=== PATIENT | female | born 1995 | race Caucasian/White ===

== ENCOUNTER 2016-09-18 18:04 | Emergency (ER) | payer OTHER ==
[~2016-09-18] VITALS: Ht 165.1 cm; Wt 71.5 kg
[~2016-09-18 18:04] MED LIST: ALBU1AER9 INH; CHOL1000 PO; EPP3/2 INJ; OXYC10SO PO; PRLNL PO; RANI150T3 PO; TRAM-10 PO; [UNRECOGNIZED DRUG - CODE] PO
[2016-09-18 18:07] VITALS: TEMP 37.2; Ht 165.1 cm; Wt 71.5 kg
[2016-09-18] MEDS ORDERED: ONDANSETRON INJ 2 MG/ML 2 ML VIAL IV STA (18:26)
[2016-09-18] MEDS ORDERED: KETOROLAC TROMETHAMINE 30 MG/ML VIAL IV STA (18:26)
[2016-09-18] MEDS ORDERED: MoRPHine SULFATE 4 MG/ML 1 ML CARP\\VIAL IV ONE (18:30)
[2016-09-18] MEDS ORDERED: SODIUM CHLORIDE 0.9% 1000ML 1,000 ML IV ONE (18:30)
[2016-09-18 18:46] LABS: BASO % 0.3 %; BASO ABS # 0.03 K/uL (0-0.2); COMPLETE YES; EOS % 1.3 %; HEMATOCRIT 37.7 % (37-47); IG% 0.1 %; LYMPH % 16.3 %; LYMPH ABS # 1.51 K/uL (1.2-3.4); MEAN CORPUSCULAR HEMOGLOBIN 27.8 pg (25-34); MEAN PLATELET VOLUME 9.9 fL (7.4-10.4); MONO % 9.1 %; NEUT % 72.9 %; PLATELET COUNT 265 K/uL (130-400); WHITE BLOOD COUNT 9.26 K/uL (4.8-10.8)
[2016-09-18 19:04] LABS: CALCIUM 8.9 mg/dl (8.5-10.1); CREATININE 0.66 mg/dl (0.60-1.20); POTASSIUM 3.5 mmol/L (3.5-5.1)
[2016-09-18 19:06] LABS: ALB/GLOB RATIO 1.2 (0.9-2)
[2016-09-18] MEDS ORDERED: ONDA4TAB46 PO (19:06)
[2016-09-18] MEDS ORDERED: IBUP-1459 PO (19:07)
[2016-09-18 19:52] LABS: URINE APPEARANCE CLOUDY (CLEAR); URINE BILIRUBIN NEG (NEG); URINE COLOR YELLOW; URINE EPITHELIAL CELL AUTO >30 /lpf (0-5); URINE NITRITE NEG (NEG); URINE SPECIFIC GRAVITY 1.004 (1.000-1.030); UROBILINOGEN NEG (NEG); ZZUR CULT IF INDIC CLEAN CATCH YES
[2016-09-18 19:54] LABS: MANUAL MICROSCOPIC REQUIRED? NO; REVIEW REQ? NO
[2016-09-18] MEDS ORDERED: HYDROmorphone INJ 0.5 MG/0.5 ML SYR IV STA (19:58)
[2016-09-18] MEDS ORDERED: HYDROmorphone INJ 1 MG/ML SYR IV STA (21:23)
[2016-09-18] MEDS ORDERED: PROM25TA9 PO (22:28)
[2016-09-18] MEDS ORDERED: OXYC1TAB3 PO (22:28)
[2016-09-18] MEDS ORDERED: OXYCODONE IR HOME PACK PO ONE (22:30)
[2016-09-18 23:01] VITALS: BP 135/78; PULSE 72; O2SAT 99
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
== END 2016-09-18 22:50 | disposition home or self-care (01) ==
LOC: C.EDB 18:04 → C.EDA 22:50
DX: S06.0X0A Concussion without loss of consciousness, initial encounter (principal); Y04.0XXA Assault by unarmed brawl or fight, initial encounter; J45.909 Unspecified asthma, uncomplicated; M41.9 Scoliosis, unspecified; Z91.030 Bee allergy status; Z88.0 Allergy status to penicillin; Z87.01 Personal history of pneumonia (recurrent); Z82.49 Family history of ischemic heart disease and other diseases of the circulatory system

== ENCOUNTER 2017-01-02 13:01 | Emergency (ER) | payer OTHER ==
[~2017-01-02] VITALS: Ht 165.1 cm; Wt 70.1 kg
[~2017-01-02 13:01] MED LIST changes: -ALBU1AER9 INH; +IBUP-1459 PO; +ONDA4TAB46 PO; -OXYC10SO PO; +OXYC1TAB3 PO; -PRLNL PO; -RANI150T3 PO; -TRAM-10 PO; -[UNRECOGNIZED DRUG - CODE] PO
[2017-01-02 13:06] VITALS: TEMP 36.7; Ht 165.1 cm; Wt 70.1 kg
[2017-01-02] MEDS ORDERED: DiphenhydrAMINE HCL 50 MG/ML VIAL IV STA (13:22)
[2017-01-02] MEDS ORDERED: PROCHLORPERAZINE 5 MG/ML 2 ML VIAL IV STA (13:22)
[2017-01-02] MEDS ORDERED: KETOROLAC TROMETHAMINE 30 MG/ML VIAL IV STA (13:22)
[2017-01-02] MEDS ORDERED: ACET325T96 PO (13:25)
--- NOTE | 2017-01-02 13:41 | EMERGENCY ROOM VISIT NOTE ---
History First contact with patient: 13:07 Chief Complaint: NAUSEA Stated Complaint: NAUSEA & VOMITING BLOOD, MIGRAINE Nursing Triage Summary: triage note: pt reports headache since this am. pt also reports nausea and vomitting. pt reports blood in emesis. History of Present Illness The patient is a 21 year old female who presents to the Emergency Room with complaints of a headache which began the swelling. The patient states that she woke up approximately 4 hours ago with a headache. Headache has gradually worsened throughout the day. She has associated photosensitivity. She has had 2 episodes of vomiting and states that with the second episode, there was a small amount of blood in her emesis. This occurred 15 minutes ago. The patient does report a history of migraines as a teenager, but states that she "grew out of them." She reports the pain was mild this morning but has gradually worsened and become severe during the day. She states that the headache radiates across the front of her head and is worse on the left side. She took 2 Tylenol without relief. She does report a history of several head injuries, but nothing recently. She denies any recent illnesses, fevers/chills , neck pain/stiffness, numbness, weakness or confusion. She denies any abdominal pain. Review of Systems A complete 10 point review of systems was reviewed with the patient with pertinent positives and negatives as per history of present illness. All else were negative. Past Medical/Surgical History Medical Problems: (1) Asthma (2) Pneumonia (3) Scoliosis (4) Streptococcal Pharyngitis Surgical Problems: (1) History of back surgery (2) History of sinus surgery Family History Heart disease Hypertension Social History Smoking Status: Never Smoker Alcohol Use: none Drug Use: none Marital Status: single Housing Status: lives with family, other Occupation Status: employed Current/Historical Medications Scheduled Epinephrine (Epipen 2-Ángel), 1 DOSE INJ UD Ondasetron Odt (Zofran Odt), 4 MG SL Q6H Scheduled PRN Acetaminophen Tab (Tylenol), 650 MG PO UD PRN for Pain Allergies Coded Allergies: Amoxicillin (Verified Allergy, Severe, THROAT TIGHTNESS/FELT FUNNY, ) Clavulanic Acid (Verified Allergy, Severe, THROAT TIGHTNESS/FELT FUNNY, ) Penicillins (Verified Allergy, Severe, ANAPHYLAXIS, 01/02/17) BEE STING (Verified Allergy, Unknown, ANAPHYLAXIS, 01/02/17) Physical Exam Vital Signs Date Time Temp Pulse Resp B/P (MAP) Pulse Ox O2 Delivery O2 Flow Rate FiO2 01/02/17 15:10 86 20 123/71 95 01/02/17 13:06 36.7 98 18 147/79 97 Room Air Physical Exam VITALS: Vitals are noted on the nurse's note and reviewed by myself. Vital signs stable. GENERAL: This is a 21-year-old female, resting quietly in a dark room, in no acute distress, well-developed well-nourished. HEAD: Normocephalic atraumatic. EARS: External auditory canals clear, tympanic membranes pearly garcia without erythema or effusion bilaterally. EYES: Pupils equal round and reactive to light and accommodation. Conjunctivae without injection, sclerae without icterus. Extraocular movements intact. NOSE: Patent, turbinates without inflammation or discharge. MOUTH: Mucous membranes moist. Tonsils are not enlarged. Pharynx without erythema or exudate. Tongue does not deviate. NECK: Supple without nuchal rigidity. No lymphadenopathy. HEART: Regular rate and rhythm without murmurs gallops or rubs. LUNGS: Clear to auscultation bilaterally without wheezes, rales or rhonchi. ABDOMEN: Soft, nontender to palpation. MUSCULOSKELETAL: Full range of motion throughout all extremities. Strength 5/5 throughout. NEURO: Patient was alert and oriented to person place and time. Normal sensation to light and sharp touch. Deep tendon reflexes 2+ throughout. No focal neurological deficits. Normal finger to nose testing. Medical Decision & Procedures ER Provider Diagnostic Interpretation: HEAD CT NONCONTRAST Findings: The paranasal sinuses and mastoid air cells are clear. The calvarium and skull base are intact. The ventricles and sulci are within normal limits. There is no mass, hematoma, midline shift, or acute infarct. Impression: No acute intracranial abnormality. Laboratory Results 01/02/17 13:35 Red Blood Count 4.91, Mean Corpuscular Volume 83.7, Mean Corpuscular Hemoglobin 28.5, Mean Corpuscular Hemoglobin Concent 34.1, Mean Platelet Volume 10.1, Neutrophils (%) (Auto) 75.0, Lymphocytes (%) (Auto) 17.1, Monocytes (%) (Auto) 5.5, Eosinophils (%) (Auto) 1.9, Basophils (%) (Auto) 0.4, Neutrophils # (Auto) 7.52, Lymphocytes # (Auto) 1.72, Monocytes # (Auto) 0.55, Eosinophils # (Auto) 0.19, Basophils # (Auto) 0.04 01/02/17 13:35 Test 01/02/17 13:29 01/02/17 13:35 Urine Test NEG (NEG) White Blood Count 10.03 K/uL (4.8-10.8) Red Blood Count 4.91 M/uL (4.2-5.4) Hemoglobin 14.0 g/dL (12.0-16.0) Hematocrit 41.1 % (37-47) Mean Corpuscular Volume 83.7 fL (80-100) Mean Corpuscular Hemoglobin 28.5 pg (25-34) Mean Corpuscular Hemoglobin Concent 34.1 g/dl (32-36) Platelet Count 277 K/uL (130-400) Mean Platelet Volume 10.1 fL (7.4-10.4) Neutrophils (%) (Auto) 75.0 % Lymphocytes (%) (Auto) 17.1 % Monocytes (%) (Auto) 5.5 % Eosinophils (%) (Auto) 1.9 % Basophils (%) (Auto) 0.4 % Neutrophils # (Auto) 7.52 K/uL (1.4-6.5) Lymphocytes # (Auto) 1.72 K/uL (1.2-3.4) Monocytes # (Auto) 0.55 K/uL (0.11-0.59) Eosinophils # (Auto) 0.19 K/uL (0-0.5) Basophils # (Auto) 0.04 K/uL (0-0.2) RDW Standard Deviation 38.7 fL (36.4-46.3) RDW Coefficient of Variation 12.9 % (11.5-14.5) Immature Granulocyte % (Auto) 0.1 % Immature Granulocyte # (Auto) 0.01 K/uL (0.00-0.02) Anion Gap 6.0 mmol/L (3-11) Est Creatinine Clear Calc Drug Dose 135.5 ml/min Estimated GFR () 146.8 Estimated GFR (Non- 126.7 BUN/Creatinine Ratio 20.1 (10-20) Calcium Level 9.1 mg/dl (8.5-10.1) Medications Administered Medications (Trade) Dose Ordered Sig/Qi Route Start Time Stop Time Status Last Admin Dose Admin Ketorolac Tromethamine (Toradol Inj) 30 mg NOW STAT IV 01/02/17 13:22 01/02/17 13:25 DC 01/02/17 13:49 30 MG Prochlorperazine Edisylate (Compazine Inj) 10 mg NOW STAT IV 01/02/17 13:22 01/02/17 13:25 DC 01/02/17 13:49 10 MG Diphenhydramine HCl (Benadryl Inj) 25 mg NOW STAT IV 01/02/17 13:22 01/02/17 13:25 DC 01/02/17 13:49 25 MG Hydromorphone HCl (Dilaudid Inj) 1 mg NOW STAT IV 01/02/17 14:18 01/02/17 14:19 DC 01/02/17 14:28 1 MG ED Course The patient was evaluated as above. Labs were drawn and IV access was obtained. Patient was medicated with 30 mg Toradol, 10 mg Compazine, and [address] of the head was performed and read by radiology as above. Patient was reevaluated and had relief of her nausea, but still had a headache. 1 mg Dilaudid was ordered. Patient was reevaluated and stated she felt much better. She felt ready for discharge. Discharge instructions were reviewed with the patient. The patient verbalized understanding of my assessment and treatment plan and was discharged home in good condition. Medical Decision The differential diagnosis includes acute intracranial bleed, meningitis, encephalitis, mass or mass effect, sinusitis, infection, tumor, headache, temporal arteritis and carbon monoxide exposure, and migraine. The patient is a 21-year-old female who presents today complaining of severe, gradually worsening headache. The patient does have a history of migraines but has not had one for several years. She states this headache is more severe in nature than headaches she has had a recently. Therefore, further workup was ordered. Labs were unremarkable. There was no leukocytosis. CT of the head showed no acute findings. I did have a discussion with the patient and explained to her that the only way to definitively rule out a subarachnoid hemorrhage is by lumbar puncture. The patient feels much better and prefers to be discharged home. I am not highly suspicious of a subarachnoid hemorrhage, as her headache was gradual in onset and there have been no neurological findings. This does sound consistent with a migraine and I recommended that the patient follow-up with her primary care provider and possibly neurology. She was given a prescription of Zofran and instructed to continue over-the- counter medications at home as needed. She will return here for worsening headache or any other new/concerning symptoms. Based on the patient's presentation and work up, I feel the patient is stable for outpatient treatment. The patient was educated to return to the emergency department for any worsening of their current condition or new/concerning symptoms. She will follow up with her primary care provider. Medication reconciliation: I attest that I have personally reviewed the patient 's current medication list. Blood pressure screening: Patient was found to have normal blood pressure on screening and does not require follow-up. Impression Primary Impression: Headache Departure Information Dispostion Home / Self-Care Condition GOOD Prescriptions Ondasetron Odt (ZOFRAN ODT) 4 Mg Tab 4 MG SL Q6H for Nausea, #10 TAB Prov: Minnie Singh .ETTA 01/02/17 Referrals RV. Sommer MD (PCP) Patient Instructions My [facility] Additional Instructions You have been treated in the Emergency Department for a Headache. You have received pain medicine in the emergency department which impairs your ability to operate a vehicle. It is illegal for you to drive after receiving these medicines. You have been prescribed Zofran to be used for any nausea or vomiting. Take as prescribed. For pain control, you can use the following [id number] medicines (if >12 yo): - Regular strength (325mg/tab) Tylenol (acetaminophen) 2 tabs every 4-6 hours as needed. Do not exceed 12 tablets in a 24 hour period. Avoid taking more than 4 grams (4000 mg) of Tylenol per day. This includes any other sources of acetaminophen you may take on a regular basis. - Regular strength (200 mg/tab) Advil (ibuprofen) 1-2 tabs every 4-6 hours as needed. Do not exceed a dose of 3200 mg per day. You should relax in a quiet, dark place for the rest of the day. Avoid any possible triggers including: cigarette smoke, caffeine, nicotine, chocolate, wine, beer, loud noises or music, or bright lights. Follow-up with your primary care provider within 48 hours. Return to the Emergency Department if your current symptoms worsen despite treatment course outlined above, or if you develop any of the following symptoms : intractable pain despite aforementioned treatment course, visual disturbances , loss of vision, unilateral weakness or facial drooping, slurring of speech, loss of coordination, or loss of consciousness. Problem Qualifiers Primary Impression: Headache Headache type: unspecified Headache chronicity pattern: acute headache Intractability: not intractable Qualified Codes: R51 - Headache
[2017-01-02 13:53] LABS: BASO % 0.4 %; BASO ABS # 0.04 K/uL (0-0.2); COMPLETE YES; EOS % 1.9 %; HEMATOCRIT 41.1 % (37-47); IG% 0.1 %; LYMPH % 17.1 %; LYMPH ABS # 1.72 K/uL (1.2-3.4); MEAN CELL VOLUME 83.7 fL (80-100); MEAN CORPUSCULAR HEMOGLOBIN 28.5 pg (25-34); MEAN CORPUSCULAR HGB CONC 34.1 g/dl (32-36); MEAN PLATELET VOLUME 10.1 fL (7.4-10.4); MONO % 5.5 %; PLATELET COUNT 277 K/uL (130-400); RED BLOOD COUNT 4.91 M/uL (4.2-5.4); WHITE BLOOD COUNT 10.03 K/uL (4.8-10.8)
--- NOTE | 2017-01-02 14:07 | DIAGNOSTIC IMAGING REPORT ---
HEAD CT NONCONTRAST CT DOSE: 638.56 mGycm HISTORY: headache, vomiting, photosensitivity TECHNIQUE: Multiaxial CT images of the head were performed without the use of intravenous contrast. Comparison: 12/14/2015 Findings: The paranasal sinuses and mastoid air cells are clear. The calvarium and skull base are intact. The ventricles and sulci are within normal limits. There is no mass, hematoma, midline shift, or acute infarct. Impression: No acute intracranial abnormality. Electronically signed by: Eyad Myrick M.D. 01/02/2017 2:05 PM Dictated Date/Time: 01/02/2017 2:04 PM
[2017-01-02 14:12] LABS: BUN/CREATININE RATIO 20.1 (10-20); CALCIUM 9.1 mg/dl (8.5-10.1); CREATININE 0.64 mg/dl (0.60-1.20); POTASSIUM 3.6 mmol/L (3.5-5.1)
[2017-01-02] MEDS ORDERED: HYDROmorphone INJ 1 MG/ML SYR IV STA (14:18)
[2017-01-02] MEDS ORDERED: ONDA4TAB10 SL (14:52)
[2017-01-02 15:10] VITALS: BP 123/71; PULSE 86; O2SAT 95
== END 2017-01-02 15:12 | disposition home or self-care (01) ==
LOC: C.EDB 13:03
DX: R51 Headache (principal); J45.909 Unspecified asthma, uncomplicated; Z86.19 Personal history of other infectious and parasitic diseases; Z98.890 Other specified postprocedural states; Z88.0 Allergy status to penicillin; Z88.1 Allergy status to other antibiotic agents; Z88.8 Allergy status to other drugs, medicaments and biological substances; Z91.030 Bee allergy status; Z82.49 Family history of ischemic heart disease and other diseases of the circulatory system

== ENCOUNTER 2017-10-15 10:36 | Emergency (ER) | payer OTHER ==
[~2017-10-15] VITALS: Ht 165.1 cm; Wt 69.9 kg
[~2017-10-15 10:36] MED LIST changes: +ACET-1693 PO; -CHOL1000 PO; -EPP3/2 INJ; -IBUP-1459 PO; -ONDA4TAB46 PO; -OXYC1TAB3 PO
[2017-10-15 10:43] VITALS: TEMP 36.9; Ht 165.1 cm; Wt 69.9 kg
[2017-10-15] MEDS ORDERED: METHYLPREDNISOLONE 125 MG VIAL IV STA (11:08)
[2017-10-15] MEDS ORDERED: DOXY100C76 PO (11:09)
[2017-10-15] MEDS ORDERED: PRED20TA PO (11:09)
[2017-10-15] MEDS ORDERED: AMT10 PO (11:09)
[2017-10-15 11:40] LABS: BASO % 0.8 %; BASO ABS # 0.05 K/uL (0-0.2); EOS % 2.6 %; EOS ABS # 0.17 K/uL (0-0.5); HEMATOCRIT 39.5 % (37-47); HEMOGLOBIN 13.7 g/dL (12.0-16.0); IG# 0.01 K/uL (0.00-0.02); LYMPH % 33.8 %; LYMPH ABS # 2.24 K/uL (1.2-3.4); MEAN CORPUSCULAR HEMOGLOBIN 28.4 pg (25-34); MEAN CORPUSCULAR HGB CONC 34.7 g/dl (32-36); MEAN PLATELET VOLUME 9.8 fL (7.4-10.4); MONO % 12.8 %; MONO ABS # 0.85 K/uL (0.11-0.59); NEUT % 49.8 %; PLATELET COUNT 247 K/uL (130-400); RED CELL DISTRIBUTION WIDTH SD 39.5 fL (36.4-46.3); WHITE BLOOD COUNT 6.62 K/uL (4.8-10.8)
[2017-10-15 11:58] LABS: CALCIUM 9.1 mg/dl (8.5-10.1); CREATININE 0.7 mg/dl (0.60-1.20); POTASSIUM 3.1 mmol/L (3.5-5.1)
[2017-10-15] MEDS ORDERED: ALBUT/IPRATROP 3MG/0.5MG NEB 3 ML VIAL INH SCH (12:00)
--- NOTE | 2017-10-15 12:05 | DIAGNOSTIC IMAGING REPORT ---
CHEST ONE VIEW PORTABLE CLINICAL HISTORY: SOB, wheeze COMPARISON STUDY: Chest radiograph June 11, 2015. FINDINGS: Thoracolumbar spine scoliosis hardware is noted. No pneumothorax or pleural effusion is present. There is no consolidation or evidence for pulmonary edema. Cardiomediastinal silhouette is unremarkable. IMPRESSION: No acute cardiopulmonary findings. Electronically signed by: Bishop Arreguin M.D. 10/15/2017 12:03 PM Dictated Date/Time: 10/15/2017 12:03 PM
[2017-10-15] MEDS ORDERED: METH4PAK PO (13:33)
[2017-10-15] MEDS ORDERED: VNTHFA/IN INH (13:33)
[2017-10-15 13:49] VITALS: BP 131/77; PULSE 80; O2SAT 98
--- NOTE | 2017-10-15 14:04 | EMERGENCY ROOM VISIT NOTE ---
History Report prepared by Cristhian: Edis Barreto Under the Supervision of: Dr. Angelo Mcdonald D.O. First contact with patient: 10:51 Chief Complaint: SHORTNESS OF BREATH Stated Complaint: SOB, FEVER, COUGH, CONGESTION, WHEEZING Nursing Triage Summary: Pt states, "For over a week I thought I had a sinus infection and ear infection. I went to urgent care on . She gave me an abx and prednisone. I feel worse. Now it's in my chest really bad. I have used my neb and nothing has been helping." History of Present Illness The patient is a 21 year old female who presents to the Emergency Room with complaints of worsening shortness of breath beginning a week ago. She was seen at an urgent care center for similar symptoms four days ago and was diagnosed with an ear infection and sinus infection. She was discharged on Doxycycline and Prednisone. The patient states that her breathing has worsened, and she has now developed chest tightness. She has been using a nebulizer every four hours, but nothing has improved her symptoms. She has a history of asthma. Source of History: patient Onset: a week ago Quality: other (shortness of breath) Timing: worsening Modifying Factors (Relieving): other (none) Associated Symptoms: + chest pain (tightness) Review of Systems See HPI for pertinent positives & negatives. A total of 10 systems reviewed and were otherwise negative. Past Medical & Surgical Medical Problems: (1) Asthma (2) Pneumonia (3) Scoliosis (4) Streptococcal Pharyngitis Surgical Problems: (1) History of back surgery (2) History of sinus surgery Family History Heart disease Hypertension Social History Smoking Status: Never Smoker Alcohol Use: none Drug Use: none Marital Status: single Housing Status: lives with family, other Occupation Status: employed Current/Historical Medications Scheduled Albuterol Hfa (Ventolin Hfa), 2-4 PUFFS INH Q6H Amitriptyline HCl (Amitriptyline HCl), 10 MG PO HS Doxycycline Monohydrate (Monodox), 100 MG PO BID Epinephrine (Epipen 2-Ángel), 1 DOSE INJ UD Methylprednisolone (Medrol Dosepak), 1 PKT PO UD Prednisone (Prednisone), 20 MG PO BID Allergies Coded Allergies: Amoxicillin (Verified Allergy, Severe, THROAT TIGHTNESS/FELT FUNNY, ) Clavulanic Acid (Verified Allergy, Severe, THROAT TIGHTNESS/FELT FUNNY, ) Penicillins (Verified Allergy, Severe, ANAPHYLAXIS, 10/15/17) BEE STING (Verified Allergy, Unknown, ANAPHYLAXIS, 10/15/17) Physical Exam Vital Signs Date Time Temp Pulse Resp B/P (MAP) Pulse Ox O2 Delivery O2 Flow Rate FiO2 10/15/17 13:49 80 18 131/77 98 10/15/17 13:02 93 18 132/85 98 Room Air 10/15/17 10:43 36.9 112 18 143/92 98 Room Air Physical Exam CONSTITUTIONAL/VITAL SIGNS: Reviewed / noted above. GENERAL: Non-toxic in appearance. INTEGUMENTARY: Warm, dry, and [place]. HEAD: Normocephalic. EYES: without scleral icterus or trauma. ENT/OROPHARYNX: clear and moist. LYMPHADENOPATHY/NECK: Is supple without lymphadenopathy or meningismus. RESPIRATORY: Minimal scattered end expiratory wheezing. CARDIOVASCULAR: Regular rate and rhythm. GI/ABDOMEN: Soft and nontender. No organomegaly or pulsatile mass. No rebound or guarding. Normal bowel sounds. EXTREMITIES: Warm and well perfused. BACK: No CVA tenderness. NEUROLOGICAL: Intact without focal deficits. PSYCHIATRIC: normal affect. MUSCULOSKELETAL: Normally developed with good muscle tone. Medical Decision & Procedures ER Provider Diagnostic Interpretation: Radiology results as stated below per my review and radiologist interpretation: CHEST ONE VIEW PORTABLE FINDINGS: Thoracolumbar spine scoliosis hardware is noted. No pneumothorax or pleural effusion is present. There is no consolidation or evidence for pulmonary edema. Cardiomediastinal silhouette is unremarkable. IMPRESSION: No acute cardiopulmonary findings. Electronically signed by: Bishop Arreguin M.D. 10/15/2017 12:03 PM Laboratory Results 10/15/17 11:30 Red Blood Count 4.82, Mean Corpuscular Volume 82.0, Mean Corpuscular Hemoglobin 28.4, Mean Corpuscular Hemoglobin Concent 34.7, Mean Platelet Volume 9.8, Neutrophils (%) (Auto) 49.8, Lymphocytes (%) (Auto) 33.8, Monocytes (%) (Auto) 12.8, Eosinophils (%) (Auto) 2.6, Basophils (%) (Auto) 0.8, Neutrophils # (Auto ) 3.30, Lymphocytes # (Auto) 2.24, Monocytes # (Auto) 0.85, Eosinophils # (Auto ) 0.17, Basophils # (Auto) 0.05 10/15/17 11:30 Test 10/15/17 11:30 White Blood Count 6.62 K/uL (4.8-10.8) Red Blood Count 4.82 M/uL (4.2-5.4) Hemoglobin 13.7 g/dL (12.0-16.0) Hematocrit 39.5 % (37-47) Mean Corpuscular Volume 82.0 fL (80-100) Mean Corpuscular Hemoglobin 28.4 pg (25-34) Mean Corpuscular Hemoglobin Concent 34.7 g/dl (32-36) Platelet Count 247 K/uL (130-400) Mean Platelet Volume 9.8 fL (7.4-10.4) Neutrophils (%) (Auto) 49.8 % Lymphocytes (%) (Auto) 33.8 % Monocytes (%) (Auto) 12.8 % Eosinophils (%) (Auto) 2.6 % Basophils (%) (Auto) 0.8 % Neutrophils # (Auto) 3.30 K/uL (1.4-6.5) Lymphocytes # (Auto) 2.24 K/uL (1.2-3.4) Monocytes # (Auto) 0.85 K/uL (0.11-0.59) Eosinophils # (Auto) 0.17 K/uL (0-0.5) Basophils # (Auto) 0.05 K/uL (0-0.2) RDW Standard Deviation 39.5 fL (36.4-46.3) RDW Coefficient of Variation 13.0 % (11.5-14.5) Immature Granulocyte % (Auto) 0.2 % Immature Granulocyte # (Auto) 0.01 K/uL (0.00-0.02) Anion Gap 8.0 mmol/L (3-11) Est Creatinine Clear Calc Drug Dose 123.7 ml/min Estimated GFR () 142.5 Estimated GFR (Non- 123.0 BUN/Creatinine Ratio 11.6 (10-20) Calcium Level 9.1 mg/dl (8.5-10.1) Laboratory results as stated above per my review. Medications Administered Medications (Trade) Dose Ordered Sig/Qi Route Start Time Stop Time Status Last Admin Dose Admin Albuterol/ Ipratropium (Duoneb) 3 ml QIDR INH 3/26/18 12:00 10/15/17 14:18 DC 10/15/17 11:28 3 ML Methylprednisolone Sodium Succinate (Solu-Medrol IV) 125 mg NOW STAT IV 10/15/17 11:08 10/15/17 11:18 DC 10/15/17 11:28 125 MG ED Course 1058: Previous medical records were reviewed. The patient was evaluated in room B5. A complete history and physical examination was performed. 1108: Ordered Solu-Medrol 125 mg IV. 1200: Ordered DuoNeb 3 mL INH. 1340: On reevaluation, the patient is resting comfortably. I discussed the results and findings with the patient. She verbalized agreement of the treatment plan. The patient was discharged home. Medical Decision the differential was considered includes acute myocardial infarction, acute coronary syndrome, myocarditis, pericarditis, pericardial effusions /tamponade, esophageal perforation, pulmonary embolism, pneumonia, pneumothorax, cardiomyopathy, congestive heart, anemia , COPD/asthma exacerbation. This is a 21-year-old female who presents to the ED with a chief complaint of shortness of breath. The patient states that her symptoms started a week ago. She was started on doxycycline a couple of days ago and a course of prednisone. The patient states that she seems to be getting worse. She was seen for evaluation by myself and the resident. Her exam revealed diffuse respiratory wheezing on initial exam. She was treated with a DuoNeb treatment and some IV Solu-Medrol. On reassessment, she has some scattered end expiratory wheezing but seems to be improved. Her CBC and complete chemistry panel was unremarkable. Chest x-ray did not show acute process. The patient was discharged with a prescription for albuterol inhaler as well as Medrol Dosepak. She was felt to be stable for discharge per Medication Reconcilliation Current Medication List: was personally reviewed by me Blood Pressure Screening Patient's blood pressure: Elevated blood pressure Blood pressure disposition: Elevated BP felt to be situational Impression Primary Impression: Acute bronchitis Additional Impression: Asthma with exacerbation Scribe Attestation The scribe's documentation has been prepared under my direction and personally reviewed by me in its entirety. I confirm that the note above accurately reflects all work, treatment, procedures, and medical decision making performed by me. Departure Information Dispostion Home / Self-Care Prescriptions Albuterol Hfa (VENTOLIN HFA) 200 Puffs/50570 Mcg Aers 2-4 PUFFS INH Q6H for Wheezing, #1 INHALER Prov: Jessica Méndez M.D. 10/15/17 Methylprednisolone (MEDROL DOSEPAK) 4 Mg Ángel 1 PKT PO UD for 6 Days, #1 PKT Prov: Jessica Méndez M.D. 10/15/17 Referrals No Doctor, Assigned (PCP) Forms HOME CARE DOCUMENTATION FORM, IMPORTANT VISIT INFORMATION Patient Instructions My [facility] Additional Instructions You were seen for difficulty breathing which was due to an asthma exacerbated by your recent sinusitus illness. We recommend you complete your course of antibiotics for the sinusitis. Continue to use your inhaler every 4-6 hours if you begin to feel difficulty breathing or wheezing or coughing. Please complete the steroid medrol dose pack as prescribed -- this has been sent to your pharmacy. We have also written for an inhaler as well. Please establish with a primary care physician as asthma is a lifelong condition that requires at least annual follow up. If you have difficulty breathing that is not helped by your inhaler, please come back to the ER. Use tylenol for fever or pain, take as prescribed. Stay well hydrated. Problem Qualifiers
[2017-10-15] MEDS ORDERED: EPP3/2 INJ (15:31)
== END 2017-10-15 13:51 | disposition home or self-care (01) ==
LOC: C.EDB 10:38
DX: J20.9 Acute bronchitis, unspecified (principal); J45.901 Unspecified asthma with (acute) exacerbation; M41.9 Scoliosis, unspecified; Z82.49 Family history of ischemic heart disease and other diseases of the circulatory system; Z88.0 Allergy status to penicillin; Z88.1 Allergy status to other antibiotic agents; Z91.030 Bee allergy status

== ENCOUNTER → 2018-02-21 | Outpatient (CLI) | payer OTHER ==
[~2018-02-21] MED LIST changes: -ACET-1693 PO; +AMT10 PO; +DOXY100C76 PO; +EPP3/2 INJ; +ONDA4TAB10 SL; +PRED20TA PO; +VNTHFA/IN INH
[2018-02-21 23:56] LABS: BASO % 0.4 %; BASO ABS # 0.04 K/uL (0-0.2); EOS % 2.6 %; EOS ABS # 0.24 K/uL (0-0.5); HEMATOCRIT 40.2 % (37-47); HEMOGLOBIN 13.6 g/dL (12.0-16.0); IG# 0.02 K/uL (0.00-0.02); LYMPH % 34.5 %; LYMPH ABS # 3.14 K/uL (1.2-3.4); MEAN CELL VOLUME 83.1 fL (80-100); MEAN CORPUSCULAR HEMOGLOBIN 28.1 pg (25-34); MEAN CORPUSCULAR HGB CONC 33.8 g/dl (32-36); MEAN PLATELET VOLUME 10.2 fL (7.4-10.4); MONO % 9.5 %; MONO ABS # 0.86 K/uL (0.11-0.59); NEUT % 52.8 %; NEUT ABS # 4.79 K/uL (1.4-6.5); PLATELET COUNT 303 K/uL (130-400); RED CELL DISTRIBUTION WIDTH CV 12.9 % (11.5-14.5); RED CELL DISTRIBUTION WIDTH SD 39.1 fL (36.4-46.3); WHITE BLOOD COUNT 9.09 K/uL (4.8-10.8)
[2018-02-22 00:30] LABS: ALBUMIN 4.2 gm/dl (3.4-5.0); ALKALINE PHOSPHATASE 74 U/L (45-117); ALT/SGPT 15 U/L (12-78); AST/SGOT 10 U/L (15-37); BLOOD UREA NITROGEN 13 mg/dl (7-18); CALCIUM 8.7 mg/dl (8.5-10.1); CARBON DIOXIDE 23 mmol/L (21-32); CHOLESTEROL 144 mg/dl (0-200); CREATININE 0.72 mg/dl (0.60-1.20); GLUCOSE 97 mg/dl (70-99); LDL CHOLESTEROL CALCULATED 76 mg/dl; POTASSIUM 3.8 mmol/L (3.5-5.1); SODIUM 138 mmol/L (136-145)
== END | disposition home or self-care (01) ==
LOC: C.LAB 21:58
PROVIDERS: ATTEND Family Medicine
DX: F41.1 Generalized anxiety disorder (principal); Z13.220 Encounter for screening for lipoid disorders; Z13.228 Encounter for screening for other metabolic disorders; N92.6 Irregular menstruation, unspecified

== ENCOUNTER 2020-05-05 10:39 | Observation (INO) ==
[2020-05-05] MEDS ORDERED: ACETAMINOPHEN 325 MG TAB PO PRN (12:10)
[2020-05-05] MEDS ORDERED: ONDANSETRON INJ 2 MG/ML 2 ML VIAL IV PRN (12:10)
--- NOTE | 2020-05-05 12:17 | History & Physical Report ---
Date of Service May 05, 2020 Assessment & Plan (1) Asthma exacerbation: failed Prednisone taper and Doxycycline and frequent nebulizer treatments at home will give Solu Medrol 40mg IV q8 Levaquin 750mg PO daily x 5 days for atypical coverage Duoneb q2 PRN and QID scheduled continue Montelukast and Fifi she follows with allergy for dupilumab injections every other week (2) Acute bronchitis: (3) Irritable bowel syndrome with diarrhea: continue Bentyl and Rifaximin (4) GERD (gastroesophageal reflux disease): PPI no symptoms currently Admission and Anticipated Discharge Date Admission Date: May 05, 2020 History of Present Illness Chief Complaint: My chest is so tight and I am coughing Primary Care Provider: Doug Winters PA-C 24 yo female with history of asthma, she has been managed with dupilumab for the past year with Allergy and she had been doing well, no flares at all. 10 days ago she started with a head cold. She had congestion, runny nose. She th en developed chest tightness and non-productive cough. She called [facility] C CASTILLO with pulmonology and he prescribed her a Prednisone taper starting at 60mg as well as a course of Doxycycline. She has nebulizers at home, using every 4 hours at home. She was using her Fifi and montelukast. No improvement in her symptoms. She was seen in the ED on 05/02 for evaluation. Flu swab and COVID testing was negative. She was sent back home since she was not hypoxic on room air. She returned to [facility] Winters today and she was having a lot of coughing, feeling short of breath. He called to request direct admission since she was not improving on steroids and antibiotics. Her recent health history also includes IBS managed by Dr Zaidi with [facility]. She is much improved with Bentyl and a 14 day course of Rifaximin TID. Allergies Allergy/AdvReac Type Severity Reaction Status Date / Time adhesive Allergy Severe skin Verified 05/02/20 13:15 irritation, hives, rash amoxicillin Allergy Severe THROAT Verified 05/02/20 13:15 TIGHTNESS/FELT FUNNY clavulanic acid Allergy Severe THROAT Verified 05/02/20 13:15 TIGHTNESS/FELT FUNNY Penicillins Allergy Severe ANAPHYLAXIS Verified 05/02/20 13:15 bee venom protein (honey bee) Allergy Unknown ANAPHYLAXIS Verified 05/02/20 13:15 Home Medications Home Medications Medication Instructions Recorded Confirmed Type montelukast [Singulair] 10 mg PO HS 06/30/18 05/05/20 History albuterol sulfate 3 ml INHALATION QID PRN 10/23/18 05/05/20 History epinephrine 0.3 mg/0.3 mL 0.3 mg IM UD PRN #1 ea 02/27/19 05/05/20 Rx injection, auto-injector fexofenadine [Fifi Allergy] 180 mg PO HS 03/29/19 05/05/20 History albuterol sulfate 90 mcg/actuation 2 puff INHALATION Q6H PRN #18 gm 06/26/19 05/05/20 Rx aerosol inhaler amitriptyline 10 mg tablet 30 mg PO HS tab 09/29/19 05/05/20 History diclofenac sodium 75 mg 75 mg PO BID PRN 09/29/19 05/05/20 History tablet,delayed release sumatriptan succinate 50 mg tablet 50 mg PO Q2H PRN 09/29/19 05/05/20 History ondansetron HCl [Zofran] 4 mg PO Q6H PRN #20 tab 03/08/20 05/05/20 Rx silver sulfadiazine 1 applic TOPICAL BID 03/08/20 05/05/20 History hydrocortisone 2.5 % topical cream 1 applic MA BID #30 g 03/25/20 05/05/20 Rx with perineal applicator dicyclomine 10 mg capsule 10 mg PO TID #90 cap 04/07/20 05/05/20 Rx dupilumab 300 mg/2 mL subcutaneous See Rx Instructions .ROUTE 04/20/20 05/05/20 Rx syringe .COMPLEX #4 unspecified Bifidobacterium infantis 4 mg 4 mg PO DAILY #30 cap 04/23/20 05/05/20 Rx capsule rifaximin 550 mg tablet 550 mg PO TID 14 Days #42 tab 04/23/20 05/05/20 Rx doxycycline hyclate 100 mg capsule 100 mg PO BID #20 cap 04/29/20 05/05/20 Rx fluconazole 100 mg tablet 100 mg PO DAILY #10 tab 04/29/20 05/05/20 Rx pantoprazole 40 mg tablet,delayed 40 mg PO BID #60 tab 04/29/20 05/05/20 Rx release prednisone 10 mg tablet See Rx Instructions PO DAILY #36 04/29/20 05/05/20 Rx tab benzonatate [Tessalon Perles] 100 mg PO TID PRN #20 cap 05/02/20 05/05/20 Rx Past Med/Surg History Medical History Anxiety Asthma Poorly controlled; frequently using PRN neb trtmt, PRN INH; follows w/ [facility] allergy/immunology and pulm. Chronic steroid use (hx of use, no longer on currently) Managed by pulm, for severe persistent asthma. Depression Endometriosis GERD (gastroesophageal reflux disease) History of concussion multiple (last one about ~2017) History of hypertension no medications currently (situational) History of ovarian cyst Scoliosis s/p spinal surgery -- major fusion of lumbar and thoracic spine (see CXR) Sleep apnea no device Ventral hernia Surgical History History of anesthesia reaction SEVERE asthma attacks/panic attacks coming out of anesthesia History of back surgery at age 15; hardware present History of bronchoscopy September 2018 History of sinus surgery For deviated septum and nasal cyst History of tonsillectomy and adenoidectomy Family History Other No family history of adverse response to anesthesia No pertinent family history Social History Smoking Status: Never smoker Second Hand Exposure: No; Do You Dip or Chew Tobacco: No; Hx Alcohol Use: No Hx Substance Use: No Preferred Language: Gabonese Communication Ability: Effective Multimedia Services Coordinator Required: No Beliefs That Will Affect Care: None Current Living Situation: Alone current occupational 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 Other Information That Helps Us Care for You: No Feels Safe at Home: Yes Assistive Devices: Contacts and Glasses Assistive Devices Comment: Contacts intact at this time Review of Systems Review of Systems: All systems reviewed & are unremarkable except as noted in Subjective Constitutional: no fever Respiratory: + cough, + chest congestion, + dyspnea, + dyspnea on exertion and + wheezing; no hemoptysis, no snoring and no sputum production Physical Exam Constitutional: WD/WN, vitals as above Eyes: PERRL, conjunctivae normal, anicteric sclerae ENMT: external ear and nose normal, oropharynx normal Neck: trachea midline, no thyromegaly Respiratory: normal respiratory effort and + cough; no respiratory distress Auscultation: + wheezes; no crackles, no rales and no rhonchi Cardiovascular: RRR, no murmur, no edema Gastrointestinal (Abdomen): normal bowel sounds, soft, nontender, no hepatosplenomegaly Musculoskeletal: no cyanosis or clubbing, extremities motor strength 5/5 Skin: no rashes, warm and dry Neurologic: patellar DTR's 2+ bilat, sensation intact and PERRL, EOMI, accommodation nl, no face palsy, no dysarthria Psychiatric: A+Ox3, euthymic affect Lymphatic: no cervical or axillary lymphadenopathy Results & Data Results & [facility] ([facility]) Vital Signs (Past 12 Hours) Laboratory Results - last 24 hr 05/05/20 14:04 Carbon Dioxide 14 L Anion Gap 18.0 H BUN 9 Creatinine 0.88 Est Cr Clr Drug Dosing 104.2 Est GFR ( Amer) 105.8 Est GFR (Non-Af Amer) 91.3 BUN/Creatinine Ratio 10.6 Glucose 80 Calcium 9.0 Code Status & VTE Plan VTE Prophylaxis Plan VTE Prophylaxis will be ordered: No PG Care Time/CCT Total # of Minutes Spent Total Time Spent with Patient: Total time spent is greater than 50% in coordination of care (as documented) at patient's floor/unit and/or counseling patient: Coding Level of Care Code 76627 Initial Inpt Care Lvl 2 Diagnoses Asthma exacerbation J45.901 Asthma persistence: unspecified Asthma severity: moderate Acute bronchitis J20.9 Bronchitis organism: unspecified organism Irritable bowel syndrome with diarrhea K58.0 GERD (gastroesophageal reflux disease) K21.9 (1) Asthma exacerbation Asthma persistence: unspecified Asthma severity: moderate Qualified Code(s): J45.901 - Unspecified asthma with (acute) exacerbation (2) Acute bronchitis Bronchitis organism: unspecified organism Qualified Code(s): J20.9 - Acute bronchitis, unspecified
[2020-05-05] MEDS ORDERED: levoFLOXacin 750 MG TAB PO ONE (12:30)
[2020-05-05] MEDS ORDERED: PATIENT'S HEIGHT AND/OR WEIGHT NEEDED ONE (12:30)
[2020-05-05] MEDS: methylPREDNISolone 40 MG in SYRINGE 0 ML IV SCH ×3 (13:51→22:03)
[2020-05-05] MEDS: DICYCLOMINE HCL 10 MG CAP PO SCH ×2 (13:52→18:20)
[2020-05-05 14:29] LABS: Hematocrit (blood only) 38.3 % (37-47); Hemoglobin 12.7 g/dL (12.0-16.0); Mean Corpuscular Hgb Conc 33.2 g/dL (32-36); Mean Corpuscular Volume 84.4 fL (80-100); Mean Platelet Volume 10.3 fL (7.4-10.4); Platelet Count 340 K/uL (130-400); RDW Coefficient of Variation 12.8 % (11.5-14.5); Red Blood Count 4.54 M/uL (4.2-5.4); White Blood Count 19.55 K/uL (4.8-10.8)
[2020-05-05 14:40] LABS: Potassium 3.4 mmol/L (3.5-5.1)
[2020-05-05 14:52] LABS: Basophils # (auto) 0.04 K/uL (0-0.2); Basophils % (auto) 0.2 %; Eosinophils # (auto) 0.49 K/uL (0-0.5); Eosinophils % (auto) 2.5 %; Immature Granulocytes # (auto) 0.15 K/uL (0.00-0.02); Immature Granulocytes % (auto) 0.8 %; Lymphocytes # (auto) 6.19 K/uL (1.2-3.4); Lymphocytes % (auto) 31.7 %; Monocytes # (auto) 1.53 K/uL (0.11-0.59); Monocytes % (auto) 7.8 %; Neutrophils # (auto) 11.15 K/uL (1.4-6.5); Toxic Granulation 1+
[2020-05-05] MEDS: ALBUT/IPRATROP 3MG/0.5MG NEB 3 ML VIAL NEB SCH ×2 (15:12→19:07)
[2020-05-05 15:32] LABS: BUN Creatinine Ratio 10.6 (10-20); Creatinine Clr Calc Pharmacy 104.2 ml/min; Est GFR (African American) 105.8; Est GFR (Non-African American) 91.3
[2020-05-05] MEDS ORDERED: Nursing to Pharmacy Communication SCH (18:45)
[2020-05-05] MEDS: rifAXIMin 550 MG TABLET PO SCH (19:29)
[2020-05-05] MEDS ORDERED: rifAXIMin 550 MG TABLET PO SCH (21:00)
[2020-05-05] MEDS: FEXOFENADINE HCL 180 MG TAB PO SCH (21:32)
[2020-05-05] MEDS: PANTOprazole 40 MG TAB PO SCH (21:32)
[2020-05-05] MEDS: AMITRIPTYLINE HCL 10 MG TAB PO SCH (21:32)
[2020-05-05] MEDS: MONTELUKAST SODIUM 10 MG TABLET PO SCH (21:33)
[2020-05-05] MEDS: ALBUT/IPRATROP 3MG/0.5MG NEB 3 ML VIAL NEB PRN (23:40)
[2020-05-06] MEDS: methylPREDNISolone 40 MG in SYRINGE 0 ML IV SCH ×3 (05:02→21:03)
[2020-05-06] MEDS: ALBUT/IPRATROP 3MG/0.5MG NEB 3 ML VIAL NEB SCH ×4 (07:25→19:25)
[2020-05-06] MEDS: rifAXIMin 550 MG TABLET PO SCH ×3 (08:05→18:16)
[2020-05-06] MEDS: DICYCLOMINE HCL 10 MG CAP PO SCH ×3 (08:05→18:16)
[2020-05-06] MEDS: PANTOprazole 40 MG TAB PO SCH ×2 (08:06→21:03)
[2020-05-06] MEDS ORDERED: LACTOBACILLUS ACIDOPHILUS (FLORANEX) TAB PO SCH (09:00)
[2020-05-06] MEDS: SODIUM BICARBONATE 650 MG TAB PO SCH ×2 (09:57→21:03)
[2020-05-06] MEDS: POTASSIUM CHLORIDE 20 MEQ TABCR PO SCH (09:57)
[2020-05-06] MEDS: levoFLOXacin 750 MG TAB PO SCH (10:00)
--- NOTE | 2020-05-06 15:05 | Hospitalist Progress Note ---
Date of Service May 06, 2020 Assessment & Plan (1) Asthma exacerbation: failed Prednisone taper and Doxycycline and frequent nebulizer treatments at home continue Solu Medrol 40mg IV q8 Levaquin 750mg PO daily x 5 days for atypical coverage, today is day 2 Duoneb q2 PRN and QID scheduled continue Montelukast and Fifi she follows with allergy for dupilumab injections every other week day to day decision on discharge will plan for prolonged Prednisone taper on discharge (2) Acute bronchitis: (3) Irritable bowel syndrome with diarrhea: continue Bentyl and Rifaximin no diarrhea currently (4) GERD (gastroesophageal reflux disease): PPI no symptoms currently Admission and Anticipated Discharge Date Admission Date: May 05, 2020 Subjective patient feels about the same, still with cough, not improving at all she says that it took a long time to get better the last time she was hospitalized about a year ago she is eating well, walking in the hallway Review of Systems Review of Systems: All systems reviewed & are unremarkable except as noted in Subjective Respiratory: + cough, + chest congestion and + dyspnea on exertion; no sputum production Physical Exam Constitutional: WD/WN, vitals as above Eyes: PERRL, conjunctivae normal, anicteric sclerae ENMT: external ear and nose normal, oropharynx normal Neck: trachea midline, no thyromegaly Respiratory: normal respiratory effort and + cough; no respiratory distress Auscultation: + wheezes; no crackles, no rales and no rhonchi Cardiovascular: RRR, no murmur, no edema Gastrointestinal (Abdomen): normal bowel sounds, soft, nontender, no hepatosplenomegaly Musculoskeletal: no cyanosis or clubbing, extremities motor strength 5/5 Skin: no rashes, warm and dry Neurologic: patellar DTR's 2+ bilat, sensation intact and PERRL, EOMI, accommodation nl, no face palsy, no dysarthria Psychiatric: A+Ox3, euthymic affect Lymphatic: no cervical or axillary lymphadenopathy Results & Data Results & Data ([facility]) Vital Signs (Past 12 Hours) Vital Signs Temp Pulse Resp BP Pulse Ox 05/06/20 11:10 77 20 98 05/06/20 07:49 36.8 C 82 18 128/87 95 05/06/20 07:25 94 H 16 99 Medications Administered Current Inpatient Medications Acetaminophen (Acetaminophen 325 Mg Tab) 650 mg PO Q4H PRN PRN Reason: pain/fever Stop: 06/04/20 12:09 Albuterol (Albut/Ipratrop 3mg/0.5mg Neb 3 Ml Vial) 3 ml NEB QIDR [facility] Stop: 06/04/20 14:59 Last Admin: 05/06/20 11:09 Dose: 3 ml Documented by: Albuterol (Albut/Ipratrop 3mg/0.5mg Neb 3 Ml Vial) 3 ml NEB Q2R PRN PRN Reason: Dyspnea Stop: 06/04/20 12:09 Last Admin: 05/05/20 23:40 Dose: 3 ml Documented by: Amitriptyline HCl (Amitriptyline Hcl 10 Mg Tab) 30 mg PO HS [facility] Stop: 06/04/20 20:59 Last Admin: 05/05/20 21:32 Dose: 30 mg Documented by: Dicyclomine HCl (Dicyclomine Hcl 10 Mg Cap) 10 mg PO TIDM [facility] Stop: 06/05/20 07:59 Last Admin: 05/06/20 14:02 Dose: 10 mg Documented by: Fexofenadine HCl (Fexofenadine Hcl 180 Mg Tab) 180 mg PO HS [facility] Stop: 06/04/20 20:59 Last Admin: 05/05/20 21:32 Dose: 180 mg Documented by: Guaifenesin/Codeine Phosphate (Guaifenesin/Codeine 200mg/20mg 10ml Udc) 10 ml PO Q6H PRN PRN Reason: Cough Stop: 06/04/20 14:03 Last Admin: 05/06/20 14:48 Dose: 10 ml Documented by: Methylprednisolone 40 mg/ (Syringe) 0.64 mls @ 1.5 mls/min IV Q8 [facility] Stop: 06/04/20 13:59 Last Admin: 05/06/20 14:02 Dose: 1.5 mls/min Documented by: Lactobacillus Acidoph/Casei/Rhamnos (Advanced Probiotic 1250 Mg Capsule) 2 cap PO DAILY [facility] Stop: 06/06/20 08:59 Levofloxacin (Levofloxacin 750 Mg Tab) 750 mg PO DAILY@1100 [facility] Stop: 05/12/20 10:59 Last Admin: 05/06/20 10:00 Dose: 750 mg Documented by: Montelukast Sodium (Montelukast Sodium 10 Mg Tablet) 10 mg PO HS [facility] Stop: 06/04/20 20:59 Last Admin: 05/05/20 21:33 Dose: 10 mg Documented by: Ondansetron HCl (Ondansetron Inj 2 Mg/Ml 2 Ml Vial) 4 mg IV Q6H PRN PRN Reason: Nausea Stop: 06/04/20 12:09 Pantoprazole Sodium (Pantoprazole 40 Mg Tab) 40 mg PO BID [facility] Stop: 06/04/20 20:59 Last Admin: 05/06/20 08:06 Dose: 40 mg Documented by: Potassium Chloride (Potassium Chloride 20 Meq Tabcr) 20 meq PO QAM [facility] Stop: 06/05/20 08:59 Last Admin: 05/06/20 09:57 Dose: 20 meq Documented by: Rifaximin (Rifaximin 550 Mg Tablet) 550 mg PO TIDM [facility] Stop: 06/04/20 19:59 Last Admin: 05/06/20 14:03 Dose: 550 mg Documented by: Sodium Bicarbonate (Sodium Bicarbonate 650 Mg Tab) 650 mg PO BID [facility] Stop: 06/05/20 08:59 Last Admin: 05/06/20 09:57 Dose: 650 mg Documented by: PG Care Time/CCT Total # of Minutes Spent Total Time Spent with Patient: Total time spent is greater than 50% in coordination of care (as documented) at patient's floor/unit and/or counseling patient: Coding Level of Care Code 53976 Subseq Hosp Care Lvl 2 Diagnoses Asthma exacerbation J45.901 Asthma persistence: unspecified Asthma severity: moderate Acute bronchitis J20.9 Bronchitis organism: unspecified organism Irritable bowel syndrome with diarrhea K58.0 GERD (gastroesophageal reflux disease) K21.9 (1) Asthma exacerbation Asthma persistence: unspecified Asthma severity: moderate Qualified Code(s): J45.901 - Unspecified asthma with (acute) exacerbation (2) Acute bronchitis Bronchitis organism: unspecified organism Qualified Code(s): J20.9 - Acute bronchitis, unspecified
[2020-05-06] MEDS: FEXOFENADINE HCL 180 MG TAB PO SCH (21:03)
[2020-05-06] MEDS: MONTELUKAST SODIUM 10 MG TABLET PO SCH (21:03)
[2020-05-06] MEDS: AMITRIPTYLINE HCL 10 MG TAB PO SCH (21:03)
[2020-05-06] MEDS: ALBUT/IPRATROP 3MG/0.5MG NEB 3 ML VIAL NEB PRN (23:21)
[2020-05-07] MEDS: methylPREDNISolone 40 MG in SYRINGE 0 ML IV SCH ×4 (05:59→23:55)
[2020-05-07] MEDS: ALBUT/IPRATROP 3MG/0.5MG NEB 3 ML VIAL NEB SCH ×4 (07:24→19:09)
[2020-05-07] MEDS: PANTOprazole 40 MG TAB PO SCH ×2 (09:24→21:32)
[2020-05-07] MEDS: SODIUM BICARBONATE 650 MG TAB PO SCH ×2 (09:25→21:32)
[2020-05-07] MEDS: POTASSIUM CHLORIDE 20 MEQ TABCR PO SCH (09:25)
[2020-05-07] MEDS: ADVANCED PROBIOTIC 1250 MG CAPSULE PO SCH (09:26)
[2020-05-07] MEDS: rifAXIMin 550 MG TABLET PO SCH ×3 (09:26→17:23)
[2020-05-07] MEDS: DICYCLOMINE HCL 10 MG CAP PO SCH ×3 (09:27→17:24)
[2020-05-07] MEDS: levoFLOXacin 750 MG TAB PO SCH (13:22)
[2020-05-07] MEDS: FEXOFENADINE HCL 180 MG TAB PO SCH (21:31)
[2020-05-07] MEDS: AMITRIPTYLINE HCL 10 MG TAB PO SCH (21:31)
[2020-05-07] MEDS: MONTELUKAST SODIUM 10 MG TABLET PO SCH (21:32)
--- NOTE | 2020-05-07 22:53 | Hospitalist Progress Note ---
Date of Service May 07, 2020 Assessment & Plan (1) Asthma exacerbation: failed Prednisone taper and Doxycycline and frequent nebulizer treatments at home increase Solu Medrol to 40mg IV q6 since she is not improving Levaquin 750mg PO daily x 5 days for atypical coverage, today is day 3 Duoneb q2 PRN and QID scheduled continue Montelukast and Fifi she follows with allergy for dupilumab injections every other week day to day decision on discharge will plan for prolonged Prednisone taper on discharge anticipate her being here through the weekend (2) Acute bronchitis: frequent cough no much sputum, suspect it was acute viral infection influenza and COVID negative (3) Irritable bowel syndrome with diarrhea: continue Bentyl and Rifaximin no diarrhea currently (4) GERD (gastroesophageal reflux disease): PPI no symptoms currently Admission and Anticipated Discharge Date Admission Date: May 05, 2020 Subjective patient still with dyspnea on exertion, she said she walked some laps in the hallway and she had to catch her breath for several minutes last night was the first time she slept in days, cough was suppressed with wheezing on exam she is eating well discussed increasing Solu Medrol to q6, she agreed with plan Review of Systems Review of Systems: All systems reviewed & are unremarkable except as noted in Subjective Respiratory: + cough, + chest congestion, + dyspnea, + dyspnea on exertion and + wheezing; no hemoptysis, no pain with cough and no sputum production Cardiovascular: no chest pain Gastrointestinal: no abdominal pain, no nausea, no vomiting, no constipation and no diarrhea/loose stools Physical Exam Constitutional: WD/WN, vitals as above Eyes: PERRL, conjunctivae normal, anicteric sclerae ENMT: external ear and nose normal, oropharynx normal Neck: trachea midline, no thyromegaly Respiratory: normal respiratory effort and + cough; no respiratory distress Auscultation: + wheezes; no crackles, no rales and no rhonchi Cardiovascular: RRR, no murmur, no edema Gastrointestinal (Abdomen): normal bowel sounds, soft, nontender, no hepatosplenomegaly Musculoskeletal: no cyanosis or clubbing, extremities motor strength 5/5 Skin: no rashes, warm and dry Neurologic: patellar DTR's 2+ bilat, sensation intact and PERRL, EOMI, accommodation nl, no face palsy, no dysarthria Psychiatric: A+Ox3, euthymic affect Lymphatic: no cervical or axillary lymphadenopathy Results & Data Results & Data ([facility]) Vital Signs (Past 12 Hours) Vital Signs Temp Pulse Resp BP Pulse Ox 05/07/20 19:09 108 H 16 98 05/07/20 15:31 82 16 96 05/07/20 15:30 36.8 C 93 H 22 128/68 96 05/07/20 11:15 95 H 20 97 Medications Administered Current Inpatient Medications Acetaminophen (Acetaminophen 325 Mg Tab) 650 mg PO Q4H PRN PRN Reason: pain/fever Stop: 06/04/20 12:09 Albuterol (Albut/Ipratrop 3mg/0.5mg Neb 3 Ml Vial) 3 ml NEB QIDR [facility] Stop: 06/04/20 14:59 Last Admin: 05/07/20 19:09 Dose: 3 ml Documented by: Albuterol (Albut/Ipratrop 3mg/0.5mg Neb 3 Ml Vial) 3 ml NEB Q2R PRN PRN Reason: Dyspnea Stop: 06/04/20 12:09 Last Admin: 05/06/20 23:21 Dose: 3 ml Documented by: Amitriptyline HCl (Amitriptyline Hcl 10 Mg Tab) 30 mg PO HS [facility]SMAN Stop: 06/04/20 20:59 Last Admin: 05/07/20 21:31 Dose: 30 mg Documented by: Dicyclomine HCl (Dicyclomine Hcl 10 Mg Cap) 10 mg PO TIDM [facility] Stop: 06/05/20 07:59 Last Admin: 05/07/20 17:24 Dose: 10 mg Documented by: Fexofenadine HCl (Fexofenadine Hcl 180 Mg Tab) 180 mg PO HS [facility] Stop: 06/04/20 20:59 Last Admin: 05/07/20 21:31 Dose: 180 mg Documented by: Guaifenesin/Codeine Phosphate (Guaifenesin/Codeine 200mg/20mg 10ml Udc) 10 ml PO Q6H PRN PRN Reason: Cough Stop: 06/04/20 14:03 Last Admin: 05/07/20 15:40 Dose: 10 ml Documented by: Methylprednisolone 40 mg/ (Syringe) 0.64 mls @ 1.5 mls/min IV Q6 [facility] Stop: 06/06/20 11:59 Last Admin: 05/07/20 17:24 Dose: 1.5 mls/min Documented by: Lactobacillus Acidoph/Casei/Rhamnos (Advanced Probiotic 1250 Mg Capsule) 2 cap PO DAILY [facility] Stop: 06/06/20 08:59 Last Admin: 05/07/20 09:26 Dose: 2 cap Documented by: Levofloxacin (Levofloxacin 750 Mg Tab) 750 mg PO DAILY@1100 [facility] Stop: 05/12/20 10:59 Last Admin: 05/07/20 13:22 Dose: 750 mg Documented by: Montelukast Sodium (Montelukast Sodium 10 Mg Tablet) 10 mg PO HS [facility]SMAN Stop: 06/04/20 20:59 Last Admin: 05/07/20 21:32 Dose: 10 mg Documented by: Ondansetron HCl (Ondansetron Inj 2 Mg/Ml 2 Ml Vial) 4 mg IV Q6H PRN PRN Reason: Nausea Stop: 06/04/20 12:09 Pantoprazole Sodium (Pantoprazole 40 Mg Tab) 40 mg PO BID [facility] Stop: 06/04/20 20:59 Last Admin: 05/07/20 21:32 Dose: 40 mg Documented by: Potassium Chloride (Potassium Chloride 20 Meq Tabcr) 20 meq PO QAM [facility] Stop: 06/05/20 08:59 Last Admin: 05/07/20 09:25 Dose: 20 meq Documented by: Rifaximin (Rifaximin 550 Mg Tablet) 550 mg PO TIDM [facility] Stop: 06/04/20 19:59 Last Admin: 05/07/20 17:23 Dose: 550 mg Documented by: Sodium Bicarbonate (Sodium Bicarbonate 650 Mg Tab) 650 mg PO BID [facility] Stop: 06/05/20 08:59 Last Admin: 05/07/20 21:32 Dose: 650 mg Documented by: PG Care Time/CCT Total # of Minutes Spent Total Time Spent with Patient: Total time spent is greater than 50% in coordination of care (as documented) at patient's floor/unit and/or counseling patient: Coding Level of Care Code 26909 Subseq Hosp Care Lvl 2 Diagnoses Asthma exacerbation J45.901 Asthma persistence: unspecified Asthma severity: moderate Acute bronchitis J20.9 Bronchitis organism: unspecified organism Irritable bowel syndrome with diarrhea K58.0 GERD (gastroesophageal reflux disease) K21.9 (1) Asthma exacerbation Asthma persistence: unspecified Asthma severity: moderate Qualified Code(s): J45.901 - Unspecified asthma with (acute) exacerbation (2) Acute bronchitis Bronchitis organism: unspecified organism Qualified Code(s): J20.9 - Acute bronchitis, unspecified
[2020-05-07] MEDS: ALBUT/IPRATROP 3MG/0.5MG NEB 3 ML VIAL NEB PRN (23:05)
[2020-05-08] MEDS: methylPREDNISolone 40 MG in SYRINGE 0 ML IV SCH ×4 (05:38→23:38)
[2020-05-08] MEDS: ALBUT/IPRATROP 3MG/0.5MG NEB 3 ML VIAL NEB SCH ×4 (07:23→19:22)
--- NOTE | 2020-05-08 09:06 | Hospitalist Progress Note ---
Date of Service May 08, 2020 Assessment & Plan (1) Asthma exacerbation: failed Prednisone taper and Doxycycline and frequent nebulizer treatments at home increased Solu Medrol to 40mg IV q6 on 05/07 since she was not improving feeling better today Levaquin 750mg PO daily x 5 days for atypical coverage, today is day 4 Duoneb q2 PRN and QID scheduled continue Montelukast and Fifi she follows with allergy for dupilumab injections every other week day to day decision on discharge will plan for prolonged Prednisone taper on discharge anticipate her possible discharge tomorrow (2) Acute bronchitis: frequent cough no much sputum, suspect it was acute viral infection influenza and COVID negative (3) Irritable bowel syndrome with diarrhea: continue Bentyl and Rifaximin no diarrhea during admission (4) GERD (gastroesophageal reflux disease): PPI no symptoms currently Admission and Anticipated Discharge Date Admission Date: May 05, 2020 Subjective patient breathing a little easier, could walk further last night did not sleep as well last night that she did the night prior coughing less, codeine really helps eating well tolerating the Solu Medrol 40 q6 might be ready to go home tomorrow Review of Systems Review of Systems: All systems reviewed & are unremarkable except as noted in Subjective Respiratory: + cough, + chest congestion and + dyspnea on exertion; no dyspnea, no pain with cough and no sputum production Physical Exam Constitutional: WD/WN, vitals as above Eyes: PERRL, conjunctivae normal, anicteric sclerae ENMT: external ear and nose normal, oropharynx normal Neck: trachea midline, no thyromegaly Respiratory: normal respiratory effort and + cough; no respiratory distress Auscultation: + wheezes; no crackles, no rales and no rhonchi Cardiovascular: RRR, no murmur, no edema Gastrointestinal (Abdomen): normal bowel sounds, soft, nontender, no hepatosplenomegaly Musculoskeletal: no cyanosis or clubbing, extremities motor strength 5/5 Skin: no rashes, warm and dry Neurologic: patellar DTR's 2+ bilat, sensation intact and PERRL, EOMI, accommodation nl, no face palsy, no dysarthria Psychiatric: A+Ox3, euthymic affect Lymphatic: no cervical or axillary lymphadenopathy Results & Data Results & Data ([facility]) Vital Signs (Past 12 Hours) Vital Signs Temp Pulse Resp BP Pulse Ox 05/08/20 07:25 94 H 16 98 05/08/20 06:25 36.7 C 92 H 20 125/76 96 05/08/20 00:11 36.9 C 100 H 14 132/88 94 05/07/20 23:05 103 H 16 97 Medications Administered Current Inpatient Medications Acetaminophen (Acetaminophen 325 Mg Tab) 650 mg PO Q4H PRN PRN Reason: pain/fever Stop: 06/04/20 12:09 Albuterol (Albut/Ipratrop 3mg/0.5mg Neb 3 Ml Vial) 3 ml NEB QIDR [facility] Stop: 06/04/20 14:59 Last Admin: 05/08/20 07:23 Dose: 3 ml Documented by: Albuterol (Albut/Ipratrop 3mg/0.5mg Neb 3 Ml Vial) 3 ml NEB Q2R PRN PRN Reason: Dyspnea Stop: 06/04/20 12:09 Last Admin: 05/07/20 23:05 Dose: 3 ml Documented by: Amitriptyline HCl (Amitriptyline Hcl 10 Mg Tab) 30 mg PO HS [facility] Stop: 06/04/20 20:59 Last Admin: 05/07/20 21:31 Dose: 30 mg Documented by: Dicyclomine HCl (Dicyclomine Hcl 10 Mg Cap) 10 mg PO TIDM [facility] Stop: 06/05/20 07:59 Last Admin: 05/07/20 17:24 Dose: 10 mg Documented by: Fexofenadine HCl (Fexofenadine Hcl 180 Mg Tab) 180 mg PO HS [facility] Stop: 06/04/20 20:59 Last Admin: 05/07/20 21:31 Dose: 180 mg Documented by: Guaifenesin/Codeine Phosphate (Guaifenesin/Codeine 200mg/20mg 10ml Udc) 10 ml PO Q6H PRN PRN Reason: Cough Stop: 06/04/20 14:03 Last Admin: 05/07/20 23:11 Dose: 10 ml Documented by: Methylprednisolone 40 mg/ (Syringe) 0.64 mls @ 1.5 mls/min IV Q6 [facility] Stop: 06/06/20 11:59 Last Admin: 05/08/20 05:38 Dose: 1.5 mls/min Documented by: Lactobacillus Acidoph/Casei/Rhamnos (Advanced Probiotic 1250 Mg Capsule) 2 cap PO DAILY [facility] Stop: 06/06/20 08:59 Last Admin: 05/07/20 09:26 Dose: 2 cap Documented by: Levofloxacin (Levofloxacin 750 Mg Tab) 750 mg PO DAILY@1100 [facility] Stop: 05/12/20 10:59 Last Admin: 05/07/20 13:22 Dose: 750 mg Documented by: Montelukast Sodium (Montelukast Sodium 10 Mg Tablet) 10 mg PO HS [facility] Stop: 06/04/20 20:59 Last Admin: 05/07/20 21:32 Dose: 10 mg Documented by: Ondansetron HCl (Ondansetron Inj 2 Mg/Ml 2 Ml Vial) 4 mg IV Q6H PRN PRN Reason: Nausea Stop: 06/04/20 12:09 Pantoprazole Sodium (Pantoprazole 40 Mg Tab) 40 mg PO BID [facility] Stop: 06/04/20 20:59 Last Admin: 05/07/20 21:32 Dose: 40 mg Documented by: Potassium Chloride (Potassium Chloride 20 Meq Tabcr) 20 meq PO QAM [facility] Stop: 06/05/20 08:59 Last Admin: 05/07/20 09:25 Dose: 20 meq Documented by: Rifaximin (Rifaximin 550 Mg Tablet) 550 mg PO TIDM [facility] Stop: 06/04/20 19:59 Last Admin: 05/07/20 17:23 Dose: 550 mg Documented by: Sodium Bicarbonate (Sodium Bicarbonate 650 Mg Tab) 650 mg PO BID [facility] Stop: 06/05/20 08:59 Last Admin: 05/07/20 21:32 Dose: 650 mg Documented by: PG Care Time/CCT Total # of Minutes Spent Total Time Spent with Patient: Total time spent is greater than 50% in coordination of care (as documented) at patient's floor/unit and/or counseling patient: Coding Level of Care Code 60305 Subseq Hosp Care Lvl 2 Diagnoses Asthma exacerbation J45.901 Asthma persistence: unspecified Asthma severity: moderate Acute bronchitis J20.9 Bronchitis organism: unspecified organism Irritable bowel syndrome with diarrhea K58.0 GERD (gastroesophageal reflux disease) K21.9 (1) Asthma exacerbation Asthma persistence: unspecified Asthma severity: moderate Qualified Code(s): J45.901 - Unspecified asthma with (acute) exacerbation (2) Acute bronchitis Bronchitis organism: unspecified organism Qualified Code(s): J20.9 - Acute bronchitis, unspecified
[2020-05-08] MEDS: SODIUM BICARBONATE 650 MG TAB PO SCH ×2 (09:12→20:44)
[2020-05-08] MEDS: PANTOprazole 40 MG TAB PO SCH ×2 (09:12→20:43)
[2020-05-08] MEDS: DICYCLOMINE HCL 10 MG CAP PO SCH ×3 (09:13→18:08)
[2020-05-08] MEDS: POTASSIUM CHLORIDE 20 MEQ TABCR PO SCH (09:13)
[2020-05-08] MEDS: rifAXIMin 550 MG TABLET PO SCH ×3 (09:13→18:09)
[2020-05-08] MEDS: ADVANCED PROBIOTIC 1250 MG CAPSULE PO SCH (09:14)
[2020-05-08] MEDS: levoFLOXacin 750 MG TAB PO SCH (12:18)
[2020-05-08] MEDS: MONTELUKAST SODIUM 10 MG TABLET PO SCH (20:44)
[2020-05-08] MEDS: FEXOFENADINE HCL 180 MG TAB PO SCH (20:44)
[2020-05-08] MEDS: AMITRIPTYLINE HCL 10 MG TAB PO SCH (20:44)
[2020-05-08] MEDS: ALBUT/IPRATROP 3MG/0.5MG NEB 3 ML VIAL NEB PRN (23:19)
[2020-05-09] MEDS: methylPREDNISolone 40 MG in SYRINGE 0 ML IV SCH ×2 (05:40→12:41)
[2020-05-09] MEDS: ALBUT/IPRATROP 3MG/0.5MG NEB 3 ML VIAL NEB SCH ×2 (07:22→11:16)
[2020-05-09] MEDS: POTASSIUM CHLORIDE 20 MEQ TABCR PO SCH (08:07)
[2020-05-09] MEDS: ADVANCED PROBIOTIC 1250 MG CAPSULE PO SCH (08:07)
[2020-05-09] MEDS: SODIUM BICARBONATE 650 MG TAB PO SCH (08:07)
[2020-05-09] MEDS: PANTOprazole 40 MG TAB PO SCH (08:08)
[2020-05-09] MEDS: DICYCLOMINE HCL 10 MG CAP PO SCH ×2 (08:08→12:41)
[2020-05-09] MEDS: rifAXIMin 550 MG TABLET PO SCH ×2 (08:09→12:41)
--- NOTE | 2020-05-09 11:58 | Discharge Summary ---
Date of Service May 09, 2020 Admission HPI Per Admitting Provider 24 yo female with history of asthma, she has been managed with dupilumab for the past year with Allergy and she had been doing well, no flares at all. 10 days ago she started with a head cold. She had congestion, runny nose. She then developed chest tightness and non-productive cough. She called Juan C CASTILLO with pulmonology and he prescribed her a Prednisone taper starting at 60mg as well as a course of Doxycycline. She has nebulizers at home, using every 4 hours at home. She was using her Fifi and montelukast. No improvement in her symptoms. She was seen in the ED on 05/02 for evaluation. Flu swab and COVID testing was negative. She was sent back home since she was not hypoxic on room air. She returned to Juan C Winters today and she was having a lot of coughing, feeling short of breath. He called to request direct admission since she was not improving on steroids and antibiotics. Her recent health history also includes IBS managed by Dr Zaidi with [facility]. She is much improved with Bentyl and a 14 day course of Rifaximin TID. Principal Diagnosis Asthma exacerbation Discharge Exam Constitutional WD/WN, vitals as above Eyes PERRL, conjunctivae normal, anicteric sclerae ENMT external ear and nose normal, oropharynx normal Neck trachea midline, no thyromegaly Respiratory normal respiratory effort and + cough; no respiratory distress Auscultation: + wheezes (faint, very end of exhalation, better); no crackles, no rales and no rhonchi Cardiovascular RRR, no murmur, no edema Gastrointestinal (Abdomen) normal bowel sounds, soft, nontender, no hepatosplenomegaly Musculoskeletal no cyanosis or clubbing, extremities motor strength 5/5 Skin no rashes, warm and dry Neurologic patellar DTR's 2+ bilat, sensation intact and PERRL, EOMI, accommodation nl, no face palsy, no dysarthria Psychiatric A+Ox3, euthymic affect Lymphatic no cervical or axillary lymphadenopathy Discharge Data Allergies Allergy/AdvReac Type Severity Reaction Status Date / Time adhesive Allergy Severe skin Verified 05/02/20 13:15 irritation, hives, rash amoxicillin Allergy Severe THROAT Verified 05/02/20 13:15 TIGHTNESS/FELT FUNNY clavulanic acid Allergy Severe THROAT Verified 05/02/20 13:15 TIGHTNESS/FELT FUNNY Penicillins Allergy Severe ANAPHYLAXIS Verified 05/02/20 13:15 bee venom protein (honey bee) Allergy Unknown ANAPHYLAXIS Verified 05/02/20 13:15 Hospital Course (1) Asthma exacerbation: failed Prednisone taper and Doxycycline and frequent nebulizer treatments at home treated with Solu Medrol 40mg IV q6 feeling better today, probably the best she has felt Levaquin 750mg PO daily x 5 days for atypical coverage, today is day 5, no further treatment Duoneb q2 PRN and QID scheduled continue Montelukast and Fifi she follows with allergy for dupilumab injections every other week discharge to home on Prednisone 60mg x 3 days then 50mg x 3 days then 40mg and let Juan C CASTILLO determine further taper continue albuterol nebulizer at home follow up with Juan C CASTILLO on 05/12 (2) Acute bronchitis: frequent cough, Codeine for the cough to help her rest not much sputum, suspect it was acute viral infection influenza and COVID negative (3) Irritable bowel syndrome with diarrhea: continue Bentyl and Rifaximin no diarrhea during admission (4) GERD (gastroesophageal reflux disease): PPI no symptoms currently Total Time Total Time Spent Total Time Spent (In Minutes): 31 Total Time Includes: Examination of the Patient, Discharge Planning and Medication Reconciliation Discharge Plan Discharge Items Patient Disposition: Home - Self-Care Reason For Visit: ASTHMA EXACERBATION Discharge Diagnosis: Asthma exacerbation Condition on Discharge: Good Activity: Resume your previous activity Non-emergency contact: Primary Care Provider and Bowstring Maker Call non-emergency contact if: you have any medication questions, your symptoms worsen and you have a fever Follow-up/Referrals: Doug Winters PA-C [Primary Care Provider] - Diet: Regular Addtl Attending Provider Instructions: Medications: - CODEINE: take 10mL as needed for cough suppression, try to limit for night time use but can use during the day if needed - PREDNISONE: start at 60mg (six tablets) then reduce to 50mg after three days and then to 40mg after three more days discuss with Juan C Winters about further tapering once you get to 40mg as you have required long tapers in the past Asthma exacerbation, bronchitis COVID 19 and influenza negative required high dose Solu Medrol while here, but likely that you will need a long Prednisone taper and this will take some time to resolve completed Levaquin 5 days while here, no further antibiotic coverage needed as atypical bacteria should have been treated adequately use Albuterol nebulizer 4 times a day, can use every 2 hours as needed if you are wheezing or more short of breath follow up with Juan C Winters on Sunday, figure out further Prednisone taper and possible follow up with allergy Pending Studies at Discharge: No Stand-Alone Forms: My [facility], Opioid Pain Management, Smoking Cessation Medications and DC Order Prescriptions: New codeine-guaifenesin 10-100 mg/5 mL Liquid 10 ml PO Q6H PRN (Reason: cough) Qty: 240 RF: 0 prednisone 10 mg tablet 10 mg PO UD 14 Days Qty: 60 RF: 0 Continued hydrocortisone [Anusol-HC] 2.5 % cream with perineal applicator 1 applic OR BID Qty: 30 RF: 1 dupilumab [Dupixent Syringe] 300 mg/2 mL syringe See Rx Instructions .ROUTE .COMPLEX Qty: 4 RF: 5 rifaximin 550 mg tablet 550 mg PO TID 14 Days Qty: 42 RF: 0 Align 4 mg capsule 4 mg PO DAILY Qty: 30 RF: 0 epinephrine 0.3 mg/0.3 mL auto-injector 0.3 mg IM UD PRN (Reason: Allergic Reaction) Qty: 1 RF: 3 dicyclomine 10 mg capsule 10 mg PO TID Qty: 90 RF: 2 amitriptyline 10 mg tablet 30 mg PO HS RF: 0 diclofenac sodium 75 mg tablet,delayed release (DR/EC) 75 mg PO BID PRN (Reason: Pain) RF: 0 sumatriptan succinate [Imitrex] 50 mg tablet 50 mg PO Q2H PRN (Reason: Migraine Headache) RF: 0 albuterol sulfate [Ventolin HFA] 90 mcg/actuation HFA aerosol inhaler 2 puff INHALATION Q6H PRN (Reason: Shortness Of Breath Or Wheezing) Qty: 18 RF: 3 fluconazole [Diflucan] 100 mg tablet 100 mg PO DAILY Qty: 10 RF: 0 pantoprazole 40 mg tablet,delayed release (DR/EC) 40 mg PO BID Qty: 60 RF: 5 montelukast [Singulair] 10 mg Tablet 10 mg PO HS RF: 0 silver sulfadiazine 1 % cream 1 applic TOPICAL BID RF: 0 ondansetron HCl [Zofran] 4 mg tablet 4 mg PO Q6H PRN (Reason: nausea and vomiting) Qty: 20 RF: 0 benzonatate [Tessalon Perles] 100 mg capsule 100 mg PO TID PRN (Reason: cough) Qty: 20 RF: 0 albuterol sulfate 1.25 mg/3 mL solution for nebulization 3 ml inhalation QID PRN (Reason: Shortness Of Breath Or Wheezing) RF: 0 fexofenadine [Fifi Allergy] 180 mg tablet 180 mg PO HS RF: 0 Discontinued doxycycline hyclate 100 mg capsule 100 mg PO BID Qty: 20 RF: 0 prednisone 10 mg tablet See Rx Instructions PO DAILY Qty: 36 RF: 0 Discharge Orders: Discharge Order (Routine); Ordered 05/09/20 Ordered By: Connor Abarca/Other Patient Handouts: Prednisone tablets Admission Data Admit Date/Time: 05/05/20 11:57 Attending Provider: Connor Lynn Admit Provider: Connor Lynn Primary Care Provider: Doug Winters Other Interventions: Discharge Summary Assessment (RN) Last Done: 05/09/20 12:52 Coding Level of Care Code D/C Day Management >30 mins Diagnoses Asthma exacerbation J45.901 Asthma persistence: unspecified Asthma severity: moderate Acute bronchitis J20.9 Bronchitis organism: unspecified organism Irritable bowel syndrome with diarrhea K58.0 GERD (gastroesophageal reflux disease) K21.9
[2020-05-09] MEDS: levoFLOXacin 750 MG TAB PO SCH (12:41)
== END 2020-05-09 14:14 | disposition home or self-care (01) ==
LOC: INTOOBSV 11:57 → 3N 11:57

== ENCOUNTER 2020-09-07 17:14 | Inpatient (IN) ==
[2020-09-07] MEDS ORDERED: methylPREDNISolone 125 MG/2 ML VIAL IV STA (17:41)
[2020-09-07] MEDS ORDERED: ALBUT/IPRATROP 3MG/0.5MG NEB 3 ML VIAL NEB STA ×2 (17:41→17:45)
[2020-09-07] MEDS ORDERED: SODIUM CHLORIDE 0.9% 1000ML 1,000 ML IV ONE (17:41)
--- NOTE | 2020-09-07 17:50 | Emergency Department Note ---
History of Present Illness General Chief Complaint: Respiratory Problems Stated Complaint: RESPIRATORY PROBLEMS Time Seen by Provider: 09/07/20 17:28 History of Present Illness Provider complaint: "asthma attack" and shortness of breath Onset (ago): day(s) (Got worse over the last 2 days but states that she has been on steroids and having difficulty breathing for the last 3 months) 2 Severity: moderate Context: recent URI Associated symptoms: dry cough Treatments Prior to Arrival: inhaled bronchodilator and inhaled steroid Patient states she has never been intubated or been in the ICU for her asthma.Does state that she sees pulmonology at [facility] and has an appointment with Juan C Winters tomorrow.Patient states anytime she gets a head cold like she did 2 days ago she needs to be admitted for [id number] duo nebs and IV Solu-Medrol. Related Data Current Asthma Therapy: inhaled bronchodilator, inhaled steroid and recent oral steroid (Patient on current prednisone taper) Home Medications Medication Instructions Recorded Confirmed Type epinephrine 0.3 mg/0.3 mL 0.3 mg IM UD PRN #1 ea 02/27/19 09/07/20 Rx injection, auto-injector fexofenadine [Fifi Allergy] 180 mg PO HS 03/29/19 09/07/20 History albuterol sulfate 90 mcg/actuation 2 puff INHALATION Q6H PRN #18 gm 06/26/19 09/07/20 Rx aerosol inhaler amitriptyline 10 mg tablet 30 mg PO HS tab 09/29/19 09/07/20 History diclofenac sodium 75 mg 75 mg PO BID PRN 09/29/19 09/07/20 History tablet,delayed release ondansetron HCl [Zofran] 4 mg PO Q6H PRN #20 tab 03/08/20 09/07/20 Rx Bifidobacterium infantis 4 mg 4 mg PO DAILY #30 cap 04/23/20 09/07/20 Rx capsule pantoprazole 40 mg tablet,delayed 40 mg PO BID #60 tab 04/29/20 09/07/20 Rx release benzonatate [Tessalon Perles] 100 mg PO TID PRN #20 cap 05/02/20 09/07/20 Rx montelukast 10 mg tablet 10 mg PO HS #30 tab 05/13/20 09/07/20 Rx albuterol sulfate 1.25 mg/3 mL 1.25 mg INHALATION QID PRN #90 ml 05/27/20 09/07/20 Rx solution for nebulization codeine 10 mg-guaifenesin 100 mg/5 10 ml PO Q6H PRN #240 ml 05/27/20 09/07/20 Rx mL oral liquid sumatriptan succinate 50 mg tablet 50 mg PO Q2H PRN #14 tab 08/04/20 09/07/20 Rx dicyclomine 10 mg capsule 10 mg PO TID #90 cap 09/01/20 09/07/20 Rx beclomethasone dipropionate [Qvar 1 inh INHALATION BID 09/07/20 09/07/20 History RediHaler] budesonide 1 mg INHALATION DIRECTED 09/07/20 09/07/20 History fluticasone propion-salmeterol 2 puff INHALATION BID 09/07/20 09/07/20 History [Advair HFA] melatonin 10 mg PO HS 09/07/20 09/07/20 History prednisone 25 mg PO DAILY 09/07/20 09/07/20 History Allergies Allergy/AdvReac Type Severity Reaction Status Date / Time adhesive Allergy Severe skin Verified 09/07/20 17:57 irritation, hives, rash amoxicillin Allergy Severe THROAT Verified 09/07/20 17:57 TIGHTNESS/FELT FUNNY bee venom protein (honey bee) Allergy Severe ANAPHYLAXIS Verified 09/07/20 17:57 clavulanic acid Allergy Severe THROAT Verified 09/07/20 17:57 TIGHTNESS/FELT FUNNY Penicillins Allergy Severe ANAPHYLAXIS Verified 09/07/20 17:57 Past Med/Surg History Medical History (Updated 09/07/20 @ 21:34 by Chance Sanchez) Anxiety Asthma Poorly controlled; frequently using PRN neb trtmt, PRN INH; follows w/ [facility] allergy/immunology and pulm. Chronic steroid use (hx of use, no longer on currently) Managed by pulm, for severe persistent asthma. Depression Endometriosis GERD (gastroesophageal reflux disease) History of concussion multiple (last one about ~2017) History of hypertension no medications currently (situational) History of ovarian cyst Scoliosis s/p spinal surgery -- major fusion of lumbar and thoracic spine (see CXR) Sleep apnea no device Ventral hernia Surgical History History of anesthesia reaction SEVERE asthma attacks/panic attacks coming out of anesthesia History of back surgery at age 15; hardware present History of bronchoscopy September 2018 History of sinus surgery For deviated septum and nasal cyst History of tonsillectomy and adenoidectomy Family History Other No family history of adverse response to anesthesia No pertinent family history Social History Smoking Status: Never smoker Second Hand Exposure: No; Hx Alcohol Use: No Hx Substance Use: No Preferred Language: [place] Communication Ability: Effective Lockstitcher Required: No Beliefs That Will Affect Care: None Current Living Situation: Alone current occupational 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 Safe at Home: Yes Assistive Devices: Glasses Review of Systems A total of 10 systems reviewed and were otherwise negative Physical Exam Vital Signs Vital Signs - 24 hr 09/07/20 17:23 09/07/20 17:41 09/07/20 18:05 Temperature 36.4 C L Temperature Source Temporal Artery Scan Pulse Rate 113 H 104 H Pulse Rate [Exercises] Pulse Rate [Left] Pulse Rate [Recovery] Pulse Rate [Resting] Pulse Rate from SpO2 Sensor Pulse Rhythm Regular Pulse Strength Normal Respiratory Rate 22 22 Respiratory Rate [Exercises] Respiratory Rate [Recovery] Respiratory Rate [Resting] Respiratory Effort / Characteristics Non-Labored Spontaneous Spontaneous Respiratory Depth Normal Respiratory Pattern Regular Blood Pressure 162/103 H Blood Pressure [Right Arm] Blood Pressure Mean 122 Blood Pressure Mean [Right Arm] Blood Pressure Position Sitting Blood Pressure Position [Right Arm] Pulse Oximetry 96 98 Pulse Oximetry [Exercises] Pulse Oximetry [Recovery] Pulse Oximetry [Resting] Oxygen Delivery Method Room Air Room Air Sepsis Recent Fever Within 48 Hours No Sepsis New/Unexplained Change in Mental Status No Sepsis Action Taken by Nursing No Action Required 09/07/20 18:12 09/07/20 18:15 09/07/20 18:23 Temperature Temperature Source Pulse Rate 98 H Pulse Rate [Exercises] Pulse Rate [Left] 105 H 105 H Pulse Rate [Recovery] Pulse Rate [Resting] Pulse Rate from SpO2 Sensor 104 H Pulse Rhythm Pulse Strength Respiratory Rate 24 20 18 Respiratory Rate [Exercises] Respiratory Rate [Recovery] Respiratory Rate [Resting] Respiratory Effort / Characteristics Spontaneous Non-Labored Spontaneous Respiratory Depth Respiratory Pattern Blood Pressure 159/94 H Blood Pressure [Right Arm] 159/94 H Blood Pressure Mean 115 Blood Pressure Mean [Right Arm] 115 Blood Pressure Position Blood Pressure Position [Right Arm] Lying Pulse Oximetry 97 95 98 Pulse Oximetry [Exercises] Pulse Oximetry [Recovery] Pulse Oximetry [Resting] Oxygen Delivery Method Room Air Room Air Sepsis Recent Fever Within 48 Hours Sepsis New/Unexplained Change in Mental Status Sepsis Action Taken by Nursing 09/07/20 18:33 09/07/20 19:40 09/07/20 20:00 Temperature Temperature Source Pulse Rate 102 H 101 H Pulse Rate [Exercises] Pulse Rate [Left] 104 H Pulse Rate [Recovery] Pulse Rate [Resting] Pulse Rate from SpO2 Sensor 100 H 103 H Pulse Rhythm Pulse Strength Respiratory Rate 20 24 28 H Respiratory Rate [Exercises] Respiratory Rate [Recovery] Respiratory Rate [Resting] Respiratory Effort / Characteristics Non-Labored Spontaneous Respiratory Depth Respiratory Pattern Blood Pressure 144/92 H 139/87 Blood Pressure [Right Arm] Blood Pressure Mean 109 104 Blood Pressure Mean [Right Arm] Blood Pressure Position Blood Pressure Position [Right Arm] Pulse Oximetry 100 97 97 Pulse Oximetry [Exercises] Pulse Oximetry [Recovery] Pulse Oximetry [Resting] Oxygen Delivery Method Room Air Room Air Room Air Sepsis Recent Fever Within 48 Hours Sepsis New/Unexplained Change in Mental Status Sepsis Action Taken by Nursing 09/07/20 20:30 09/07/20 21:01 09/07/20 21:14 Temperature Temperature Source Pulse Rate 114 H 108 H Pulse Rate [Exercises] 140 H Pulse Rate [Left] Pulse Rate [Recovery] 125 H Pulse Rate [Resting] 114 H Pulse Rate from SpO2 Sensor 111 H 109 H Pulse Rhythm Pulse Strength Respiratory Rate 15 21 Respiratory Rate [Exercises] 30 H Respiratory Rate [Recovery] 25 H Respiratory Rate [Resting] 24 Respiratory Effort / Characteristics Respiratory Depth Respiratory Pattern Blood Pressure 163/102 H 191/103 H Blood Pressure [Right Arm] Blood Pressure Mean 122 132 Blood Pressure Mean [Right Arm] Blood Pressure Position Blood Pressure Position [Right Arm] Pulse Oximetry 98 97 Pulse Oximetry [Exercises] 93 Pulse Oximetry [Recovery] 96 Pulse Oximetry [Resting] 98 Oxygen Delivery Method Room Air Room Air Sepsis Recent Fever Within 48 Hours Sepsis New/Unexplained Change in Mental Status Sepsis Action Taken by Nursing Physical Exam GENERAL: She is oriented to person, place, and time. She appears well-developed and well-nourished. She does not appear distressed. HENT: Exam performed. -Head: Normocephalic and atraumatic. -Right Ear: External ear normal. No mastoid tenderness. -Left Ear: External ear normal. No mastoid tenderness. -Mouth/Throat: The oropharynx is clear and moist. No trismus in the jaw. No dental abscesses or uvula swelling. No oropharyngeal exudate or tonsillar abscesses. EYES: Conjunctivae and EOM are normal. Pupils are equal, round, and reactive to light. Right eye exhibits no discharge. Left eye exhibits no discharge. No scleral icterus. NECK: Normal range of motion. Neck supple. No JVD present. No spinous process tenderness present. No carotid bruit present. No rigidity. No tracheal deviation and normal range of motion present. No Brudzinski's sign and no Kernig's sign noted. CV: Tachycardic rate, regular rhythm, normal heart sounds and intact distal pulses. There is no peripheral edema. Palpable radial pulses bue. PULM/CHEST: Expiratory wheezes bilaterally. -Chest Wall: She exhibits no tenderness. ABD: The abdomen is soft. Bowel sounds are normal. She has no distension. No mass is present. There is no tenderness. There is no rebound, no guarding, no Ogden's sign and no tenderness at McBurney's point. Rovsig negative MUSC/SKEL: Normal range of motion. There is no peripheral edema, tenderness or deformity. LYMPH: No cervical adenopathy. NEURO: She is alert and oriented to person, place, and time. She has normal strength. No cranial nerve deficit or sensory deficit. Coordination and gait normal. GCS eye subscore is 4. GCS verbal subscore is 5. GCS motor subscore is 6. Cerebellar tests wnl. SKIN: Skin is warm and dry. She is not diaphoretic. PSYCH: She has a normal mood and affect. Behavior is normal. Judgment and thought content normal. Course Course 1727: The patient was evaluated in room B7. A complete history and physical exam was performed. Cardiac monitoring: An order was placed for continuous cardiac monitoring. The monitor shows a rate of 90 with Sinus rhythm Patient was seen in full airborne precautions. Patient was seen in N95's, gloves, gowns, face shield by myself and staff. 2037: Vital signs stable. Patient not removed requiring any supplemental oxygen. Labs show leukocytosis of 12.56, thought to be mildly elevated due to the chronic prednisone usage. D-dimer negative. Patient tested positive for COVID-19. Upon learning that the patient tested positive for COVID-19, she became extremely anxious and tearful. Patient started crying in the room. I explained to the patient that her oxygen saturations are stable and her chest x- ray is not concerning there is no significant change. Patient is very apprehensive about going home and states she does not feel comfortable at this time, she again continues to be very tearful. I [facility] upon learning [facility] Dr[facility] Ru[facility] the patient states she prefers to be evaluated by him for possible admission/observation. 2133[facility] the patient from previous admissions and she is a bad asthmatic and prefers to keep her in the hospital overnight. Administered Medications Discontinued Medications Albuterol (Albut/Ipratrop 3mg/0.5mg Neb 3 Ml Vial) 3 ml NEB NOW STA Stop: 09/07/20 17:42 Last Admin: 09/07/20 18:23 Dose: 3 ml Documented by: [id number] Albuterol (Albut/Ipratrop 3mg/0.5mg Neb 3 Ml Vial) 3 ml NEB NOW STA Stop: 09/07/20 17:46 Last Admin: 09/07/20 18:33 Dose: 3 ml Documented by: [id number] Sodium Chloride (Nss 1000ml) 1,000 mls @ 999 mls/hr IV .Q1H1M ONE Stop: 09/07/20 18:41 Last Infusion: 09/07/20 19:43 Dose: 0 mls/hr Documented by: [id number] Admin: 09/07/20 18:09 Dose: 999 mls/hr Documented by: [id number] Methylprednisolone (Methylprednisolone 125 Mg/2 Ml Vial) 125 mg IV NOW STA Stop: 09/07/20 17:42 Last Admin: 09/07/20 18:09 Dose: 125 mg Documented by: [id number] Medical Decision Making Laboratory Data Result diagrams: 09/07/20 18:07 09/07/20 18:07 Lab Results 02/16/21 02/16/21 02/16/21 Range/Units 18:07 18:07 18:07 WBC 12.56 H (4.8-10.8) K/uL RBC 4.49 (4.2-5.4) M/uL Hgb 13.2 (12.0-16.0) g/dL Hct 39.0 (37-47) % MCV 86.9 (80-100) fL MCH 29.4 (25-34) pg MCHC 33.8 (32-36) g/dL RDW Std Deviation 42.3 (36.4-46.3) fL RDW Coeff of Teresa 13.1 (11.5-14.5) % Plt Count 327 (130-400) K/uL MPV 9.8 (7.4-10.4) fL Immature Gran % (Auto) 0.4 % Neut % (Auto) 86.3 % Lymph % (Auto) 10.9 % Bleckley % (Auto) 2.1 % Eos % (Auto) 0.1 % Baso % (Auto) 0.2 % Neut # (Auto) 10.85 H (1.4-6.5) K/uL Lymph # (Auto) 1.37 (1.2-3.4) K/uL Bleckley # (Auto) 0.26 (0.11-0.59) K/uL Eos # (Auto) 0.01 (0-0.5) K/uL Baso # (Auto) 0.02 (0-0.2) K/uL Immature Gran # (Auto) 0.05 H (0.00-0.02) K/uL PT 10.8 (9.0-12.0) Seconds INR 1.1 (0.9-1.1) APTT 26.5 (21.0-31.0) Seconds PTT Ratio 1.0 D-Dimer 200 (0-500) ug/L FEU VBG pH (7.36-7.41) VBG pCO2 (38-50) mmHg VBG pO2 mmHg VBG HCO3 mmol/L VBG O2 Saturation % VBG Base Excess mEq/L Barometric Pressure mm/Hg Sodium 141 (136-145) mmol/L Potassium 3.8 (3.5-5.1) mmol/L Chloride 109 H (98-107) mmol/L Carbon Dioxide 27 (21-32) mmol/L Anion Gap 5.0 (3-11) BUN 12 (7-18) mg/dl Creatinine 0.80 (0.6-1.2) mg/dl Est Cr Clr Drug Dosing 116.4 ml/min Est GFR ( Amer) 118.8 Est GFR (Non-Af Amer) 102.5 BUN/Creatinine Ratio 15.2 (10-20) Glucose 142 H (70-99) mg/dl Calcium 9.2 (8.5-10.1) mg/dl COVID-19 Eval Order SARS-CoV-2 (PCR) (Negative) Influenza Type A (PCR) (Neg) Influenza Type B (PCR) (Neg) RSV (RT-PCR) (Neg) 09/07/20 09/07/20 09/07/20 Range/Units 18:07 18:12 18:12 WBC (4.8-10.8) K/uL RBC (4.2-5.4) M/uL Hgb (12.0-16.0) g/dL Hct (37-47) % MCV (80-100) fL MCH (25-34) pg MCHC (32-36) g/dL RDW Std Deviation (36.4-46.3) fL RDW Coeff of Teresa (11.5-14.5) % Plt Count (130-400) K/uL MPV (7.4-10.4) fL Immature Gran % (Auto) % Neut % (Auto) % Lymph % (Auto) % Bleckley % (Auto) % Eos % (Auto) % Baso % (Auto) % Neut # (Auto) (1.4-6.5) K/uL Lymph # (Auto) (1.2-3.4) K/uL Bleckley # (Auto) (0.11-0.59) K/uL Eos # (Auto) (0-0.5) K/uL Baso # (Auto) (0-0.2) K/uL Immature Gran # (Auto) (0.00-0.02) K/uL PT (9.0-12.0) Seconds INR (0.9-1.1) APTT (21.0-31.0) Seconds PTT Ratio D-Dimer (0-500) ug/L FEU VBG pH 7.41 (7.36-7.41) VBG pCO2 42 (38-50) mmHg VBG pO2 49 mmHg VBG HCO3 26 mmol/L VBG O2 Saturation 84.8 % VBG Base Excess 0.8 mEq/L Barometric Pressure 730.3 mm/Hg Sodium (136-145) mmol/L Potassium (3.5-5.1) mmol/L Chloride (98-107) mmol/L Carbon Dioxide (21-32) mmol/L Anion Gap (3-11) BUN (7-18) mg/dl Creatinine (0.6-1.2) mg/dl Est Cr Clr Drug Dosing ml/min Est GFR ( Amer) Est GFR (Non-Af Amer) BUN/Creatinine Ratio (10-20) Glucose (70-99) mg/dl Calcium (8.5-10.1) mg/dl COVID-19 Eval Order CovFluRsv at [facility] SARS-CoV-2 (PCR) POSITIVE A* (Negative) Influenza Type A (PCR) Negative (Neg) Influenza Type B (PCR) Negative (Neg) RSV (RT-PCR) Negative (Neg) Imaging Data Radiologist's Impression: XR chest 1V portable HISTORY: Dyspnea. COMPARISON: Chest 05/02/2020. FINDINGS: No pneumothorax. No pleural effusions. The cardiac silhouette remains top normal in size. No new focal lung consolidations to suggest pneumonia. No evidence for pulmonary edema. Thoracolumbar spinal rods are again noted. The hardware appears intact. Stable subsegmental atelectasis at the left lung base. IMPRESSION: No significant change compared to the prior study. No acute process. ACT 112: Negative or not required by law. Electronically signed by: Ashu Shin M.D. 09/07/2020 6:17 PM Dictated: 09/07/201815Transcribed: 09/07/201815 ECG Data Indication: SOB/dyspnea Rate (beats per minute): 93 Rhythm: normal sinus Findings: no ST depression, no ST elevation and no prolonged QT MDM Narrative 1728: The patient was evaluated in room B7. A complete history and physical exam was performed. Cardiac monitoring: An order was placed for continuous cardiac monitoring. The monitor shows a rate of 90 with Sinus rhythm Patient was seen in full airborne precautions. Patient was seen in N95's, gl oves, gowns, face shield by myself and staff. 2037: Vital signs stable. Patient not removed requiring any supplemental oxygen. Labs show leukocytosis of 12.56, thought to be mildly elevated due to the chronic prednisone usage. D-dimer negative. Patient tested positive for COVID-19. Upon learning that the patient tested positive for COVID-19, she became extremely anxious and tearful. Patient started crying in the room. I explained to the patient that her oxygen saturations are stable and her chest x- ray is not concerning there is no significant change. Patient is very apprehensive about going home and states she does not feel comfortable at this time, she again continues to be very tearful. I did [facility] and upon learning that Dr[facility] Ru[facility] the patient states she prefers to be evaluated by him for possible admission/observation. 2132: [facility] the patient from previous admissions and she is a bad asthmatic and prefers to keep her in the hospital overnight. Impression & Plan Asthma with exacerbation, COVID-19 Discharge Plan Visit Data Chief Complaint: Respiratory Problems Stated Complaint: RESPIRATORY PROBLEMS ED Provider: Chance Sanchez Discharge Problem: Asthma with exacerbation, COVID-19 Patient Disposition: Admitted As Inpatient Forms Stand Alone Forms: Coronavirus, [facility] Prescriptions Prescriptions: No Action Align 4 mg capsule 4 mg PO DAILY Qty: 30 RF: 0 montelukast [Singulair] 10 mg tablet 10 mg PO HS Qty: 30 RF: 5 dicyclomine 10 mg capsule 10 mg PO TID Qty: 90 RF: 2 epinephrine 0.3 mg/0.3 mL auto-injector 0.3 mg IM UD PRN (Reason: Allergic Reaction) Qty: 1 RF: 3 sumatriptan succinate [Imitrex] 50 mg tablet 50 mg PO Q2H PRN (Reason: Migraine Headache) Qty: 14 RF: 1 amitriptyline 10 mg tablet 30 mg PO HS RF: 0 diclofenac sodium 75 mg tablet,delayed release (DR/EC) 75 mg PO BID PRN (Reason: Pain) RF: 0 albuterol sulfate [Ventolin HFA] 90 mcg/actuation HFA aerosol inhaler 2 puff INHALATION Q6H PRN (Reason: Shortness Of Breath Or Wheezing) Qty: 18 RF: 3 pantoprazole 40 mg tablet,delayed release (DR/EC) 40 mg PO BID Qty: 60 RF: 5 albuterol sulfate 1.25 mg/3 mL solution for nebulization 1.25 mg inhalation QID PRN (Reason: Shortness Of Breath Or Wheezing) Qty: 90 RF: 3 codeine-guaifenesin 10-100 mg/5 mL liquid 10 ml PO Q6H PRN (Reason: cough) Qty: 240 RF: 0 ondansetron HCl [Zofran] 4 mg tablet 4 mg PO Q6H PRN (Reason: nausea and vomiting) Qty: 20 RF: 0 benzonatate [Tessalon Perles] 100 mg capsule 100 mg PO TID PRN (Reason: cough) Qty: 20 RF: 0 fexofenadine [Fifi Allergy] 180 mg tablet 180 mg PO HS RF: 0 Advair HFA 230-21 mcg/actuation HFA aerosol inhaler 2 puff INHALATION BID RF: 0 budesonide 1 mg/2 mL suspension for nebulization 1 mg inhalation DIRECTED RF: 0 melatonin 10 mg Tablet 10 mg PO HS RF: 0 Qvar RediHaler 80 mcg/actuation Hfa Aerosol Breath Activated 1 inh INHALATION BID RF: 0 prednisone 10 mg tablet 25 mg PO DAILY RF: 0 Referrals Referrals: Doug Winters PA-C [Primary Care Provider] - Discharge Problem: Asthma with exacerbation Qualifiers: Asthma severity: unspecified severity Asthma persistence: persistent Qualified Code(s): J45.901 - Unspecified asthma with (acute) exacerbation
[2020-09-07 18:17] LABS: Basophils # (auto) 0.02 K/uL (0-0.2); Basophils % (auto) 0.2 %; Eosinophils # (auto) 0.01 K/uL (0-0.5); Eosinophils % (auto) 0.1 %; Hemoglobin 13.2 g/dL (12.0-16.0); Immature Granulocytes # (auto) 0.05 K/uL (0.00-0.02); Immature Granulocytes % (auto) 0.4 %; Lymphocytes # (auto) 1.37 K/uL (1.2-3.4); Lymphocytes % (auto) 10.9 %; Mean Corpuscular Hemoglobin 29.4 pg (25-34); Mean Corpuscular Hgb Conc 33.8 g/dL (32-36); Mean Corpuscular Volume 86.9 fL (80-100); Mean Platelet Volume 9.8 fL (7.4-10.4); Monocytes # (auto) 0.26 K/uL (0.11-0.59); Monocytes % (auto) 2.1 %; Neutrophils # (auto) 10.85 K/uL (1.4-6.5); Neutrophils % (auto) 86.3 %; Platelet Count 327 K/uL (130-400); RDW Coefficient of Variation 13.1 % (11.5-14.5); RDW Standard Deviation 42.3 fL (36.4-46.3); Red Blood Count 4.49 M/uL (4.2-5.4); White Blood Count 12.56 K/uL (4.8-10.8)
[2020-09-07 18:18] LABS: pH VBG 7.41 (7.36-7.41)
--- NOTE | 2020-09-07 18:18 | XRay Report ---
XR chest 1V portable HISTORY: Dyspnea. COMPARISON: Chest 05/02/2020. FINDINGS: No pneumothorax. No pleural effusions. The cardiac silhouette remains top normal in size. N o new focal lung consolidations to suggest pneumonia. No evidence for pulmonary edema. Thoracolumbar spinal rods are again noted. The hardware appears intact. Stable subsegmental atelectasis at the left lung base. IMPRESSION: No significant change compared to the prior study. No acute process. ACT 112: Negative or not required by law. Electronically signed by: Ashu Shin M.D. 09/07/2020 6:17 PM
[2020-09-07 18:19] LABS: Base Excess VBG 0.8 mEq/L; Oxygen Saturation VBG 84.8 %
[2020-09-07 18:29] LABS: D Dimer 200 ug/L FEU (0-500); INR 1.1 (0.9-1.1); Partial Thromboplastin Time 26.5 Seconds (21.0-31.0); Prothrombin Time 10.8 Seconds (9.0-12.0)
[2020-09-07 18:33] LABS: BUN Creatinine Ratio 15.2 (10-20); Calcium 9.2 mg/dl (8.5-10.1); Creatinine Clr Calc Pharmacy 116.4 ml/min; Est GFR (African American) 118.8; Est GFR (Non-African American) 102.5; Potassium 3.8 mmol/L (3.5-5.1)
[2020-09-07 19:45] LABS: Influenza A virus by PCR Negative (Neg); Influenza B virus by PCR Negative (Neg); RSV by PCR Negative (Neg)
[2020-09-07 20:17] LABS: SARS CoV2 RNA(COVID-19) InHosp POSITIVE (Negative)
--- NOTE | 2020-09-07 21:58 | History & Physical Report ---
Date of Service September 07, 2020 Assessment & Plan (1) COVID-19: COVID-19 respiratory infection/asthma exacerbation/with hypoxia/chronic prednisone use/severe allergies/history of status asthmaticus- Hold prednisone 25 mg p.o. daily. Dexamethasone 6 mg IV every morning, with first dose now Remdesivir IV per protocol Azithromycin 500 mg IV every 24 hours Continue outpatient regimen of inhaled fluticasone, Pulmicort Respules, Fifi, Brio Ellipta, Singulair. Continue albuterol HFA 2 puffs every 6 hours as needed Continue albuterol-nebulizers 4 times daily as needed Add Vistaril 10 mg p.o. 4 times daily Enoxaparin 40 mg SQ every 12 hours Present on Admission?: Yes (2) Asthma with exacerbation: See above Present on Admission?: Yes (3) Hypoxia: See above Present on Admission?: Yes (4) Asthma: See above Present on Admission?: Yes (5) Chronic steroid use: See above Present on Admission?: Yes (6) GERD (gastroesophageal reflux disease): Continue pantoprazole 40 mg p.o. twice daily Present on Admission?: Yes (7) Anxiety: Anxiety/depression/insomnia- Continue amitriptyline, dicyclomine, melatonin. Present on Admission?: Yes (8) Depression: See above Present on Admission?: Yes (9) Insomnia: See above Present on Admission?: Yes (10) Migraine: Continue sumatriptan as needed Present on Admission?: Yes History of Present Illness Chief Complaint: The patient presents to the emergency department with concerns regarding an acute asthma attack with significant shortness of breath, dyspnea on exertion and cough Primary Care Provider: Doug Winters PA-C The patient is a 24-year-old female with a past medical history including asthma, asthma exacerbations with status asthmaticus, sinusitis, irritable bowel syndrome diarrhea, hemorrhoids, acute strep pharyngitis, scoliosis, hypertension, allergic rhinitis, postconcussion headache, GERD, insomnia, scoliosis status post thoracolumbar bryan placement, and chronic prednisone use. Patient reports that she has been sick off and on over the past 3 months since her most recent hospitalization that lasted from 05/05-05/09/2020. She has been seen by pulmonology, and allergy on a regular basis since that time, and reports that she has never felt back to normal. Over the past 2 days she reports that she has been feeling much worse, with generalized fatigue, productive cough, and worsening shortness of breath and dyspnea on exertion, in spite of using her usual inhalers and nebulizers. Work-up in the emergency department included the following abnormal laboratories: WBC 12.56, glucose 142, COVID-19 positive. She was influenza type A and B negative, and RSV negative. Vital signs revealed oxygen desaturation to 93% on room air, and increased work of breathing with walking in the room. Her heart rate was also noted to increase from 110s to 140s while ambulating in the room. Chest x-ray showed no acute findings. Thoracolumbar rods appeared intact Allergies Allergy/AdvReac Type Severity Reaction Status Date / Time adhesive Allergy Severe skin Verified 09/07/20 17:57 irritation, hives, rash amoxicillin Allergy Severe THROAT Verified 09/07/20 17:57 TIGHTNESS/FELT FUNNY bee venom protein (honey bee) Allergy Severe ANAPHYLAXIS Verified 09/07/20 17:57 clavulanic acid Allergy Severe THROAT Verified 09/07/20 17:57 TIGHTNESS/FELT FUNNY Penicillins Allergy Severe ANAPHYLAXIS Verified 09/07/20 17:57 Home Medications Medication Instructions Recorded Confirmed Type epinephrine 0.3 mg/0.3 mL 0.3 mg IM UD PRN #1 ea 02/27/19 09/07/20 Rx injection, auto-injector fexofenadine [Fifi Allergy] 180 mg PO HS 03/29/19 09/07/20 History albuterol sulfate 90 mcg/actuation 2 puff INHALATION Q6H PRN #18 gm 06/26/19 09/07/20 Rx aerosol inhaler amitriptyline 10 mg tablet 30 mg PO HS tab 09/29/19 09/07/20 History diclofenac sodium 75 mg 75 mg PO BID PRN 09/29/19 09/07/20 History tablet,delayed release ondansetron HCl [Zofran] 4 mg PO Q6H PRN #20 tab 03/08/20 09/07/20 Rx Bifidobacterium infantis 4 mg 4 mg PO DAILY #30 cap 04/23/20 09/07/20 Rx capsule pantoprazole 40 mg tablet,delayed 40 mg PO BID #60 tab 04/29/20 09/07/20 Rx release benzonatate [Tessalon Perles] 100 mg PO TID PRN #20 cap 05/02/20 09/07/20 Rx montelukast 10 mg tablet 10 mg PO HS #30 tab 05/13/20 09/07/20 Rx albuterol sulfate 1.25 mg/3 mL 1.25 mg INHALATION QID PRN #90 ml 05/27/20 09/07/20 Rx solution for nebulization codeine 10 mg-guaifenesin 100 mg/5 10 ml PO Q6H PRN #240 ml 05/27/20 09/07/20 Rx mL oral liquid sumatriptan succinate 50 mg tablet 50 mg PO Q2H PRN #14 tab 08/04/20 09/07/20 Rx dicyclomine 10 mg capsule 10 mg PO TID #90 cap 09/01/20 09/07/20 Rx beclomethasone dipropionate [Qvar 1 inh INHALATION BID 09/07/20 09/07/20 History RediHaler] budesonide 1 mg INHALATION DIRECTED 09/07/20 09/07/20 History fluticasone propion-salmeterol 2 puff INHALATION BID 09/07/20 09/07/20 History [Advair HFA] melatonin 10 mg PO HS 09/07/20 09/07/20 History prednisone 25 mg PO DAILY 09/07/20 09/07/20 History Past Med/Surg History Medical History (Updated 09/08/20 @ 03:36 by Issa Herr MD) Anxiety Asthma Poorly controlled; frequently using PRN neb trtmt, PRN INH; follows w/ [facility] allergy/immunology and pulm. Chronic steroid use (hx of use, no longer on currently) Managed by pulm, for severe persistent asthma. Depression Endometriosis GERD (gastroesophageal reflux disease) History of concussion multiple (last one about ~2017) History of hypertension no medications currently (situational) History of ovarian cyst Insomnia Migraine Scoliosis s/p spinal surgery -- major fusion of lumbar and thoracic spine (see CXR) Sleep apnea no device Ventral hernia Surgical History History of anesthesia reaction SEVERE asthma attacks/panic attacks coming out of anesthesia History of back surgery at age 15; hardware present History of bronchoscopy September 2018 History of sinus surgery For deviated septum and nasal cyst History of tonsillectomy and adenoidectomy Family History Other No family history of adverse response to anesthesia No pertinent family history Social History Smoking Status: Never smoker Second Hand Exposure: No; Hx Alcohol Use: No Hx Substance Use: No Preferred Language: Faroese Communication Ability: Effective Button Sawyer Required: No Beliefs That Will Affect Care: None Current Living Situation: Alone current occupational 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 Other Information That Helps Us Care for You: No Feels Safe at Home: Yes Safety Concerns: Feels Safe At This Time Assistive Devices: None Review of Systems Review of Systems: The patient denies palpitations, lower extremity swelling, sore throat, fevers, chills, sweats, nausea, vomiting, diarrhea , constipation, abdominal pain, pelvic pain, blood in urine or stool, dysuria, urinary frequency or urgency, lightheadedness, dizziness, headache, memory loss, loss of consciousness, rash, abnormal bruising or bleeding, imbalance, focal or generalized weakness, numbness or tingling in arms or legs, generalized arthralgias or myalgias, back or neck pain, or night sweats. The review of systems is otherwise negative other than for that already noted above, and at least 10 systems have been reviewed. Physical Exam Physical Exam: The patient is awake, alert and oriented 3, well developed and well nourished, normocephalic and atraumatic, lying in bed and in mild to moderate respiratory distress. HEENT--PERRL, EOMI, mucous membranes and oropharynx normal Neck--supple. No JVD. No bruits. Thyroid normal, trachea midline, no adenopathy. Heart--normal S1 and S2. No murmurs, rubs or gallops. Lungs--lung sounds are very tight, with wheezing throughout. Mild to moderate respiratory distress, with accessory muscle use noted during ambulation Abdomen--normal bowel sounds and soft. Nontender. Nondistended, no hernias or masses, no organomegaly. Extremities--no cyanosis or clubbing. No edema. Dermatologic--normal skin turgor, normal color, no abnormal lymph nodes, no rash. Neurologic--cranial nerves II through XII grossly intact. Rheumatologic--normal range of motion. Psychiatric--normal affect. Results & Data Results & Data ([facility]) Vital Signs (Past 12 Hours) Vital Signs Temp Pulse Pulse Pulse Pulse Pulse Resp 09/07/20 21:14 140 H 125 H 114 H 09/07/20 21:01 108 H 21 09/07/20 20:30 114 H 15 09/07/20 20:00 101 H 28 H 09/07/20 19:40 102 H 24 09/07/20 18:33 104 H 20 09/07/20 18:23 105 H 18 09/07/20 18:15 105 H 20 09/07/20 18:12 98 H 24 09/07/20 18:05 104 H 22 09/07/20 17:23 97.5 F L 113 H 22 Resp Resp Resp BP BP Pulse Ox Pulse Ox 09/07/20 21:14 30 H 25 H 24 93 09/07/20 21:01 191/103 H 97 09/07/20 20:30 163/102 H 98 09/07/20 20:00 139/87 97 09/07/20 19:40 144/92 H 97 09/07/20 18:33 100 09/07/20 18:23 98 09/07/20 18:15 159/94 H 95 09/07/20 18:12 159/94 H 97 09/07/20 18:05 98 09/07/20 17:23 162/103 H 96 Pulse Ox Pulse Ox 09/07/20 21:14 96 98 09/07/20 21:01 09/07/20 20:30 09/07/20 20:00 09/07/20 19:40 09/07/20 18:33 09/07/20 18:23 09/07/20 18:15 09/07/20 18:12 09/07/20 18:05 09/07/20 17:23 Laboratory Results Laboratory Results WBC 12.56 K/uL (4.8-10.8) H 09/07/20 18:07 RBC 4.49 M/uL (4.2-5.4) 09/07/20 18:07 Hgb 13.2 g/dL (12.0-16.0) 09/07/20 18:07 Hct 39.0 % (37-47) 09/07/20 18:07 MCV 86.9 fL (80-100) 09/07/20 18:07 MCH 29.4 pg (25-34) 09/07/20 18:07 MCHC 33.8 g/dL (32-36) 09/07/20 18:07 RDW Std Deviation 42.3 fL (36.4-46.3) 09/07/20 18:07 RDW Coeff of Teresa 13.1 % (11.5-14.5) 09/07/20 18:07 Plt Count 327 K/uL (130-400) 09/07/20 18:07 MPV 9.8 fL (7.4-10.4) 09/07/20 18:07 Immature Gran % (Auto) 0.4 % 09/07/20 18:07 Neut % (Auto) 86.3 % 09/07/20 18:07 Lymph % (Auto) 10.9 % 09/07/20 18:07 Lyman % (Auto) 2.1 % 09/07/20 18:07 Eos % (Auto) 0.1 % 09/07/20 18:07 Baso % (Auto) 0.2 % 09/07/20 18:07 Neut # (Auto) 10.85 K/uL (1.4-6.5) H 09/07/20 18:07 Lymph # (Auto) 1.37 K/uL (1.2-3.4) 09/07/20 18:07 Lyman # (Auto) 0.26 K/uL (0.11-0.59) 09/07/20 18:07 Eos # (Auto) 0.01 K/uL (0-0.5) 09/07/20 18:07 Baso # (Auto) 0.02 K/uL (0-0.2) 09/07/20 18:07 Immature Gran # (Auto) 0.05 K/uL (0.00-0.02) H 09/07/20 18:07 PT 10.8 Seconds (9.0-12.0) 09/07/20 18:07 INR 1.1 (0.9-1.1) 09/07/20 18:07 APTT 26.5 Seconds (21.0-31.0) 09/07/20 18:07 PTT Ratio 1.0 09/07/20 18:07 D-Dimer 200 ug/L FEU (0-500) 09/07/20 18:07 VBG pH 7.41 (7.36-7.41) 09/07/20 18:07 VBG pCO2 42 mmHg (38-50) 09/07/20 18:07 VBG pO2 49 mmHg 09/07/20 18:07 VBG HCO3 26 mmol/L 09/07/20 18:07 VBG O2 Saturation 84.8 % 09/07/20 18:07 VBG Base Excess 0.8 mEq/L 09/07/20 18:07 Barometric Pressure 730.3 mm/Hg 09/07/20 18:07 Sodium 141 mmol/L (136-145) 09/07/20 18:07 Potassium 3.8 mmol/L (3.5-5.1) 09/07/20 18:07 Chloride 109 mmol/L (98-107) H 09/07/20 18:07 Carbon Dioxide 27 mmol/L (21-32) 09/07/20 18:07 Anion Gap 5.0 (3-11) 09/07/20 18:07 BUN 12 mg/dl (7-18) 09/07/20 18:07 Creatinine 0.80 mg/dl (0.6-1.2) 09/07/20 18:07 Est Cr Clr Drug Dosing 116.4 ml/min 09/07/20 18:07 Est GFR ( Amer) 118.8 09/07/20 18:07 Est GFR (Non-Af Amer) 102.5 09/07/20 18:07 BUN/Creatinine Ratio 15.2 (10-20) 09/07/20 18:07 Glucose 142 mg/dl (70-99) H 09/07/20 18:07 Calcium 9.2 mg/dl (8.5-10.1) 09/07/20 18:07 COVID-19 Eval Order CovFluRsv at [facility] 09/07/20 18:12 SARS-CoV-2 (PCR) POSITIVE (Negative) A* 09/07/20 18:12 Influenza Type A (PCR) Negative (Neg) 09/07/20 18:12 Influenza Type B (PCR) Negative (Neg) 09/07/20 18:12 RSV (RT-PCR) Negative (Neg) 09/07/20 18:[address] [facility], [id number] XRay Report Patient: VIOLA COOL Date: 09/07/20#: [id number]: [id number] RICK Estrada ID:[id number]: Date: 1995[facility] Zip: [place] [id number]: 25Location: EDSex: FRoom/Bed:Att Phy:Diagnosis: RESPIRATORY PROBLEMSPri Phy: Doug Winters PA-CService Date: 09/07/20Fa Phy:Interpreting Phy: Ashu Shin MDAdmit Phy: Ordering Phy: Chance Sanchez MD cc: ~ XR chest 1V portable HISTORY: Dyspnea. COMPARISON: Chest 05/02/2020. FINDINGS: No pneumothorax. No pleural effusions. The cardiac silhouette remains top normal in size. No new focal lung consolidations to suggest pneumonia. No evidence for pulmonary edema. Thoracolumbar spinal rods are again noted. The hardware appears intact. Stable subsegmental atelectasis at the left lung base. IMPRESSION: No significant change compared to the prior study. No acute process. ACT 112: Negative or not required by law. Electronically signed by: Ashu Shin M.D. 09/07/2020 6:17 PM Dictated: 09/07/20 181Transcribed: 09/07/20 181 Code Status & VTE Plan Code Status Full code VTE Prophylaxis Plan VTE Prophylaxis will be ordered: Yes PG Care Time/CCT Total # of Minutes Spent Total Time Spent with Patient: Total time spent is greater than 50% in coordination of care (as documented) at patient's floor/unit and/or counseling patient: Coding Level of Care Code 83788 Initial Inpt Care Lvl 3 Diagnoses COVID-19 U07.1 Asthma with exacerbation J45.901 Asthma persistence: persistent Asthma severity: unspecified severity Hypoxia R09.02 Asthma J45.909 Chronic steroid use GERD (gastroesophageal reflux disease) K21.9 Anxiety F41.9 Depression F32.9 Insomnia G47.00 Migraine G43.909 (1) Asthma with exacerbation Asthma persistence: persistent Asthma severity: unspecified severity Qualified Code(s): J45.901 - Unspecified asthma with (acute) exacerbation
[2020-09-07] MEDS ORDERED: ALBUTEROL HFA 8 GM INHALER INH PRN (22:54)
[2020-09-07] MEDS ORDERED: dexAMETHasone 6 MG in SYRINGE 0 ML IV STA (22:54)
[2020-09-07] MEDS ORDERED: SUMAtriptan succinate 50 MG TAB PO PRN (22:54)
[2020-09-07] MEDS ORDERED: BENZONATATE 100 MG CAPSULE PO PRN (22:54)
[2020-09-07] MEDS ORDERED: ACETAMINOPHEN 325 MG TAB PO PRN (22:54)
[2020-09-07] MEDS ORDERED: ONDANSETRON 4 MG OD TAB PO PRN (23:03)
[2020-09-07] MEDS ORDERED: ALBUTEROL 0.083% NEBU SOLN 3 ML VIAL INH PRN (23:09)
[2020-09-07] MEDS ORDERED: REMDESIVIR 200 MG in SODIUM CHLORIDE 0.9% 210 ML IV ONE (23:30)
[2020-09-07] MEDS ORDERED: SODIUM CHLORIDE 0.9% 10ML FLUSH IV SCH (23:30)
[2020-09-07] MEDS ORDERED: MELATONIN 3 MG TAB PO ONE (23:32)
[2020-09-08] MEDS: MELATONIN 3 MG TAB PO SCH ×2 (00:12→21:19)
[2020-09-08] MEDS: PANTOprazole 40 MG TAB PO SCH ×3 (00:12→21:14)
[2020-09-08] MEDS: ENOXAPARIN INJ 40 MG/0.4 ML SYR SQ SCH ×3 (00:14→21:20)
[2020-09-08] MEDS: AZITHROMYCIN 500 MG in DEXTROSE 5% 250 ML IV SCH (02:28)
[2020-09-08] MEDS: ONDANSETRON INJ 2 MG/ML 2 ML VIAL IV PRN ×2 (03:52→23:24)
[2020-09-08] MEDS: ADVANCED PROBIOTIC 1250 MG CAPSULE PO SCH (08:20)
[2020-09-08] MEDS: ZINC SULFATE 220 MG CAPSULE PO SCH (08:20)
[2020-09-08] MEDS: FLUTICASONE/VILANTEROL 100/25MCG 14 PUFFS/INHALER INH SCH (08:20)
[2020-09-08] MEDS: FLUTICASONE FUROATE 100MCG 14 PUFFS/INHALER INH SCH (08:20)
[2020-09-08] MEDS: hydrOXYzine HCl 10 MG TAB PO SCH ×4 (08:20→21:13)
[2020-09-08] MEDS: DICYCLOMINE HCL 10 MG CAP PO SCH ×3 (08:21→16:52)
[2020-09-08] MEDS ORDERED: dexAMETHasone 6 MG in SYRINGE 0 ML IV SCH (09:00)
[2020-09-08] MEDS: BUDESONIDE 0.5 MG/2 ML VIAL (PULMICORT) INH SCH ×2 (10:04→19:17)
--- NOTE | 2020-09-08 13:56 | Hospitalist Progress Note ---
Date of Service September 08, 2020 Assessment & Plan (1) COVID-19: COVID-19 respiratory infection/asthma exacerbation/with hypoxia/chronic prednisone use/severe allergies/history of status asthmaticus- no evidence of COVID pneumonia on CXR, she is saturating 99% on room air, no distress change dexamethasone to Solu Medrol 40mg q8 to target asthma exacerbation stop Remdesivir continue Zithromax Continue outpatient regimen of inhaled fluticasone, Pulmicort Respules, Fifi, Brio Ellipta, Singulair. Continue albuterol HFA 2 puffs every 6 hours as needed Continue albuterol-nebulizers 4 times daily as needed Add Vistaril 10 mg p.o. 4 times daily Enoxaparin 40 mg SQ every 12 hours (2) Asthma with exacerbation: treat with Solu Medrol 40mg q8 duonebs (3) Hypoxia: 99% on room air, hypoxemia resolved (4) Asthma: See above (5) Chronic steroid use: See above (6) GERD (gastroesophageal reflux disease): Continue pantoprazole 40 mg p.o. twice daily (7) Anxiety: Anxiety/depression/insomnia- Continue amitriptyline, dicyclomine, melatonin. (8) Depression: See above (9) Insomnia: See above (10) Migraine: Continue sumatriptan as needed Admission and Anticipated Discharge Date Admission Date: September 07, 2020 Subjective patient is feeling a little better since admission, she says her asthma symptoms hit her quickly over the past weekend started with chest heaviness, burning, coughing spells and some dyspnea discussed that her chest is clear on CXR, lungs are clear, no hypoxia the COVID is just causing asthma exacerbation as opposed to pneumonia she is eating well chart reviewed, labs reviewed (all stable) will likely require a few days of inpatient treatment as this is what she typically requires, just admitted in May for exacerbation Review of Systems Review of Systems: All systems reviewed & are unremarkable except as noted in Subjective Respiratory: + cough and + wheezing; no dyspnea and no dyspnea on exertion Physical Exam Constitutional: WD/WN, vitals as above no acute distress Neck: trachea midline, no thyromegaly Respiratory: normal respiratory effort and + cough; no respiratory distress and no labored breathing Auscultation: + wheezes (expiratory); no crackles, no rales and no rhonchi Cardiovascular: RRR, no murmur, no edema Gastrointestinal (Abdomen): normal bowel sounds, soft, nontender, no hepatosplenomegaly Musculoskeletal: no cyanosis or clubbing, extremities motor strength 5/5 Skin: no rashes, warm and dry Neurologic: patellar DTR's 2+ bilat, sensation intact and PERRL, EOMI, accommodation nl, no face palsy, no dysarthria Psychiatric: A+Ox3, euthymic affect Lymphatic: no cervical or axillary lymphadenopathy Results & Data Results & Data ([facility]) Vital Signs (Past 12 Hours) Vital Signs Temp Pulse Pulse Pulse Resp BP Pulse Ox 09/08/20 11:29 37.0 C 98 H 20 143/79 H 99 09/08/20 10:07 99 H 18 99 09/08/20 08:00 92 H 09/08/20 07:06 36.5 C 92 H 18 126/67 97 09/08/20 04:00 37 C 84 18 130/70 100 Pulse Ox 09/08/20 11:29 09/08/20 10:07 09/08/20 08:00 98 09/08/20 07:06 09/08/20 04:00 Laboratory Results Laboratory Results - last 24 hr 09/07/20 09/07/20 09/07/20 18:07 18:07 18:07 WBC 12.56 H RBC 4.49 Hgb 13.2 Hct 39.0 MCV 86.9 MCH 29.4 MCHC 33.8 RDW Std Deviation 42.3 RDW Coeff of Teresa 13.1 Plt Count 327 MPV 9.8 Immature Gran % (Auto) 0.4 Neut % (Auto) 86.3 Lymph % (Auto) 10.9 Gates % (Auto) 2.1 Eos % (Auto) 0.1 Baso % (Auto) 0.2 Neut # (Auto) 10.85 H Lymph # (Auto) 1.37 Gates # (Auto) 0.26 Eos # (Auto) 0.01 Baso # (Auto) 0.02 Immature Gran # (Auto) 0.05 H PT 10.8 INR 1.1 APTT 26.5 PTT Ratio 1.0 D-Dimer 200 VBG pH VBG pCO2 VBG pO2 VBG HCO3 VBG O2 Saturation VBG Base Excess Barometric Pressure Sodium 141 Potassium 3.8 Chloride 109 H Carbon Dioxide 27 Anion Gap 5.0 BUN 12 Creatinine 0.80 Est Cr Clr Drug Dosing 116.4 Est GFR ( Amer) 118.8 Est GFR (Non-Af Amer) 102.5 BUN/Creatinine Ratio 15.2 Glucose 142 H Calcium 9.2 COVID-19 Eval Order SARS-CoV-2 (PCR) Influenza Type A (PCR) Influenza Type B (PCR) RSV (RT-PCR) 09/07/20 09/07/20 09/07/20 18:07 18:12 18:12 WBC RBC Hgb Hct MCV MCH MCHC RDW Std Deviation RDW Coeff of Teresa Plt Count MPV Immature Gran % (Auto) Neut % (Auto) Lymph % (Auto) Gates % (Auto) Eos % (Auto) Baso % (Auto) Neut # (Auto) Lymph # (Auto) Gates # (Auto) Eos # (Auto) Baso # (Auto) Immature Gran # (Auto) PT INR APTT PTT Ratio D-Dimer VBG pH 7.41 VBG pCO2 42 VBG pO2 49 VBG HCO3 26 VBG O2 Saturation 84.8 VBG Base Excess 0.8 Barometric Pressure 730.3 Sodium Potassium Chloride Carbon Dioxide Anion Gap BUN Creatinine Est Cr Clr Drug Dosing Est GFR ( Amer) Est GFR (Non-Af Amer) BUN/Creatinine Ratio Glucose Calcium COVID-19 Eval Order [facility]FluRsv at [facility] SARS-CoV-2 (PCR) POSITIVE A* Influenza Type A (PCR) Negative Influenza Type B (PCR) Negative RSV (RT-PCR) Negative Medications Administered Current Inpatient Medications Acetaminophen (Acetaminophen 325 Mg Tab) 650 mg PO Q4H PRN PRN Reason: Pain or Fever Stop: 10/07/20 22:53 Albuterol (Albut/Ipratrop 3mg/0.5mg Neb 3 Ml Vial) 3 ml NEB Q2H PRN PRN Reason: dyspnea Stop: 10/07/20 22:53 Albuterol (Albuterol Hfa 8 Gm Inhaler) 2 puffs INH Q6H PRN PRN Reason: Shortness Of Breath Or Wheezing Stop: 10/07/20 22:53 Albuterol (Albuterol 0.083% Nebu Soln 3 Ml Vial) 1.25 mg INH QID PRN PRN Reason: Shortness Of Breath Or Wheezing Stop: 10/07/20 23:08 Amitriptyline HCl (Amitriptyline Hcl 10 Mg Tab) 30 mg PO HS [facility] Stop: 10/08/20 20:59 Benzonatate (Benzonatate 100 Mg Capsule) 100 mg PO TID PRN PRN Reason: cough Stop: 10/07/20 22:53 Budesonide (Budesonide 0.5 Mg/2 Ml Vial (Pulmicort)) 1 mg INH BIDR [facility] Stop: 10/08/20 06:59 Last Admin: 09/08/20 10:04 Dose: 1 mg Documented by: Dicyclomine HCl (Dicyclomine Hcl 10 Mg Cap) 10 mg PO TID [facility] Stop: 10/08/20 08:59 Last Admin: 09/08/20 12:31 Dose: 10 mg Documented by: Enoxaparin Sodium (Enoxaparin Inj 40 Mg/0.4 Ml Syr) 40 mg SQ Q12 [facility] Stop: 10/07/20 22:53 Last Admin: 09/08/20 08:21 Dose: 40 mg Documented by: Fexofenadine HCl (Fexofenadine Hcl 180 Mg Tab) 180 mg PO HS [facility] Stop: 10/08/20 20:59 Fluticasone Furoate (Fluticasone Furoate 100mcg 14 Puffs/Inhaler) 1 puffs INH DAILY [facility] Stop: 10/08/20 08:59 Last Admin: 09/08/20 08:20 Dose: 1 puffs Documented by: Fluticasone/Vilanterol (Fluticasone/Vilanterol 100/25mcg 14 Puffs/Inhaler) 1 puffs INH DAILY [facility] Stop: 10/08/20 08:59 Last Admin: 09/08/20 08:20 Dose: 1 puffs Documented by: Guaifenesin/Codeine Phosphate (Guaifenesin/Codeine 200mg/20mg 10ml Udc) 10 ml PO Q6H PRN PRN Reason: cough Stop: 10/07/20 22:53 Last Admin: 09/08/20 00:12 Dose: 10 ml Documented by: Hydroxyzine HCl (Hydroxyzine Hcl 10 Mg Tab) 10 mg PO QID [facility] Stop: 10/08/20 08:59 Last Admin: 09/08/20 12:31 Dose: 10 mg Documented by: Dexamethasone 6 mg/ Syringe 1.5 mls @ 1 mls/min IV QAM [facility] Stop: 09/17/20 09:02 Last Admin: 09/08/20 08:20 Dose: 1 mls/min Documented by: Azithromycin 500 mg/ Dextrose 255 mls @ 125 mls/hr IV Q24H [facility] Stop: 09/15/20 00:00 Last Infusion: 09/08/20 04:34 Dose: Infused Documented by: Remdesivir 100 mg/ Sodium (Chloride) 250 mls @ 250 mls/hr IV Q24H [facility]; Protocol Stop: 09/11/20 20:59 Lactobacillus Acidoph/Casei/Rhamnos (Advanced Probiotic 1250 Mg Capsule) 2 cap PO DAILY [facility] Stop: 10/08/20 08:59 Last Admin: 09/08/20 08:20 Dose: 2 cap Documented by: Melatonin (Melatonin 3 Mg Tab) 9 mg PO [facility] Stop: 10/08/20 20:59 Last Admin: 09/08/20 00:12 Dose: 9 mg Documented by: Montelukast Sodium (Montelukast Sodium 10 Mg Tablet) 10 mg PO [facility] Stop: 10/08/20 20:59 Ondansetron HCl (Ondansetron 4 Mg Od Tab) 4 mg PO Q6H PRN PRN Reason: nausea and vomiting Stop: 10/07/20 23:02 Ondansetron HCl (Ondansetron Inj 2 Mg/Ml 2 Ml Vial) 4 mg IV Q6H PRN PRN Reason: Nausea Stop: 10/07/20 22:53 Last Admin: 09/08/20 03:52 Dose: 4 mg Documented by: Pantoprazole Sodium (Pantoprazole 40 Mg Tab) 40 mg PO BID [facility] Stop: 10/07/20 22:53 Last Admin: 09/08/20 08:20 Dose: 40 mg Documented by: Sodium Chloride (Sodium Chloride 0.9% 10ml Flush) 30 ml IV Q24H [facility] Stop: 09/11/20 23:31 Last Admin: 09/08/20 02:28 Dose: 30 ml Documented by: Sumatriptan Succinate (Sumatriptan Succinate 50 Mg Tab) 50 mg PO Q2H PRN PRN Reason: Migraine Headache Stop: 10/07/20 22:53 Zinc Sulfate (Zinc Sulfate 220 Mg Capsule) [facility]: 10/08/20 08:59 Last Admin: 09/08/20 08:20 Dose: 220 mg Documented by: PG Care Time/CCT Total # of Minutes Spent Total Time Spent with Patient: Total time spent is greater than 50% in coordination of care (as documented) at patient's floor/unit and/or counseling patient: Coding Level of Care Code 57946 Subseq Hosp Care Lvl 2 Diagnoses COVID-19 U07.1 Asthma with exacerbation J45.901 Asthma persistence: persistent Asthma severity: unspecified severity Hypoxia R09.02 Asthma J45.909 Chronic steroid use GERD (gastroesophageal reflux disease) K21.9 Anxiety F41.9 Depression F32.9 Insomnia G47.00 Migraine G43.909 (1) Asthma with exacerbation Asthma persistence: persistent Asthma severity: unspecified severity Qualified Code(s): J45.901 - Unspecified asthma with (acute) exacerbation
[2020-09-08] MEDS ORDERED: REMDESIVIR 100 MG in SODIUM CHLORIDE 0.9% 230 ML IV SCH (20:00)
[2020-09-08] MEDS: AMITRIPTYLINE HCL 10 MG TAB PO SCH (21:12)
[2020-09-08] MEDS: FEXOFENADINE HCL 180 MG TAB PO SCH (21:12)
[2020-09-08] MEDS: MONTELUKAST SODIUM 10 MG TABLET PO SCH (21:13)
[2020-09-08] MEDS: methylPREDNISolone 40 MG in SYRINGE 0 ML IV SCH (21:21)
--- NOTE | 2020-09-09 05:46 | Electrocardiogram Report ---
Test Reason : Blood Pressure : / mmHG Vent. Rate : 093 BPM Atrial Rate : 093 BPM P-R Int : 138 ms QRS Dur : 080 ms QT Int : 348 ms P-R-T Axes : 017 051 022 degrees QTc Int : 432 ms Normal sinus rhythm Possible Left atrial enlargement Borderline ECG When compared with ECG of 02-MAY-2020 12:30, Non-specific change in ST segment in Anterior leads Nonspecific T wave abnormality no longer evident in Anterior leads Confirmed by Rodríguez Caraballo ([id number]) on 09/09/2020 5:46:15 AM Referred By: REFERRED SELF Confirmed By:Rodríguez Caraballo
[2020-09-09] MEDS: methylPREDNISolone 40 MG in SYRINGE 0 ML IV SCH ×3 (06:02→21:40)
[2020-09-09] MEDS: BUDESONIDE 0.5 MG/2 ML VIAL (PULMICORT) INH SCH ×2 (07:03→19:54)
[2020-09-09] MEDS: DICYCLOMINE HCL 10 MG CAP PO SCH ×3 (08:25→17:11)
[2020-09-09] MEDS: FLUTICASONE FUROATE 100MCG 14 PUFFS/INHALER INH SCH (08:25)
[2020-09-09] MEDS: FLUTICASONE/VILANTEROL 100/25MCG 14 PUFFS/INHALER INH SCH (08:25)
[2020-09-09] MEDS: ENOXAPARIN INJ 40 MG/0.4 ML SYR SQ SCH ×2 (08:26→21:40)
[2020-09-09] MEDS: PANTOprazole 40 MG TAB PO SCH ×2 (08:27→21:34)
[2020-09-09] MEDS: ADVANCED PROBIOTIC 1250 MG CAPSULE PO SCH (08:27)
[2020-09-09] MEDS: ZINC SULFATE 220 MG CAPSULE PO SCH (08:28)
[2020-09-09] MEDS: hydrOXYzine HCl 10 MG TAB PO SCH ×4 (08:28→21:33)
--- NOTE | 2020-09-09 10:46 | Hospitalist Progress Note ---
Date of Service September 09, 2020 Assessment & Plan (1) COVID-19: COVID-19 respiratory infection/asthma exacerbation/with hypoxia/chronic prednisone use/severe allergies/history of status asthmaticus- no evidence of COVID pneumonia on CXR, she is saturating 98% on room air, no distress change dexamethasone to Solu Medrol 40mg q8 to target asthma exacerbation stop Remdesivir continue Zithromax for atypical coverage Continue outpatient regimen of inhaled fluticasone, Pulmicort Respules, Fifi, Brio Ellipta, Singulair. Continue albuterol HFA 2 puffs every 6 hours as needed Continue albuterol-nebulizers 4 times daily as needed Add Vistaril 10 mg p.o. 4 times daily Enoxaparin 40 mg SQ every 12 hours (2) Asthma with exacerbation: treat with Solu Medrol 40mg q8 duonebs some end expiratory wheezing bilaterally cough is loosening up (3) Hypoxia: 98% on room air, hypoxemia resolved (4) Asthma: See above (5) Chronic steroid use: See above (6) GERD (gastroesophageal reflux disease): Continue pantoprazole 40 mg p.o. twice daily (7) Anxiety: Anxiety/depression/insomnia- Continue amitriptyline, dicyclomine, melatonin. (8) Depression: See above (9) Insomnia: See above (10) Migraine: Continue sumatriptan as needed Admission and Anticipated Discharge Date Admission Date: September 07, 2020 Subjective patient feels about the same as yesterday, says her cough is persistent, might be loosening up still with some wheezing says she got herself worked up by looking at her oxygen saturations when she was sleeping she is 98% on room air at this time, told her we will worry about that eating well, no fever/chills, no GI symptoms Review of Systems Review of Systems: All systems reviewed & are unremarkable except as noted in Subjective Constitutional: no fever Respiratory: + cough, + dyspnea and + wheezing Cardiovascular: no chest pain Gastrointestinal: no abdominal pain, no nausea, no vomiting, no constipation and no diarrhea/loose stools Physical Exam Constitutional: WD/WN, vitals as above no acute distress Neck: trachea midline, no thyromegaly Respiratory: normal respiratory effort and + cough; no respiratory distress and no labored breathing Auscultation: + wheezes (expiratory); no crackles, no rales and no rhonchi Cardiovascular: RRR, no murmur, no edema Gastrointestinal (Abdomen): normal bowel sounds, soft, nontender, no hepatosplenomegaly Musculoskeletal: no cyanosis or clubbing, extremities motor strength 5/5 Skin: no rashes, warm and dry Neurologic: patellar DTR's 2+ bilat, sensation intact and PERRL, EOMI, accommodation nl, no face palsy, no dysarthria Psychiatric: A+Ox3, euthymic affect Lymphatic: no cervical or axillary lymphadenopathy Results & Data Results & Data ([facility]) Vital Signs (Past 12 Hours) Vital Signs Temp Pulse Pulse Resp BP Pulse Ox 09/09/20 08:10 36.6 C 103 H 16 131/87 98 09/09/20 08:00 71 09/09/20 07:04 64 20 91 09/09/20 04:26 36.7 C 73 121/69 95 09/08/20 23:27 36.4 C L 78 20 124/78 96 09/08/20 23:00 75 Medications Administered Current Inpatient Medications Acetaminophen (Acetaminophen 325 Mg Tab) 650 mg PO Q4H PRN PRN Reason: Pain or Fever Stop: 10/07/20 22:53 Albuterol (Albut/Ipratrop 3mg/0.5mg Neb 3 Ml Vial) 3 ml NEB Q2H PRN PRN Reason: dyspnea Stop: 10/07/20 22:53 Albuterol (Albuterol Hfa 8 Gm Inhaler) 2 puffs INH Q6H PRN PRN Reason: Shortness Of Breath Or Wheezing Stop: 10/07/20 22:53 Albuterol (Albuterol 0.083% Nebu Soln 3 Ml Vial) 1.25 mg INH QID PRN PRN Reason: Shortness Of Breath Or Wheezing Stop: 10/07/20 23:08 Amitriptyline HCl (Amitriptyline Hcl 10 Mg Tab) 30 mg PO HS [facility] Stop: 10/08/20 20:59 Last Admin: 09/08/20 21:12 Dose: 30 mg Documented by: Benzonatate (Benzonatate 100 Mg Capsule) 100 mg PO TID PRN PRN Reason: cough Stop: 10/07/20 22:53 Budesonide (Budesonide 0.5 Mg/2 Ml Vial (Pulmicort)) 1 mg INH BIDR [facility] Stop: 10/08/20 06:59 Last Admin: 09/09/20 07:03 Dose: 1 mg Documented by: Dicyclomine HCl (Dicyclomine Hcl 10 Mg Cap) 10 mg PO AC [facility] Stop: 10/08/20 16:29 Last Admin: 09/09/20 08:25 Dose: 10 mg Documented by: Enoxaparin Sodium (Enoxaparin Inj 40 Mg/0.4 Ml Syr) 40 mg SQ Q12 [facility] Stop: 10/07/20 22:53 Last Admin: 09/09/20 08:26 Dose: 40 mg Documented by: Fexofenadine HCl (Fexofenadine Hcl 180 Mg Tab) 180 mg PO HS [facility] Stop: 10/08/20 20:59 Last Admin: 09/08/20 21:12 Dose: 180 mg Documented by: Fluticasone Furoate (Fluticasone Furoate 100mcg 14 Puffs/Inhaler) 1 puffs INH DAILY [facility] Stop: 10/08/20 08:59 Last Admin: 09/09/20 08:25 Dose: 1 puffs Documented by: Fluticasone/Vilanterol (Fluticasone/Vilanterol 100/25mcg 14 Puffs/Inhaler) 1 puffs INH DAILY [facility] Stop: 10/08/20 08:59 Last Admin: 09/09/20 08:25 Dose: 1 puffs Documented by: Guaifenesin/Codeine Phosphate (Guaifenesin/Codeine 200mg/20mg 10ml Udc) 10 ml PO Q6H PRN PRN Reason: cough Stop: 10/07/20 22:53 Last Admin: 09/09/20 08:57 Dose: 10 ml Documented by: Hydroxyzine HCl (Hydroxyzine Hcl 10 Mg Tab) 10 mg PO QID [facility] Stop: 10/08/20 08:59 Last Admin: 09/09/20 08:28 Dose: 10 mg Documented by: Azithromycin 500 mg/ Dextrose 255 mls @ 125 mls/hr IV Q24H [facility] Stop: 09/15/20 00:00 Last Infusion: 09/09/20 03:22 Dose: Infused Documented by: Methylprednisolone 40 mg/ (Syringe) 0.64 mls @ 1.5 mls/min IV Q8 [facility] Stop: 10/08/20 21:59 Last Admin: 09/09/20 06:02 Dose: 1.5 mls/min Documented by: Lactobacillus Acidoph/Casei/Rhamnos (Advanced Probiotic 1250 Mg Capsule) 2 cap PO DAILY [facility] Stop: 10/08/20 08:59 Last Admin: 09/09/20 08:27 Dose: 2 cap Documented by: Melatonin (Melatonin 3 Mg Tab) 9 mg PO HS [facility] Stop: 10/08/20 20:59 Last Admin: 09/08/20 21:19 Dose: 9 mg Documented by: Montelukast Sodium (Montelukast Sodium 10 Mg Tablet) 10 mg PO HS [facility] Stop: 10/08/20 20:59 Last Admin: 09/08/20 21:13 Dose: 10 mg Documented by: Ondansetron HCl (Ondansetron 4 Mg Od Tab) 4 mg PO Q6H PRN PRN Reason: nausea and vomiting Stop: 10/07/20 23:02 Ondansetron HCl (Ondansetron Inj 2 Mg/Ml 2 Ml Vial) 4 mg IV Q6H PRN PRN Reason: Nausea Stop: 10/07/20 22:53 Last Admin: 09/08/20 23:24 Dose: 4 mg Documented by: Pantoprazole Sodium (Pantoprazole 40 Mg Tab) 40 mg PO BID [facility] Stop: 10/07/20 22:53 Last Admin: 09/09/20 08:27 Dose: 40 mg Documented by: Sumatriptan Succinate (Sumatriptan Succinate 50 Mg Tab) 50 mg PO Q2H PRN PRN Reason: Migraine Headache Stop: 10/07/20 22:53 Zinc Sulfate (Zinc Sulfate 220 Mg Capsule) 220 mg PO QAM [facility] Stop: 10/08/20 08:59 Last Admin: 09/09/20 08:28 Dose: 220 mg Documented by: PG Care Time/CCT Total # of Minutes Spent Total Time Spent with Patient: Total time spent is greater than 50% in coordination of care (as documented) at patient's floor/unit and/or counseling patient: Coding Level of Care Code 44661 Subseq Hosp Care Lvl 2 Diagnoses COVID-19 U07.1 Asthma with exacerbation J45.901 Asthma persistence: persistent Asthma severity: unspecified severity Hypoxia R09.02 Asthma J45.909 Chronic steroid use GERD (gastroesophageal reflux disease) K21.9 Anxiety F41.9 Depression F32.9 Insomnia G47.00 Migraine G43.909 (1) Asthma with exacerbation Asthma persistence: persistent Asthma severity: unspecified severity Qualified Code(s): J45.901 - Unspecified asthma with (acute) exacerbation
[2020-09-09] MEDS: AMITRIPTYLINE HCL 10 MG TAB PO SCH (21:33)
[2020-09-09] MEDS: MONTELUKAST SODIUM 10 MG TABLET PO SCH (21:33)
[2020-09-09] MEDS: MELATONIN 3 MG TAB PO SCH (21:33)
[2020-09-09] MEDS: FEXOFENADINE HCL 180 MG TAB PO SCH (21:33)
[2020-09-09] MEDS: ONDANSETRON INJ 2 MG/ML 2 ML VIAL IV PRN (23:22)
[2020-09-09] MEDS: AZITHROMYCIN 500 MG in DEXTROSE 5% 250 ML IV SCH ×2 (23:25)
[2020-09-10] MEDS: methylPREDNISolone 40 MG in SYRINGE 0 ML IV SCH ×3 (06:08→21:21)
[2020-09-10] MEDS: BUDESONIDE 0.5 MG/2 ML VIAL (PULMICORT) INH SCH ×2 (07:09→19:51)
[2020-09-10] MEDS: ALBUT/IPRATROP 3MG/0.5MG NEB 3 ML VIAL NEB PRN ×3 (07:09→19:51)
[2020-09-10] MEDS: PANTOprazole 40 MG TAB PO SCH ×2 (08:29→21:20)
[2020-09-10] MEDS: DICYCLOMINE HCL 10 MG CAP PO SCH ×3 (08:29→16:35)
[2020-09-10] MEDS: ZINC SULFATE 220 MG CAPSULE PO SCH (08:29)
[2020-09-10] MEDS: ENOXAPARIN INJ 40 MG/0.4 ML SYR SQ SCH ×2 (08:29→21:21)
[2020-09-10] MEDS: ADVANCED PROBIOTIC 1250 MG CAPSULE PO SCH (08:29)
[2020-09-10] MEDS: hydrOXYzine HCl 10 MG TAB PO SCH ×4 (08:29→21:21)
[2020-09-10] MEDS: FLUTICASONE/VILANTEROL 100/25MCG 14 PUFFS/INHALER INH SCH (08:30)
[2020-09-10] MEDS: FLUTICASONE FUROATE 100MCG 14 PUFFS/INHALER INH SCH (08:30)
--- NOTE | 2020-09-10 14:59 | Hospitalist Progress Note ---
Date of Service September 10, 2020 Assessment & Plan (1) COVID-19: COVID-19 respiratory infection/asthma exacerbation/with hypoxia/chronic prednisone use/severe allergies/history of status asthmaticus- no evidence of COVID pneumonia on CXR, she is saturating 95% on room air, no distress changed dexamethasone to Solu Medrol 40mg q8 to target asthma exacerbation stopped Remdesivir since she is not hypoxemic continue Zithromax for atypical coverage Continue outpatient regimen of inhaled fluticasone, Pulmicort Respules, Fifi, Brio Ellipta, Singulair. Continue albuterol HFA 2 puffs every 6 hours as needed Continue albuterol-nebulizers 4 times daily as needed Add Vistaril 10 mg p.o. 4 times daily Enoxaparin 40 mg SQ every 12 hours (2) Asthma with exacerbation: treat with Solu Medrol 40mg q8 duonebs some end expiratory wheezing bilaterally, about the same as yesterday cough is loosening up have respiratory give her a peak flow meter to see how well she is exhaling (3) Hypoxia: 95% on room air, hypoxemia resolved (4) Asthma: See above (5) Chronic steroid use: See above was on Prednisone 25mg daily prior to this admission, had been on Prednisone gradual taper since May 2020 follows with Juan C CASTILLO (6) GERD (gastroesophageal reflux disease): Continue pantoprazole 40 mg p.o. twice daily (7) Anxiety: Anxiety/depression/insomnia- Continue amitriptyline, dicyclomine, melatonin. (8) Depression: See above (9) Insomnia: See above (10) Migraine: Continue sumatriptan as needed Admission and Anticipated Discharge Date Admission Date: September 07, 2020 Subjective patient feels about the same as yesterday, dry cough, some burning in chest no oxygen requirements will get her a peak flow to see how well she is forcefully exhaling she says she has been frustrated with her recent outpatient management she has been on Prednisone since May, down to 25mg prior to this admission she saw a specialist at [facility] who did little to help her, she had CXR, echo, CT chest, PFT she has followed with Juan C CASTILLO with pulm and with allergy medicine, no 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 to her 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, 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, said she is having headaches she is eating fine, no fever/chills, moving her bowels Review of Systems Review of Systems: All systems reviewed & are unremarkable except as noted in Subjective Respiratory: + cough, + dyspnea and + wheezing; no sputum production Physical Exam Constitutional: WD/WN, vitals as above no acute distress Neck: trachea midline, no thyromegaly Respiratory: normal respiratory effort and + cough; no respiratory distress and no labored breathing Auscultation: + wheezes (expiratory); no crackles, no rales and no rhonchi Cardiovascular: RRR, no murmur, no edema Gastrointestinal (Abdomen): normal bowel sounds, soft, nontender, no hepatosplenomegaly Musculoskeletal: no cyanosis or clubbing, extremities motor strength 5/5 Skin: no rashes, warm and dry Neurologic: patellar DTR's 2+ bilat, sensation intact and PERRL, EOMI, accommodation nl, no face palsy, no dysarthria Psychiatric: A+Ox3, euthymic affect Lymphatic: no cervical or axillary lymphadenopathy Results & Data Results & Data ([facility]) Vital Signs (Past 12 Hours) Vital Signs Temp Pulse Pulse Pulse Resp BP Pulse Ox 09/10/20 13:26 94 H 18 95 09/10/20 12:12 36.9 C 87 18 149/88 H 95 09/10/20 08:00 36.6 C 64 84 20 148/81 H 97 09/10/20 07:10 78 16 95 09/10/20 03:58 36.6 C 98 H 18 141/88 H 97 Medications Administered Current Inpatient Medications Acetaminophen (Acetaminophen 325 Mg Tab) 650 mg PO Q4H PRN PRN Reason: Pain or Fever Stop: 10/07/20 22:53 Albuterol (Albut/Ipratrop 3mg/0.5mg Neb 3 Ml Vial) 3 ml NEB Q2H PRN PRN Reason: dyspnea Stop: 10/07/20 22:53 Last Admin: 09/10/20 13:25 Dose: 3 ml Documented by: Albuterol (Albuterol Hfa 8 Gm Inhaler) 2 puffs INH Q6H PRN PRN Reason: Shortness Of Breath Or Wheezing Stop: 10/07/20 22:53 Albuterol (Albuterol 0.083% Nebu Soln 3 Ml Vial) 1.25 mg INH QID PRN PRN Reason: Shortness Of Breath Or Wheezing Stop: 10/07/20 23:08 Amitriptyline HCl (Amitriptyline Hcl 10 Mg Tab) 30 mg PO HS [facility] Stop: 10/08/20 20:59 Last Admin: 09/09/20 21:33 Dose: 30 mg Documented by: Benzonatate (Benzonatate 100 Mg Capsule) 100 mg PO TID PRN PRN Reason: cough Stop: 10/07/20 22:53 Budesonide (Budesonide 0.5 Mg/2 Ml Vial (Pulmicort)) 1 mg INH BIDR [facility] Stop: 10/08/20 06:59 Last Admin: 09/10/20 07:09 Dose: 1 mg Documented by: Dicyclomine HCl (Dicyclomine Hcl 10 Mg Cap) 10 mg PO AC [facility] Stop: 10/08/20 16:29 Last Admin: 09/10/20 11:48 Dose: 10 mg Documented by: Enoxaparin Sodium (Enoxaparin Inj 40 Mg/0.4 Ml Syr) 40 mg SQ Q12 [facility] Stop: 10/07/20 22:53 Last Admin: 09/10/20 08:29 Dose: 40 mg Documented by: Fexofenadine HCl (Fexofenadine Hcl 180 Mg Tab) 180 mg PO HS [facility] Stop: 10/08/20 20:59 Last Admin: 09/09/20 21:33 Dose: 180 mg Documented by: Fluticasone Furoate (Fluticasone Furoate 100mcg 14 Puffs/Inhaler) 1 puffs INH DAILY [facility] Stop: 10/08/20 08:59 Last Admin: 09/10/20 08:30 Dose: 1 puffs Documented by: Fluticasone/Vilanterol (Fluticasone/Vilanterol 100/25mcg 14 Puffs/Inhaler) 1 puffs INH DAILY [facility] Stop: 10/08/20 08:59 Last Admin: 09/10/20 08:30 Dose: 1 puffs Documented by: Guaifenesin/Codeine Phosphate (Guaifenesin/Codeine 200mg/20mg 10ml Udc) 10 ml PO Q6H PRN PRN Reason: cough Stop: 10/07/20 22:53 Last Admin: 09/10/20 09:55 Dose: 10 ml Documented by: Hydroxyzine HCl (Hydroxyzine Hcl 10 Mg Tab) 10 mg PO QID [facility] Stop: 10/08/20 08:59 Last Admin: 09/10/20 13:49 Dose: 10 mg Documented by: Azithromycin 500 mg/ Dextrose 255 mls @ 125 mls/hr IV Q24H [facility] Stop: 09/15/20 00:00 Last Infusion: 09/10/20 03:55 Dose: Infused Documented by: Methylprednisolone 40 mg/ (Syringe) 0.64 mls @ 1.5 mls/min IV Q8 [facility] Stop: 10/08/20 21:59 Last Admin: 09/10/20 13:50 Dose: 1.5 mls/min Documented by: Lactobacillus Acidoph/Casei/Rhamnos (Advanced Probiotic 1250 Mg Capsule) 2 cap PO DAILY [facility] Stop: 10/08/20 08:59 Last Admin: 09/10/20 08:29 Dose: 2 cap Documented by: Melatonin (Melatonin 3 Mg Tab) 9 mg PO HS [facility] Stop: 10/08/20 20:59 Last Admin: 09/09/20 21:33 Dose: 9 mg Documented by: Montelukast Sodium (Montelukast Sodium 10 Mg Tablet) 10 mg PO HS [facility] Stop: 10/08/20 20:59 Last Admin: 09/09/20 21:33 Dose: 10 mg Documented by: Ondansetron HCl (Ondansetron 4 Mg Od Tab) 4 mg PO Q6H PRN PRN Reason: nausea and vomiting Stop: 10/07/20 23:02 Ondansetron HCl (Ondansetron Inj 2 Mg/Ml 2 Ml Vial) 4 mg IV Q6H PRN PRN Reason: Nausea Stop: 10/07/20 22:53 Last Admin: 09/09/20 23:22 Dose: 4 mg Documented by: Pantoprazole Sodium (Pantoprazole 40 Mg Tab) 40 mg PO BID [facility] Stop: 10/07/20 22:53 Last Admin: 09/10/20 08:29 Dose: 40 mg Documented by: Sumatriptan Succinate (Sumatriptan Succinate 50 Mg Tab) 50 mg PO Q2H PRN PRN Reason: Migraine Headache Stop: 10/07/20 22:53 Zinc Sulfate (Zinc Sulfate 220 Mg Capsule) 220 mg PO QAM [facility] Stop: 10/08/20 08:59 Last Admin: 09/10/20 08:29 Dose: 220 mg Documented by: PG Care Time/CCT Total # of Minutes Spent Total Time Spent with Patient: Total time spent is greater than 50% in coordination of care (as documented) at patient's floor/unit and/or counseling patient: Coding Level of Care Code 16720 Subseq Hosp Care Lvl 2 Diagnoses COVID-19 U07.1 Asthma with exacerbation J45.901 Asthma persistence: persistent Asthma severity: unspecified severity Hypoxia R09.02 Asthma J45.909 Chronic steroid use GERD (gastroesophageal reflux disease) K21.9 Anxiety F41.9 Depression F32.9 Insomnia G47.00 Migraine G43.909 (1) Asthma with exacerbation Asthma persistence: persistent Asthma severity: unspecified severity Qualified Code(s): J45.901 - Unspecified asthma with (acute) exacerbation
[2020-09-10] MEDS: MONTELUKAST SODIUM 10 MG TABLET PO SCH (21:20)
[2020-09-10] MEDS: MELATONIN 3 MG TAB PO SCH (21:20)
[2020-09-10] MEDS: FEXOFENADINE HCL 180 MG TAB PO SCH (21:20)
[2020-09-10] MEDS: AMITRIPTYLINE HCL 10 MG TAB PO SCH (21:20)
[2020-09-10] MEDS: ONDANSETRON INJ 2 MG/ML 2 ML VIAL IV PRN (23:26)
[2020-09-11] MEDS: AZITHROMYCIN 500 MG in DEXTROSE 5% 250 ML IV SCH ×2 (00:09→23:25)
[2020-09-11] MEDS: methylPREDNISolone 40 MG in SYRINGE 0 ML IV SCH ×3 (06:09→23:25)
[2020-09-11] MEDS: BUDESONIDE 0.5 MG/2 ML VIAL (PULMICORT) INH SCH ×2 (07:37→19:43)
[2020-09-11 07:38] LABS: Creatinine Clr Calc Pharmacy 134.5 ml/min; Est GFR (African American) 140.2
[2020-09-11] MEDS: ZINC SULFATE 220 MG CAPSULE PO SCH (08:03)
[2020-09-11] MEDS: ADVANCED PROBIOTIC 1250 MG CAPSULE PO SCH (08:03)
[2020-09-11] MEDS: ENOXAPARIN INJ 40 MG/0.4 ML SYR SQ SCH ×2 (08:03→20:57)
[2020-09-11] MEDS: PANTOprazole 40 MG TAB PO SCH ×2 (08:03→20:58)
[2020-09-11] MEDS: FLUTICASONE FUROATE 100MCG 14 PUFFS/INHALER INH SCH (08:03)
[2020-09-11] MEDS: hydrOXYzine HCl 10 MG TAB PO SCH ×4 (08:03→20:57)
[2020-09-11] MEDS: DICYCLOMINE HCL 10 MG CAP PO SCH ×3 (08:03→16:43)
[2020-09-11] MEDS: FLUTICASONE/VILANTEROL 100/25MCG 14 PUFFS/INHALER INH SCH (08:04)
--- NOTE | 2020-09-11 13:34 | Hospitalist Progress Note ---
Date of Service September 11, 2020 Assessment & Plan (1) COVID-19: COVID-19 respiratory infection/asthma exacerbation/with hypoxia/chronic prednisone use/severe allergies/history of status asthmaticus- no evidence of COVID pneumonia on CXR, she is saturating 95% on room air, no distress changed dexamethasone to Solu Medrol 40mg q8 to target asthma exacerbation stopped Remdesivir since she is not hypoxemic continue Zithromax for atypical coverage Continue outpatient regimen of inhaled fluticasone, Pulmicort Respules, Fifi, Brio Ellipta, Singulair. Continue albuterol HFA 2 puffs every 6 hours as needed Continue albuterol-nebulizers 4 times daily as needed Add Vistaril 10 mg p.o. 4 times daily Enoxaparin 40 mg SQ every 12 hours (2) Asthma with exacerbation: treat with Solu Medrol 40mg q8 change to Prednisone 50mg qAM starting tomorrow (she was on 25mg daily prior to admission) duonebs some end expiratory wheezing bilaterally, about the same as yesterday cough is loosening up have respiratory give her a peak flow meter to see how well she is exhaling, not doing well reviewed outpatient records, follows with allergy and Juan C Winters testing has not revealed much, PFT were not that bad in terms of obstructive flow, CT chest normal, echo with very small ASD she went to see pulmonology at [place], nothing else offered she had a bronchoscopy in the past with Dr. Henry, no biopsies taken at that time will ask Dr. Hicks to see her tomorrow, offer any other thoughts she will need pulmonology follow up after she is discharged (3) Hypoxia: 95% on room air (4) Asthma: See above (5) Chronic steroid use: See above was on Prednisone 25mg daily prior to this admission, had been on Prednisone gra dual taper since May 2020 follows with Juan C CASTILLO (6) GERD (gastroesophageal reflux disease): Continue pantoprazole 40 mg p.o. twice daily (7) Anxiety: Anxiety/depression/insomnia- Continue amitriptyline, dicyclomine, melatonin. (8) Depression: See above (9) Insomnia: See above (10) Migraine: Continue sumatriptan as needed Admission and Anticipated Discharge Date Admission Date: September 07, 2020 Subjective patient feels the same, chest is still tight, coughing a lot (dry cough) did not do well with peak flow, even after extended nebulizer treatment discussed having pulmonology see her, she agrees with plan will continue solu medrol today and change to Prednisone 50mg daily tomorrow, she agrees eating well, sleeping well, ambulating in the room her HR jumped to 160, sinus tach, earlier when she walked, came down to 100 immediately after she sat down, no symptoms Review of Systems Review of Systems: All systems reviewed & are unremarkable except as noted in Subjective Respiratory: + cough and + dyspnea Physical Exam Constitutional: WD/WN, vitals as above no acute distress Neck: trachea midline, no thyromegaly Respiratory: normal respiratory effort and + cough; no respiratory distress and no labored breathing Auscultation: + wheezes (expiratory); no crackles, no rales and no rhonchi Cardiovascular: RRR, no murmur, no edema Gastrointestinal (Abdomen): normal bowel sounds, soft, nontender, no hepatosplenomegaly Musculoskeletal: no cyanosis or clubbing, extremities motor strength 5/5 Skin: no rashes, warm and dry Neurologic: patellar DTR's 2+ bilat, sensation intact and PERRL, EOMI, accommodation nl, no face palsy, no dysarthria Psychiatric: A+Ox3, euthymic affect Lymphatic: no cervical or axillary lymphadenopathy Results & Data Results & Data ([facility]) Vital Signs (Past 12 Hours) Vital Signs Temp Pulse Pulse Resp BP Pulse Ox 09/11/20 11:17 36.4 C 82 18 132/87 94 09/11/20 08:00 67 09/11/20 07:59 36.8 C 113 H 20 143/99 H 99 09/11/20 07:37 87 16 95 09/11/20 03:45 36.8 C 79 22 131/85 93 Medications Administered Laboratory Results - last 24 hr 09/11/20 06:40 Creatinine 0.69 Est Cr Clr Drug Dosing 134.5 Est GFR ( Amer) 140.2 Est GFR (Non-Af Amer) 121.0 PG Care Time/CCT Total # of Minutes Spent Total Time Spent with Patient: Total time spent is greater than 50% in coordination of care (as documented) at patient's floor/unit and/or counseling patient: Coding Level of Care Code 58765 Subseq Hosp Care Lvl 2 Diagnoses COVID-19 U07.1 Asthma with exacerbation J45.901 Asthma persistence: persistent Asthma severity: unspecified severity Hypoxia R09.02 Asthma J45.909 Chronic steroid use GERD (gastroesophageal reflux disease) K21.9 Anxiety F41.9 Depression F32.9 Insomnia G47.00 Migraine G43.909 (1) Asthma with exacerbation Asthma persistence: persistent Asthma severity: unspecified severity Qualified Code(s): J45.901 - Unspecified asthma with (acute) exacerbation
[2020-09-11] MEDS: ALBUT/IPRATROP 3MG/0.5MG NEB 3 ML VIAL NEB PRN (19:43)
[2020-09-11] MEDS: AMITRIPTYLINE HCL 10 MG TAB PO SCH (20:57)
[2020-09-11] MEDS: FEXOFENADINE HCL 180 MG TAB PO SCH (20:58)
[2020-09-11] MEDS: MONTELUKAST SODIUM 10 MG TABLET PO SCH (20:58)
[2020-09-11] MEDS: MELATONIN 3 MG TAB PO SCH (20:58)
[2020-09-11] MEDS: ONDANSETRON INJ 2 MG/ML 2 ML VIAL IV PRN (23:22)
[2020-09-12] MEDS: BUDESONIDE 0.5 MG/2 ML VIAL (PULMICORT) INH SCH ×2 (07:06→19:45)
[2020-09-12] MEDS: DICYCLOMINE HCL 10 MG CAP PO SCH ×3 (07:41→15:59)
[2020-09-12] MEDS: ZINC SULFATE 220 MG CAPSULE PO SCH (08:34)
[2020-09-12] MEDS: hydrOXYzine HCl 10 MG TAB PO SCH ×4 (08:34→20:43)
[2020-09-12] MEDS: predniSONE 50 MG TAB PO SCH (08:34)
[2020-09-12] MEDS: PANTOprazole 40 MG TAB PO SCH ×2 (08:35→20:43)
[2020-09-12] MEDS: ADVANCED PROBIOTIC 1250 MG CAPSULE PO SCH (08:35)
[2020-09-12] MEDS: ENOXAPARIN INJ 40 MG/0.4 ML SYR SQ SCH ×2 (08:35→20:41)
[2020-09-12] MEDS: FLUTICASONE FUROATE 100MCG 14 PUFFS/INHALER INH SCH (08:35)
[2020-09-12] MEDS: FLUTICASONE/VILANTEROL 100/25MCG 14 PUFFS/INHALER INH SCH (08:35)
--- NOTE | 2020-09-12 10:22 | Pulmonary Consultation ---
Date of Consultation September 12, 2020 Assessment & Plan (1) Asthma exacerbation: The patient's case is quite complex and she has seen by numerous providers in the past and underwent numerous tests for asthma. 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 I agree with transitioning her to oral prednisone. She is starting to notice side effects from long-term prednisone use and I would recommend transitioning her to methotrexate or another steroid sparing agent as an outpatient. I would recommend an ENT evaluation to determine whether vocal cord dysfunction is playing a role in her symptoms. I did discuss with her regarding a second opinion from a tertiary care center that specializes in asthma to review her case. I would recommend streamlining her inhaler regimen and changing her Advair to 500 mcg twice daily. I would recommend discontinuing Qvar. I would recommend weaning her prednisone very slowly and finding the low est effective dose. Continue Fifi and montelukast for allergic rhinitis symptoms. Her treatment is going to require a multimodal approach with several specialists in an outpatient setting. I did indicate to her that she will likely not see complete resolution of her asthma exacerbation while an inpatient, but at this point her symptoms appear reasonable and I think that she will be ready for discharge tomorrow. She does have COVID-19, but she has no supplemental oxygen requirements at this time. We will try to set her up for an outpatient visit late next week. (2) Non-productive cough: (3) COVID-19: (4) Chronic steroid use: (5) Anxiety: History of Present Illness Reason for Consultation: Acute asthma exacerbation Attending Physician: Connor Lynn DO History of Present Illness 24-year-old female with a past medical history of anxiety, asthma, chronic sinusitis, irritable bowel syndrome, allergic rhinitis, GERD and a history of extensive back surgery who presented to the hospital on 09/07/2020 for shortness of breath and was discovered to have COVID-19. She is followed closely by [facility] physician pulmonary group, asthma/allergy and gastroenterology. She has had numerous exacerbations of her asthma in the past 12 months and had several ER visits and hospital admissions. She has been on a prednisone taper since May 2020. She is chronically on montelukast, Advair, Qvar, budesonide nebulizations, albuterol nebulizations and albuterol inhalers. She is also on dupixent injections. Her last spirometry was in 06/07/2020 which demonstrated FEV1 of 79% predicted. Echo completed on 07/14/2020 demonstrated normal ejection fraction with no significant abnormalities seen. Right ventricle was normal. During this hospitalization, her Decadron has been changed to Solu-Medrol 40 mg every 8 hours. She was briefly on remdesivir, but this has been stopped due to lack of hypoxia. She is currently on azithromycin. I reviewed the chest CT from 07/13/2020 and the chest x-ray from 09/07/2020. No significant parenchymal findings or mediastinal adenopathy seen. The patient describes that she was previously on Nucala injections, Dupixent injections, underwent sinus surgeries and tonsillectomy. She is very frustrated with the management of her asthma and her persistent symptoms. She is having significant adverse reactions related to chronic prednisone use including weight gain, insomnia and "kidney pain". She notes that she has a cough that is persistent and dry. She was previously using saline irrigation and Flonase on a very regular basis, but stopped using this over the past year due to epistaxis. She notes that she is short of breath with activity in the home such as going from room to room. She currently lives with her family in an apartment at [place]. She denies any pet exposures. She is a non-smoker. She denies vaping or e-cigarettes. Allergies Allergy/AdvReac Type Severity Reaction Status Date / Time adhesive Allergy Severe skin Verified 09/07/20 17:57 irritation, hives, rash amoxicillin Allergy Severe THROAT Verified 09/07/20 17:57 TIGHTNESS/FELT FUNNY bee venom protein (honey bee) Allergy Severe ANAPHYLAXIS Verified 09/07/20 17:57 clavulanic acid Allergy Severe THROAT Verified 09/07/20 17:57 TIGHTNESS/FELT FUNNY Penicillins Allergy Severe ANAPHYLAXIS Verified 09/07/20 17:57 Egg Derived Allergy Mild Abdominal Verified 09/08/20 07:14 Pain Home Medications Medication Instructions Recorded Confirmed Type epinephrine 0.3 mg/0.3 mL 0.3 mg IM UD PRN #1 ea 02/27/19 09/07/20 Rx injection, auto-injector fexofenadine [Fifi Allergy] 180 mg PO HS 03/29/19 09/07/20 History albuterol sulfate 90 mcg/actuation 2 puff INHALATION Q6H PRN #18 gm 06/26/19 09/07/20 Rx aerosol inhaler amitriptyline 10 mg tablet 30 mg PO HS tab 09/29/19 09/07/20 History diclofenac sodium 75 mg 75 mg PO BID PRN 09/29/19 09/07/20 History tablet,delayed release ondansetron HCl [Zofran] 4 mg PO Q6H PRN #20 tab 03/08/20 09/07/20 Rx Bifidobacterium infantis 4 mg 4 mg PO DAILY #30 cap 04/23/20 09/07/20 Rx capsule pantoprazole 40 mg tablet,delayed 40 mg PO BID #60 tab 04/29/20 09/07/20 Rx release benzonatate [Tessalon Perles] 100 mg PO TID PRN #20 cap 05/02/20 09/07/20 Rx montelukast 10 mg tablet 10 mg PO HS #30 tab 05/13/20 09/07/20 Rx albuterol sulfate 1.25 mg/3 mL 1.25 mg INHALATION QID PRN #90 ml 05/27/20 09/07/20 Rx solution for nebulization codeine 10 mg-guaifenesin 100 mg/5 10 ml PO Q6H PRN #240 ml 05/27/20 09/07/20 Rx mL oral liquid sumatriptan succinate 50 mg tablet 50 mg PO Q2H PRN #14 tab 08/04/20 09/07/20 Rx dicyclomine 10 mg capsule 10 mg PO TID #90 cap 09/01/20 09/07/20 Rx beclomethasone dipropionate [Qvar 1 inh INHALATION BID 09/07/20 09/07/20 History RediHaler] budesonide 1 mg INHALATION DIRECTED 09/07/20 09/07/20 History fluticasone propion-salmeterol 2 puff INHALATION BID 09/07/20 09/07/20 History [Advair HFA] melatonin 10 mg PO HS 09/07/20 09/07/20 History prednisone 25 mg PO DAILY 09/07/20 09/07/20 History Patient History Medical History (Updated 09/12/20 @ 11:04 by Roland Hicks MD) Anxiety Asthma Poorly controlled; frequently using PRN neb trtmt, PRN INH; follows w/ [facility] allergy/immunology and pulm. Chronic steroid use (hx of use, no longer on currently) Managed by pulm, for severe persistent asthma. Cough Depression Endometriosis GERD (gastroesophageal reflux disease) History of concussion multiple (last one about ~2017) History of hypertension no medications currently (situational) History of ovarian cyst Insomnia Migraine Non-productive cough Scoliosis s/p spinal surgery -- major fusion of lumbar and thoracic spine (see CXR) Sleep apnea no device Ventral hernia Surgical History History of anesthesia reaction SEVERE asthma attacks/panic attacks coming out of anesthesia History of back surgery at age 15; hardware present History of bronchoscopy September 2018 History of sinus surgery For deviated septum and nasal cyst History of tonsillectomy and adenoidectomy Family History Other No family history of adverse response to anesthesia No pertinent family history Social History Smoking Status: Never smoker Second Hand Exposure: No; Hx Alcohol Use: No Hx Substance Use: No Preferred Language: Sri Lankan Communication Ability: Effective 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 Beliefs That Will Affect Care: None Current Living Situation: Alone current occupational 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 Other Information That Helps Us Care for You: No Feels Safe at Home: Yes Safety Concerns: Feels Safe At This Time Assistive Devices: None Review of Systems Review of Systems: All systems reviewed & are unremarkable except as noted in HPI & below Physical Exam Constitutional: WD/WN, vitals as above Eyes: PERRL, conjunctivae normal, anicteric sclerae ENMT: external ear and nose normal, oropharynx normal Neck: normal visual inspection Respiratory: normal respiratory effort, lungs clear to auscultation + cough Cardiovascular: Rate/Rhythm: + tachycardic Gastrointestinal (Abdomen): normal bowel sounds, soft, nontender, no hepatosplenomegaly Musculoskeletal: no cyanosis or clubbing, extremities motor strength 5/5 Skin: no rashes, warm and dry Neurologic: PERRL, EOMI, accommodation nl, no face palsy, no dysarthria Psychiatric: Orientation: alert and oriented x 3 Speech: + pressured speech Results & Data Results & [facility] ([facility]) Vital Signs (Past 12 Hours) Vital Signs Temp Pulse Pulse Resp BP Pulse Ox 09/12/20 08:00 76 09/12/20 07:40 97.7 F 86 18 129/80 100 09/12/20 07:06 107 H 16 93 09/12/20 04:00 98.2 F 72 18 132/83 95 09/11/20 22:55 97.9 F 101 H 18 129/81 94 I reviewed her vital signs, labs and imaging. I reviewed her previous pulmonary notes and discussed the case with the patient's hospitalist. PG Care Time/CCT Total # of Minutes Spent Total Time Spent with Patient: Total time spent is greater than 50% in coordination of care (as documented) at patient's floor/unit and/or counseling patient: Coding Level of Care Code 42607 Inpt Consult Level 5 Diagnoses Asthma exacerbation J45.901 Non-productive cough R05 COVID-19 U07.1 Chronic steroid use Anxiety F41.9
--- NOTE | 2020-09-12 15:04 | Hospitalist Progress Note ---
Date of Service September 12, 2020 Assessment & Plan (1) COVID-19: COVID-19 respiratory infection/asthma exacerbation/with hypoxia/chronic prednisone use/severe allergies/history of status asthmaticus- no evidence of COVID pneumonia on CXR, she is saturating 95% on room air, no distress changed dexamethasone to Solu Medrol 40mg q8 to target asthma exacerbation stopped Remdesivir since she is not hypoxemic stop Zithromax Fifi, Singulair. Continue albuterol HFA 2 puffs every 6 hours as needed Continue albuterol-nebulizers 4 times daily as needed Add Vistaril 10 mg p.o. 4 times daily Enoxaparin 40 mg SQ every 12 hours (2) Asthma with exacerbation: treated with Solu Medrol 40mg q8 change to Prednisone 50mg qAM duonebs some end expiratory wheezing bilaterally, about the same as yesterday cough is loosening up have respiratory give her a peak flow meter to see how well she is exhaling, not doing well reviewed outpatient records, follows with allergy and [facility] testing has not revealed much, PFT were not that bad in terms of obstructive flow, CT chest normal, echo with very small ASD she went to see pulmonology at [place], nothing else offered she had a bronchoscopy in the past with Dr. Henry, no biopsies taken at that time appreciate consult from Dr. Hicks, he will get her follow up next week in pulmonary clinic - she needs PFT challenge test, but this will probably take some time to arrange as they are back logged with PFT - she needs referral to ENT, she is requesting Dr[facility] Agust[facility] - can streamline her inhaler to Advair 500/50 BID, can stop the Qvar - continue treatment for allergic rhinitis lastly, she can be referred to [facility] for second opinion, she is willing to do this, things have been delayed with COVID discharge tomorrow on Prednisone 50mg with slow taper, 10mg every week could consider Methotrexate as outpatient to spare her from more Prednisone, already has adverse effects (3) Hypoxia: 95% on room air (4) Asthma: See above (5) Chronic steroid use: See above was on Prednisone 25mg daily prior to this admission, had been on Prednisone gradual taper since May 2020 follows with [facility] (6) GERD (gastroesophageal reflux disease): Continue pantoprazole 40 mg p.o. twice daily (7) Anxiety: Anxiety/depression/insomnia- Continue amitriptyline, dicyclomine, melatonin. (8) Depression: See above (9) Insomnia: See above (10) Migraine: Continue sumatriptan as needed Admission and Anticipated Discharge Date Admission Date: September 07, 2020 Subjective patient feeling a little better, still with coughing spells appreciate consult from Dr. Hicks, feels she has multiple issues that need to be worked up first of all she needs methacholamine challenge test, this will likely take some time to scheduled as they are backed up with PFT she needs to see ENT about vocal cord pathology he will streamline her inhalers, place on Advair 500mg BID he would recommend going to tertiary care such as [facility] for another opinion on what is wrong he feels she can go home tomorrow, she agrees she is eating well, sleeping okay, no other issues Review of Systems Review of Systems: All systems reviewed & are unremarkable except as noted in Subjective Respiratory: + cough; no dyspnea Physical Exam Constitutional: WD/WN, vitals as above no acute distress Neck: trachea midline, no thyromegaly Respiratory: normal respiratory effort and + cough; no respiratory distress a nd no labored breathing Auscultation: + wheezes (expiratory); no crackles, no rales and no rhonchi Cardiovascular: RRR, no murmur, no edema Gastrointestinal (Abdomen): normal bowel sounds, soft, nontender, no hepatosplenomegaly Musculoskeletal: no cyanosis or clubbing, extremities motor strength 5/5 Skin: no rashes, warm and dry Neurologic: patellar DTR's 2+ bilat, sensation intact and PERRL, EOMI, accommodation nl, no face palsy, no dysarthria Psychiatric: A+Ox3, euthymic affect Lymphatic: no cervical or axillary lymphadenopathy Results & Data Results & Data ([facility]) Vital Signs (Past 12 Hours) Vital Signs Temp Pulse Pulse Resp BP Pulse Ox 09/12/20 14:55 83 09/12/20 11:31 36.4 C 105 H 18 141/89 H 99 09/12/20 08:00 76 09/12/20 07:40 36.5 C 86 18 129/80 100 09/12/20 07:06 107 H 16 93 09/12/20 04:00 36.8 C 72 18 132/83 95 Medications Administered Current Inpatient Medications Acetaminophen (Acetaminophen 325 Mg Tab) 650 mg PO Q4H PRN PRN Reason: Pain or Fever Stop: 10/07/20 22:53 Albuterol (Albut/Ipratrop 3mg/0.5mg Neb 3 Ml Vial) 3 ml NEB Q2H PRN PRN Reason: dyspnea Stop: 10/07/20 22:53 Last Admin: 09/11/20 19:43 Dose: 3 ml Documented by: Albuterol (Albuterol Hfa 8 Gm Inhaler) 2 puffs INH Q6H PRN PRN Reason: Shortness Of Breath Or Wheezing Stop: 10/07/20 22:53 Albuterol (Albuterol 0.083% Nebu Soln 3 Ml Vial) 1.25 mg INH QID PRN PRN Reason: Shortness Of Breath Or Wheezing Stop: 10/07/20 23:08 Amitriptyline HCl (Amitriptyline Hcl 10 Mg Tab) 30 mg PO HS BOSSMAN Stop: 10/08/20 20:59 Last Admin: 09/11/20 20:57 Dose: 30 mg Documented by: Benzonatate (Benzonatate 100 Mg Capsule) 100 mg PO TID PRN PRN Reason: cough Stop: 10/07/20 22:53 Last Admin: 09/11/20 11:38 Dose: 100 mg Documented by: Budesonide (Budesonide 0.5 Mg/2 Ml Vial (Pulmicort)) 1 mg INH BIDR [facility]OSSMAN Stop: 10/08/20 06:59 Last Admin: 09/12/20 07:06 Dose: 1 mg Documented by: Dicyclomine HCl (Dicyclomine Hcl 10 Mg Cap) 10 mg PO AC [facility]SMAN Stop: 10/08/20 16:29 Last Admin: 09/12/20 11:30 Dose: 10 mg Documented by: Enoxaparin Sodium (Enoxaparin Inj 40 Mg/0.4 Ml Syr) 40 mg SQ Q12 [facility]AN Stop: 10/07/20 22:53 Last Admin: 09/12/20 08:35 Dose: 40 mg Documented by: Fexofenadine HCl (Fexofenadine Hcl 180 Mg Tab) 180 mg PO HS B[facility]SMAN Stop: 10/08/20 20:59 Last Admin: 09/11/20 20:58 Dose: 180 mg Documented by: Fluticasone Furoate (Fluticasone Furoate 100mcg 14 Puffs/Inhaler) 1 puffs INH DAILY [facility] Stop: 10/08/20 08:59 Last Admin: 09/12/20 08:35 Dose: 1 puffs Documented by: Fluticasone/Vilanterol (Fluticasone/Vilanterol 100/25mcg 14 Puffs/Inhaler) 1 puffs INH DAILY [facility] Stop: 10/08/20 08:59 Last Admin: 09/12/20 08:35 Dose: 1 puffs Documented by: Guaifenesin/Codeine Phosphate (Guaifenesin/Codeine 200mg/20mg 10ml Udc) 10 ml PO Q6H PRN PRN Reason: cough Stop: 10/07/20 22:53 Last Admin: 09/12/20 08:35 Dose: 10 ml Documented by: Hydroxyzine HCl (Hydroxyzine Hcl 10 Mg Tab) 10 mg PO QID [facility] Stop: 10/08/20 08:59 Last Admin: 09/12/20 12:46 Dose: 10 mg Documented by: Azithromycin 500 mg/ Dextrose 255 mls @ 125 mls/hr IV Q24H [facility] Stop: 09/15/20 00:00 Last Infusion: 09/12/20 02:13 Dose: Infused Documented by: Lactobacillus Acidoph/Casei/Rhamnos (Advanced Probiotic 1250 Mg Capsule) 2 cap PO DAILY [facility] Stop: 10/08/20 08:59 Last Admin: 09/12/20 08:35 Dose: 2 cap Documented by: Melatonin (Melatonin 3 Mg Tab) 9 mg PO [facility] Stop: 10/08/20 20:59 Last Admin: 09/11/20 20:58 Dose: 9 mg Documented by: Montelukast Sodium (Montelukast Sodium 10 Mg Tablet) 10 mg PO [facility] Stop: 10/08/20 20:59 Last Admin: 09/11/20 20:58 Dose: 10 mg Documented by: Ondansetron HCl (Ondansetron 4 Mg Od Tab) 4 mg PO Q6H PRN PRN Reason: nausea and vomiting Stop: 10/07/20 23:02 Ondansetron HCl (Ondansetron Inj 2 Mg/Ml 2 Ml Vial) 4 mg IV Q6H PRN PRN Reason: Nausea Stop: 10/07/20 22:53 Last Admin: 09/11/20 23:22 Dose: 4 mg Documented by: Pantoprazole Sodium (Pantoprazole 40 Mg Tab) 40 mg PO BID [facility] Stop: 10/07/20 22:53 Last Admin: 09/12/20 08:35 Dose: 40 mg Documented by: Prednisone (Prednisone 50 Mg Tab) 50 mg PO QAM [facility] Stop: 10/12/20 08:59 Last Admin: 09/12/20 08:34 Dose: 50 mg Documented by: Sumatriptan Succinate (Sumatriptan Succinate 50 Mg Tab) 50 mg PO Q2H PRN PRN Reason: Migraine Headache Stop: 10/07/20 22:53 Zinc Sulfate (Zinc Sulfate 220 Mg Capsule) [facility] Stop: 10/08/20 08:59 Last Admin: 09/12/20 08:34 Dose: 220 mg Documented by: PG Care Time/CCT Total # of Minutes Spent Total Time Spent: 33 Total Time Spent with Patient: Total time spent is greater than 50% in coordination of care (as documented) at patient's floor/unit and/or counseling patient: Coding Level of Care Code 74490 Subseq Hosp Care Lvl 3 Diagnoses COVID-19 U07.1 Asthma with exacerbation J45.901 Asthma persistence: persistent Asthma severity: unspecified severity Hypoxia R09.02 Asthma J45.909 Chronic steroid use GERD (gastroesophageal reflux disease) K21.9 Anxiety F41.9 Depression F32.9 Insomnia G47.00 Migraine G43.909 (1) Asthma with exacerbation Asthma persistence: persistent Asthma severity: unspecified severity Qualified Code(s): J45.901 - Unspecified asthma with (acute) exacerbation
[2020-09-12] MEDS: ALBUT/IPRATROP 3MG/0.5MG NEB 3 ML VIAL NEB PRN (19:45)
[2020-09-12] MEDS: AMITRIPTYLINE HCL 10 MG TAB PO SCH (20:42)
[2020-09-12] MEDS: FEXOFENADINE HCL 180 MG TAB PO SCH (20:42)
[2020-09-12] MEDS: MELATONIN 3 MG TAB PO SCH (20:43)
[2020-09-12] MEDS: MONTELUKAST SODIUM 10 MG TABLET PO SCH (20:43)
[2020-09-12] MEDS: ONDANSETRON INJ 2 MG/ML 2 ML VIAL IV PRN (22:57)
[2020-09-13] MEDS: DICYCLOMINE HCL 10 MG CAP PO SCH ×2 (08:02→11:37)
[2020-09-13] MEDS: hydrOXYzine HCl 10 MG TAB PO SCH ×2 (08:30→12:55)
[2020-09-13] MEDS: PANTOprazole 40 MG TAB PO SCH (08:30)
[2020-09-13] MEDS: ADVANCED PROBIOTIC 1250 MG CAPSULE PO SCH (08:30)
[2020-09-13] MEDS: predniSONE 50 MG TAB PO SCH (08:30)
[2020-09-13] MEDS: ZINC SULFATE 220 MG CAPSULE PO SCH (08:30)
[2020-09-13] MEDS: ENOXAPARIN INJ 40 MG/0.4 ML SYR SQ SCH (08:30)
[2020-09-13] MEDS ORDERED: FLUTICASONE FUROATE 200MCG 14 PUFFS/INHALER INH SCH (09:00)
[2020-09-13] MEDS ORDERED: FLUTICASONE/VILANTEROL 200/25MCG 14 PUFFS/INHALER INH SCH (09:00)
--- NOTE | 2020-09-13 15:05 | Discharge Summary ---
Date of Service September 13, 2020 Admission HPI Per Admitting Provider The patient is a 24-year-old female with a past medical history including asthma, asthma exacerbations with status asthmaticus, sinusitis, irritable bowel syndrome diarrhea, hemorrhoids, acute strep pharyngitis, scoliosis, hypertension, allergic rhinitis, postconcussion headache, GERD, insomnia, scoliosis status post thoracolumbar bryan placement, and chronic prednisone use. Patient reports that she has been sick off and on over the past 3 months since her most recent hospitalization that lasted from 05/05-05/09/2020. She has been seen by pulmonology, and allergy on a regular basis since that time, and reports that she has never felt back to normal. Over the past 2 days she reports that she has been feeling much worse, with generalized fatigue, productive cough, and worsening shortness of breath and dyspnea on exertion, in spite of using her usual inhalers and nebulizers. Work-up in the emergency department included the following abnormal laboratories: WBC 12.56, glucose 142, COVID-19 positive. She was influenza type A and B negative, and RSV negative. Vital signs revealed oxygen desaturation to 93% on room air, and increased work of breathing with walking in the room. Her heart rate was also noted to increase from 110s to 140s while ambulating in the room. Chest x-ray showed no acute findings. Thoracolumbar rods appeared intact Principal Diagnosis Acute asthma exacerbation, COVID-19 Discharge Exam Constitutional WD/WN, vitals as above Eyes + anicteric sclerae ENMT external ear and nose normal, oropharynx normal Neck trachea midline, no thyromegaly Respiratory normal respiratory effort Auscultation: + wheezes (left upper lung field on exp); no crackles and no rhonchi Cardiovascular RRR, no murmur, no edema Chest (Breasts) Chest: normal inspection of chest Gastrointestinal (Abdomen) normal bowel sounds, soft, nontender, no hepatosplenomegaly Musculoskeletal Extremities: extremities normal to inspection; no cyanosis and no clubbing Skin no rashes, warm and dry Neurologic moves all extremities and awake; no focal motor deficits Psychiatric A+Ox3, euthymic affect Lymphatic no lymphedema Discharge Data Allergies Allergy/AdvReac Type Severity Reaction Status Date / Time adhesive Allergy Severe skin Verified 09/07/20 17:57 irritation, hives, rash amoxicillin Allergy Severe THROAT Verified 09/07/20 17:57 TIGHTNESS/FELT FUNNY bee venom protein (honey bee) Allergy Severe ANAPHYLAXIS Verified 09/07/20 17:57 clavulanic acid Allergy Severe THROAT Verified 09/07/20 17:57 TIGHTNESS/FELT FUNNY Penicillins Allergy Severe ANAPHYLAXIS Verified 09/07/20 17:57 Egg Derived Allergy Mild Abdominal Verified 09/08/20 07:14 Pain Consultations 09/07/20 21:29 ED Decision to Admit Stat 09/12/20 07:02 Consult Pulmonology Routine Procedures Performed CXR Hospital Course (1) COVID-19: COVID-19 respiratory infection/asthma exacerbation/with hypoxia/chronic prednisone use/severe allergies/history of status asthmaticus- no evidence of COVID pneumonia on CXR, she is saturating 91-5% on room air, no distress. Has longstanding CISNEROS and cough, not much off her baseline at this point Initially on dexamethasone and then changed to Solu Medrol 40mg q8 to target asthma exacerbation stopped Remdesivir since she is not hypoxemic stopped Zithromax FInsih out tapering prednisone of 50mg qday x 3 days then decrease by 5mg q3 days until back to baseline 25mg daily--> goal is to get off steroids completely over the next couple of months--> needs to work closely with PULM and/or [facility]IA[facility] -continue Singulair. Continue albuterol HFA 2 puffs every 6 hours as needed Continue albuterol-nebulizers 4 times daily as needed Added Vistaril 10 mg p.o. 4 times daily prn anxiety which is helping -dc Fifi and trial of Zyrtec Enoxaparin 40 mg SQ every 12 hours for DVT proph Advised f/u with PULM at tertiary care facility in [place] for third opinion on her chronic dyspnea. PULM here suggested ENT but she reports she has already been seen by ENT on numerous occasions and had sinus surgeries, tonsillectomy (2) Asthma with exacerbation: Wheezing seems improved, still with cough, no hypoxia have respiratory give her a peak flow meter to see how well she is exhaling, an dif she is not doing well reviewed outpatient records, follows with allergy and Juan C Winters testing has not revealed much, PFT were not that bad in terms of obstructive flow, CT chest normal, echo with very small ASD she went to see pulmonology at [place], nothing else offered she had a bronchoscopy in the past with Dr. Henry, no biopsies taken at that time appreciate consult from Dr. iHcks, he will get her follow up next week in pulmonary clinic - she needs PFT and methacholine challenge test, but this will probably take some time to arrange as they are back logged with PFT - she needs referral to ENT, she is requesting Dr. Agustin with [facility] - can streamline her inhaler to Advair 500/50 BID, can stop the Qvar - continue treatment for allergic rhinitis but hcnage to [facility] as above could consider Methotrexate as outpatient to spare her from more Prednisone, already has adverse effects taper on prednisone as above (3) Hypoxia: 95% on room air (4) Asthma: See above (5) Chronic steroid use: See above was on Prednisone 25mg daily prior to this admission, had been on Prednisone gradual taper since May 2020 follows with Juan C CASTILLO (6) GERD (gastroesophageal reflux disease): Continue pantoprazole 40 mg p.o. twice daily (7) Anxiety: Anxiety/depression/insomnia- Continue amitriptyline, dicyclomine, melatonin. added hydroxyzine (8) Depression: See above (9) Insomnia: continue melatonin, Elavil (10) Migraine: Continue sumatriptan as needed and qhs Elavil (11) DVT prophylaxis: Lovenox Dispo-stable for dc to home Total Time Total Time Spent Total Time Spent (In Minutes): 35 min Total Time Includes: Examination of the Patient, Discharge Planning and Medication Reconciliation Discharge Plan Discharge Items Patient Disposition: Home - Self-Care Reason For Visit: COVID-19 PNEUMONIA WITH HYPOXIA, Discharge Diagnosis: Asthma exacerbation COVID 19 positive Condition on Discharge: Fair Activity: As commented below Lifting: Gradually increase as tolerated Bathing: No limitations Exercise/Sports: Gradually increase as tolerated Non-emergency contact: Primary Care Provider and Garbage Truck Dispatcher Call non-emergency contact if: you have any medication questions and your symptoms worsen Follow-up/Referrals: Doug Winters PA-C [Primary Care Provider] - Roland Hicks MD [Physician] - (one week) Jessika Agustin MD [Surgeon] - (first available appointment) Diet: Regular Addtl Attending Provider Instructions: Please taper down on your prednisone by 5mg every 5 days until back to 25mg daily. Please look into making a consultation with a Garbage Truck Dispatcher at either [facility] or [facility] as we discussed. Dr. Hicks here suggested discontinuing your Qvar and changing to Advair 500 twice a day and did request ou follow up with him in about one week. You can take the guaifenesin with codeine as needed for cough. You can take the Vistaril as needed for anxiety as well. Follow up with your Primary Care Physician within 1-2 weeks. Pending Studies at Discharge: No Stand-Alone Forms: My [facility] [employer], Work/School Release (Inpt) Medications and DC Order Prescriptions: New hydroxyzine HCl 10 mg Tablet 10 mg PO QID PRN (Reason: anxiety) Qty: 30 RF: 0 prednisone 10 mg tablet 50 mg PO DAILY Qty: 60 RF: 0 cetirizine [Zyrtec] 10 mg tablet 10 mg PO HS Qty: 30 RF: 0 Continued Align 4 mg capsule 4 mg PO DAILY Qty: 30 RF: 0 montelukast [Singulair] 10 mg tablet 10 mg PO HS Qty: 30 RF: 5 dicyclomine 10 mg capsule 10 mg PO TID Qty: 90 RF: 2 epinephrine 0.3 mg/0.3 mL auto-injector 0.3 mg IM UD PRN (Reason: Allergic Reaction) Qty: 1 RF: 3 sumatriptan succinate [Imitrex] 50 mg tablet 50 mg PO Q2H PRN (Reason: Migraine Headache) Qty: 14 RF: 1 amitriptyline 10 mg tablet 30 mg PO HS RF: 0 diclofenac sodium 75 mg tablet,delayed release (DR/EC) 75 mg PO BID PRN (Reason: Pain) RF: 0 pantoprazole 40 mg tablet,delayed release (DR/EC) 40 mg PO BID Qty: 60 RF: 5 albuterol sulfate 1.25 mg/3 mL solution for nebulization 1.25 mg inhalation QID PRN (Reason: Shortness Of Breath Or Wheezing) Qty: 90 RF: 3 ondansetron HCl [Zofran] 4 mg tablet 4 mg PO Q6H PRN (Reason: nausea and vomiting) Qty: 20 RF: 0 benzonatate [Tessalon Perles] 100 mg capsule 100 mg PO TID PRN (Reason: cough) Qty: 20 RF: 0 Advair HFA 230-21 mcg/actuation HFA aerosol inhaler 2 puff INHALATION BID RF: 0 budesonide 1 mg/2 mL suspension for nebulization 1 mg inhalation DIRECTED RF: 0 melatonin 10 mg Tablet 10 mg PO HS RF: 0 prednisone 10 mg tablet 25 mg PO DAILY RF: 0 codeine-guaifenesin 10-100 mg/5 mL liquid 10 ml PO Q6H PRN (Reason: cough) Qty: 240 RF: 0 albuterol sulfate [Ventolin HFA] 90 mcg/actuation HFA aerosol inhaler 2 puff INHALATION Q6H PRN (Reason: Shortness Of Breath Or Wheezing) Qty: 18 RF: 3 Discontinued fexofenadine [Fifi Allergy] 180 mg tablet 180 mg PO HS RF: 0 Qvar RediHaler 80 mcg/actuation Hfa Aerosol Breath Activated 1 inh INHALATION BID RF: 0 Discharge Orders: Discharge Order (Routine); Ordered 09/13/20 Ordered By: Arleth Abbasi Admission Data Admit Date/Time: 09/07/20 21:57 Attending Provider: Arleth Abbasi Admit Provider: Issa Herr Primary Care Provider: Doug Winters Other Providers: Issa Herr ; Roland Hicks Coding Level of Care Code D/C Day Management >30 mins Diagnoses COVID-19 U07.1 Asthma with exacerbation J45.901 Asthma persistence: persistent Asthma severity: unspecified severity Hypoxia R09.02 Asthma J45.909 Chronic steroid use GERD (gastroesophageal reflux disease) K21.9 Anxiety F41.9 Depression F32.9 Insomnia G47.00 Migraine G43.909 DVT prophylaxis Z29.9
== END 2020-09-13 16:22 | disposition home or self-care (01) | DRG 178 ==
LOC: ED 17:14 → 2S 21:57 → SUATTDRO 21:57 → 2S 22:46

== ENCOUNTER 2020-09-17 13:51 | Inpatient (IN) ==
[2020-09-17] MEDS ORDERED: LORazepam 0.5 MG/1 ML VIAL IV STA (15:55)
[2020-09-17] MEDS ORDERED: methylPREDNISolone 125 MG/2 ML VIAL IV STA (15:55)
[2020-09-17] MEDS ORDERED: ALBUT/IPRATROP 3MG/0.5MG NEB 3 ML VIAL NEB STA ×2 (15:55→15:56)
[2020-09-17] MEDS ORDERED: SODIUM CHLORIDE 0.9% 1000ML 1,000 ML IV ONE (15:55)
[2020-09-17 16:20] LABS: Basophils # (auto) 0.01 K/uL (0-0.2); Eosinophils # (auto) 0.01 K/uL (0-0.5); Hematocrit (blood only) 40.7 % (37-47); Hemoglobin 14.2 g/dL (12.0-16.0); Immature Granulocytes # (auto) 0.09 K/uL (0.00-0.02); Immature Granulocytes % (auto) 0.4 %; Lymphocytes # (auto) 1.21 K/uL (1.2-3.4); Lymphocytes % (auto) 5.5 %; Mean Corpuscular Hgb Conc 34.9 g/dL (32-36); Mean Corpuscular Volume 83.2 fL (80-100); Monocytes # (auto) 0.73 K/uL (0.11-0.59); Monocytes % (auto) 3.3 %; Neutrophils # (auto) 19.82 K/uL (1.4-6.5); Neutrophils % (auto) 90.8 %; Platelet Count 291 K/uL (130-400); RDW Coefficient of Variation 13.2 % (11.5-14.5); RDW Standard Deviation 39.8 fL (36.4-46.3); Red Blood Count 4.89 M/uL (4.2-5.4); White Blood Count 21.87 K/uL (4.8-10.8)
[2020-09-17 16:25] LABS: Appearance Urine Clear (Clear); Bacteria Urine Automated Negative (Negative); Bilirubin Urine Negative (Negative); Blood Urine 2+ (Negative); Color Urine Yellow; Epithelial Cell Urine Auto >30 /lpf (0-5); Glucose Urine UA Negative (Negative); Ketones Urine Negative (Negative); Leukocyte Esterase Urine Negative (Negative); Nitrite Urine Negative (Negative); Protein Urine 1+ (Negative); RBC Urine Automated 0-4 /hpf (0-4); Specific Gravity Urine 1.021 (1.000-1.030); Urobilinogen Urine Negative (Negative)
[2020-09-17 16:37] LABS: Alanine Aminotransferase 35 U/L (12-78); Albumin Level 3.3 gm/dl (3.4-5.0); Aspartate Aminotransferase 12 U/L (15-37); BUN Creatinine Ratio 12.5 (10-20); Blood Urea Nitrogen 11 mg/dl (7-18); Calcium 9.7 mg/dl (8.5-10.1); Carbon Dioxide 25 mmol/L (21-32); Chloride 99 mmol/L (98-107); Creatinine Clr Calc Pharmacy 100.9 ml/min; Est GFR (Non-African American) 88.9; Glucose 115 mg/dl (70-99); Magnesium 2.4 mg/dl (1.8-2.4); Potassium 3.8 mmol/L (3.5-5.1); Sodium 133 mmol/L (136-145)
--- NOTE | 2020-09-17 16:39 | XRay Report ---
SINGLE VIEW CHEST CLINICAL HISTORY: Sepsis. FINDINGS: An AP, portable, upright chest radiograph is compared to study dated 09/07/2020. The cardiom ediastinal silhouette is unremarkable. Atelectasis is again seen at the left lung base. Multifocal ai rspace consolidation is seen throughout both lungs. A small left pleural effusion is suggested. No pn eumothorax is seen. The bony thorax is grossly intact. Thoracic spinal rods are in place. Bilateral n ipple piercings are noted. IMPRESSION: 1. Multifocal airspace consolidation is consistent with multifocal pneumonia. Clinical correlation wi ll be required and radiographic follow-up to resolution is recommended. 2. Suspect a small left pleural effusion. ACT 112: Negative or not required by law. Electronically signed by: Martin Lyons M.D. 09/17/2020 4:38 PM
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
[2020-09-17 16:41] LABS: Albumin Globulin Ratio 0.7 (0.9-2); Alkaline Phosphatase 58 U/L (45-117); Bilirubin,Total 0.7 mg/dl (0.2-1); Globulin 4.7 gm/dl (2.5-4.0); Troponin I < 0.015 ng/ml (0-0.045)
[2020-09-17 16:52] LABS: INR 1.1 (0.9-1.1); Partial Thromboplastin Time 26.7 Seconds (21.0-31.0); Prothrombin Time 11.1 Seconds (9.0-12.0)
[2020-09-17 16:59] LABS: Base Excess VBG 1.4 mEq/L; HCO3 VBG 27 mmol/L; PCO2 VBG 46 mmHg (38-50); PO2 VBG 26 mmHg; pH VBG 7.39 (7.36-7.41)
[2020-09-17 17:00] LABS: Oxygen Saturation VBG < 60.0 %
[2020-09-17] MEDS ORDERED: OPTIRAY 320 125ml IV ONE (17:51)
--- NOTE | 2020-09-17 18:30 | CT Scan Report ---
CHEST CTA for PULMONARY ARTERIES CT DOSE: 411.32 mGycm HISTORY: Sepsis. TECHNIQUE: Multiaxial CT images of the chest were performed following the intravenous administration of contrast to evaluate the pulmonary arteries. Maximal intensity projection images were also obtaine d. A dose lowering technique was utilized adhering to the principles of ALARA. COMPARISON STUDY: Chest CT 07/13/2020. FINDINGS: Normal caliber thoracic aorta with no evidence for dissection. Minimal pericardial fluid, u nchanged. Trace right pleural effusion. Suboptimal evaluation of the majority of the segmental and [place] bsegmental pulmonary arteries due to the artifact from the metallic spinal fusion hardware. However, no definite filling defects within the pulmonary arteries to suggest a pulmonary embolus. No fracture s within the visualized osseous structures. Limited views of the upper abdomen demonstrate normal vincent er and spleen. Normal esophagus. Mild bilateral hilar lymphadenopathy which is likely reactive. No me diastinal lymphadenopathy. No pneumothorax. The central airways are patent. Moderate multifocal groun dglass airspace opacities most pronounced within the lower lobes. This likely represents a multifocal pneumonia. IMPRESSION: 1. No evidence for pulmonary embolus. 2. Moderate multifocal pneumonia. This favors a viral process. 3. Trace right pleural effusion. 4. Minimal pericardial fluid, unchanged. ACT 112: Negative or not required by law. Electronically signed by: Ashu Shin M.D. 09/17/2020 6:29 PM
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
[2020-09-17] MEDS: ALBUMIN 25% 12.5 GM/50 ML VIAL IV SCH ×3 (21:03→23:30)
[2020-09-17] MEDS ORDERED: ACETAMINOPHEN 325 MG TAB PO PRN (21:39)
[2020-09-17] MEDS ORDERED: ONDANSETRON INJ 2 MG/ML 2 ML VIAL IV PRN (21:39)
[2020-09-17] MEDS ORDERED: SUMAtriptan succinate 50 MG TAB PO PRN (21:39)
[2020-09-17] MEDS ORDERED: ONDANSETRON 4 MG OD TAB PO PRN (21:45)
[2020-09-17 22:15] LABS: Phosphorus 2.8 mg/dl (2.5-4.9)
[2020-09-17] MEDS: ALBUT/IPRATROP 3MG/0.5MG NEB 3 ML VIAL NEB PRN (22:20)
[2020-09-17] MEDS: BUDESONIDE 0.5 MG/2 ML VIAL (PULMICORT) INH SCH (22:20)
[2020-09-17] MEDS: dexAMETHasone 6 MG in SYRINGE 0 ML IV SCH (23:31)
[2020-09-17] MEDS: MONTELUKAST SODIUM 10 MG TABLET PO SCH (23:32)
[2020-09-17] MEDS: AMITRIPTYLINE HCL 10 MG TAB PO SCH (23:32)
[2020-09-17] MEDS: hydrOXYzine HCl 10 MG TAB PO SCH (23:32)
[2020-09-17] MEDS: PANTOprazole 40 MG TAB PO SCH (23:32)
[2020-09-17] MEDS: ENOXAPARIN INJ 40 MG/0.4 ML SYR SQ SCH (23:33)
[2020-09-17] MEDS: CETIRIZINE HCL 10 MG TABLET PO SCH (23:33)
[2020-09-17] MEDS: DICYCLOMINE HCL 10 MG CAP PO SCH (23:33)
[2020-09-18] MEDS ORDERED: FUROSEMIDE 40 MG/4 ML VIAL IV SCH
[2020-09-18] MEDS: ALBUMIN 25% 12.5 GM/50 ML VIAL IV SCH (00:42)
[2020-09-18] MEDS: dexAMETHasone 6 MG in SYRINGE 0 ML IV SCH ×3 (06:12→22:07)
[2020-09-18] MEDS: ALBUT/IPRATROP 3MG/0.5MG NEB 3 ML VIAL NEB PRN ×3 (07:39→22:55)
[2020-09-18] MEDS: BUDESONIDE 0.5 MG/2 ML VIAL (PULMICORT) INH SCH ×2 (07:39→19:18)
[2020-09-18 07:53] LABS: Albumin Level 3.9 gm/dl (3.4-5.0); BUN Creatinine Ratio 17.8 (10-20); Calcium 9.4 mg/dl (8.5-10.1); Est GFR (African American) 137.2; Est GFR (Non-African American) 118.4; Magnesium 2.5 mg/dl (1.8-2.4); Potassium 3.6 mmol/L (3.5-5.1)
[2020-09-18] MEDS: PANTOprazole 40 MG TAB PO SCH ×2 (08:00→20:20)
[2020-09-18] MEDS: DICYCLOMINE HCL 10 MG CAP PO SCH ×3 (08:00→20:25)
[2020-09-18] MEDS: hydrOXYzine HCl 10 MG TAB PO SCH ×4 (08:00→20:19)
[2020-09-18] MEDS: CHOLECALCIFEROL 1,000 UNITS 25 MCG TAB PO SCH (08:01)
[2020-09-18] MEDS: ADVANCED PROBIOTIC 1250 MG CAPSULE PO SCH (08:01)
[2020-09-18] MEDS: ZINC SULFATE 220 MG CAPSULE PO SCH (08:02)
[2020-09-18 08:09] LABS: Bilirubin,Total 0.7 mg/dl (0.2-1); Globulin 3.9 gm/dl (2.5-4.0); Phosphorus 4.7 mg/dl (2.5-4.9); Total Protein 7.8 gm/dl (6.4-8.2)
[2020-09-18 08:39] LABS: Basophils # (auto) 0.01 K/uL (0-0.2); Basophils % (auto) 0.1 %; Hemoglobin 11.8 g/dL (12.0-16.0); Immature Granulocytes # (auto) 0.05 K/uL (0.00-0.02); Immature Granulocytes % (auto) 0.5 %; Lymphocytes # (auto) 0.93 K/uL (1.2-3.4); Lymphocytes % (auto) 10.1 %; Mean Corpuscular Hemoglobin 28.2 pg (25-34); Mean Corpuscular Hgb Conc 33.7 g/dL (32-36); Mean Corpuscular Volume 83.5 fL (80-100); Mean Platelet Volume 9.8 fL (7.4-10.4); Monocytes # (auto) 0.72 K/uL (0.11-0.59); Monocytes % (auto) 7.8 %; Neutrophils # (auto) 7.53 K/uL (1.4-6.5); Neutrophils % (auto) 81.5 %; Platelet Count 239 K/uL (130-400); RDW Coefficient of Variation 13.2 % (11.5-14.5); RDW Standard Deviation 39.8 fL (36.4-46.3); Red Blood Count 4.19 M/uL (4.2-5.4); White Blood Count 9.24 K/uL (4.8-10.8)
--- NOTE | 2020-09-18 09:27 | Electrocardiogram Report ---
Test Reason : Blood Pressure : / mmHG Vent. Rate : 111 BPM Atrial Rate : 111 BPM P-R Int : 140 ms QRS Dur : 082 ms QT Int : 324 ms P-R-T Axes : 023 079 016 degrees QTc Int : 440 ms Sinus tachycardia Left atrial enlargement Borderline ECG When compared with ECG of 07-SEP-2020 17:56, HR has increased 18 bpm Otherwise no significant change Confirmed by Edwar Clay ([id number]) on 09/18/2020 9:27:27 AM Referred By: REFERRED SELF Confirmed By:Edwar Clay
--- NOTE | 2020-09-18 09:32 | Electrocardiogram Report ---
Test Reason : Blood Pressure : / mmHG Vent. Rate : 085 BPM Atrial Rate : 085 BPM P-R Int : 156 ms QRS Dur : 086 ms QT Int : 366 ms P-R-T Axes : 022 076 031 degrees QTc Int : 435 ms Normal sinus rhythm Left atrial enlargement Diffuse minor ST elevation, consider pericardits (clinical correlation necessary) Borderline ECG When compared with ECG of 17-SEP-2020 16:15, HR has decreased by [address] elevation slightly more apparent Confirmed by Edwar Clay ([id number]) on 09/18/2020 9:31:38 AM Referred By: REFERRED SELF Confirmed By:Edwar Clay
[2020-09-18 09:39] LABS: Pregnancy Test, Serum Negative (Negative)
[2020-09-18] MEDS: ENOXAPARIN INJ 40 MG/0.4 ML SYR SQ SCH ×2 (11:00→22:06)
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
--- NOTE | 2020-09-18 13:49 | XCELERA ---
[id number] \\[id number]
--- NOTE | 2020-09-18 16:20 | Hospitalist Progress Note ---
Date of Service September 18, 2020 Assessment & Plan (1) Pneumonia due to 2019 novel coronavirus: With worsening infiltrates on chest imaging here from last week. PCT neg, BNP neg With underlying asthma that is persistent, severe, and on chronic high dose steroids -continue dexamethasone 6 mg IV every 8 hours and decrease to bid for tomorrow -consult to PULM appreciated -supplemental O2 prn to keep pulse ox 94-95% Zinc sulfate 220 mg p.o. every morning Vitamin D3 2000 international units p.o. daily continue DuoNebs every 2 hours as needed-signed Rx for Art Director to get new neb machine at home Continue cetirizine 10 mg p.o. daily Hydroxyzine 10 mg p.o. 4 times daily scheduled Montelukast 10 mg p.o. at bedtime Hold outpatient prednisone and eventually taper dexamethasone back to home dose of prednisone Cough syrup 10 mg p.o. every 4 hours as needed cough -check Mycoplasma, LDH, CRP, BNP -start doxycycline 100mg po bid -start Bactrim DS MWF for PCP prophylaxis (2) Asthma with exacerbation: See above (3) Pericarditis: Presented with COVID-19, fevers, chest pains and pressure, and ongoing asthma exacerbation as above. CRP elevated, troponin neg x [address] minor elevations today worse than on admission ECHO with pericardial trace effusion -start colchcine 0.6mg po bid -continue high dose steroids consult Cardiology -continue tele (4) Pulmonary edema: Chest x-ray suggestive of diffuse pulmonary edema, more concentrated in lower lobes- Gave albumin 50 g IV x1, and furosemide 40 mg IV x1 upon admission. ECHO with preserved EF but with trace pericardial effusion (5) Anxiety: worsening by health problems, ongoing for years -agreeable to start Zoloft 25mg po qday x 1 week and then increase to 50mg daily continue Vistaril qid f/u with PCP (6) Migraine: Continue sumatriptan succinate as needed (7) GERD (gastroesophageal reflux disease): Continue pantoprazole 40 mg p.o. twice daily (8) Insomnia: Continue melatonin 10 mg at bedtime and amitriptyline 30 mg at bedtime (9) Allergic rhinitis: continue home Zyrtec (10) DVT prophylaxis: Lovenox Dispo-continued stay on PCU Admission and Anticipated Discharge Date Admission Date: September 17, 2020 Subjective Pt continues to ahve chest pressure and severe cough with any deep breath. Can't pull more than 200mL on her IS. Has been having fevers and chest pain at home x 4 days since discharge earlier this week. [place] so SOB almost collapsed just walking to the bathroom at home. Does not feel much better today than yesterday after receiveing high dose IV steroids and does not think nebs help her at all. Feels very SOB. Denies N/V/D. Has had low appetite. Tele with [id number], rates 70-110s I discussed the case with PULM and Cardiology Review of Systems Review of Systems: All systems reviewed & are unremarkable except as noted in HPI & below +anxiety, frustration with health problems No h/o brad Physical Exam Constitutional: WD/WN, vitals as above Eyes: + anicteric sclerae; no conjunctival abnormality ENMT: external ear and nose normal, oropharynx normal arreola facies Neck: trachea midline, no thyromegaly Respiratory: + cough and + tachypneic Auscultation: + crackles (bibasilar ); no rhonchi Cardiovascular: Rate/Rhythm: regular rhythm and + tachycardic Heart Sounds: no murmur Gastrointestinal (Abdomen): normal bowel sounds, soft, nontender, no hepatosplenomegaly Musculoskeletal: Extremities: extremities normal to inspection; no cyanosis and no clubbing Skin: no rashes, warm and dry Neurologic: moves all extremities and awake; no focal motor deficits Psychiatric: Orientation: alert, oriented x 3 and cooperative Eye Contact: good eye contact Speech: normal rate/rhythm/volume of speech Affect: + anxious affect Mood: + anxious mood Thought Process: goal directed thought process Lymphatic: no lymphedema Results & Data Results & [facility] ([facility]) Vital Signs (Past 12 Hours) Vital Signs Temp Pulse Pulse Resp BP BP Pulse Ox 09/18/20 11:21 104 H 18 96 09/18/20 11:17 36.9 C 96 H 19 114/74 96 09/18/20 10:34 84 09/18/20 08:12 36.6 C 90 19 119/79 90 09/18/20 08:00 84 09/18/20 07:41 81 16 95 09/18/20 04:33 36.6 C 71 18 96/57 L 94 Pulse Ox 09/18/20 11:21 09/18/20 11:17 09/18/20 10:34 94 09/18/20 08:12 09/18/20 08:00 09/18/20 07:41 09/18/20 04:33 Laboratory Results 09/18/20 09/18/20 09/18/20 Range/Units 16:24 16:21 16:21 WBC (4.8-10.8) K/uL RBC (4.2-5.4) M/uL Hgb (12.0-16.0) g/dL Hct (37-47) % MCV (80-100) fL MCH (25-34) pg MCHC (32-36) g/dL RDW Std Deviation (36.4-46.3) fL RDW Coeff of Teresa (11.5-14.5) % Plt Count (130-400) K/uL MPV (7.4-10.4) fL Immature Gran % (Auto) % Neut % (Auto) % Lymph % (Auto) % Martin % (Auto) % Eos % (Auto) % Baso % (Auto) % Neut # (Auto) (1.4-6.5) K/uL Lymph # (Auto) (1.2-3.4) K/uL Martin # (Auto) (0.11-0.59) K/uL Eos # (Auto) (0-0.5) K/uL Baso # (Auto) (0-0.2) K/uL Immature Gran # (Auto) (0.00-0.02) K/uL ESR (0-21) mm/hr Sodium (136-145) mmol/L Potassium (3.5-5.1) mmol/L Chloride (98-107) mmol/L Carbon Dioxide (21-32) mmol/L Anion Gap (3-11) BUN (7-18) mg/dl Creatinine (0.6-1.2) mg/dl Est Cr Clr Drug Dosing ml/min Est GFR ( Amer) Est GFR (Non-Af Amer) BUN/Creatinine Ratio (10-20) Glucose (70-99) mg/dl Calcium (8.5-10.1) mg/dl Phosphorus (2.5-4.9) mg/dl Magnesium (1.8-2.4) mg/dl Total Bilirubin (0.2-1) mg/dl AST (15-37) U/L ALT (12-78) U/L Alkaline Phosphatase (45-117) U/L Lactate Dehydrogenase 220 (84-246) U/L Troponin I < 0.015 (0-0.045) ng/ml C-Reactive Protein 8.54 H (0-0.29) mg/dl NT-Pro-B Natriuret Pep 52 (0-450) pg/ml Total Protein (6.4-8.2) gm/dl Albumin (3.4-5.0) gm/dl Globulin (2.5-4.0) gm/dl Albumin/Globulin Ratio (0.9-2) HCG, Qual (Negative) Mycoplasma pneumon IgM Pending 09/18/20 09/18/20 09/18/20 Range/Units 06:48 06:38 06:38 WBC (4.8-10.8) K/uL RBC (4.2-5.4) M/uL Hgb (12.0-16.0) g/dL Hct (37-47) % MCV (80-100) fL MCH (25-34) pg MCHC (32-36) g/dL RDW Std Deviation (36.4-46.3) fL RDW Coeff of Teresa (11.5-14.5) % Plt Count (130-400) K/uL MPV (7.4-10.4) fL Immature Gran % (Auto) % Neut % (Auto) % Lymph % (Auto) % Martin % (Auto) % Eos % (Auto) % Baso % (Auto) % Neut # (Auto) (1.4-6.5) K/uL Lymph # (Auto) (1.2-3.4) K/uL Martin # (Auto) (0.11-0.59) K/uL Eos # (Auto) (0-0.5) K/uL Baso # (Auto) (0-0.2) K/uL Immature Gran # (Auto) (0.00-0.02) K/uL ESR 44 H (0-21) mm/hr Sodium 138 (136-145) mmol/L Potassium 3.6 (3.5-5.1) mmol/L Chloride 103 (98-107) mmol/L Carbon Dioxide 26 (21-32) mmol/L Anion Gap 9.0 (3-11) BUN 13 (7-18) mg/dl Creatinine 0.71 (0.6-1.2) mg/dl Est Cr Clr Drug Dosing 128.0 ml/min Est GFR ( Amer) 137.2 Est GFR (Non-Af Amer) 118.4 BUN/Creatinine Ratio 17.8 (10-20) Glucose 107 H (70-99) mg/dl Calcium 9.4 (8.5-10.1) mg/dl Phosphorus 4.7 D (2.5-4.9) mg/dl Magnesium 2.5 H (1.8-2.4) mg/dl Total Bilirubin 0.7 (0.2-1) mg/dl AST 8 L (15-37) U/L ALT 29 (12-78) U/L Alkaline Phosphatase 45 (45-117) U/L Lactate Dehydrogenase (84-246) U/L Troponin I (0-0.045) ng/ml C-Reactive Protein (0-0.29) mg/dl NT-Pro-B Natriuret Pep (0-450) pg/ml Total Protein 7.8 (6.4-8.2) gm/dl Albumin 3.9 (3.4-5.0) gm/dl Globulin 3.9 (2.5-4.0) gm/dl Albumin/Globulin Ratio 1.0 (0.9-2) HCG, Qual Negative (Negative) Mycoplasma pneumon IgM 09/18/20 Range/Units 06:38 WBC 9.24 D (4.8-10.8) K/uL RBC 4.19 L (4.2-5.4) M/uL Hgb 11.8 L (12.0-16.0) g/dL Hct 35.0 L (37-47) % MCV 83.5 (80-100) fL MCH 28.2 (25-34) pg MCHC 33.7 (32-36) g/dL RDW Std Deviation 39.8 (36.4-46.3) fL RDW Coeff of Teresa 13.2 (11.5-14.5) % Plt Count 239 (130-400) K/uL MPV 9.8 (7.4-10.4) fL Immature Gran % (Auto) 0.5 % Neut % (Auto) 81.5 % Lymph % (Auto) 10.1 % Martin % (Auto) 7.8 % Eos % (Auto) 0.0 % Baso % (Auto) 0.1 % Neut # (Auto) 7.53 H (1.4-6.5) K/uL Lymph # (Auto) 0.93 L (1.2-3.4) K/uL Martin # (Auto) 0.72 H (0.11-0.59) K/uL Eos # (Auto) 0.00 (0-0.5) K/uL Baso # (Auto) 0.01 (0-0.2) K/uL Immature Gran # (Auto) 0.05 H (0.00-0.02) K/uL ESR (0-21) mm/hr Sodium (136-145) mmol/L Potassium (3.5-5.1) mmol/L Chloride (98-107) mmol/L Carbon Dioxide (21-32) mmol/L Anion Gap (3-11) BUN (7-18) mg/dl Creatinine (0.6-1.2) mg/dl Est Cr Clr Drug Dosing ml/min Est GFR ( Amer) Est GFR (Non-Af Amer) BUN/Creatinine Ratio (10-20) Glucose (70-99) mg/dl Calcium (8.5-10.1) mg/dl Phosphorus (2.5-4.9) mg/dl Magnesium (1.8-2.4) mg/dl Total Bilirubin (0.2-1) mg/dl AST (15-37) U/L ALT (12-78) U/L Alkaline Phosphatase (45-117) U/L Lactate Dehydrogenase (84-246) U/L Troponin I (0-0.045) ng/ml C-Reactive Protein (0-0.29) mg/dl NT-Pro-B Natriuret Pep (0-450) pg/ml Total Protein (6.4-8.2) gm/dl Albumin (3.4-5.0) gm/dl Globulin (2.5-4.0) gm/dl Albumin/Globulin Ratio (0.9-2) HCG, Qual (Negative) Mycoplasma pneumon IgM Diagnostic Findings ECHO-preserved EF, trace pericardial effusion ECG Additional Comments: Vent. Rate : 085 BPM Atrial Rate : 085 BPM P-R Int : 156 ms QRS Dur : 086 ms QT Int : 366 ms P-R-T Axes : 022 076 031 degrees QTc Int : 435 ms Normal sinus rhythm Left atrial enlargement Diffuse minor ST elevation, consider pericardits (clinical correlation necessary) Borderline ECG When compared with ECG of 17-SEP-2020 16:15, HR has decreased by [address] elevation slightly more apparent PG Care Time/CCT Total # of Minutes Spent Total Time Spent with Patient: Total time spent is greater than 50% in coordination of care (as documented) at patient's floor/unit and/or counseling patient: Coding Level of Care Code 57351 Subseq Hosp Care Lvl 3 Diagnoses Pneumonia due to 2019 novel coronavirus U07.1; J12.82 Asthma with exacerbation J45.901 Asthma persistence: persistent Asthma severity: unspecified severity Pericarditis I31.9 Pulmonary edema J81.1 Anxiety F41.9 Migraine G43.909 GERD (gastroesophageal reflux disease) K21.9 Insomnia G47.00 Allergic rhinitis J30.9 DVT prophylaxis Z29.9 (1) Asthma with exacerbation Asthma persistence: persistent Asthma severity: unspecified severity Qualified Code(s): J45.901 - Unspecified asthma with (acute) exacerbation
[2020-09-18 17:26] LABS: C Reactive Protein 8.54 mg/dl (0-0.29); NT Pro B Type Natriuretic Pept 52 pg/ml (0-450); Troponin I < 0.015 ng/ml (0-0.045)
[2020-09-18] MEDS: COLCHICINE 0.6 MG TAB PO SCH (17:48)
[2020-09-18] MEDS: SERTRALINE HCL 50 MG TABLET PO SCH (17:49)
[2020-09-18] MEDS: SULFAMETHOXAZOLE/TRIMETHOPRIM DS 800/160MG TAB PO SCH (17:49)
[2020-09-18] MEDS: DOXYCYCLINE HYCLATE 100 MG CAP PO SCH (20:18)
[2020-09-18] MEDS: MONTELUKAST SODIUM 10 MG TABLET PO SCH (20:19)
[2020-09-18] MEDS: CETIRIZINE HCL 10 MG TABLET PO SCH (20:19)
[2020-09-18] MEDS: guaiFENesin 600 MG TABCR PO SCH (20:20)
[2020-09-18] MEDS: AMITRIPTYLINE HCL 10 MG TAB PO SCH (20:21)
[2020-09-18] MEDS: MELATONIN 3 MG TAB PO SCH (20:21)
[2020-09-18] MEDS ORDERED: guaiFENesin 600 MG TABCR PO SCH (21:00)
[2020-09-19 05:56] LABS: Basophils # (auto) 0.02 K/uL (0-0.2); Basophils % (auto) 0.1 %; Hematocrit (blood only) 34.3 % (37-47); Hemoglobin 11.7 g/dL (12.0-16.0); Immature Granulocytes # (auto) 0.07 K/uL (0.00-0.02); Immature Granulocytes % (auto) 0.4 %; Lymphocytes # (auto) 1.11 K/uL (1.2-3.4); Mean Corpuscular Hemoglobin 28.9 pg (25-34); Mean Corpuscular Hgb Conc 34.1 g/dL (32-36); Mean Corpuscular Volume 84.7 fL (80-100); Mean Platelet Volume 9.9 fL (7.4-10.4); Monocytes # (auto) 1.12 K/uL (0.11-0.59); Neutrophils % (auto) 85.5 %; Platelet Count 275 K/uL (130-400); Red Blood Count 4.05 M/uL (4.2-5.4); White Blood Count 15.92 K/uL (4.8-10.8)
[2020-09-19] MEDS: dexAMETHasone 6 MG in SYRINGE 0 ML IV SCH ×3 (06:08→21:37)
[2020-09-19] MEDS: DOXYCYCLINE HYCLATE 100 MG CAP PO SCH ×2 (06:08→21:26)
[2020-09-19 06:25] LABS: Albumin Level 3.4 gm/dl (3.4-5.0); BUN Creatinine Ratio 18.1 (10-20); Creatinine Clr Calc Pharmacy 126.2 ml/min; Est GFR (African American) 134.9; Est GFR (Non-African American) 116.4; Magnesium 2.5 mg/dl (1.8-2.4); Potassium 3.8 mmol/L (3.5-5.1)
[2020-09-19 06:37] LABS: Albumin Globulin Ratio 0.9 (0.9-2); Bilirubin,Total 0.7 mg/dl (0.2-1); Globulin 3.6 gm/dl (2.5-4.0); Phosphorus 3.6 mg/dl (2.5-4.9)
[2020-09-19] MEDS: BUDESONIDE 0.5 MG/2 ML VIAL (PULMICORT) INH SCH ×2 (07:24→19:50)
[2020-09-19] MEDS: ALBUT/IPRATROP 3MG/0.5MG NEB 3 ML VIAL NEB PRN (07:24)
[2020-09-19] MEDS: ZINC SULFATE 220 MG CAPSULE PO SCH (09:13)
[2020-09-19] MEDS: guaiFENesin 600 MG TABCR PO SCH ×2 (09:13→21:38)
[2020-09-19] MEDS: SERTRALINE HCL 50 MG TABLET PO SCH (09:13)
[2020-09-19] MEDS: ADVANCED PROBIOTIC 1250 MG CAPSULE PO SCH (09:13)
[2020-09-19] MEDS: COLCHICINE 0.6 MG TAB PO SCH ×2 (09:14→21:39)
[2020-09-19] MEDS: PANTOprazole 40 MG TAB PO SCH ×2 (09:14→21:36)
[2020-09-19] MEDS: ENOXAPARIN INJ 40 MG/0.4 ML SYR SQ SCH ×2 (09:14→21:39)
[2020-09-19] MEDS: CHOLECALCIFEROL 1,000 UNITS 25 MCG TAB PO SCH (09:14)
[2020-09-19] MEDS: DICYCLOMINE HCL 10 MG CAP PO SCH ×3 (09:14→17:53)
[2020-09-19] MEDS: hydrOXYzine HCl 10 MG TAB PO SCH ×4 (09:14→21:27)
--- NOTE | 2020-09-19 13:36 | Electrocardiogram Report ---
Test Reason : Blood Pressure : / mmHG Vent. Rate : 082 BPM Atrial Rate : 082 BPM P-R Int : 144 ms QRS Dur : 088 ms QT Int : 348 ms P-R-T Axes : 028 072 039 degrees QTc Int : 406 ms Normal sinus rhythm Normal ECG When compared with ECG of 18-SEP-2020 08:09, No significant change was found Confirmed by Edwar Clay ([id number] on 09/19/2020 1:36:31 PM Referred By: REFERRED SELF Confirmed By:Edwar Clay
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
--- NOTE | 2020-09-19 17:18 | Hospitalist Progress Note ---
Date of Service September 19, 2020 Assessment & Plan (1) Pneumonia due to 2019 novel coronavirus: With worsening infiltrates on chest imaging compared to previous PCT neg, BNP neg, CRP is elevated at 8.5 With underlying asthma that is persistent, severe, and on chronic high dose steroids Is on chronic steroids and at risk for PCP, but LDH is negative and not hypoxic Appreciate pulmonology consultation Cough is improved today, patient still reports ongoing chest pain and shortness of breath-she does not feel she is improved, but she looks better -Continue-continue dexamethasone 6 mg IV every 8 hours and decrease to bid today -consult to PULM appreciated -supplemental O2 prn to keep pulse ox greater than 92%-she is not requiring oxygen at rest, but will need a two-step prior to discharge -Continue zinc sulfate 220 mg p.o. every morning -Continue-Vitamin D3 2000 international units p.o. daily -Continue DuoNebs every 2 hours as needed-signed Rx for [employer]ing [employer] to get new neb machine at home -Hold outpatient prednisone and eventually taper dexamethasone back to home dose of prednisone -continue Guaifenesin with codeine 10 ml for p.o. every 4 hours as needed cough -check Mycoplasma-Pending -Continue on doxycycline 100mg po bid x 7 day course -started Bactrim DS MWF for PCP prophylaxis while on high-dose steroids -Continued stay (2) Asthma with exacerbation: See above (3) Pericarditis: Presented with COVID-19, fevers, chest pains and pressure, and ongoing asthma exacerbation as above. CRP elevated, troponin neg x 2 so no evidence of myocarditis ECG with diffuse ST minor elevations on hospital day #2 worse than on admission Repeat ECG today is improved ECHO with pericardial trace effusion -started and should continue x3 months colchicine 0.6mg po bid -continue high dose steroids although cardiology reports there is increased risk of recurrence of effusion/pericarditis with steroids as opposed to NSAIDs. She would be at high risk for GI bleeding if on high-dose steroids and high-dose NSAIDs -Plan to repeat limited echocardiogram to look at pericardial effusion on Sunday if still here, otherwise as an outpatient -consult Cardiology appreciated -continue tele (4) Anxiety: worsening by health problems, ongoing for years -agreeable to start Zoloft 25mg po qday x 1 week and then increase to 50mg daily continue Vistaril qid f/u with PCP (5) Migraine: Continue sumatriptan succinate as needed Continue amitriptyline for prophylaxis (6) GERD (gastroesophageal reflux disease): Continue pantoprazole 40 mg p.o. twice daily (7) Insomnia: Continue melatonin 10 mg at bedtime and amitriptyline 30 mg at bedtime (8) Allergic rhinitis: continue home Zyrtec Hydroxyzine 10 mg p.o. 4 times daily scheduled Montelukast 10 mg p.o. at bedtime (9) Dyspnea: As above, secondary to asthma and Covid-19 pneumonia We will need to check a two-step oxygen test prior to discharge (10) Chronic steroid use: She has been on high-dose steroids since April 2020 for severe persistent asthma Started Bactrim DS 1 tab Sunday for PCP prophylaxis Follow-up with pulmonology as an outpatient (11) DVT prophylaxis: Lovenox Dispo-continued stay on PCU Admission and Anticipated Discharge Date Admission Date: September 17, 2020 Subjective Patient reports still coughing but slightly improved. Still with chest pain substernal area that is constant not changing with positions. She denies any diarrhea or nausea. Her appetite is still low but eating some today. No further fevers here. Telemetry with normal sinus rhythm with rates in the 50s overnight to 130s at times during the days. I discussed her care with cardiology and pulmonology. The patient requested a pulmonology did not return to see her today. Review of Systems Review of Systems: All systems reviewed & are unremarkable except as noted in HPI & below Physical Exam Constitutional: WD/WN, vitals as above Eyes: + anicteric sclerae; no conjunctival abnormality Neck: trachea midline, no thyromegaly Respiratory: + cough Auscultation: + crackles (bibasilar ); no rhonchi Cardiovascular: Rate/Rhythm: regular rate and regular rhythm Heart Sounds: no murmur Gastrointestinal (Abdomen): normal bowel sounds, soft, nontender, no hepatosplenomegaly Musculoskeletal: Extremities: extremities normal to inspection; no cyanosis and no clubbing Skin: no rashes, warm and dry Neurologic: moves all extremities and awake; no focal motor deficits Psychiatric: Orientation: alert, oriented x 3 and cooperative Eye Contact: good eye contact Speech: normal rate/rhythm/volume of speech Thought Process: goal directed thought process Lymphatic: no lymphedema Results & Data Results & Data ([facility]) Vital Signs (Past 12 Hours) Vital Signs Temp Pulse Pulse Resp BP Pulse Ox Pulse Ox 09/19/20 15:45 36.7 C 81 18 114/84 96 09/19/20 11:52 36.7 C 91 H 19 122/77 95 09/19/20 10:00 95 09/19/20 08:07 36.7 C 96 H 18 127/79 91 09/19/20 08:00 106 H 09/19/20 07:27 69 16 95 Laboratory Results 09/19/20 09/19/20 09/18/20 Range/Units 05:35 05:35 16:21 WBC 15.92 H (4.8-10.8) K/uL RBC 4.05 L (4.2-5.4) M/uL Hgb 11.7 L (12.0-16.0) g/dL Hct 34.3 L (37-47) % MCV 84.7 (80-100) fL MCH 28.9 (25-34) pg MCHC 34.1 (32-36) g/dL RDW Std Deviation 40.0 (36.4-46.3) fL RDW Coeff of Teresa 13.0 (11.5-14.5) % Plt Count 275 (130-400) K/uL MPV 9.9 (7.4-10.4) fL Immature Gran % (Auto) 0.4 % Neut % (Auto) 85.5 % Lymph % (Auto) 7.0 % Ector % (Auto) 7.0 % Eos % (Auto) 0.0 % Baso % (Auto) 0.1 % Neut # (Auto) 13.60 H (1.4-6.5) K/uL Lymph # (Auto) 1.11 L (1.2-3.4) K/uL Ector # (Auto) 1.12 H (0.11-0.59) K/uL Eos # (Auto) 0.00 (0-0.5) K/uL Baso # (Auto) 0.02 (0-0.2) K/uL Immature Gran # (Auto) 0.07 H (0.00-0.02) K/uL Sodium 138 (136-145) mmol/L Potassium 3.8 (3.5-5.1) mmol/L Chloride 107 (98-107) mmol/L Carbon Dioxide 24 (21-32) mmol/L Anion Gap 7.0 (3-11) BUN 13 (7-18) mg/dl Creatinine 0.72 (0.6-1.2) mg/dl Est Cr Clr Drug Dosing 126.2 ml/min Est GFR ( Amer) 134.9 Est GFR (Non-Af Amer) 116.4 BUN/Creatinine Ratio 18.1 (10-20) Glucose 124 H (70-99) mg/dl Calcium 9.0 (8.5-10.1) mg/dl Phosphorus 3.6 D (2.5-4.9) mg/dl Magnesium 2.5 H (1.8-2.4) mg/dl Total Bilirubin 0.7 (0.2-1) mg/dl AST 9 L (15-37) U/L ALT 26 (12-78) U/L Alkaline Phosphatase 44 L (45-117) U/L Lactate Dehydrogenase 220 (84-246) U/L Total Protein 7.0 (6.4-8.2) gm/dl Albumin 3.4 (3.4-5.0) gm/dl Globulin 3.6 (2.5-4.0) gm/dl Albumin/Globulin Ratio 0.9 (0.9-2) PG Care Time/CCT Total # of Minutes Spent Total Time Spent with Patient: Total time spent is greater than 50% in coordination of care (as documented) at patient's floor/unit and/or counseling patient: Coding Level of Care Code 84106 Subseq Hosp Care Lvl 3 Diagnoses Pneumonia due to 2019 novel coronavirus U07.1; J12.82 Asthma with exacerbation J45.901 Asthma persistence: persistent Asthma severity: unspecified severity Pericarditis I31.9 Anxiety F41.9 Migraine G43.909 GERD (gastroesophageal reflux disease) K21.9 Insomnia G47.00 Allergic rhinitis J30.9 Dyspnea R06.00 Chronic steroid use DVT prophylaxis Z29.9 (1) Asthma with exacerbation Asthma persistence: persistent Asthma severity: unspecified severity Qualified Code(s): J45.901 - Unspecified asthma with (acute) exacerbation
[2020-09-19] MEDS: MONTELUKAST SODIUM 10 MG TABLET PO SCH (21:32)
[2020-09-19] MEDS: AMITRIPTYLINE HCL 10 MG TAB PO SCH (21:33)
[2020-09-19] MEDS: MELATONIN 3 MG TAB PO SCH (21:33)
[2020-09-19] MEDS: CETIRIZINE HCL 10 MG TABLET PO SCH (21:35)
[2020-09-20] MEDS: BUDESONIDE 0.5 MG/2 ML VIAL (PULMICORT) INH SCH ×2 (07:08→19:54)
[2020-09-20] MEDS: ALBUT/IPRATROP 3MG/0.5MG NEB 3 ML VIAL NEB PRN (07:08)
[2020-09-20] MEDS: dexAMETHasone 6 MG in SYRINGE 0 ML IV SCH ×2 (07:39→21:37)
[2020-09-20] MEDS: BENZONATATE 100 MG CAPSULE PO SCH ×3 (07:39→21:44)
[2020-09-20] MEDS: PANTOprazole 40 MG TAB PO SCH ×2 (07:40→21:44)
[2020-09-20] MEDS: hydrOXYzine HCl 10 MG TAB PO SCH ×4 (07:40→21:40)
[2020-09-20] MEDS: CHOLECALCIFEROL 1,000 UNITS 25 MCG TAB PO SCH (07:40)
[2020-09-20] MEDS: guaiFENesin 600 MG TABCR PO SCH ×2 (07:40→21:50)
[2020-09-20] MEDS: COLCHICINE 0.6 MG TAB PO SCH ×2 (07:41→21:53)
[2020-09-20] MEDS: SERTRALINE HCL 50 MG TABLET PO SCH (07:41)
[2020-09-20] MEDS: ADVANCED PROBIOTIC 1250 MG CAPSULE PO SCH (07:42)
[2020-09-20] MEDS: SULFAMETHOXAZOLE/TRIMETHOPRIM DS 800/160MG TAB PO SCH (07:42)
[2020-09-20] MEDS: ZINC SULFATE 220 MG CAPSULE PO SCH (07:42)
[2020-09-20] MEDS: DOXYCYCLINE HYCLATE 100 MG CAP PO SCH ×2 (07:42→21:53)
[2020-09-20] MEDS: DICYCLOMINE HCL 10 MG CAP PO SCH ×3 (07:43→16:05)
[2020-09-20 07:58] LABS: Basophils # (auto) 0.02 K/uL (0-0.2); Basophils % (auto) 0.1 %; Hematocrit (blood only) 40.3 % (37-47); Hemoglobin 13.7 g/dL (12.0-16.0); Immature Granulocytes # (auto) 0.17 K/uL (0.00-0.02); Lymphocytes # (auto) 1.32 K/uL (1.2-3.4); Lymphocytes % (auto) 7.8 %; Mean Corpuscular Hemoglobin 28.7 pg (25-34); Mean Corpuscular Volume 84.5 fL (80-100); Mean Platelet Volume 9.8 fL (7.4-10.4); Monocytes # (auto) 1.11 K/uL (0.11-0.59); Monocytes % (auto) 6.5 %; Neutrophils # (auto) 14.34 K/uL (1.4-6.5); Neutrophils % (auto) 84.6 %; Platelet Count 276 K/uL (130-400); RDW Coefficient of Variation 12.8 % (11.5-14.5); RDW Standard Deviation 39.5 fL (36.4-46.3); Red Blood Count 4.77 M/uL (4.2-5.4); White Blood Count 16.96 K/uL (4.8-10.8)
[2020-09-20 08:29] LABS: Albumin Level 3.5 gm/dl (3.4-5.0); BUN Creatinine Ratio 24.9 (10-20); Calcium 9.4 mg/dl (8.5-10.1); Creatinine Clr Calc Pharmacy 126.7 ml/min; Est GFR (African American) 134.9; Est GFR (Non-African American) 116.4; Magnesium 2.4 mg/dl (1.8-2.4); Potassium 3.9 mmol/L (3.5-5.1)
[2020-09-20 08:31] LABS: Albumin Globulin Ratio 0.9 (0.9-2); Bilirubin,Total 0.5 mg/dl (0.2-1); Globulin 3.9 gm/dl (2.5-4.0); Phosphorus 3.4 mg/dl (2.5-4.9); Total Protein 7.4 gm/dl (6.4-8.2)
[2020-09-20] MEDS: ENOXAPARIN INJ 40 MG/0.4 ML SYR SQ SCH ×2 (10:04→21:50)
--- NOTE | 2020-09-20 11:15 | Hospitalist Progress Note ---
Date of Service September 20, 2020 Assessment & Plan (1) Pneumonia due to 2019 novel coronavirus: With worsening infiltrates on chest imaging compared to previous PCT neg, BNP neg, CRP was elevated at 8.5 With underlying asthma that is persistent, severe, and on chronic high dose steroids Is on chronic steroids and at risk for PCP, but LDH is negative and not hypoxic Appreciate pulmonology consultation Cough is still bad today, patient still reports ongoing chest pain and shortness of breath on exertion that is quite troublesome -dexamethasone 6 mg IV every 8 hours and decreased to bid on 09/19 -supplemental O2 prn to keep pulse ox greater than 92%-she is not requiring oxygen at rest plan for two step tomorrow morning -Continue zinc sulfate 220 mg p.o. every morning -Continue-Vitamin D3 2000 international units p.o. daily -Continue DuoNebs every 2 hours as needed-signed Rx for [employer] to get new neb machine at home, arrange for tomorrow -Hold outpatient prednisone and eventually taper dexamethasone back to home dose of prednisone -continue Guaifenesin with codeine 10 ml for p.o. every 4 hours as needed cough -Continue on doxycycline 100mg po bid x 7 day course -started Bactrim DS MWF for PCP prophylaxis while on high-dose steroids plan for discharge to home tomorrow, follow up pulmonology on (2) Asthma with exacerbation: See above (3) Pericarditis: Presented with COVID-19, fevers, chest pains and pressure, and ongoing asthma exacerbation as above. CRP elevated, troponin neg x 2 so no evidence of myocarditis ECG with diffuse ST minor elevations on hospital day #2 worse than on admission Repeat ECG today is improved ECHO with pericardial trace effusion -started and should continue x3 months colchicine 0.6mg po bid -continue high dose steroids although cardiology reports there is increased risk of recurrence of effusion/pericarditis with steroids as opposed to NSAIDs. She would be at high risk for GI bleeding if on high-dose steroids and high-dose NSAIDs -Plan to repeat limited echocardiogram tomorrow to look at pericardial effusion -consult Cardiology appreciated -continue tele (4) Anxiety: worsening by health problems, ongoing for years -agreeable to start Zoloft 25mg po qday x 1 week and then increase to 50mg daily continue Vistaril qid f/u with PCP (5) Migraine: Continue sumatriptan succinate as needed Continue amitriptyline for prophylaxis (6) GERD (gastroesophageal reflux disease): Continue pantoprazole 40 mg p.o. twice daily (7) Insomnia: Continue melatonin 10 mg at bedtime and amitriptyline 30 mg at bedtime (8) Allergic rhinitis: continue home Zyrtec Hydroxyzine 10 mg p.o. 4 times daily scheduled Montelukast 10 mg p.o. at bedtime (9) Dyspnea: As above, secondary to asthma and Covid-19 pneumonia We will need to check a two-step oxygen test prior to discharge (10) Chronic steroid use: She has been on high-dose steroids since April 2020 for severe persistent asthma Started Bactrim DS 1 tab Sunday for PCP prophylaxis Follow-up with pulmonology as an outpatient (11) DVT prophylaxis: Lovenox Dispo-continued stay on PCU Admission and Anticipated Discharge Date Admission Date: September 17, 2020 Subjective patient says she cannot take a deep breath without a coughing spell and her breathing is a whole lot worse with any exertion, feels so winded walking in the room, didn't get washed up due to shortness of breath no fever/chills while here, appetite is not great but she is eating, no issues moving her bowels reviewed chart, reviewed labs appreciate consultation from cardiology and pulmonology hope for discharge tomorrow CM is setting up home nebulizer that needs replaced, check two step tomorrow to see if she needs oxygen Review of Systems Review of Systems: All systems reviewed & are unremarkable except as noted in Subjective Constitutional: + fatigue and + weakness; no fever Respiratory: + cough, + dyspnea on exertion and + wheezing; no dyspnea and no sputum production Cardiovascular: + chest pain; no palpitations, no syncope and no edema Gastrointestinal: no abdominal pain, no nausea, no vomiting, no constipation and no diarrhea/loose stools Physical Exam Constitutional: WD/WN, vitals as above Neck: trachea midline, no thyromegaly Respiratory: normal respiratory effort and + cough; no respiratory distress and no labored breathing Auscultation: no crackles, no rales, no rhonchi and no wheezes Cardiovascular: RRR, no murmur, no edema Gastrointestinal (Abdomen): normal bowel sounds, soft, nontender, no hepatosplenomegaly Musculoskeletal: no cyanosis or clubbing, extremities motor strength 5/5 Skin: no rashes, warm and dry (arreola face) Neurologic: patellar DTR's 2+ bilat, sensation intact and PERRL, EOMI, accommodation nl, no face palsy, no dysarthria Psychiatric: A+Ox3, euthymic affect Lymphatic: no cervical or axillary lymphadenopathy Results & Data Results & Data ([facility]) Vital Signs (Past 12 Hours) Vital Signs Temp Pulse Pulse Resp BP BP Pulse Ox 09/20/20 10:57 36.8 C 74 16 117/76 96 09/20/20 10:00 09/20/20 07:13 79 22 97 09/20/20 07:12 36.6 C 89 16 116/71 99 09/20/20 05:46 67 09/20/20 04:28 36.7 C 65 18 116/74 97 09/19/20 23:59 87 09/19/20 23:56 36.8 C 71 26 H 133/80 97 Pulse Ox 09/20/20 10:57 09/20/20 10:00 92 09/20/20 07:13 09/20/20 07:12 09/20/20 05:46 09/20/20 04:28 09/19/20 23:59 09/19/20 23:56 Laboratory Results Laboratory Results - last 24 hr 09/20/20 09/20/20 07:37 07:37 WBC 16.96 H RBC 4.77 Hgb 13.7 Hct 40.3 MCV 84.5 MCH 28.7 MCHC 34.0 RDW Std Deviation 39.5 RDW Coeff of Teresa 12.8 Plt Count 276 MPV 9.8 Immature Gran % (Auto) 1.0 Neut % (Auto) 84.6 Lymph % (Auto) 7.8 [place] % (Auto) 6.5 Eos % (Auto) 0.0 Baso % (Auto) 0.1 Neut # (Auto) 14.34 H Lymph # (Auto) 1.32 [place] # (Auto) 1.11 H Eos # (Auto) 0.00 Baso # (Auto) 0.02 Immature Gran # (Auto) 0.17 H Sodium 139 Potassium 3.9 Chloride 106 Carbon Dioxide 24 Anion Gap 9.0 BUN 18 Creatinine 0.72 Est Cr Clr Drug Dosing 126.7 Est GFR ( Amer) 134.9 Est GFR (Non-Af Amer) 116.4 BUN/Creatinine Ratio 24.9 H Glucose 93 Calcium 9.4 Phosphorus 3.4 Magnesium 2.4 Total Bilirubin 0.5 AST 9 L ALT 26 Alkaline Phosphatase 48 Total Protein 7.4 Albumin 3.5 Globulin 3.9 Albumin/Globulin Ratio 0.9 Medications Administered Current Inpatient Medications Acetaminophen (Acetaminophen 325 Mg Tab) 650 mg PO Q4H PRN PRN Reason: Pain or Fever Stop: 10/17/20 21:38 Last Admin: 09/18/20 08:05 Dose: 650 mg Documented by: Albuterol (Albut/Ipratrop 3mg/0.5mg Neb 3 Ml Vial) 3 ml NEB Q2H PRN PRN Reason: dyspnea Stop: 10/17/20 21:38 Last Admin: 09/20/20 07:08 Dose: 3 ml Documented by: Amitriptyline HCl (Amitriptyline Hcl 10 Mg Tab) 30 mg PO [facility] Stop: 10/17/20 21:38 Last Admin: 09/19/20 21:33 Dose: 30 mg Documented by: Benzonatate (Benzonatate 100 Mg Capsule) 100 mg PO TID [facility] Stop: 10/20/20 08:59 Last Admin: 09/20/20 07:39 Dose: 100 mg Documented by: Budesonide (Budesonide 0.5 Mg/2 Ml Vial (Pulmicort)) 0.5 mg INH BIDR [facility] Stop: 10/17/20 21:59 Last Admin: 09/20/20 07:08 Dose: 0.5 mg Documented by: Cetirizine HCl (Cetirizine Hcl 10 Mg Tablet) 10 mg PO [facility] Stop: 10/17/20 21:38 Last Admin: 09/19/20 21:35 Dose: 10 mg Documented by: Colchicine (Colchicine 0.6 Mg Tab) 0.6 mg PO BID [facility] Stop: 10/18/20 16:29 Last Admin: 09/20/20 07:41 Dose: 0.6 mg Documented by: Dicyclomine HCl (Dicyclomine Hcl 10 Mg Cap) 10 mg PO TID [facility] Stop: 10/17/20 21:38 Last Admin: 09/20/20 07:43 Dose: 10 mg Documented by: Doxycycline Hyclate (Doxycycline Hyclate 100 Mg Cap) 100 mg PO BID@0700,1900 [facility] Stop: 09/25/20 18:59 Last Admin: 09/20/20 07:42 Dose: 100 mg Documented by: Enoxaparin Sodium (Enoxaparin Inj 40 Mg/0.4 Ml Syr) 40 mg SQ Q12H [facility] Stop: 10/17/20 21:59 Last Admin: 09/20/20 10:04 Dose: 40 mg Documented by: Guaifenesin (Guaifenesin 600 Mg Tabcr) 600 mg PO Q12 [facility] Stop: 10/18/20 20:59 Last Admin: 09/20/20 07:40 Dose: 600 mg Documented by: Guaifenesin/Codeine Phosphate (Guaifenesin/Codeine 200mg/20mg 10ml Udc) 10 ml PO Q4H PRN PRN Reason: cough Stop: 10/17/20 21:38 Last Admin: 09/20/20 10:04 Dose: 10 ml Documented by: Hydroxyzine HCl (Hydroxyzine Hcl 10 Mg Tab) 10 mg PO QID [facility] Stop: 10/17/20 21:38 Last Admin: 09/20/20 07:40 Dose: 10 mg Documented by: Dexamethasone 6 mg/ Syringe 1.5 mls @ 1 mls/min IV BID [facility] Stop: 10/19/20 20:59 Last Admin: 09/20/20 07:39 Dose: 1 mls/min Documented by: Lactobacillus Acidoph/Casei/Rhamnos (Advanced Probiotic 1250 Mg Capsule) 2 cap PO DAILY [facility] Stop: 10/18/20 08:59 Last Admin: 09/20/20 07:42 Dose: 2 cap Documented by: Melatonin (Melatonin 3 Mg Tab) 9 mg PO HS [facility] Stop: 10/18/20 20:59 Last Admin: 09/19/20 21:33 Dose: 9 mg Documented by: Montelukast Sodium (Montelukast Sodium 10 Mg Tablet) 10 mg PO [facility] Stop: 10/17/20 21:38 Last Admin: 09/19/20 21:32 Dose: 10 mg Documented by: Ondansetron HCl (Ondansetron 4 Mg Od Tab) 4 mg PO Q6H PRN PRN Reason: nausea and vomiting Stop: 10/17/20 21:44 Ondansetron HCl (Ondansetron Inj 2 Mg/Ml 2 Ml Vial) 4 mg IV Q6H PRN PRN Reason: Nausea Stop: 10/17/20 21:38 Pantoprazole Sodium (Pantoprazole 40 Mg Tab) 40 mg PO BID [facility] Stop: 10/17/20 21:38 Last Admin: 09/20/20 07:40 Dose: 40 mg Documented by: Sertraline HCl (Sertraline Hcl 50 Mg Tablet) 25 mg PO QAM [facility] Stop: 10/18/20 16:29 Last Admin: 09/20/20 07:41 Dose: 25 mg Documented by: Sumatriptan Succinate (Sumatriptan Succinate 50 Mg Tab) 50 mg PO Q2H PRN PRN Reason: Migraine Headache Stop: 10/17/20 21:38 Trimethoprim/Sulfamethoxazole (Sulfamethoxazole/Trimethoprim Ds 800/160mg Tab) 1 tab PO MoWeFr@0900 [facility] Stop: 09/25/20 16:29 Last Admin: 09/20/20 07:42 Dose: 1 tab Documented by: Vitamin D (Cholecalciferol 1,000 Units 25 Mcg Tab) 2,[address] [facility] Stop: 10/18/20 08:59 Last Admin: 09/20/20 07:40 Dose: 2,000 units Documented by: Zinc Sulfate (Zinc Sulfate 220 Mg Capsule) [address] [facility] Stop: 10/18/20 08:59 Last Admin: 09/20/20 07:42 Dose: 220 mg Documented by: PG Care Time/CCT Total # of Minutes Spent Total Time Spent with Patient: Total time spent is greater than 50% in coordination of care (as documented) at patient's floor/unit and/or counseling patient: Coding Level of Care Code 06514 Subseq Hosp Care Lvl 2 Diagnoses Pneumonia due to 2019 novel coronavirus U07.1; J12.82 Asthma with exacerbation J45.901 Asthma persistence: persistent Asthma severity: unspecified severity Pericarditis I31.9 Anxiety F41.9 Migraine G43.909 GERD (gastroesophageal reflux disease) K21.9 Insomnia G47.00 Allergic rhinitis J30.9 Dyspnea R06.00 Chronic steroid use DVT prophylaxis Z29.9 (1) Asthma with exacerbation Asthma persistence: persistent Asthma severity: unspecified severity Qualified Code(s): J45.901 - Unspecified asthma with (acute) exacerbation
--- NOTE | 2020-09-20 17:02 | Pulmonology Progress Note ---
Date of Service September 20, 2020 Assessment & Plan (1) Pneumonia due to 2019 novel coronavirus: 24-year-old female with a past medical history of obesity, anxiety, asthma, insomnia and migraines presenting to the hospital with shortness of breath and chest pain. She was found to have pericarditis and this is being treated by cardiology and the hospitalist team. She does have underlying asthma and was also found to have Covid pneumonitis. I suspect that she likely has upper airway cough syndrome contributing to her symptoms as well. She does have chronic sinusitis. I would recommend the addition of saline rinses to her regimen, including while she is in the hospital. She has an appointment scheduled to follow-up with JONATHAN Winters from pulmonary on . She should keep this visit. I strongly encouraged that she follow-up with a tertiary [facility] with expertise in asthma for outpatient follow-up. I also strongly believe that she would benefit from a steroid sparing agent such as methotrexate as an outpatient if she cannot be weaned off prednisone successfully in the next 2 weeks. ENT evaluation for vocal cord dysfunction should be considered in an outpatient setting. This was all discussed in the presence of the nurse during the visit in her ro om. At this time, there is no significant changes from pulmonary perspective and pulmonary will sign off. Please call again with questions. Thank you for the consult Please note the above document was generated using voice recognition software. It may contain grammatical, syntax or spelling errors.Any formal questions or concerns about the content, text or information contained within the body of this dictation should be directly addressed to the provider for clarification. (2) Asthma: (3) Chronic steroid use: (4) Sinusitis: Admission and Anticipated Discharge Date Admission Date: September 17, 2020 Subjective WithPatient seen and examined today. She is short of breath and complaining of cough minimal exertion. She is saturating 93 to 94% on room air. She has some mild chest pain. She is frustrated that she does not seem to be improving. Review of Systems Review of Systems: All systems reviewed & are unremarkable except as noted in HPI & below Physical Exam Constitutional: WD/WN, vitals as above Eyes: PERRL, conjunctivae normal, anicteric sclerae ENMT: external ear and nose normal, oropharynx normal Respiratory: Mild expiratory wheezes noted bilaterally in the upper lung jon. Cardiovascular: RRR, no murmur, no edema Gastrointestinal (Abdomen): normal bowel sounds, soft, nontender, no hepatosplenomegaly Musculoskeletal: no cyanosis or clubbing, extremities motor strength 5/5 Skin: no rashes, warm and dry Neurologic: PERRL, EOMI, accommodation nl, no face palsy, no dysarthria Results & Data Results & Data ([facility]) Vital Signs (Past 12 Hours) Vital Signs Temp Pulse Pulse Resp BP Pulse Ox Pulse Ox 09/20/20 14:49 98.8 F 74 16 117/76 96 09/20/20 10:57 98.2 F 74 16 117/76 96 09/20/20 10:00 92 09/20/20 07:13 79 22 97 09/20/20 07:12 97.9 F 89 16 116/71 99 09/20/20 05:46 67 I reviewed her vital signs, labs and imaging PG Care Time/CCT Total # of Minutes Spent Total Time Spent with Patient: Total time spent is greater than 50% in coordination of care (as documented) at patient's floor/unit and/or counseling patient: Coding Level of Care Code 87814 Subseq Hosp Care Lvl 3 Diagnoses Pneumonia due to 2019 novel coronavirus U07.1; J12.82 Asthma J45.909 Chronic steroid use Sinusitis J32.9
[2020-09-20] MEDS: CETIRIZINE HCL 10 MG TABLET PO SCH (21:51)
[2020-09-20] MEDS: AMITRIPTYLINE HCL 10 MG TAB PO SCH (21:52)
[2020-09-20] MEDS: MELATONIN 3 MG TAB PO SCH (21:53)
[2020-09-20] MEDS: MONTELUKAST SODIUM 10 MG TABLET PO SCH (21:54)
[2020-09-21] MEDS: BUDESONIDE 0.5 MG/2 ML VIAL (PULMICORT) INH SCH (07:16)
[2020-09-21] MEDS: ZINC SULFATE 220 MG CAPSULE PO SCH (08:03)
[2020-09-21] MEDS: COLCHICINE 0.6 MG TAB PO SCH (08:03)
[2020-09-21] MEDS: BENZONATATE 100 MG CAPSULE PO SCH ×2 (08:03→11:54)
[2020-09-21] MEDS: DICYCLOMINE HCL 10 MG CAP PO SCH ×2 (08:03→11:54)
[2020-09-21] MEDS: DOXYCYCLINE HYCLATE 100 MG CAP PO SCH (08:03)
[2020-09-21] MEDS: SERTRALINE HCL 50 MG TABLET PO SCH (08:04)
[2020-09-21] MEDS: guaiFENesin 600 MG TABCR PO SCH (08:04)
[2020-09-21] MEDS: PANTOprazole 40 MG TAB PO SCH (08:04)
[2020-09-21] MEDS: ADVANCED PROBIOTIC 1250 MG CAPSULE PO SCH (08:04)
[2020-09-21] MEDS: CHOLECALCIFEROL 1,000 UNITS 25 MCG TAB PO SCH (08:04)
[2020-09-21] MEDS: dexAMETHasone 6 MG in SYRINGE 0 ML IV SCH (08:05)
[2020-09-21] MEDS: hydrOXYzine HCl 10 MG TAB PO SCH ×2 (08:05→11:53)
[2020-09-21] MEDS: ENOXAPARIN INJ 40 MG/0.4 ML SYR SQ SCH (08:06)
--- NOTE | 2020-09-21 12:38 | XCELERA ---
[id number]
--- NOTE | 2020-09-21 14:45 | Discharge Summary ---
Date of Service September 21, 2020 Admission HPI Per Admitting Provider The patient is a 24-year-old female with a past medical history including pneumonia due to COVID-19 virus, insomnia, migraine, anxiety, chronic prednisone use, asthma, asthma exacerbation, irritable bowel syndrome with diarrhea, hemorrhoids, hypertension, postconcussion headache, nasal septal deviation, nasal turbinate hypertrophy, nasal septal perforation and GERD. She is most recently mid to [facility] from 09/07-09/13/2020 for COVID-19 pneumonia with hypoxia. She had felt briefly better after discharge, but never returned to baseline, and has been gotten worse now than when she was previously admitted. Principal Diagnosis COVID 19 with asthma exacerbation, pericarditis Discharge Exam Constitutional WD/WN, vitals as above Neck trachea midline, no thyromegaly Respiratory normal respiratory effort and + cough; no respiratory distress and no labored breathing Auscultation: no crackles, no rales, no rhonchi and no wheezes Cardiovascular RRR, no murmur, no edema Gastrointestinal (Abdomen) normal bowel sounds, soft, nontender, no hepatosplenomegaly Musculoskeletal no cyanosis or clubbing, extremities motor strength 5/5 Skin no rashes, warm and dry (arreola face) Neurologic patellar DTR's 2+ bilat, sensation intact and PERRL, EOMI, accommodation nl, no face palsy, no dysarthria Psychiatric A+Ox3, euthymic affect Lymphatic no cervical or axillary lymphadenopathy Discharge Data Allergies Allergy/AdvReac Type Severity Reaction Status Date / Time adhesive Allergy Severe skin Verified 09/17/20 18:33 irritation, hives, rash amoxicillin Allergy Severe THROAT Verified 09/17/20 18:33 TIGHTNESS/FELT FUNNY bee venom protein (honey bee) Allergy Severe ANAPHYLAXIS Verified 09/17/20 18:33 clavulanic acid Allergy Severe THROAT Verified 09/17/20 18:33 TIGHTNESS/FELT FUNNY Penicillins Allergy Severe ANAPHYLAXIS Verified 09/17/20 18:33 Egg Derived Allergy Mild Abdominal Verified 09/17/20 18:33 Pain Consultations 09/17/20 19:12 ED Decision to Admit Stat 09/17/20 21:39 Consult Case Management - Discharge Planning Routine 09/18/20 09:06 Consult Pulmonology Routine 09/18/20 16:18 Consult Cardiology Routine 09/21/20 11:17 Consult Pulmonary Rehabilitation Routine Ordered Studies 09/17/20 15:42 CT angio chest PE protocol Stat Hospital Course (1) Pneumonia due to 2019 novel coronavirus: With worsening infiltrates on chest imaging compared to previous PCT neg, BNP neg, CRP was elevated at 8.5 With underlying asthma that is persistent, severe, and on chronic high dose steroids Is on chronic steroids and at risk for PCP, but LDH is negative and not hypoxic Appreciate pulmonology consultation Cough is still bad today, patient still reports ongoing chest pain and shortness of breath on exertion that is quite troublesome -dexamethasone 6 mg IV every 8 hours and decreased to bid on 09/19 -supplemental O2 prn to keep pulse ox greater than 92%-she is not requiring oxygen at rest two step done the day of discharge, no oxygen needed -Continue zinc sulfate 220 mg p.o. every morning -Continue-Vitamin D3 2000 international units p.o. daily -Continue DuoNebs every 2 hours as needed-signed Rx for [employer] to get new neb machine at home, arrange for tomorrow -continue Guaifenesin with codeine 10 ml for p.o. every 4 hours as needed cough -Continue on doxycycline 100mg po bid x 7 day course -started Bactrim DS MWF for PCP prophylaxis while on high-dose steroids - Dexamethasone 6mg BID for 2 more days then back to Prednisone 50mg daily follow up pulmonology on (2) Asthma with exacerbation: See above (3) Pericarditis: Presented with COVID-19, fevers, chest pains and pressure, and ongoing asthma exacerbation as above. CRP elevated, troponin neg x 2 so no evidence of myocarditis ECG with diffuse ST minor elevations on hospital day #2 worse than on admission Repeat ECG today is improved ECHO with pericardial trace effusion -started and should continue x3 months colchicine 0.6mg po bid -repeat limited echocardiogram on day of discharge: trace pericardial effusion, less than the first echo -consult Cardiology appreciated (4) Anxiety: worsening by health problems, ongoing for years -agreeable to start Zoloft 25mg po qday x 1 week and then increase to 50mg daily continue Vistaril qid f/u with PCP (5) Migraine: Continue sumatriptan succinate as needed Continue amitriptyline for prophylaxis (6) GERD (gastroesophageal reflux disease): Continue pantoprazole 40 mg p.o. twice daily (7) Insomnia: Continue melatonin 10 mg at bedtime and amitriptyline 30 mg at bedtime (8) Allergic rhinitis: continue home Zyrtec Hydroxyzine 10 mg p.o. 4 times daily scheduled Montelukast 10 mg p.o. at bedtime (9) Dyspnea: As above, secondary to asthma and Covid-19 pneumonia two step showed no need for home oxygen (10) Chronic steroid use: She has been on high-dose steroids since April 2020 for severe persistent asthma Started Bactrim DS 1 tab Sunday for PCP prophylaxis Follow-up with pulmonology as an outpatient Dr. Hicks has suggested changing to methotrexate to spare her further steroids already having side effects from chronic steroid use Total Time Total Time Spent Total Time Spent (In Minutes): 40 Total Time Includes: Examination of the Patient, Discharge Planning, Medication Reconciliation and Communication With Other Providers Discharge Plan Discharge Items Patient Disposition: Home - Self-Care Reason For Visit: COVID 19 PNEUMONIA WITH HYPOXIA, PULMONARY EDEMA Discharge Diagnosis: COVID 19 pneumonia Asthma exacerbation Pericarditis Condition on Discharge: Good Goals: complete course of dexamethasone and doxycycline follow up with pulmonology, allergy, ENT ultimately get referral to tertiary pulmonology Activity: Resume your previous activity Driving/Machine Use: No limitations Weightbearing: Full weightbearing Non-emergency contact: Primary Care Provider Call non-emergency contact if: you have any medication questions and your symptoms worsen Follow-up/Referrals: Doug Winters [facility] [Primary Care Provider] - (phone call visit on 09/24) Edwar Clay MD [Physician] - 11/23/20 9:00 am (2-3 months, follow up pericarditis) Alaina Gonzalez MD [Physician] - 09/23/20 11:15 am (appointment by phone) Jessika Agustin MD [Surgeon] - 10/13/20 2:00 pm (earliest available, evaluate vocal cord dysfunction) Diet: Regular Addtl Attending Provider Instructions: Medications: - DEXAMETHASONE: 6mg twice a day, next dose is due tonight, continue to take until , Sunday morning can start on Prednisone 50mg and slowly taper, discuss with Juan C Winters about specifics of taper - DOXYCYCLINE: 100mg twice a day to cover bacterial infection, next dose due this evening, take for four more days - BACTRIM: take on Sunday, Sunday, Sunday for PCP prophylaxis since you are on chronic steroids - ZOLOFT: take 25mg daily (1/2 tablet) through Sunday morning, then increase to 50mg daily on Sunday morning, treatment for anxiety - COLCHICINE: 0.6mg twice a day for pericarditis, you will take this twice a day for three months - VITAMIN D and MUCINEX: can be obtained over the counter, take the Mucinex 600mg twice a day for 10 days then stop Asthma exacerbation, COVID 19 pneumonia, pericarditis continue treatment with steroids, antibiotics, colchicine close follow up with pulmonology, allergy, ENT use home nebulizer as prescribed get rest, stay well hydrated, well nourished, off work until next Sunday Pending Studies at Discharge: No Stand-Alone Forms: My [facility] [employer], Work/School Release (Inpt), Smoking Cessation Medications and DC Order Prescriptions: New sulfamethoxazole-trimethoprim 800-160 mg Tablet 1 tab PO MoWeFr@0900 30 Days Qty: 13 RF: 3 sertraline 50 mg Tablet 50 mg PO QAM 30 Days Qty: 30 RF: 3 colchicine [Colcrys] 0.6 mg Tablet 0.6 mg PO BID 30 Days Qty: 60 RF: 3 guaifenesin [Mucinex] 600 mg Tablet Extended Release 12hr 600 mg PO Q12 10 Days Qty: 20 RF: 0 cholecalciferol (vitamin D3) 25 mcg (1,000 unit) Capsule 2,000 unit PO QAM 30 Days Qty: 60 RF: 3 Continued Align 4 mg capsule 4 mg PO DAILY Qty: 30 RF: 0 montelukast [Singulair] 10 mg tablet 10 mg PO HS Qty: 30 RF: 5 dicyclomine 10 mg capsule 10 mg PO TID Qty: 90 RF: 2 epinephrine 0.3 mg/0.3 mL auto-injector 0.3 mg IM UD PRN (Reason: Allergic Reaction) Qty: 1 RF: 3 sumatriptan succinate [Imitrex] 50 mg tablet 50 mg PO Q2H PRN (Reason: Migraine Headache) Qty: 14 RF: 1 amitriptyline 10 mg tablet 30 mg PO HS RF: 0 diclofenac sodium 75 mg tablet,delayed release (DR/EC) 75 mg PO BID PRN (Reason: Pain) RF: 0 pantoprazole 40 mg tablet,delayed release (DR/EC) 40 mg PO BID Qty: 60 RF: 5 albuterol sulfate 1.25 mg/3 mL solution for nebulization 1.25 mg inhalation QID PRN (Reason: Shortness Of Breath Or Wheezing) Qty: 90 RF: 3 ondansetron HCl [Zofran] 4 mg tablet 4 mg PO Q6H PRN (Reason: nausea and vomiting) Qty: 20 RF: 0 benzonatate [Tessalon Perles] 100 mg capsule 100 mg PO TID PRN (Reason: cough) Qty: 20 RF: 0 codeine-guaifenesin 10-100 mg/5 mL liquid 10 ml PO Q6H PRN (Reason: cough) Qty: 240 RF: 0 Advair HFA 230-21 mcg/actuation HFA aerosol inhaler 2 puff INHALATION BID RF: 0 budesonide 1 mg/2 mL suspension for nebulization 1 mg inhalation DIRECTED RF: 0 melatonin 10 mg Tablet 10 mg PO HS RF: 0 prednisone 10 mg tablet 25 mg PO DAILY RF: 0 hydroxyzine HCl 10 mg Tablet 10 mg PO QID PRN (Reason: anxiety) Qty: 30 RF: 0 prednisone 10 mg tablet 50 mg PO DAILY Qty: 60 RF: 0 cetirizine [Zyrtec] 10 mg tablet 10 mg PO HS Qty: 30 RF: 0 albuterol sulfate [Ventolin HFA] 90 mcg/actuation HFA aerosol inhaler 2 puff INHALATION Q6H PRN (Reason: Shortness Of Breath Or Wheezing) Qty: 18 RF: 3 Discharge Orders: Discharge Order (Routine); Ordered 09/21/20 Ordered By: Connor Lynn Admission Data Admit Date/Time: 09/17/20 20:17 Attending Provider: Connor Lynn Admit Provider: Issa Herr Primary Care Provider: Doug Winters Other Providers: Vee Cruz ; Edwar Clay Other Interventions: Discharge Summary Assessment (RN) Last Done: 09/21/20 15:04 Coding Level of Care Code D/C Day Management >30 mins Diagnoses Pneumonia due to 2019 novel coronavirus U07.1; J12.82 Asthma with exacerbation J45.901 Asthma persistence: persistent Asthma severity: unspecified severity Pericarditis I31.9 Anxiety F41.9 Migraine G43.909 GERD (gastroesophageal reflux disease) K21.9 Insomnia G47.00 Allergic rhinitis J30.9 Dyspnea R06.00 Chronic steroid use
--- NOTE | 2020-09-21 15:56 | Cardiology Progress Note ---
Date of Service September 21, 2020 Assessment & Plan (1) Chest pain: (2) Acute pericarditis: (3) Severe persistent asthma, poorly-controlled: Patient with persistent chest discomfort but no evidence of progressive pericardial effusion (which was trivial). She should remain on colchicine for 3 months. If her chest pain continues despite steroid use, may need to consider addition of nonsteroidals at some point. I will call her in a few days as an outpatient to check and, based on symptoms, consider nonsteroidal anti-inflammatory use (ibuprofen 600 mg 3 times daily). Admission and Anticipated Discharge Date Admission Date: September 17, 2020 Subjective Patient still reported chest pain worse on inspiration, she appears fairly comfortable on her phone. Telemetry monitoring showed only sinus rhythm without ectopy or significant tachycardia. Physical Exam Physical Exam: Not examined (active Covid patient). As noted, she did not appear uncomfortable. Results & Data ([facility]) Diagnostic Findings Echocardiogram today showed normal LV size and systolic function with trivial pericardial effusion which appears decreased from 09/18/2020. PG Care Time/CCT Total # of Minutes Spent Total Time Spent with Patient: Total time spent is greater than 50% in coordination of care (as documented) at patient's floor/unit and/or counseling patient: Coding Level of Care Code 77550 Subseq Hosp Care Lvl 2 Diagnoses Chest pain R07.9 Acute pericarditis I30.9 Severe persistent asthma, poorly-controlled J45.50
== END 2020-09-21 16:23 | disposition home or self-care (01) ==
LOC: ED 13:51 → 2S 20:17 → SUATTDRO 20:17 → 2S 20:59

== ENCOUNTER 2021-01-14 00:16 | Observation (INO) ==
[2021-01-14] MEDS ORDERED: MAGNESIUM SULFATE / D5W 1 GM/100 ML BAG IV STA (00:26)
[2021-01-14] MEDS ORDERED: ALBUT/IPRATROP 3MG/0.5MG NEB 3 ML VIAL NEB ONE (00:26)
[2021-01-14] MEDS ORDERED: diphenhydrAMINE 50 MG/ML VIAL IV STA (00:26)
[2021-01-14] MEDS ORDERED: SODIUM CHLORIDE 0.9% 500 ML IV ONE (00:26)
[2021-01-14] MEDS ORDERED: FAMOTIDINE 20MG/5ML IV PUSH IV STA (00:40)
--- NOTE | 2021-01-14 00:42 | Emergency Department Note ---
History of Present Illness General Chief complaint: Respiratory Problems Stated complaint: ASTHMA ATTACK Time Seen by Provider: 01/14/21 00:25 Source: patient Mode of arrival: ambulatory Limitations: clinical acuity History of Present Illness Provider complaint: Shortness of breath, asthma attack Onset (ago): hour(s) This is a 25-year-old female who presents to the emergency department due to concern for acute onset shortness of breath and recurrent asthma attack. 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 Patient had been taken off longstanding oral steroids approximately 2 weeks ago. Patient did already have coronavirus back in October with a subsequent pericardial effusion. Patient was admitted and treated at this time. Patient has previous been admitted for significant asthma exacerbation. Patient has never been intubated. Patient states they have had a difficult time trying to figure out what the triggers for her asthma are. There is some question as to whether or not her GERD could be a contributing factor and she has been referred to GI. Patient does take a stomach medication daily. Patient does use Advair as a controller medication in addition to her albuterol rescue inhaler. She states she was at her significant other's place tonight when her symptoms began and began having shortness of breath, and upon initiation of symptoms she used her albuterol rescue inhaler a total of 8 times prior to arrival. Pt seen during a time of high acuity and national emergency pandemic while wearing PPE. Home Medications Medication Instructions Recorded Confirmed Type epinephrine 0.3 mg/0.3 mL 0.3 mg IM UD PRN #1 ea 02/27/19 01/14/21 Rx injection, auto-injector diclofenac sodium 75 mg 75 mg PO BID PRN 09/29/19 01/14/21 History tablet,delayed release ondansetron HCl [Zofran] 4 mg PO Q6H PRN #20 tab 03/08/20 01/14/21 Rx benzonatate [Tessalon Perles] 100 mg PO TID PRN #20 cap 05/02/20 01/14/21 Rx montelukast 10 mg tablet 10 mg PO HS #30 tab 05/13/20 01/14/21 Rx albuterol sulfate 1.25 mg/3 mL 1.25 mg INHALATION QID PRN #90 ml 05/27/20 01/14/21 Rx solution for nebulization sumatriptan succinate 50 mg tablet 50 mg PO Q2H PRN #14 tab 08/04/20 01/14/21 Rx budesonide 1 mg INHALATION DIRECTED 09/07/20 01/14/21 History albuterol sulfate [Ventolin HFA] 2 puff INHALATION Q6H PRN #18 gm 09/13/20 01/14/21 Rx hydroxyzine HCl 10 mg PO QID PRN #30 tab 09/13/20 01/14/21 Rx cholecalciferol (vitamin D3) 2,000 unit PO QAM 30 Days #60 cap 09/21/20 01/14/21 Rx codeine-guaifenesin 10 ml PO Q6H PRN #240 ml 09/21/20 01/14/21 Rx cetirizine 10 mg tablet 10 mg PO HS #30 tab 10/25/20 01/14/21 Rx Align 4 mg PO QAM 11/26/20 01/14/21 History fiber 1 tab PO QAM 11/26/20 01/14/21 History loperamide 2 mg PO Q6H PRN 11/26/20 01/14/21 History famotidine 40 mg tablet 40 mg PO BID #60 tab 12/29/20 01/14/21 Rx amitriptyline 10 mg tablet 30 mg PO HS #30 tab 01/11/21 01/14/21 Rx Allergies Allergy/AdvReac Type Severity Reaction Status Date / Time amoxicillin Allergy Severe THROAT Verified 01/14/21 01:04 TIGHTNESS/FELT FUNNY bee venom protein (honey bee) Allergy Severe ANAPHYLAXIS Verified 01/14/21 01:04 clavulanic acid Allergy Severe THROAT Verified 01/14/21 01:04 TIGHTNESS/FELT FUNNY Penicillins Allergy Severe ANAPHYLAXIS Verified 01/14/21 01:04 adhesive Allergy Intermediate skin Verified 01/14/21 01:04 irritation, hives, rash Egg Derived Allergy Mild Abdominal Verified 01/14/21 01:04 Pain lactose Allergy Mild Gastrointestinal Verified 01/14/21 01:04 Upset bacitracin Allergy Unknown POSITIVE Verified 01/14/21 01:04 ALLERGY TEST neomycin Allergy Unknown POSITIVE Verified 01/14/21 01:04 ALLERGY TEST nickel Allergy Unknown POSITIVE Verified 01/14/21 01:04 ALLERGY TEST paraben Allergy Unknown POSITIVE Verified 01/14/21 01:04 ALLERGY TEST Past Med/Surg History Medical History Allergic rhinitis Anxiety Asthma Poorly controlled; frequently using PRN neb trtmt, PRN INH; follows w/ [facility] allergy/immunology and pulm. Chronic bronchitis Chronic sinusitis Chronic steroid use Managed by pulm, for severe persistent asthma. currently doctoring with [facility] and recently took herself off beginning of December 2020. Chronic tonsillitis Closed head injury (~2016) hx Cough Depression Endometriosis GERD (gastroesophageal reflux disease) History of concussion multiple (last one about ~2016) History of COVID-19 08/2020 - treated at [facility] -- tested positive with her typical pulmonary symptoms she will get when ill/chest cold. admitted about 1 week after initial symptoms started dx with pneumonia + pericarditis with an effusion + fluid around the heart and in the lungs. History of hypertension no medications currently (situational) History of ovarian cyst History of pericarditis (~08/2020) History of pneumonia (~08/2020) severe pneumonia, treated at [facility] Insomnia Kyphoscoliosis Lactose intolerance Migraine Nausea and vomiting after administration of anesthetic agent Non-productive cough Recurrent sinusitis Scoliosis s/p spinal surgery -- major fusion of lumbar and thoracic spine (see CXR) Secondary post tonsillectomy hemorrhage Sleep apnea no device Ventral hernia Vitamin D deficiency Surgical History History of anesthesia reaction SEVERE asthma attacks/panic attacks coming out of anesthesia--per pt typically needs breathing treatment prior to receiving any anesthesia History of bronchoscopy September 2018 History of colonoscopy History of sinus surgery total of 2 sinus sx--For deviated septum and nasal cyst History of spinal fusion for scoliosis at age 15--hardware in place History of tonsillectomy and adenoidectomy Family History Other No family history of adverse response to anesthesia No pertinent family history Social History Smoking Status: Never smoker Second Hand Exposure: No; Hx Alcohol Use: Yes Alcohol type: beer Hx Substance Use: No Preferred Language: Libyan Communication Ability: Effective Doctor'S Assistant Required: No Beliefs That Will Affect Care: None marital status: Current Living Situation: Significant Other current occupational 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 and A total of 10 systems reviewed and were otherwise negative Physical Exam Vital Signs Vital Signs - 24 hr 01/14/21 00:20 01/14/21 00:34 01/14/21 00:39 Temperature 36.9 C Temperature Source Oral Pulse Rate 108 H Pulse Rate [Finger] 105 H Respiratory Rate 30 H 32 H Respiratory Effort / Characteristics Short of Breath Respiratory Depth Normal Blood Pressure 168/102 H Blood Pressure [Right Arm] Blood Pressure Mean 124 Blood Pressure Mean [Right Arm] Pulse Oximetry 98 99 97 Oxygen Delivery Method Room Air Room Air Room Air Sepsis Recent Fever Within 48 Hours No Sepsis New/Unexplained Change in Mental Status N/A Sepsis Action Taken by Nursing No Action Required 01/14/21 00:56 01/14/21 03:00 01/14/21 05:22 Temperature Temperature Source Pulse Rate Pulse Rate [Finger] 102 H 107 H 104 H Respiratory Rate 18 18 18 Respiratory Effort / Characteristics Respiratory Depth Blood Pressure Blood Pressure [Right Arm] 130/66 139/72 139/80 Blood Pressure Mean Blood Pressure Mean [Right Arm] 87 94 99 Pulse Oximetry 100 99 100 Oxygen Delivery Method Nebulizer Room Air Room Air Sepsis Recent Fever Within 48 Hours Sepsis New/Unexplained Change in Mental Status Sepsis Action Taken by Nursing GENERAL: alert, uncomfortable appearing, well nourished, moderate distress, non- toxic, can speak in short phrases EYE EXAM: normal conjunctiva, PERRL and EOM's grossly intact OROPHARYNX: no exudate, no erythema, lips, buccal mucosa, and tongue normal and mucous membranes are moist NECK: supple, no nuchal rigidity, no adenopathy, non-tender, faint stridor LUNGS: Clear to auscultation. Normal chest wall mechanics, no w/r/r in lower lobes, mild wheeze upper lobes HEART: no murmurs, S1 normal and S2 normal, sinus tachy on tele ABDOMEN: abdomen soft, non-tender, normo-active bowel sounds, no masses, no rebound or guarding. BACK: Back is symmetrical on inspection and there is no deformity, no midline tenderness, no CVA tenderness. SKIN: no rashes and no bruising, mild erythema noted no neck/chest/UE UPPER EXTREMITIES: upper extremities are grossly normal. FROM, nml pulses b/l. LOWER EXTREMITIES: No pitting edema. FROM, nml pulses b/l. NEURO EXAM: Normal sensorium, cranial nerves II-XII grossly intact, normal speech, no gross weakness of arms, no gross weakness of legs. Gross sensation intact. Course Course 0042: Breathing slightly improved with neb in place. 0102: Pt WOB is decreased. She reports feeling improved. 0226: Pt sleeping, oxygen normal, still tachycardic. 0333: Pt sleeping, oxygen normal, still tachycardic. 0545: Discussed with hospitalist this patient states she does not feel back to normal still has chest tightness, and is still tachycardic. Administered Medications Acetaminophen (Acetaminophen 325 Mg Tab) 650 mg PO Q4H PRN PRN Reason: Pain or Fever Stop: 02/13/21 07:47 Last Admin: 01/14/21 21:15 Dose: 650 mg Documented by: [id number] Albuterol (Albuterol 0.083% Nebu Soln 3 Ml Vial) 1.25 mg INH QIDR [facility] Stop: 02/13/21 10:59 Last Admin: 01/14/21 19:18 Dose: 1.25 mg Documented by: [id number] Admin: 01/14/21 15:08 Dose: 1.25 mg Documented by: [id number] Admin: 01/14/21 11:16 Dose: 1.25 mg Documented by: [id number] Amitriptyline HCl (Amitriptyline Hcl 10 Mg Tab) 30 mg PO [facility] Stop: 02/13/21 20:59 Last Admin: 01/14/21 21:03 Dose: 30 mg Documented by: [id number] Budesonide (Budesonide 0.5 Mg/2 Ml Vial (Pulmicort)) 0.5 mg NEB BIDR [facility] Stop: 02/13/21 07:47 Last Admin: 01/14/21 19:18 Dose: 0.5 mg Documented by: [id number] Admin: 01/14/21 11:16 Dose: 0.5 mg Documented by: [id number] Calcium Polycarbophil (Calcium Polycarbophil 625mg Tab) 625 mg PO [facility]; Protocol Stop: 02/13/21 08:59 Last Admin: 01/14/21 09:29 Dose: 625 mg Documented by: [id number] Cetirizine HCl (Cetirizine Hcl 10 Mg Tablet) 10 mg PO HS [facility] Stop: 02/13/21 20:59 Last Admin: 01/14/21 21:04 Dose: 10 mg Documented by: [id number] Famotidine (Famotidine 40 Mg Tablet) 40 mg PO BID [facility] Stop: 02/13/21 08:59 Last Admin: 01/14/21 21:04 Dose: 40 mg Documented by: [id number] Admin: 01/14/21 09:29 Dose: 40 mg Documented by: [id number] Guaifenesin/Codeine Phosphate (Guaifenesin/Codeine 200mg/20mg 10ml Udc) 10 ml PO Q6H PRN PRN Reason: cough Stop: 02/13/21 07:47 Last Admin: 01/14/21 21:03 Dose: 10 ml Documented by: [id number] Hydroxyzine HCl (Hydroxyzine Hcl 10 Mg Tab) 10 mg PO QID PRN PRN Reason: anxiety Stop: 02/13/21 07:47 Last Admin: 01/14/21 21:25 Dose: 10 mg Documented by: [id number] Methylprednisolone 40 mg/ (Syringe) 0.64 mls @ 1.5 mls/min IV Q8H [facility] Stop: 02/13/21 13:59 Last Admin: 01/14/21 21:04 Dose: 1.5 mls/min Documented by: [id number] Admin: 01/14/21 13:57 Dose: 1.5 mls/min Documented by: [id number] Lactobacillus Acidoph/Casei/Rhamnos (Advanced Probiotic 1250 Mg Capsule) 2 cap PO QAM [facility]; Protocol Stop: 02/13/21 08:59 Last Admin: 01/14/21 09:29 Dose: 2 cap Documented by: [id number] Montelukast Sodium (Montelukast Sodium 10 Mg Tablet) 10 mg PO HS [facility] Stop: 02/13/21 20:59 Last Admin: 01/14/21 21:04 Dose: 10 mg Documented by: [id number] Sumatriptan Succinate (Sumatriptan Succinate 50 Mg Tab) 50 mg PO Q2H PRN PRN Reason: Migraine Headache Stop: 02/13/21 07:47 Last Admin: 01/14/21 21:26 Dose: 50 mg Documented by: [id number] Vitamin D (Cholecalciferol 1,000 Units 25 Mcg Tab) 2,000 units PO QAM [facility] Stop: 02/13/21 08:59 Last Admin: 01/14/21 09:29 Dose: 2,000 units Documented by: [id number] Discontinued Medications Albuterol (Albut/Ipratrop 3mg/0.5mg Neb 3 Ml Vial) 12 ml NEB ONE ONE Stop: 01/14/21 00:27 Last Admin: 01/14/21 00:32 Dose: 12 ml Documented by: [id number] Diphenhydramine HCl (Diphenhydramine 50 Mg/Ml Vial) 25 mg IV NOW STA Stop: 01/14/21 00:27 Last Admin: 01/14/21 00:34 Dose: 25 mg Documented by: [id number] Famotidine (Famotidine 20mg/5ml Iv Push) 20 mg IV ONE STA Stop: 01/14/21 00:41 Last Admin: 01/14/21 00:45 Dose: 20 mg Documented by: [id number] Magnesium Sulfate/Dextrose (Magnesium Sulfate / D5w) 1 gm in 100 mls @ 100 mls/hr IV NOW STA Stop: 01/14/21 01:25 Last Infusion: 01/14/21 01:34 Dose: 0 mls/hr Documented by: [id number] Admin: 01/14/21 00:34 Dose: 100 mls/hr Documented by: [id number] Sodium Chloride (Nss) 500 mls @ 999 mls/hr IV .Q31M ONE Stop: 01/14/21 00:56 Last Infusion: 01/14/21 01:11 Dose: 0 mls/hr Documented by: [id number] Admin: 01/14/21 00:34 Dose: 999 mls/hr Documented by: [id number] Sodium Chloride (Nss 1000ml) 1,000 mls @ 999 mls/hr IV .Q1H1M ONE Stop: 01/14/21 05:54 Last Infusion: 01/14/21 06:10 Dose: 0 mls/hr Documented by: [id number] Admin: 01/14/21 05:09 Dose: 999 mls/hr Documented by: [id number] Sodium Chloride (Nss 1000ml) 1,000 mls @ 999 mls/hr IV .Q1H1M ONE Stop: 01/14/21 06:44 Last Infusion: 01/14/21 06:59 Dose: 0 mls/hr Documented by: [id number] Admin: 01/14/21 05:55 Dose: 999 mls/hr Documented by: [id number] Ketorolac Tromethamine (Ketorolac Tromethamine 15 Mg/Ml Vial) 10 mg IV NOW ONE Stop: 01/14/21 05:45 Last Admin: 01/14/21 05:54 Dose: 10 mg Documented by: [id number] Methylprednisolone (Methylprednisolone 125 Mg/2 Ml Vial) 60 mg IV NOW STA Stop: 01/14/21 05:48 Last Admin: 01/14/21 05:54 Dose: 60 mg Documented by: [id number] Medical Decision Making Differential Diagnosis Differential diagnoses includes but is not limited to pneumonia, bronchitis, COPD/Asthma exacerbation, pneumothorax, pulmonary embolism, congestive heart failure, acute coronary syndrome Medical Records Attestation: I reviewed the patient's medical records. Home Medications Current Medication List: was personally reviewed by me Laboratory Data Attestation: I reviewed the patient's lab results. Result diagrams: 01/14/21 00:24 01/14/21 00:24 Lab Results 01/14/21 01/14/21 01/14/21 Range/Units 00:24 00:24 00:24 WBC 9.75 (4.8-10.8) K/uL RBC 5.02 (4.2-5.4) M/uL Hgb 14.8 (12.0-16.0) g/dL Hct 43.2 (37-47) % MCV 86.1 (80-100) fL MCH 29.5 (25-34) pg MCHC 34.3 (32-36) g/dL RDW Std Deviation 41.3 (36.4-46.3) fL RDW Coeff of Teresa 13.1 (11.5-14.5) % Plt Count 429 H (130-400) K/uL MPV 10.3 (7.4-10.4) fL Immature Gran % (Auto) 0.1 % Neut % (Auto) 67.0 % Lymph % (Auto) 22.9 % [place] % (Auto) 8.2 % Eos % (Auto) 1.4 % Baso % (Auto) 0.4 % Neut # (Auto) 6.53 H (1.4-6.5) K/uL Lymph # (Auto) 2.23 (1.2-3.4) K/uL [place] # (Auto) 0.80 H (0.11-0.59) K/uL Eos # (Auto) 0.14 (0-0.5) K/uL Baso # (Auto) 0.04 (0-0.2) K/uL Immature Gran # (Auto) 0.01 (0.00-0.02) K/uL Sodium 141 (136-145) mmol/L Potassium 3.7 (3.5-5.1) mmol/L Chloride 110 H (98-107) mmol/L Carbon Dioxide 25 (21-32) mmol/L Anion Gap 6.0 (3-11) BUN 12 (7-18) mg/dl Creatinine 0.79 (0.6-1.2) mg/dl Est Cr Clr Drug Dosing 115.4 ml/min Est GFR ( Amer) 119.7 ml/min Est GFR (Non-Af Amer) 103.3 ml/min BUN/Creatinine Ratio 15.6 (10-20) Glucose 87 (70-99) mg/dl Calcium 9.6 (8.5-10.1) mg/dl Magnesium 2.3 (1.8-2.4) mg/dl Total Bilirubin 0.5 (0.2-1) mg/dl AST 24 (15-37) U/L ALT 35 (12-78) U/L Alkaline Phosphatase 77 (45-117) U/L Troponin I < 0.015 (0-0.045) ng/ml Total Protein 8.8 H (6.4-8.2) gm/dl Albumin 4.7 (3.4-5.0) gm/dl Globulin 4.1 H (2.5-4.0) gm/dl Albumin/Globulin Ratio 1.1 (0.9-2) HCG, Qual Negative (Negative) COVID-19 Eval Order SARS-CoV-2 (PCR) (Negative) 01/14/21 01/14/21 Range/Units 05:58 05:58 WBC (4.8-10.8) K/uL RBC (4.2-5.4) M/uL Hgb (12.0-16.0) g/dL Hct (37-47) % MCV (80-100) fL MCH (25-34) pg MCHC (32-36) g/dL RDW Std Deviation (36.4-46.3) fL RDW Coeff of Teresa (11.5-14.5) % Plt Count (130-400) K/uL MPV (7.4-10.4) fL Immature Gran % (Auto) % Neut % (Auto) % Lymph % (Auto) % [place] % (Auto) % Eos % (Auto) % Baso % (Auto) % Neut # (Auto) (1.4-6.5) K/uL Lymph # (Auto) (1.2-3.4) K/uL [place] # (Auto) (0.11-0.59) K/uL Eos # (Auto) (0-0.5) K/uL Baso # (Auto) (0-0.2) K/uL Immature Gran # (Auto) (0.00-0.02) K/uL Sodium (136-145) mmol/L Potassium (3.5-5.1) mmol/L Chloride (98-107) mmol/L Carbon Dioxide (21-32) mmol/L Anion Gap (3-11) BUN (7-18) mg/dl Creatinine (0.6-1.2) mg/dl Est Cr Clr Drug Dosing ml/min Est GFR ( Amer) ml/min Est GFR (Non-Af Amer) ml/min BUN/Creatinine Ratio (10-20) Glucose (70-99) mg/dl Calcium (8.5-10.1) mg/dl Magnesium (1.8-2.4) mg/dl Total Bilirubin (0.2-1) mg/dl AST (15-37) U/L ALT (12-78) U/L Alkaline Phosphatase (45-117) U/L Troponin I (0-0.045) ng/ml Total Protein (6.4-8.2) gm/dl Albumin (3.4-5.0) gm/dl Globulin (2.5-4.0) gm/dl Albumin/Globulin Ratio (0.9-2) HCG, Qual (Negative) COVID-19 Eval Order Covid19 at [facility] SARS-CoV-2 (PCR) NEGATIVE (Negative) Imaging Data Radiologist's Impression: Chest X-Ray 01/14/21 00:26 XR chest 1V portable CLINICAL HISTORY: Shortness of breath COMPARISON STUDY: September 17, 2020 FINDINGS: The heart is at the upper limits of normal in size. There is been interval resolution of the previously identified bilateral pulmonary airspace opacities. There is no failure. There is no lobar consolidation. There are no pleural effusions. Spinal rods are again evident.[ IMPRESSION: No active disease in the chest. ACT 112: Negative or not required by law. Electronically signed by: Lion Moreno M.D. 01/14/2021 8:07 AM ECG Data Attestation: I personally reviewed and interpreted this ECG as follows: Indication: + SOB/dyspnea Rate (beats per minute): 104 Rhythm: + sinus tachycardia ECG Intervals/blocks: + Normal QRS and + Normal QT ECG [place]: + Normal ECG ST segments: + T-wave inversions (III) MDM Narrative This is a 25-year-old female with significant history of asthma who presents due to acute onset of shortness of breath. Patient did not have lower wheezing on exam however had inspiratory and expiratory adventitious sounds with breathing. She was able to speak in short phrases, was tachypneic, tachycardic, but not hypoxic. Patient has had extensive work-up and did have complications related to recent Covid infection including pericarditis and pericardial effusion. Patient started on continuous nebulizer treatment as she stated this was similar to prior episodes of her asthma and has helped previously. Patient also given IV magnesium and IV Solu-Medrol. Chest x-ray and labs are reassuring. I do not suspect ACS, increased pericardial effusion, myocarditis, PE, or other occult infectious etiology. Patient was able to rest here and breathing improved however patient remained persistently tachycardic despite IV fluids and medications. Given patient stated she still did not feel like she had returned to normal, had persistent sense of chest tightness and was still tachycardic, case discussed with hospitalist for additional evaluation and management. An order was placed for continuous cardiac monitoring. The monitor shows a rate of _107_ with _sinus tachycardia_ rhythm. Patient has no family history of asthma. Patient was first seen and observation began at 0025) and was necessary in order to treat her dyspnea with multiple medications and evaluate for appropriate disposition. Upon re-evaluation, 5 hours of observation revealed that the patient should be admitted. Discharge time at 0545. Impression & Plan Acute dyspnea, Asthma with exacerbation, Chest pain Discharge Plan Visit Data Chief Complaint: Respiratory Problems Stated Complaint: ASTHMA ATTACK ED Provider: Shanae Herrera Discharge Problem: Acute dyspnea, Asthma with exacerbation, Chest pain Patient Disposition: Admitted As Inpatient Discharge Instructions Interventions: ED Discharge Assessment Last Done: 01/14/21 08:00 Discharge Problem: Asthma with exacerbation Qualifiers: Asthma severity: moderate Asthma persistence: persistent Qualified Code(s): J45.41 - Moderate persistent asthma with (acute) exacerbation Chest pain Qualifiers: Chest pain type: unspecified Qualified Code(s): R07.9 - Chest pain, unspecified
[2021-01-14 02:03] LABS: Basophils # (auto) 0.04 K/uL (0-0.2); Basophils % (auto) 0.4 %; Eosinophils # (auto) 0.14 K/uL (0-0.5); Eosinophils % (auto) 1.4 %; Hematocrit (blood only) 43.2 % (37-47); Hemoglobin 14.8 g/dL (12.0-16.0); Immature Granulocytes # (auto) 0.01 K/uL (0.00-0.02); Immature Granulocytes % (auto) 0.1 %; Lymphocytes # (auto) 2.23 K/uL (1.2-3.4); Lymphocytes % (auto) 22.9 %; Mean Corpuscular Hemoglobin 29.5 pg (25-34); Mean Corpuscular Hgb Conc 34.3 g/dL (32-36); Mean Corpuscular Volume 86.1 fL (80-100); Mean Platelet Volume 10.3 fL (7.4-10.4); Monocytes % (auto) 8.2 %; Neutrophils # (auto) 6.53 K/uL (1.4-6.5); Platelet Count 429 K/uL (130-400); RDW Coefficient of Variation 13.1 % (11.5-14.5); RDW Standard Deviation 41.3 fL (36.4-46.3); Red Blood Count 5.02 M/uL (4.2-5.4); White Blood Count 9.75 K/uL (4.8-10.8)
[2021-01-14 02:12] LABS: Alanine Aminotransferase 35 U/L (12-78); Albumin Level 4.7 gm/dl (3.4-5.0); Aspartate Aminotransferase 24 U/L (15-37); BUN Creatinine Ratio 15.6 (10-20); Blood Urea Nitrogen 12 mg/dl (7-18); Calcium 9.6 mg/dl (8.5-10.1); Carbon Dioxide 25 mmol/L (21-32); Chloride 110 mmol/L (98-107); Creatinine Clr Calc Pharmacy 115.4 ml/min; Est GFR (African American) 119.7 ml/min; Est GFR (Non-African American) 103.3 ml/min; Glucose 87 mg/dl (70-99); Magnesium 2.3 mg/dl (1.8-2.4); Potassium 3.7 mmol/L (3.5-5.1); Sodium 141 mmol/L (136-145)
[2021-01-14 02:14] LABS: Pregnancy Test, Serum Negative (Negative)
[2021-01-14 02:17] LABS: Albumin Globulin Ratio 1.1 (0.9-2); Alkaline Phosphatase 77 U/L (45-117); Bilirubin,Total 0.5 mg/dl (0.2-1); Globulin 4.1 gm/dl (2.5-4.0); Total Protein 8.8 gm/dl (6.4-8.2); Troponin I < 0.015 ng/ml (0-0.045)
[2021-01-14] MEDS ORDERED: SODIUM CHLORIDE 0.9% 1000ML 1,000 ML IV ONE ×2 (04:54→05:44)
[2021-01-14] MEDS ORDERED: KETOROLAC TROMETHAMINE 15 MG/ML VIAL IV ONE (05:44)
[2021-01-14] MEDS ORDERED: methylPREDNISolone 125 MG/2 ML VIAL IV STA (05:47)
--- NOTE | 2021-01-14 06:41 | History & Physical Report ---
Date of Service January 14, 2021 Assessment & Plan (1) Asthma exacerbation: Has had significant work-up including following with allergy Dr. Gonzalez In the ED received famotidine IV, Benadryl IV, Toradol IV and then Solu-Medrol 60 mg IV. Solu-Medrol 40 mg IV every 8 hours Pulmicort Respules 0.5 mg inhaled twice daily Albuterol nebulizer 4 times daily scheduled, and every 2 hours as needed Continue montelukast, hydroxyzine, famotidine, codeine-guaifenesin, cetirizine, Tessalon Perles. Would ask Dr. Gonzalez in the morning, if the patient has been worked up for discordant vocal cord syndrome Present on Admission?: Yes (2) GERD (gastroesophageal reflux disease): Continue famotidine 40 mg p.o. twice daily Present on Admission?: Yes (3) Hypertension: On no specific treatment at this time Present on Admission?: Yes (4) Irritable bowel syndrome with diarrhea: Continue align, fiber, loperamide, Zofran Present on Admission?: Yes (5) COVID-19: Patient was admitted in 09/12. Patient remains positive in ED this morning. No specific treatment at this time Present on Admission?: Yes (6) Severe persistent asthma, poorly-controlled: See above Present on Admission?: Yes (7) Migraine: Continue sumatriptan as needed Present on Admission?: Yes (8) Anxiety: Depression with anxiety- Continue amitriptyline, Present on Admission?: Yes (9) Depression: See above Present on Admission?: Yes History of Present Illness Chief Complaint: The patient presents to the emergency department with worsening sore throat and shortness of breath since her prednisone was stopped about 2 weeks ago Primary Care Provider: Alaina Gonzalez MD The patient is a 25-year-old female with a past medical history including GERD, hypertension, postconcussion headache, nasal septal deviation, bile hemorrhoids, irritable bowel syndrome with diarrhea, asthma exacerbation, sinusitis, pneumonia due to COVID-19 infection 08/2020, pericarditis, severe persistent asthma poorly controlled, allergic rhinitis, insomnia, anxiety, migraine, chronic steroid use, and depression. She has had significant work-ups locally and was recently at [facility], where they recommended getting her pH tested, which is coming up soon locally. He was admitted from 2/16-09/13/2020, and 09/17-09/20/2020 for COVID-19 pneumonia. She denies any productive cough. Her symptoms began this evening when she was over at her significant other's place. Allergies Allergy/AdvReac Type Severity Reaction Status Date / Time amoxicillin Allergy Severe THROAT Verified 01/14/21 01:04 TIGHTNESS/FELT FUNNY bee venom protein (honey bee) Allergy Severe ANAPHYLAXIS Verified 01/14/21 01:04 clavulanic acid Allergy Severe THROAT Verified 01/14/21 01:04 TIGHTNESS/FELT FUNNY Penicillins Allergy Severe ANAPHYLAXIS Verified 01/14/21 01:04 adhesive Allergy Intermediate skin Verified 01/14/21 01:04 irritation, hives, rash Egg Derived Allergy Mild Abdominal Verified 01/14/21 01:04 Pain lactose Allergy Mild Gastrointestinal Verified 01/14/21 01:04 Upset bacitracin Allergy Unknown POSITIVE Verified 01/14/21 01:04 ALLERGY TEST neomycin Allergy Unknown POSITIVE Verified 01/14/21 01:04 ALLERGY TEST nickel Allergy Unknown POSITIVE Verified 01/14/21 01:04 ALLERGY TEST paraben Allergy Unknown POSITIVE Verified 01/14/21 01:04 ALLERGY TEST Home Medications Medication Instructions Recorded Confirmed Type epinephrine 0.3 mg/0.3 mL 0.3 mg IM UD PRN #1 ea 02/27/19 01/14/21 Rx injection, auto-injector diclofenac sodium 75 mg 75 mg PO BID PRN 09/29/19 01/14/21 History tablet,delayed release ondansetron HCl [Zofran] 4 mg PO Q6H PRN #20 tab 03/08/20 01/14/21 Rx benzonatate [Tessalon Perles] 100 mg PO TID PRN #20 cap 05/02/20 01/14/21 Rx montelukast 10 mg tablet 10 mg PO HS #30 tab 05/13/20 01/14/21 Rx albuterol sulfate 1.25 mg/3 mL 1.25 mg INHALATION QID PRN #90 ml 05/27/20 01/14/21 Rx solution for nebulization sumatriptan succinate 50 mg tablet 50 mg PO Q2H PRN #14 tab 08/04/20 01/14/21 Rx budesonide 1 mg INHALATION DIRECTED 09/07/20 01/14/21 History albuterol sulfate [Ventolin HFA] 2 puff INHALATION Q6H PRN #18 gm 09/13/20 01/14/21 Rx hydroxyzine HCl 10 mg PO QID PRN #30 tab 09/13/20 01/14/21 Rx cholecalciferol (vitamin D3) 2,000 unit PO QAM 30 Days #60 cap 09/21/20 01/14/21 Rx codeine-guaifenesin 10 ml PO Q6H PRN #240 ml 09/21/20 01/14/21 Rx cetirizine 10 mg tablet 10 mg PO HS #30 tab 10/25/20 01/14/21 Rx Align 4 mg PO QAM 11/26/20 01/14/21 History fiber 1 tab PO QAM 11/26/20 01/14/21 History loperamide 2 mg PO Q6H PRN 11/26/20 01/14/21 History famotidine 40 mg tablet 40 mg PO BID #60 tab 12/29/20 01/14/21 Rx amitriptyline 10 mg tablet 30 mg PO HS #30 tab 01/11/21 01/14/21 Rx Past Med/Surg History Medical History Allergic rhinitis Anxiety Asthma Poorly controlled; frequently using PRN neb trtmt, PRN INH; follows w/ [facility] allergy/immunology and pulm. Chronic bronchitis Chronic sinusitis Chronic steroid use Managed by pulm, for severe persistent asthma. currently doctoring with [facility] and recently took herself off beginning of December 2020. Chronic tonsillitis Closed head injury (~2016) hx Cough Depression Endometriosis GERD (gastroesophageal reflux disease) History of concussion multiple (last one about ~2016) History of COVID-19 08/2020 - treated at [facility] -- tested positive with her typical pulmonary symptoms she will get when ill/chest cold. admitted about 1 week after initial symptoms started dx with pneumonia + pericarditis with an effusion + fluid around the heart and in the lungs. History of hypertension no medications currently (situational) History of ovarian cyst History of pericarditis (~08/2020) History of pneumonia (~08/2020) severe pneumonia, treated at [facility] Insomnia Kyphoscoliosis Lactose intolerance Migraine Nausea and vomiting after administration of anesthetic agent Non-productive cough Recurrent sinusitis Scoliosis s/p spinal surgery -- major fusion of lumbar and thoracic spine (see CXR) Secondary post tonsillectomy hemorrhage Sleep apnea no device Ventral hernia Vitamin D deficiency Surgical History History of anesthesia reaction SEVERE asthma attacks/panic attacks coming out of anesthesia--per pt typically needs breathing treatment prior to receiving any anesthesia History of bronchoscopy September 2018 History of colonoscopy History of sinus surgery total of 2 sinus sx--For deviated septum and nasal cyst History of spinal fusion for scoliosis at age 15--hardware in place History of tonsillectomy and adenoidectomy Family History Other No family history of adverse response to anesthesia No pertinent family history Social History Smoking Status: Never smoker Second Hand Exposure: No; Hx Alcohol Use: No Hx Substance Use: No Preferred Language: Barbadian Communication Ability: Effective Director Statistical Programming Required: No Beliefs That Will Affect Care: None marital status: Current Living Situation: Alone current occupational 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 The review of systems is otherwise negative other than for that already noted above, and at least 10 systems have been reviewed. Physical Exam Physical Exam: The patient is awake, alert and oriented 3, well developed and well nourished, normocephalic and atraumatic, lying in bed and in no acute distress. HEENT--PERRL, EOMI, mucous membranes and oropharynx normal. Neck--supple. No JVD. No bruits. Thyroid normal, trachea midline, no adenopathy. Heart--normal S1 and S2. No murmurs, rubs or gallops. Lungs--clear bilaterally, no respiratory distress, no accessory muscle use. Abdomen--normal bowel sounds and soft. Nontender. Nondistended, no hernias or masses, no organomegaly. Extremities--no cyanosis or clubbing. No edema. Dermatologic--normal skin turgor, normal color, no abnormal lymph nodes, no rash. Neurologic--cranial nerves II through XII grossly intact. Rheumatologic--normal range of motion. Psychiatric--normal affect. Results & Data Results & Data ([facility]) Vital Signs (Past 12 Hours) Vital Signs Temp Pulse Pulse Resp BP BP Pulse Ox 01/14/21 05:22 104 H 18 139/80 100 01/14/21 03:00 107 H 18 139/72 99 01/14/21 00:56 102 H 18 130/66 100 01/14/21 00:39 97 01/14/21 00:34 105 H 32 H 99 01/14/21 00:20 98.4 F 108 H 30 H 168/102 H 98 Laboratory Results Laboratory Results WBC 9.75 K/uL (4.8-10.8) 01/14/21 00:24 RBC 5.02 M/uL (4.2-5.4) 01/14/21 00:24 Hgb 14.8 g/dL (12.0-16.0) 01/14/21 00:24 Hct 43.2 % (37-47) 01/14/21 00:24 MCV 86.1 fL (80-100) 01/14/21 00:24 MCH 29.5 pg (25-34) 01/14/21 00:24 MCHC 34.3 g/dL (32-36) 01/14/21 00:24 RDW Std Deviation 41.3 fL (36.4-46.3) 01/14/21 00:24 RDW Coeff of Teresa 13.1 % (11.5-14.5) 01/14/21 00:24 Plt Count 429 K/uL (130-400) H 01/14/21 00:24 MPV 10.3 fL (7.4-10.4) 01/14/21 00:24 Immature Gran % (Auto) 0.1 % 01/14/21 00:24 Neut % (Auto) 67.0 % 01/14/21 00:24 Lymph % (Auto) 22.9 % 01/14/21 00:24 Chester % (Auto) 8.2 % 01/14/21 00:24 Eos % (Auto) 1.4 % 01/14/21 00:24 Baso % (Auto) 0.4 % 01/14/21 00:24 Neut # (Auto) 6.53 K/uL (1.4-6.5) H 01/14/21 00:24 Lymph # (Auto) 2.23 K/uL (1.2-3.4) 01/14/21 00:24 Chester # (Auto) 0.80 K/uL (0.11-0.59) H 01/14/21 00:24 Eos # (Auto) 0.14 K/uL (0-0.5) 01/14/21 00:24 Baso # (Auto) 0.04 K/uL (0-0.2) 01/14/21 00:24 Immature Gran # (Auto) 0.01 K/uL (0.00-0.02) 01/14/21 00:24 Sodium 141 mmol/L (136-145) 01/14/21 00:24 Potassium 3.7 mmol/L (3.5-5.1) 01/14/21 00:24 Chloride 110 mmol/L (98-107) H 01/14/21 00:24 Carbon Dioxide 25 mmol/L (21-32) 01/14/21 00:24 Anion Gap 6.0 (3-11) 01/14/21 00:24 BUN 12 mg/dl (7-18) 01/14/21 00:24 Creatinine 0.79 mg/dl (0.6-1.2) 01/14/21 00:24 Est Cr Clr Drug Dosing 115.4 ml/min 01/14/21 00:24 Est GFR ( Amer) 119.7 ml/min 01/14/21 00:24 Est GFR (Non-Af Amer) 103.3 ml/min 01/14/21 00:24 BUN/Creatinine Ratio 15.6 (10-20) 01/14/21 00:24 Glucose 87 mg/dl (70-99) 01/14/21 00:24 Calcium 9.6 mg/dl (8.5-10.1) 01/14/21 00:24 Magnesium 2.3 mg/dl (1.8-2.4) 01/14/21 00:24 Total Bilirubin 0.5 mg/dl (0.2-1) 01/14/21 00:24 AST 24 U/L (15-37) 01/14/21 00:24 ALT 35 U/L (12-78) 01/14/21 00:24 Alkaline Phosphatase 77 U/L (45-117) 01/14/21 00:24 Troponin I < 0.015 ng/ml (0-0.045) 01/14/21 00:24 Total Protein 8.8 gm/dl (6.4-8.2) H 01/14/21 00:24 Albumin 4.7 gm/dl (3.4-5.0) 01/14/21 00:24 Globulin 4.1 gm/dl (2.5-4.0) H 01/14/21 00:24 Albumin/Globulin Ratio 1.1 (0.9-2) 01/14/21 00:24 HCG, Qual Negative (Negative) 01/14/21 00:24 COVID-19 Eval Order Covid19 at [facility] 01/14/21 05:58 Code Status & VTE Plan Code Status Full code VTE Prophylaxis Plan VTE Prophylaxis will be ordered: Yes PG Care Time/CCT Total # of Minutes Spent Total Time Spent with Patient: Total time spent is greater than 50% in coordination of care (as documented) at patient's floor/unit and/or counseling patient: Coding Level of Care Code 86569 OBS Care - Level 3 Diagnoses Asthma exacerbation J45.901 GERD (gastroesophageal reflux disease) K21.9 Hypertension I10 Irritable bowel syndrome with diarrhea K58.0 COVID-19 U07.1 Severe persistent asthma, poorly-controlled J45.50 Migraine G43.909 Anxiety F41.9 Depression F32.9
[2021-01-14] MEDS ORDERED: DICLOFENAC SODIUM 75 MG TABCR PO PRN (07:48)
[2021-01-14] MEDS ORDERED: ACETAMINOPHEN 325 MG TAB PO PRN (07:48)
[2021-01-14] MEDS ORDERED: hydrOXYzine HCl 10 MG TAB PO PRN (07:48)
[2021-01-14] MEDS ORDERED: diphenhydrAMINE 50 MG/ML VIAL IV PRN (07:48)
[2021-01-14] MEDS ORDERED: LOPERAMIDE HCL 2 MG CAP PO PRN (07:48)
[2021-01-14] MEDS ORDERED: SUMAtriptan succinate 50 MG TAB PO PRN (07:48)
[2021-01-14] MEDS ORDERED: ONDANSETRON INJ 2 MG/ML 2 ML VIAL IV PRN (07:48)
[2021-01-14] MEDS ORDERED: BENZONATATE 100 MG CAPSULE PO PRN (07:48)
--- NOTE | 2021-01-14 08:08 | XRay Report ---
XR chest 1V portable CLINICAL HISTORY: Shortness of breath COMPARISON STUDY: September 17, 2020 FINDINGS: The heart is at the upper limits of normal in size. There is been interval resolution of th e previously identified bilateral pulmonary airspace opacities. There is no failure. There is no loba r consolidation. There are no pleural effusions. Spinal rods are again evident.[ IMPRESSION: No active disease in the chest. ACT 112: Negative or not required by law. Electronically signed by: Lion Moreno M.D. 01/14/2021 8:07 AM
[2021-01-14] MEDS: FAMOTIDINE 40 MG TABLET PO SCH ×2 (09:29→21:04)
[2021-01-14] MEDS: ADVANCED PROBIOTIC 1250 MG CAPSULE PO SCH (09:29)
[2021-01-14] MEDS: CALCIUM POLYCARBOPHIL 625MG TAB PO SCH (09:29)
[2021-01-14] MEDS: CHOLECALCIFEROL 1,000 UNITS 25 MCG TAB PO SCH (09:29)
[2021-01-14] MEDS ORDERED: ALBUTEROL 0.5% NEB SOLN 2.5 MG/0.5 ML VIAL INH SCH (11:00)
[2021-01-14] MEDS: ALBUTEROL 0.083% NEBU SOLN 3 ML VIAL INH SCH ×3 (11:16→19:18)
[2021-01-14] MEDS: BUDESONIDE 0.5 MG/2 ML VIAL (PULMICORT) NEB SCH ×2 (11:16→19:18)
--- NOTE | 2021-01-14 13:20 | Electrocardiogram Report ---
Test Reason : Blood Pressure : / mmHG Vent. Rate : 104 BPM Atrial Rate : 104 BPM P-R Int : 160 ms QRS Dur : 084 ms QT Int : 358 ms P-R-T Axes : 010 035 011 degrees QTc Int : 470 ms Sinus tachycardia Possible Left atrial enlargement RSR' or QR pattern in V1 suggests right ventricular conduction delay Borderline ECG When compared with ECG of 19-SEP-2020 09:39, QT has lengthened Confirmed by Jackson Bermudez ([id number]) on 01/14/2021 1:20:16 PM Referred By: REFERRED SELF Confirmed By:Jackson Bermudez
[2021-01-14] MEDS: methylPREDNISolone 40 MG in SYRINGE 0 ML IV SCH ×2 (13:57→21:04)
[2021-01-14] MEDS ORDERED: AMITRIPTYLINE HCL 10 MG TAB PO SCH (21:00)
[2021-01-14] MEDS ORDERED: MONTELUKAST SODIUM 10 MG TABLET PO SCH (21:00)
[2021-01-14] MEDS ORDERED: CETIRIZINE HCL 10 MG TABLET PO SCH (21:00)
[2021-01-15] MEDS: methylPREDNISolone 40 MG in SYRINGE 0 ML IV SCH (06:32)
[2021-01-15] MEDS: ALBUTEROL 0.083% NEBU SOLN 3 ML VIAL INH SCH ×2 (07:13→11:17)
[2021-01-15] MEDS: BUDESONIDE 0.5 MG/2 ML VIAL (PULMICORT) NEB SCH (07:13)
[2021-01-15] MEDS: ADVANCED PROBIOTIC 1250 MG CAPSULE PO SCH (07:57)
[2021-01-15] MEDS: CALCIUM POLYCARBOPHIL 625MG TAB PO SCH (07:58)
[2021-01-15] MEDS: CHOLECALCIFEROL 1,000 UNITS 25 MCG TAB PO SCH (07:58)
[2021-01-15] MEDS: FAMOTIDINE 40 MG TABLET PO SCH (07:58)
[2021-01-15] MEDS ORDERED: predniSONE 20 MG TAB PO ONE (13:45)
--- NOTE | 2021-01-15 16:10 | Discharge Summary ---
Date of Service January 15, 2021 Admission HPI Per Admitting Provider The patient is a 25-year-old female with a past medical history including GERD, hypertension, postconcussion headache, nasal septal deviation, bile hemorrhoids, irritable bowel syndrome with diarrhea, asthma exacerbation, sinusitis, pneumonia due to COVID-19 infection 08/2020, pericarditis, severe persistent asthma poorly controlled, allergic rhinitis, insomnia, anxiety, migraine, chronic steroid use, and depression. She has had significant work-ups locally and was recently at [facility], where they recommended getting her pH tested, which is coming up soon locally. He was admitted from 09/07-09/13/2020, and 09/17-09/20/2020 for COVID-19 pneumonia. She denies any productive cough. Her symptoms began this evening when she was over at her significant other's place. Principal Diagnosis Asthma exacerbation Discharge Exam Constitutional WD/WN, vitals as above Neck trachea midline, no thyromegaly Respiratory normal respiratory effort, lungs clear to auscultation Cardiovascular Rate/Rhythm: regular rhythm and + tachycardic Heart Sounds: normal S1 and normal S2; no murmur Vessels: no JVD Extremities: normal capillary refill; no edema Gastrointestinal (Abdomen) normal bowel sounds, soft, nontender, no hepatosplenomegaly Musculoskeletal no cyanosis or clubbing, extremities motor strength 5/5 Skin no rashes, warm and dry Neurologic patellar DTR's 2+ bilat, sensation intact and PERRL, EOMI, accommodation nl, no face palsy, no dysarthria Psychiatric A+Ox3, euthymic affect Lymphatic no cervical or axillary lymphadenopathy Discharge Data Allergies Allergy/AdvReac Type Severity Reaction Status Date / Time amoxicillin Allergy Severe THROAT Verified 01/14/21 01:04 TIGHTNESS/FELT FUNNY bee venom protein (honey bee) Allergy Severe ANAPHYLAXIS Verified 01/14/21 01:04 clavulanic acid Allergy Severe THROAT Verified 01/14/21 01:04 TIGHTNESS/FELT FUNNY Penicillins Allergy Severe ANAPHYLAXIS Verified 01/14/21 01:04 adhesive Allergy Intermediate skin Verified 01/14/21 01:04 irritation, hives, rash Egg Derived Allergy Mild Abdominal Verified 01/14/21 01:04 Pain lactose Allergy Mild Gastrointestinal Verified 01/14/21 01:04 Upset bacitracin Allergy Unknown POSITIVE Verified 01/14/21 01:04 ALLERGY TEST neomycin Allergy Unknown POSITIVE Verified 01/14/21 01:04 ALLERGY TEST nickel Allergy Unknown POSITIVE Verified 01/14/21 01:04 ALLERGY TEST paraben Allergy Unknown POSITIVE Verified 01/14/21 01:04 ALLERGY TEST Consultations 01/14/21 06:12 ED Decision to Admit Stat Hospital Course (1) Asthma exacerbation: Has had significant work-up including following with allergy Dr. Gonzalez planning on pH testing with GI for silent reflux triggering issues she had been doing well until recently responded well to Solu Medrol, give Prednisone 40mg PO with taper continue inhaled therapies follow up with GI for pH testing follow up with allergy or pulmonology as needed (2) GERD (gastroesophageal reflux disease): Continue famotidine 40 mg p.o. twice daily (3) Hypertension: On no specific treatment at this time (4) Irritable bowel syndrome with diarrhea: Continue align, fiber, loperamide, Zofran (5) Severe persistent asthma, poorly-controlled: See above (6) Migraine: Continue sumatriptan as needed (7) Anxiety: Depression with anxiety- Continue amitriptyline, (8) Depression: See above Total Time Total Time Spent Total Time Spent (In Minutes): 31 Total Time Includes: Examination of the Patient, Discharge Planning and Medication Reconciliation Discharge Plan Discharge Items Patient Disposition: Home - Self-Care Reason For Visit: ASTHMA EXACERBATION Discharge Diagnosis: Asthma exacerbation Condition on Discharge: Good Goals: follow up with GI about pH testing complete brief Prednisone taper Activity: Resume your previous activity Driving/Machine Use: No limitations Weightbearing: Full weightbearing Non-emergency contact: Primary Care Provider and Sanipractic Physician Call non-emergency contact if: you have any medication questions and your symptoms worsen Follow-up/Referrals: Alaina Gonzalez MD [Primary Care Provider] - (one week) Diet: Regular Addtl Attending Provider Instructions: Asthma exacerbation: responded well to Solumedrol, change to Prednisone, complete brief taper follow up closely with GI for pH testing follow up in 1-2 weeks with allergy or pulmonology if you are still having issues Pending Studies at Discharge: No Stand-Alone Forms: [facility], Work/School Release, Smoking Cessation Medications and DC Order Prescriptions: New prednisone 10 mg tablet 40 mg PO UD 8 Days Qty: 20 RF: 0 Continued montelukast [Singulair] 10 mg tablet 10 mg PO HS Qty: 30 RF: 5 cetirizine [Zyrtec] 10 mg tablet 10 mg PO HS Qty: 30 RF: 11 epinephrine 0.3 mg/0.3 mL auto-injector 0.3 mg IM UD PRN (Reason: Allergic Reaction) Qty: 1 RF: 3 sumatriptan succinate [Imitrex] 50 mg tablet 50 mg PO Q2H PRN (Reason: Migraine Headache) Qty: 14 RF: 1 amitriptyline 10 mg tablet 30 mg PO HS Qty: 30 RF: 6 diclofenac sodium 75 mg tablet,delayed release (DR/EC) 75 mg PO BID PRN (Reason: Pain) RF: 0 albuterol sulfate 1.25 mg/3 mL solution for nebulization 1.25 mg inhalation QID PRN (Reason: Shortness Of Breath Or Wheezing) Qty: 90 RF: 3 famotidine 40 mg tablet 40 mg PO BID Qty: 60 RF: 2 ondansetron HCl [Zofran] 4 mg tablet 4 mg PO Q6H PRN (Reason: nausea and vomiting) Qty: 20 RF: 0 benzonatate [Tessalon Perles] 100 mg capsule 100 mg PO TID PRN (Reason: cough) Qty: 20 RF: 0 cholecalciferol (vitamin D3) 25 mcg (1,000 unit) Capsule 2,000 unit PO QAM 30 Days Qty: 60 RF: 3 codeine-guaifenesin 10-100 mg/5 mL liquid 10 ml PO Q6H PRN (Reason: cough) Qty: 240 RF: 0 budesonide 1 mg/2 mL suspension for nebulization 1 mg inhalation DIRECTED RF: 0 hydroxyzine HCl 10 mg Tablet 10 mg PO QID PRN (Reason: anxiety) Qty: 30 RF: 0 albuterol sulfate [Ventolin HFA] 90 mcg/actuation HFA aerosol inhaler 2 puff INHALATION Q6H PRN (Reason: Shortness Of Breath Or Wheezing) Qty: 18 RF: 3 fiber Tablet,Chewable 1 tab PO QAM RF: 0 Align 4 mg capsule 4 mg PO QAM RF: 0 loperamide 2 mg Capsule 2 mg PO Q6H PRN (Reason: Diarrhea) RF: 0 Discharge Orders: Discharge Order (Routine); Ordered 01/15/21 Ordered By: Connor Lynn Admission Data Admit Date/Time: 01/14/21 06:27 Attending Provider: Connor Lynn Admit Provider: Issa Herr Primary Care Provider: Alaina Gonzalez Other Providers: Issa Herr Other Interventions: Discharge Summary Assessment (RN) Last Done: 01/15/21 13:39 Coding Level of Care Code D/C Day Management >30 mins Diagnoses Asthma exacerbation J45.901 GERD (gastroesophageal reflux disease) K21.9 Hypertension I10 Irritable bowel syndrome with diarrhea K58.0 Severe persistent asthma, poorly-controlled J45.50 Migraine G43.909 Anxiety F41.9 Depression F32.9
== END 2021-01-15 14:03 | disposition home or self-care (01) ==
LOC: 2E 00:16 → ED 00:16 → SUATTDRO 06:27 → 2E 08:00

== ENCOUNTER 2021-02-16 23:21 | Inpatient (IN) ==
[2021-02-16] MEDS ORDERED: LORazepam 2 MG/4 ML VIAL ONE ×2 (23:31→23:39)
[2021-02-16] MEDS ORDERED: ALBUT/IPRATROP 3MG/0.5MG NEB 3 ML VIAL NEB ONE (23:35)
[2021-02-16] MEDS ORDERED: ALBUT/IPRATROP 3MG/0.5MG NEB 3 ML VIAL ONE (23:37)
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
[2021-02-16 23:43] LABS: Basophils # (auto) 0.04 K/uL (0-0.2); Basophils % (auto) 0.4 %; Eosinophils # (auto) 0.17 K/uL (0-0.5); Eosinophils % (auto) 1.7 %; Hematocrit (blood only) 42.7 % (37-47); Hemoglobin 14.7 g/dL (12.0-16.0); Immature Granulocytes # (auto) 0.03 K/uL (0.00-0.02); Immature Granulocytes % (auto) 0.3 %; Lymphocytes # (auto) 2.53 K/uL (1.2-3.4); Lymphocytes % (auto) 24.8 %; Mean Corpuscular Hemoglobin 28.8 pg (25-34); Mean Corpuscular Hgb Conc 34.4 g/dL (32-36); Mean Corpuscular Volume 83.7 fL (80-100); Mean Platelet Volume 9.5 fL (7.4-10.4); Monocytes # (auto) 1.02 K/uL (0.11-0.59); Neutrophils # (auto) 6.43 K/uL (1.4-6.5); Neutrophils % (auto) 62.8 %; Platelet Count 385 K/uL (130-400); RDW Coefficient of Variation 12.5 % (11.5-14.5); White Blood Count 10.22 K/uL (4.8-10.8)
[2021-02-17] MEDS ORDERED: fentaNYL citrate 100 MCG/2 ML VIAL IV STA (00:02)
[2021-02-17 00:05] LABS: Alanine Aminotransferase 17 U/L (12-78); Albumin Level 4.6 gm/dl (3.4-5.0); Aspartate Aminotransferase 10 U/L (15-37); BUN Creatinine Ratio 7.5 (10-20); Bilirubin Direct 0.3 mg/dl (0-0.2); Blood Urea Nitrogen 5 mg/dl (7-18); Calcium 9.4 mg/dl (8.5-10.1); Carbon Dioxide 17 mmol/L (21-32); Chloride 114 mmol/L (98-107); Est GFR (African American) 138.6 ml/min; Est GFR (Non-African American) 119.6 ml/min; Glucose 105 mg/dl (70-99); Lipase 148 U/L (73-393); Magnesium 2.2 mg/dl (1.8-2.4); Potassium 3.6 mmol/L (3.5-5.1); Sodium 143 mmol/L (136-145)
[2021-02-17 00:11] LABS: Alkaline Phosphatase 72 U/L (45-117); Bilirubin,Total 0.5 mg/dl (0.2-1); Total Protein 8.7 gm/dl (6.4-8.2); Troponin I < 0.015 ng/ml (0-0.045)
[2021-02-17 00:15] LABS: Base Excess VBG -3.6 mEq/L; Oxygen Saturation VBG 83.7 %; pH VBG 7.41 (7.36-7.41)
--- NOTE | 2021-02-17 03:09 | History & Physical Report ---
Date of Service February 17, 2021 Assessment & Plan (1) Severe persistent asthma, poorly-controlled: Plan: Eloise Traylor is a 25y/o female with past medical history significant for GERD, hypertension, irritable bowel syndrome, severe persistent asthma, previous COVID-19 infection, and history of pericarditis; who presents for concern of shortness of breath, with associated wheezing and chest pain earlier this evening. Severe persistent asthma poorly controlled: -Concern for exacerbation; uncertain etiology of exacerbation given multifactorial contributions to shortness of breath noted in ED -While in ED was successfully able to be weaned to room air from BiPAP -Patient has been following with allergy and immunology locally as well as being seen in [facility] in the past -Previously was scheduled to have a pH test, as well as evaluation for discordant vocal cords; however these had to be canceled for unknown reasons -Has extensive history of steroid use for her severe asthma with frequent exacerbations; in this setting, will hold off on additional prednisone -Has been receiving prednisone doses for approximately last 3 to 4 years more persistently/continuously since April 2020 -Given tachycardia in ED will transition duo nebs to Xopenex to limit contributions of this to her tachycardia -Consider additional conversations with pulmonology regarding potential visualization of vocal cords for discordant vocal cord syndrome evaluation History of pericarditis: -Patient with intermittent chest pains that she attributes to her history of pericarditis -Had pericarditis following COVID-19 infection in August -At that time echo demonstrated trace pericardial effusion, as well as was seen by cardiology at that time confirming concerns for acute pericarditis in the setting of COVID-19 infection -Repeat echo for evaluation of pericardial fluid given these intermittent episodes Tachycardia: -In the ED had tachycardia up to 150 bpm - Anxiety: -Potential contributions of patient's underlying anxiety to asthma exacerbations -Continue home regimen of amitriptyline, hydroxyzine Migraines: -Continue sumatriptan as needed Diet: Regular diet DVT prophylaxis: We'll defer at this point time, encourage ambulation (2) Asthma exacerbation: (3) Chronic steroid use: (4) GERD (gastroesophageal reflux disease): (5) Hypertension: (6) Anxiety: (7) History of pericarditis: History of Present Illness Chief Complaint: asthma exacerbation Primary Care Provider: Alaina Gonzalez MD Eloise Traylor is a 25y/o female with past medical history significant for GERD, hypertension, irritable bowel syndrome, severe persistent asthma, previous COVID-19 infection, and history of pericarditis; who presents for concern of shortness of breath, with associated wheezing and chest pain earlier this evening. Of note, patient earlier this evening had been in an argument with her significant other ultimately resulting in a break-up or near break-up. Following these conversations she noticed that she was having intense shortness of breath, as well as this intermittent chest pain. Since her COVID-19 diagnosis she notes that she has been having these exacerbations much more frequently than she previously was over the last 3 to 4 years. She has been struggling with asthma exacerbations for the last 3 to 4 years since she returned to the area after time away. 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 With concerns that none of the results of changing medications or regimens have generated any form of improvement in her frequencies of these exacerbations over this time. Is highly frustrated with this process, and concerned at the inability for all the testing that she has been told that she needs to have done can be done. Was recently seen in the [facility], after feeling it was necessary to expand the number of providers that are giving input as the chronicity of this has persisted. Following that time she was supposed to have a pH test as well as a focal cord analysis; unfortunately neither of these were able to be done over the last several weeks/months. She does note that she was skipped previously scheduled to have this pH test done yesterday however it had to be canceled for an unknown reason. Her friend, with her in the ED, confirms that these episodes happen seemingly randomly and sporadically with no specific triggers or aggravating or alleviating factors. He does note that today's episode was accompanied with some consternation/fighting and there are potential contributions of this exacerbation with a conflict that she was having with her partner. Patient also believes this could be true and a cause of the exacerbation; however, remains concerned that the underlying process that would be mitigating these frequent exacerbations that seems to be unaddressed at this point time. Additionally notes that she has intermittent chest pains fairly persistently since her COVID-19 diagnosis, and the pericarditis concern that was demonstrated on echo she has continued to have these intermittent chest pains. Did not seem to be aggravated or alleviated with exertion, no improvement with leaning forward or positional changes. No improvement with inhalers or noticing that they come as a result of frequent coughing or illnesses. Sometimes will get them in association with anxiety, other times she will get them while stress-free. Allergies Allergy/AdvReac Type Severity Reaction Status Date / Time amoxicillin Allergy Severe THROAT Verified 02/17/21 00:09 TIGHTNESS/FELT FUNNY bee venom protein (honey bee) Allergy Severe ANAPHYLAXIS Verified 02/17/21 00:09 clavulanic acid Allergy Severe THROAT Verified 02/17/21 00:09 TIGHTNESS/FELT FUNNY Penicillins Allergy Severe ANAPHYLAXIS Verified 02/17/21 00:09 adhesive Allergy Intermediate skin Verified 02/17/21 00:09 irritation, hives, rash Egg Derived Allergy Mild Abdominal Verified 02/17/21 00:09 Pain lactose Allergy Mild Gastrointestinal Verified 02/17/21 00:09 Upset bacitracin Allergy Unknown POSITIVE Verified 02/17/21 00:09 ALLERGY TEST neomycin Allergy Unknown POSITIVE Verified 02/17/21 00:09 ALLERGY TEST nickel Allergy Unknown POSITIVE Verified 02/17/21 00:09 ALLERGY TEST paraben Allergy Unknown POSITIVE Verified 02/17/21 00:09 ALLERGY TEST Home Medications Medication Instructions Recorded Confirmed Type epinephrine 0.3 mg/0.3 mL 0.3 mg IM UD PRN #1 ea 02/27/19 02/17/21 Rx injection, auto-injector diclofenac sodium 75 mg 75 mg PO BID PRN 09/29/19 02/17/21 History tablet,delayed release ondansetron HCl 4 mg tablet 4 mg PO Q6H PRN #20 tab 03/08/20 02/17/21 Rx (Zofran) benzonatate 100 mg capsule 100 mg PO TID PRN #20 cap 05/02/20 02/17/21 Rx (Tessalon Perles) montelukast 10 mg tablet 10 mg PO HS #30 tab 05/13/20 02/17/21 Rx (Singulair) albuterol sulfate 1.25 mg/3 mL 1.25 mg INHALATION QID PRN #90 ml 05/27/20 02/17/21 Rx solution for nebulization sumatriptan succinate 50 mg tablet 50 mg PO Q2H PRN #14 tab 08/04/20 02/17/21 Rx (Imitrex) budesonide 1 mg/2 mL suspension 1 mg INHALATION DIRECTED 09/07/20 02/17/21 History for nebulization albuterol sulfate 90 mcg/actuation 2 puff INHALATION Q6H PRN #18 gm 09/13/20 02/17/21 Rx aerosol inhaler (Ventolin HFA) hydroxyzine HCl 10 mg tablet 10 mg PO QID PRN #30 tab 09/13/20 02/17/21 Rx cholecalciferol (vitamin D3) 25 2,000 unit PO QAM 30 Days #60 cap 09/21/20 02/17/21 Rx mcg (1,000 unit) capsule codeine 10 mg-guaifenesin 100 mg/5 10 ml PO Q6H PRN #240 ml 09/21/20 02/17/21 Rx mL oral liquid cetirizine 10 mg tablet (Zyrtec) 10 mg PO HS #30 tab 10/25/20 02/17/21 Rx Bifidobacterium infantis 4 mg 4 mg PO QAM 11/26/20 02/17/21 History capsule (Align) fiber 1 tab PO QAM 11/26/20 02/17/21 History loperamide 2 mg capsule 2 mg PO Q6H PRN 11/26/20 02/17/21 History famotidine 40 mg tablet 40 mg PO BID #60 tab 12/29/20 02/17/21 Rx amitriptyline 10 mg tablet 30 mg PO HS #30 tab 01/11/21 02/17/21 Rx hydroxyzine HCl 10 mg tablet 10 mg PO QID PRN #30 tab 02/17/21 Rx Past Med/Surg History Medical History (Updated 02/17/21 @ 06:57 by Jet Villalba MD) Acute dyspnea Allergic rhinitis Anxiety Asthma Poorly controlled; frequently using PRN neb trtmt, PRN INH; follows w/ [facility] allergy/immunology and pulm. Chest pain Chronic bronchitis Chronic sinusitis Chronic steroid use Managed by pulm, for severe persistent asthma. currently doctoring with [facility] and recently took herself off beginning of December 2020. Chronic tonsillitis Closed head injury (~2016) hx Cough COVID-19 Depression Endometriosis GERD (gastroesophageal reflux disease) History of concussion multiple (last one about ~2016) History of COVID-19 08/2020 - treated at [facility] -- tested positive with her typical pulmonary symptoms she will get when ill/chest cold. admitted about 1 week after initial symptoms started dx with pneumonia + pericarditis with an effusion + fluid around the heart and in the lungs. History of hypertension no medications currently (situational) History of ovarian cyst History of pericarditis (~08/2020) History of pneumonia (~08/2020) severe pneumonia, treated at [facility] Insomnia Kyphoscoliosis Lactose intolerance Migraine Nausea and vomiting after administration of anesthetic agent Non-productive cough Recurrent sinusitis Scoliosis s/p spinal surgery -- major fusion of lumbar and thoracic spine (see CXR) Secondary post tonsillectomy hemorrhage Sleep apnea no device Ventral hernia Vitamin D deficiency Surgical History History of anesthesia reaction SEVERE asthma attacks/panic attacks coming out of anesthesia--per pt typically needs breathing treatment prior to receiving any anesthesia History of bronchoscopy September 2018 History of colonoscopy History of sinus surgery total of 2 sinus sx--For deviated septum and nasal cyst History of spinal fusion for scoliosis at age 15--hardware in place History of tonsillectomy and adenoidectomy Family History Other No family history of adverse response to anesthesia No pertinent family history Social History Smoking Status: Never smoker Second Hand Exposure: No; Hx Alcohol Use: Yes Alcohol type: beer Hx Substance Use: No Preferred Language: Pashto Communication Ability: Effective Saloonkeeper Required: No Beliefs That Will Affect Care: None marital status: Current Living Situation: Spouse current occupational 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 Safe at Home: Yes Assistive Devices: Contacts Review of Systems Review of Systems: All systems reviewed & are unremarkable except as noted in HPI & below Physical Exam Constitutional: WD/WN, vitals as above Eyes: PERRL, conjunctivae normal, anicteric sclerae Respiratory: normal respiratory effort and symmetric chest movement; no respiratory distress, no labored breathing, does not use accessory muscles, no cough, expiratory phase not prolonged, no audible wheezes, no grunting, no nasal flaring and no tripod positioning Auscultation: no wheezes Cardiovascular: Rate/Rhythm: regular rate and regular rhythm Heart Sounds: no gallop, no murmur and no cardiac rub Vessels: normal peripheral pulses; no JVD Extremities: no edema Musculoskeletal: no cyanosis or clubbing, extremities motor strength 5/5 Skin: no rashes, warm and dry Neurologic: PERRL, EOMI, accommodation nl, no face palsy, no dysarthria CN's II-XI intact bilaterally and moves all extremities Psychiatric: Orientation: alert and oriented x 3 Results & Data Results & Data ([facility]) Vital Signs (Past 12 Hours) Vital Signs Pulse Pulse Resp BP BP Pulse Ox 02/17/21 01:30 124 H 18 122/77 98 02/17/21 01:00 118 H 20 100 02/17/21 00:58 107 H 22 134/89 100 02/17/21 00:30 115 H 20 140/87 100 02/17/21 00:11 124 H 32 H 136/87 100 02/17/21 00:03 115 H 24 160/123 H 100 02/16/21 23:36 99 02/16/21 23:33 150 H 52 H 138/109 H 99 02/16/21 23:31 130 H 38 H 100 02/16/21 23:30 130 H 37 H 100 Laboratory Results 02/17/21 02/17/21 02/16/21 Range/Units 00:01 00:01 23:45 WBC (4.8-10.8) K/uL RBC (4.2-5.4) M/uL Hgb (12.0-16.0) g/dL Hct (37-47) % MCV (80-100) fL MCH (25-34) pg MCHC (32-36) g/dL RDW Std Deviation (36.4-46.3) fL RDW Coeff of Teresa (11.5-14.5) % Plt Count (130-400) K/uL MPV (7.4-10.4) fL Immature Gran % (Auto) % Neut % (Auto) % Lymph % (Auto) % Lake % (Auto) % Eos % (Auto) % Baso % (Auto) % Neut # (Auto) (1.4-6.5) K/uL Lymph # (Auto) (1.2-3.4) K/uL Lake # (Auto) (0.11-0.59) K/uL Eos # (Auto) (0-0.5) K/uL Baso # (Auto) (0-0.2) K/uL Immature Gran # (Auto) (0.00-0.02) K/uL VBG pH 7.41 (7.36-7.41) VBG pCO2 32 L (38-50) mmHg VBG pO2 49 mmHg VBG HCO3 20 mmol/L VBG O2 Saturation 83.7 % VBG Base Excess -3.6 mEq/L Barometric Pressure 732.7 mm/Hg Sodium (136-145) mmol/L Potassium (3.5-5.1) mmol/L Chloride (98-107) mmol/L Carbon Dioxide (21-32) mmol/L Anion Gap (3-11) BUN (7-18) mg/dl Creatinine (0.6-1.2) mg/dl Est Cr Clr Drug Dosing Est GFR ( Amer) ml/min Est GFR (Non-Af Amer) ml/min BUN/Creatinine Ratio (10-20) Glucose (70-99) mg/dl Calcium (8.5-10.1) mg/dl Magnesium (1.8-2.4) mg/dl Total Bilirubin (0.2-1) mg/dl Direct Bilirubin (0-0.2) mg/dl AST (15-37) U/L ALT (12-78) U/L Alkaline Phosphatase (45-117) U/L Troponin I (0-0.045) ng/ml Total Protein (6.4-8.2) gm/dl Albumin (3.4-5.0) gm/dl Lipase (73-393) U/L Ethyl Alcohol mg/dL 173.6 H (0-3) mg/dl COVID-19 Eval Order SARS-CoV-2 (PCR) NEGATIVE (Negative) 02/16/21 02/16/21 02/16/21 Range/Units 23:45 23:35 23:35 WBC 10.22 (4.8-10.8) K/uL RBC 5.10 (4.2-5.4) M/uL Hgb 14.7 (12.0-16.0) g/dL Hct 42.7 (37-47) % MCV 83.7 (80-100) fL MCH 28.8 (25-34) pg MCHC 34.4 (32-36) g/dL RDW Std Deviation 38.0 (36.4-46.3) fL RDW Coeff of Teresa 12.5 (11.5-14.5) % Plt Count 385 (130-400) K/uL MPV 9.5 (7.4-10.4) fL Immature Gran % (Auto) 0.3 % Neut % (Auto) 62.8 % Lymph % (Auto) 24.8 % Lake % (Auto) 10.0 % Eos % (Auto) 1.7 % Baso % (Auto) 0.4 % Neut # (Auto) 6.43 (1.4-6.5) K/uL Lymph # (Auto) 2.53 (1.2-3.4) K/uL Lake # (Auto) 1.02 H (0.11-0.59) K/uL Eos # (Auto) 0.17 (0-0.5) K/uL Baso # (Auto) 0.04 (0-0.2) K/uL Immature Gran # (Auto) 0.03 H (0.00-0.02) K/uL VBG pH (7.36-7.41) VBG pCO2 (38-50) mmHg VBG pO2 mmHg VBG HCO3 mmol/L VBG O2 Saturation % VBG Base Excess mEq/L Barometric Pressure mm/Hg Sodium 143 (136-145) mmol/L Potassium 3.6 (3.5-5.1) mmol/L Chloride 114 H (98-107) mmol/L Carbon Dioxide 17 L (21-32) mmol/L Anion Gap 12.0 H (3-11) BUN 5 L (7-18) mg/dl Creatinine 0.70 (0.6-1.2) mg/dl Est Cr Clr Drug Dosing Not Reportable Est GFR ( Amer) 138.6 ml/min Est GFR (Non-Af Amer) 119.6 ml/min BUN/Creatinine Ratio 7.5 L (10-20) Glucose 105 H (70-99) mg/dl Calcium 9.4 (8.5-10.1) mg/dl Magnesium 2.2 (1.8-2.4) mg/dl Total Bilirubin 0.5 (0.2-1) mg/dl Direct Bilirubin 0.3 H (0-0.2) mg/dl AST 10 L (15-37) U/L ALT 17 (12-78) U/L Alkaline Phosphatase 72 (45-117) U/L Troponin I < 0.015 (0-0.045) ng/ml Total Protein 8.7 H (6.4-8.2) gm/dl Albumin 4.6 (3.4-5.0) gm/dl Lipase 148 (73-393) U/L Ethyl Alcohol mg/dL (0-3) mg/dl COVID-19 Eval Order Covid19 at [facility] SARS-CoV-2 (PCR) (Negative) Medications Administered Home Medication List Medication Instructions Recorded epinephrine 0.3 mg/0.3 mL 0.3 mg IM UD PRN #1 ea 02/27/19 injection, auto-injector diclofenac sodium 75 mg 75 mg PO BID PRN 09/29/19 tablet,delayed release ondansetron HCl 4 mg tablet 4 mg PO Q6H PRN #20 tab 03/08/20 (Zofran) benzonatate 100 mg capsule 100 mg PO TID PRN #20 cap 05/02/20 (Tessalon Perles) montelukast 10 mg tablet 10 mg PO HS #30 tab 05/13/20 (Singulair) albuterol sulfate 1.25 mg/3 mL 1.25 mg INHALATION QID PRN #90 ml 05/27/20 solution for nebulization sumatriptan succinate 50 mg tablet 50 mg PO Q2H PRN #14 tab 08/04/20 (Imitrex) budesonide 1 mg/2 mL suspension 1 mg INHALATION DIRECTED 09/07/20 for nebulization albuterol sulfate 90 mcg/actuation 2 puff INHALATION Q6H PRN #18 gm 09/13/20 aerosol inhaler (Ventolin HFA) hydroxyzine HCl 10 mg tablet 10 mg PO QID PRN #30 tab 09/13/20 cholecalciferol (vitamin D3) 25 2,000 unit PO QAM 30 Days #60 cap 09/21/20 mcg (1,000 unit) capsule codeine 10 mg-guaifenesin 100 mg/5 10 ml PO Q6H PRN #240 ml 09/21/20 mL oral liquid cetirizine 10 mg tablet (Zyrtec) 10 mg PO HS #30 tab 10/25/20 Bifidobacterium infantis 4 mg 4 mg PO QAM 11/26/20 capsule (Align) fiber 1 tab PO QAM 11/26/20 loperamide 2 mg capsule 2 mg PO Q6H PRN 11/26/20 famotidine 40 mg tablet 40 mg PO BID #60 tab 12/29/20 amitriptyline 10 mg tablet 30 mg PO HS #30 tab 01/11/21 Supervising Physician Co-Signing Physician Notes Attending addendum: I have supervised the medical residents activities, and agree with the H&P unless as otherwise noted. Assessment and Plan: Breathing difficulties/asthma/question of discordant vocal cord syndrome- Patient was to get the study for discordant vocal cords today, however, she became short of breath and presented to the ED for assessment Continue her usual regimen Addition of Xopenex nebulizers Avoid steroids Pericarditis history/during COVID-19 infection in August- Repeat echocardiogram today Anxiety- Significant contribution to difficulty breathing Continue amitriptyline and hydroxyzine Remaining orders and notations as noted Resident Activity Tracking Resident Involvement: Resident Care Provided Care Provided: Adult Hospital Medicine
[2021-02-17] MEDS ORDERED: ALUMINUM/MAGNESIUM SUSP 30 ML UDC PO PRN (05:38)
[2021-02-17] MEDS ORDERED: SUMAtriptan succinate 50 MG TAB PO PRN (05:38)
[2021-02-17] MEDS ORDERED: BENZONATATE 100 MG CAPSULE PO PRN (05:38)
[2021-02-17] MEDS ORDERED: hydrOXYzine HCl 10 MG TAB PO PRN (05:38)
[2021-02-17] MEDS ORDERED: LOPERAMIDE HCL 2 MG CAP PO PRN (05:38)
[2021-02-17] MEDS ORDERED: ACETAMINOPHEN 325 MG TAB PO PRN (05:38)
[2021-02-17] MEDS ORDERED: POLYETHYLENE (MIRALAX) 17 GM PACK PO PRN (05:38)
[2021-02-17] MEDS ORDERED: MAGNESIUM HYDROXIDE SUSP 30 ML UDC PO PRN (05:38)
[2021-02-17] MEDS ORDERED: ONDANSETRON INJ 2 MG/ML 2 ML VIAL IV PRN (05:38)
[2021-02-17] MEDS ORDERED: EPINEPHrine INJ 1 MG/ML AMP IM PRN (06:32)
[2021-02-17] MEDS ORDERED: BUDESONIDE 0.5 MG/2 ML VIAL (PULMICORT) NEB SCH (07:00)
[2021-02-17] MEDS: LEVALBUTEROL HCL 0.63 MG/3 ML NEB NEB SCH ×2 (07:32→13:58)
--- NOTE | 2021-02-17 08:17 | XRay Report ---
XR chest 1V portable HISTORY: shortness of breath COMPARISON: Chest 01/14/2021. FINDINGS: Hazy appearance of the left lung base. The right lung is clear. The heart is top normal in size. Thoracolumbar spinal rods are again noted. No pleural fusions. No pneumothorax. IMPRESSION: Hazy appearance to the left lung base. This may represent a pneumonia and could be secondary to aspir ation. ACT 112: Negative or not required by law. Electronically signed by: Ashu Shin M.D. 02/17/2021 8:16 AM
--- NOTE | 2021-02-17 08:19 | XRay Report ---
XR chest 1V portable HISTORY: asthma exacerbation COMPARISON: Chest 02/08/2021. FINDINGS: Hazy appearance to the left lung base is again noted. No pneumothorax. No pleural effusions . The heart remains borderline enlarged. Thoracolumbar spinal rods are again noted. IMPRESSION: No change in the hazy appearance to the left lung base. This may represent a pneumonia. ACT 112: Negative or not required by law. Electronically signed by: Ashu Shin M.D. 02/17/2021 8:17 AM
--- NOTE | 2021-02-17 08:30 | Electrocardiogram Report ---
Test Reason : Blood Pressure : / mmHG Vent. Rate : 140 BPM Atrial Rate : 140 BPM P-R Int : 116 ms QRS Dur : 074 ms QT Int : 358 ms P-R-T Axes : 045 081 025 degrees QTc Int : 546 ms Poor data quality, interpretation may be adversely affected Sinus tachycardia Incomplete right bundle branch block Abnormal ECG When compared with ECG of 14-JAN-2021 00:34, HR has increased BY 36 BPM Confirmed by Edwar Clay ([id number]) on 02/17/2021 8:30:05 AM Referred By: REFERRED SELF Confirmed By:Edwar Clay
[2021-02-17] MEDS ORDERED: CHOLECALCIFEROL 1,000 UNITS 25 MCG TAB PO SCH (09:00)
[2021-02-17] MEDS ORDERED: FAMOTIDINE 40 MG TABLET PO SCH (09:00)
--- NOTE | 2021-02-17 09:42 | XCELERA ---
[id number]
--- NOTE | 2021-02-17 10:24 | Discharge Summary ---
Date of Service February 17, 2021 Admission HPI Per Admitting Provider Eloise Traylor is a 25y/o female with past medical history significant for GERD, hypertension, irritable bowel syndrome, severe persistent asthma, previous COVID-19 infection, and history of pericarditis; who presents for concern of shortness of breath, with associated wheezing and chest pain earlier this evening. Of note, patient earlier this evening had been in an argument with her significant other ultimately resulting in a break-up or near break-up. Following these conversations she noticed that she was having intense shortness of breath, as well as this intermittent chest pain. Since her COVID-19 diagnosis she notes that she has been having these exacerbations much more frequently than she previously was over the last 3 to 4 years. She has been struggling with asthma exacerbations for the last 3 to 4 years since she returned to the area after time away. Has been following with allergy and immunology as well as multiple gastroenterologists and garment parts cutter hand over this time. With concerns that none of the results of changing medications or regimens have generated any form of improvement in her frequencies of these exacerbations over this time. Is highly frustrated with this process, and concerned at the inability for all the testing that she has been told that she needs to have done can be done. Was recently seen in the [facility], after feeling it was necessary to expand the number of providers that are giving input as the chronicity of this has persisted. Following that time she was supposed to have a pH test as well as a focal cord analysis; unfortunately neither of these were able to be done over the last several weeks/months. She does note that she was skipped previously scheduled to have this pH test done yesterday however it had to be canceled for an unknown reason. Her friend, with her in the ED, confirms that these episodes happen seemingly randomly and sporadically with no specific triggers or aggravating or alleviating factors. He does note that today's episode was ac companied with some consternation/fighting and there are potential contributions of this exacerbation with a conflict that she was having with her partner. Patient also believes this could be true and a cause of the exacerbation; however, remains concerned that the underlying process that would be mitigating these frequent exacerbations that seems to be unaddressed at this point time. Additionally notes that she has intermittent chest pains fairly persistently since her COVID-19 diagnosis, and the pericarditis concern that was demonstrated on echo she has continued to have these intermittent chest pains. Did not seem to be aggravated or alleviated with exertion, no improvement with leaning forward or positional changes. No improvement with inhalers or noticing that they come as a result of frequent coughing or illnesses. Sometimes will get them in association with anxiety, other times she will get them while stress-free. Principal Diagnosis None Discharge Exam Constitutional WD/WN, vitals as above Eyes PERRL, conjunctivae normal, anicteric sclerae Respiratory normal respiratory effort and symmetric chest movement; no respiratory distress, no labored breathing, does not use accessory muscles, no cough, expiratory phase not prolonged, no audible wheezes, no grunting, no nasal flaring and no tripod positioning Auscultation: no wheezes Cardiovascular Rate/Rhythm: regular rhythm and + tachycardic Heart Sounds: no gallop, no murmur and no cardiac rub Vessels: normal peripheral pulses; no JVD Extremities: no edema Musculoskeletal no cyanosis or clubbing, extremities motor strength 5/5 Skin no rashes, warm and dry Neurologic patellar DTR's 2+ bilat, sensation intact CN's II-XI intact bilaterally Cranial Nerves: EOM intact bilaterally Psychiatric Orientation: alert and oriented x 3 Discharge Data Allergies Allergy/AdvReac Type Severity Reaction Status Date / Time amoxicillin Allergy Severe THROAT Verified 02/17/21 00:09 TIGHTNESS/FELT FUNNY bee venom protein (honey bee) Allergy Severe ANAPHYLAXIS Verified 02/17/21 00:09 clavulanic acid Allergy Severe THROAT Verified 02/17/21 00:09 TIGHTNESS/FELT FUNNY Penicillins Allergy Severe ANAPHYLAXIS Verified 02/17/21 00:09 adhesive Allergy Intermediate skin Verified 02/17/21 00:09 irritation, hives, rash Egg Derived Allergy Mild Abdominal Verified 02/17/21 00:09 Pain lactose Allergy Mild Gastrointestinal Verified 02/17/21 00:09 Upset bacitracin Allergy Unknown POSITIVE Verified 02/17/21 00:09 ALLERGY TEST neomycin Allergy Unknown POSITIVE Verified 02/17/21 00:09 ALLERGY TEST nickel Allergy Unknown POSITIVE Verified 02/17/21 00:09 ALLERGY TEST paraben Allergy Unknown POSITIVE Verified 02/17/21 00:09 ALLERGY TEST Consultations 02/17/21 01:05 ED Decision to Admit Stat Hospital Course (1) Severe persistent asthma, poorly-controlled: Eloise Traylor is a 25y/o female with past medical history significant for GERD, hypertension, irritable bowel syndrome, severe persistent asthma, previous COVID-19 infection, and history of pericarditis; who presents for concern of shortness of breath, with associated wheezing and chest pain earlier this evening. Dyspnea -Patient was admitted for acute dyspnea and chest pain from 02/16 to 02/17. Interventions included BIPAP and duonebs with successful weaning to room air and no further respiratory distress with adequate oxygen saturation. Pt had elevated blood alcohol level of 173 on admission and was noted to have left lung base opacity on CXR which was suspected to be aspiration, though she remained afebrile and stable. By time of discharge, pt did not have any acute complaints, though endorsed her chronic shortness of breath. Pt was advised to continue following up with her GI for outpatient esophageal manometry and pH monitoring tests next week. She was also counseled about seeing pulmonology/otolaryngology for further studies, including evaluation for vocal cord dysfunction. She did not have any acute dyspnea by time of discharge. Chest pain -Pt's chest pain was treated with PRN Fentanyl in the ED. Patient continued to have chest pain during hospital stay, but stated it was similar to the intermittent chest pains she had been experiencing from pericarditis following her COVID-19 infection in August 2020. Echocardiogram from hospital admission in September 2020 demonstrated trace pericardial effusion. Repeat echocardiogram done during this admission showed resolution of pericardial effusion and reassuring systolic function with no structural abnormalities. Despite persistent tachycardia, patient did not experience any cardiorespiratory distress following initial stabilization and remained stable. She did not have any acute chest pain by time of discharge. (2) Asthma exacerbation: (3) Chronic steroid use: (4) GERD (gastroesophageal reflux disease): (5) Hypertension: (6) Anxiety: (7) History of pericarditis: Total Time Total Time Spent Total Time Spent (In Minutes): 30 Discharge Plan Discharge Items Patient Disposition: Home - Self-Care Reason For Visit: ASTHMA ATTACK Discharge Diagnosis: Asthma exacerbation Activity: Per Instructions section Non-emergency contact: Primary Care Provider Call non-emergency contact if: you have any medication questions, your symptoms worsen, your pain is not controlled and your pain is worsening Follow-up/Referrals: Alaina Gonzalez MD [Primary Care Provider] - Diet: Regular Addtl Attending Provider Instructions: You were admitted to the hospital for asthma exacerbation. Asthma exacerbation -You were admitted to the hospital for asthma exacerbation and chest pain. You were treated with oxygen, pain medication and albuterol to improve your difficulty breathing and offer some relief for your chest pain. You also received imaging studies including a chest X ray, EKG and echocardiogram to evaluate your lungs and heart, all of which were reassuring. Your physical examination findings were similarly reassuring. A discharge summary will be sent to your primary care physician to ensure continuity of care. Please bring this discharge summary with you to your next office appointment so that your provider can review it at that time. Follow-up appointments: Make a follow-up appointment with your PCP within the next week. It is very important that you follow up with them shortly after discharge from the hospital.] Continue following up with your frame repairer for your esophageal manometry and pH monitoring tests. Consider following up with a garment parts cutter hand or contact acid plant operator helper for further evaluation of your persistent shortness of breath and chest pain. Keep all your follow-up appointments as already scheduled. If you cannot make an appointment, notify your provider. Medications: Your medication list has been reviewed and reconciled upon discharge to ensure accuracy and continuity of care. An updated list of all your medications is included with your hospital discharge paperwork. Please review this list closely, and make note of any changes. Take your medications as instructed; do not skip a dose of your medicines. Make sure all of your doctors know every medicine you are taking (including [id number] medicines, vitamins, and supplements). Call your primary care provider before taking any new medicines (including olux-nce-lnydzok medicines, vitamins, and supplements), because some of these may interact with your current medications, or may make your symptoms worse. Tell your primary care provider if you cannot afford your medications. CONTACT YOUR PRIMARY CARE PROVIDER if you experience any of the following: Persistent chest pain Persistent shortness of breath Difficulty following your treatment plan, or difficulty taking medications CALL 911 OR GO TO THE EMERGENCY DEPARTMENT if you experience any of the following: Sudden, severe abdominal pain or nausea/vomiting Severe chest pain, or chest pain that radiates (moves) to your jaw or arm Sudden, severe shortness of breath or difficulty breathing Thank you for allowing us to participate in your care. Pending Studies at Discharge: No Stand-Alone Forms: My [facility], Smoking Cessation Medications and DC Order Prescriptions: New hydroxyzine HCl 10 mg tablet 10 mg PO QID PRN (Reason: anxiety) Qty: 30 RF: 0 Continued montelukast [Singulair] 10 mg tablet 10 mg PO HS Qty: 30 RF: 5 cetirizine [Zyrtec] 10 mg tablet 10 mg PO HS Qty: 30 RF: 11 epinephrine 0.3 mg/0.3 mL auto-injector 0.3 mg IM UD PRN (Reason: Allergic Reaction) Qty: 1 RF: 3 sumatriptan succinate [Imitrex] 50 mg tablet 50 mg PO Q2H PRN (Reason: Migraine Headache) Qty: 14 RF: 1 amitriptyline 10 mg tablet 30 mg PO HS Qty: 30 RF: 6 diclofenac sodium 75 mg tablet,delayed release (DR/EC) 75 mg PO BID PRN (Reason: Pain) RF: 0 albuterol sulfate 1.25 mg/3 mL solution for nebulization 1.25 mg inhalation QID PRN (Reason: Shortness Of Breath Or Wheezing) Qty: 90 RF: 3 famotidine 40 mg tablet 40 mg PO BID Qty: 60 RF: 2 ondansetron HCl [Zofran] 4 mg tablet 4 mg PO Q6H PRN (Reason: nausea and vomiting) Qty: 20 RF: 0 benzonatate [Tessalon Perles] 100 mg capsule 100 mg PO TID PRN (Reason: cough) Qty: 20 RF: 0 cholecalciferol (vitamin D3) 25 mcg (1,000 unit) Capsule 2,000 unit PO QAM 30 Days Qty: 60 RF: 3 codeine-guaifenesin 10-100 mg/5 mL liquid 10 ml PO Q6H PRN (Reason: cough) Qty: 240 RF: 0 budesonide 1 mg/2 mL suspension for nebulization 1 mg inhalation DIRECTED RF: 0 hydroxyzine HCl 10 mg Tablet 10 mg PO QID PRN (Reason: anxiety) Qty: 30 RF: 0 albuterol sulfate [Ventolin HFA] 90 mcg/actuation HFA aerosol inhaler 2 puff INHALATION Q6H PRN (Reason: Shortness Of Breath Or Wheezing) Qty: 18 RF: 3 fiber Tablet,Chewable 1 tab PO QAM RF: 0 Align 4 mg capsule 4 mg PO QAM RF: 0 loperamide 2 mg Capsule 2 mg PO Q6H PRN (Reason: Diarrhea) RF: 0 Discharge Orders: Discharge Order (Routine); Ordered 02/17/21 Ordered By: Vinh Hernandez Admission Data Admit Date/Time: 02/17/21 03:06 Attending Provider: Delia Can Admit Provider: Louis Gonzalez Primary Care Provider: Alaina Gonzalez Other Providers: Issa Herr Other Interventions: Discharge Summary Assessment (RN) Last Done: 02/17/21 16:11 Supervising Physician Co-Signing Physician Notes Resident Physician Supervision Note: I independently interviewed and examined the patient and verified the mcbride history and physical, reviewed labs and image studies and agree with resident Dr. Hernandez findings and care plan. Resident Activity Tracking Resident Involvement: Resident Care Provided Care Provided: Adult Hospital Medicine
--- NOTE | 2021-02-17 19:33 | Billing Data ---
Date of Service February 17, 2021 Coding Level of Care Code INT OBSERVATION CARE 70M LVL 3
[2021-02-17] MEDS ORDERED: CETIRIZINE HCL 10 MG TABLET PO SCH (21:00)
[2021-02-17] MEDS ORDERED: AMITRIPTYLINE HCL 10 MG TAB PO SCH (21:00)
[2021-02-17] MEDS ORDERED: MONTELUKAST SODIUM 10 MG TABLET PO SCH (21:00)
== END 2021-02-17 16:54 | disposition home or self-care (01) | DRG 203 ==
LOC: ED 23:21 → 1E 02-17 03:06 → SUATTDRO 02-17 03:06 → 1E 02-17 04:14

== ENCOUNTER 2022-03-30 20:04 | Observation (INO) ==
[2022-03-30 20:49] LABS: Basophils # (auto) 0.09 K/uL (0-0.2); Basophils % (auto) 0.5 %; Eosinophils # (auto) 0.84 K/uL (0-0.50); Eosinophils % (auto) 4.4 %; Hematocrit (blood only) 34.9 % (34.1-44.9); Hemoglobin 11.5 g/dl (12.0-16.0); Immature Granulocytes # (auto) 0.07 K/uL (0.00-0.02); Immature Granulocytes % (auto) 0.4 %; Lymphocytes % (auto) 12.6 %; Mean Corpuscular Hemoglobin 27.8 pg (25.0-34.0); Mean Corpuscular Volume 84.3 fL (80.0-100.0); Mean Platelet Volume 10.5 fL (9.4-12.3); Monocytes # (auto) 1.28 K/uL (0.24-0.82); Monocytes % (auto) 6.7 %; Neutrophils # (auto) 14.43 K/uL (1.4-6.5); Neutrophils % (auto) 75.4 %; Platelet Count 356 K/uL (130-400); RDW Coefficient of Variation 12.2 % (11.5-14.5); RDW Standard Deviation 36.9 fL (36.4-46.3); Red Blood Count 4.14 M/uL (3.93-5.22); White Blood Count 19.11 K/ul (4.8-10.8)
[2022-03-30 21:10] LABS: Appearance Urine Turbid (Clear); Bacteria Urine Automated Negative (Negative); Bilirubin Urine Negative (Negative); Blood Urine 3+ (Negative); Color Urine Red; Glucose Urine UA Negative (Negative); Ketones Urine Negative (Negative); Leukocyte Esterase Urine 3+ (Negative); Nitrite Urine Negative (Negative); Protein Urine 2+ (Negative); Specific Gravity Urine 1.028 (1.000-1.030); Urobilinogen Urine Negative (Negative); WBC Urine Automated >30 /hpf (0-5)
[2022-03-30 21:13] LABS: Albumin Globulin Ratio 1.4 (0.9-2); Albumin Level 4.4 gm/dl (3.4-5.0); BUN Creatinine Ratio 25.4 (10-20); Bilirubin,Total 0.4 mg/dl (0.2-1.0); Calcium 9.7 mg/dl (8.5-10.1); Creatinine Clr Calc Pharmacy 111.4 ml/min; Est GFR (African American) 135.3 ml/min; Est GFR (Non-African American) 116.7 ml/min; Globulin 3.1 gm/dl (2.5-4.0); Potassium 3.7 mmol/L (3.5-5.1); Total Protein 7.5 gm/dl (6.0-8.3)
[2022-03-30 21:30] LABS: RBC Urine Automated >30 /hpf (0-4)
[2022-03-30 21:33] LABS: Cast Urine Automated 0 /lpf (0-5)
[2022-03-31] MEDS ORDERED: ACETAMINOPHEN 500 MG TAB PO STA (00:03)
--- NOTE | 2022-03-31 01:56 | Emergency Department Note ---
Impression & Plan Retained products of conception Admit to Dr. Rocha ED Provider Note NAME: VIOLA COOL AGE: 26 SEX: F ARRIVES VIA: Walk-In INFORMANT: Patient ED PROVIDER(S): Annette Escobar DO CHIEF COMPLAINT: Vaginal bleeding PLAN: Disposition: Admit to Dr. Rocha Condition: Stable MEDICAL DECISION MAKING: This is a 26-year-old female patient who is 1 month who passed a large clot today. She had a similar event on March 14 for which she was seen here in the emergency department. Otherwise, the patient has had a normal course. The patient's H&H is stable at this time. However, ultrasound today shows vascularity of the retained products in the uterus which is concerning for retained products of conception. Patient has an elevated white blood cell count to 19,000. This is concerning for infection. The patient will receive IV antibiotics. Patient is hemodynamically stable. I discussed the case in they will take the patient to the OR. Triage Nursing notes reviewed and agree with them. Prior medical records reviewed Vital Signs: reviewed and remarkable for no significant abnormalities Differential diagnosis: Retained products of conception, normal bleeding, mastitis ER treatment provided: IV antibiotics Diagnostics interpreted by me: Cardiac Monitoring: Normal sinus rhythm at a rate of 90 Laboratory studies: See below Imaging studies: As per stat rad Ultrasound pelvis: Uterus unremarkable endometrial thickened and heterogeneous measuring 2.1 cm. Endometrial focal area of an internal vascularity measuring 2.1 cm in the right fundal region. Suggestion of additional area of vascularity in the mid endometrium measuring 1 cm. Right ovary unremarkable with normal Doppler flow. Left ovary small echogenic structure measuring 1.2 cm which may represent a dermoid. Normal Doppler flow. No free fluid. Impression:Findings concerning for retained products of conception. HPI: 26/F arrives for evaluation of vaginal bleed. The patient had a on March 03 which is a month ago. This was the patient's first . The baby is doing well. Approximately 11 days after delivery, the patient passed a large blood clot as she describes it. She was seen here in the emergency department for that. At the time things checked out and she was discharged home. After that, she had a couple of other episodes of minor bleeding until tonight when she passed a very large blood clot which was approximate size of the palm of her hand. Today, the patient felt fatigued but thought it might be secondary to some mastitis for which she had been started on antibiotics approximately 5 days ago which was erythromycin. ROS: See above HPI for pertinent positives & negatives. A total of 10 systems reviewed and were otherwise negative. PAST MEDICAL HISTORY:See Below PAST SURGICAL HISTORY:See Below FAMILY HISTORY:See Below SOCIAL HISTORY:See Below HOME MEDICATIONS:See list ALLERGIES:Extensive-see list VITALS:See Below PHYSICAL EXAMINATION: HEENT: Head - normocephalic and atraumatic. Pupils are equal, round, and reactive to light. Extraocular eye muscles are intact, and sclera are anicteric. Nose - moist nasal mucosa without discharge. Mouth - moist buccal mucosa. Oropharynx is nonerythematous and there is no tonsillar exudate or edema noted. Neck: Supple; no cervical lymphadenopathy Heart: Regular rate and rhythm. There is a normal S1 and S2 with no murmurs, clicks, or gallops appreciated. Lungs: Clear to auscultation bilaterally with no wheezes, rales, or rhonchi. Abdomen: Soft, mildly tender, nondistended, with good bowel sounds. There are no palpable pulsatile masses or hepatosplenomegaly. There is no guarding, rigidity, or rebound noted. Extremities: No evidence of cyanosis, clubbing, or edema. There are easily palpable peripheral pulses. Skin:, wWarm and dry with good turgor and no rashes. ED COURSE: Times/Reassessments: 2310: The patient was evaluated in room C3 and IV lock was initiated and labs were drawn as above. Given a dose of Tylenol for pain. The patient went for ultrasound of the uterus as described above. Case was discussed with Dr. Rocha and her plans to take her to the OR. The patient was started on IV clindamycin. There was a discussion with the patient and pharmacy about her allergy to penicillin with regards to starting cefazolin. Hemodynamically stable. Annette Escobar, Past Med/Surg History Medical History Acute dyspnea Alcohol intoxication Allergic rhinitis Anxiety Asthma Poorly controlled; frequently using PRN neb trtmt, PRN INH; follows w/ [facility] allergy/immunology and pulm. Chest pain Chronic bronchitis Chronic sinusitis Chronic steroid use Managed by pulm, for severe persistent asthma. currently doctoring with [facility] and recently took herself off beginning of December 2020. Chronic tonsillitis Closed head injury (~2016) hx Cough COVID-19 Depression Endometriosis GERD (gastroesophageal reflux disease) History of concussion multiple (last one about ~2016) History of COVID-19 08/2020 - treated at [facility] -- tested positive with her typical pulmonary symptoms she will get when ill/chest cold. admitted about 1 week after initial symptoms started dx with pneumonia + pericarditis with an effusion + fluid around the heart and in the lungs. History of hypertension no medications currently (situational) History of ovarian cyst History of pericarditis (~08/2020) History of pneumonia (~08/2020) severe pneumonia, treated at [facility] Insomnia Kyphoscoliosis Lactose intolerance Migraine Nausea and vomiting after administration of anesthetic agent Non-productive cough Recurrent sinusitis Scoliosis s/p spinal surgery -- major fusion of lumbar and thoracic spine (see CXR) Secondary post tonsillectomy hemorrhage Sleep apnea no device Ventral hernia Vitamin D deficiency Surgical History History of anesthesia reaction SEVERE asthma attacks/panic attacks coming out of anesthesia--per pt typically needs breathing treatment prior to receiving any anesthesia History of bronchoscopy September 2018 History of colonoscopy History of sinus surgery total of 2 sinus sx--For deviated septum and nasal cyst History of spinal fusion for scoliosis at age 15--hardware in place History of tonsillectomy and adenoidectomy Family History Other No family history of adverse response to anesthesia No pertinent family history Social History Smoking Status: Never smoker Tobacco Type: Cigarettes Second Hand Exposure: No; Hx Alcohol Use: No Hx Substance Use: No Preferred Language: Indonesian Communication Ability: Effective 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 Beliefs That Will Affect Care: None marital status: Current Living Situation: Spouse current occupational 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 Safe at Home: Yes Assistive Devices: None Allergies Allergies Allergy/AdvReac Type Severity Reaction Status Date / Time amoxicillin Allergy Severe THROAT Verified 01/18/22 14:04 TIGHTNESS/FELT FUNNY bee venom protein (honey bee) Allergy Severe ANAPHYLAXIS Verified 01/18/22 14:04 clavulanic acid Allergy Severe THROAT Verified 01/18/22 14:04 TIGHTNESS/FELT FUNNY Penicillins Allergy Severe ANAPHYLAXIS Verified 01/18/22 14:04 adhesive Allergy Intermediate skin Verified 01/18/22 14:04 irritation, hives, rash Egg Derived Allergy Mild Abdominal Verified 01/18/22 14:04 Pain lactose Allergy Mild Gastrointestinal Verified 01/18/22 14:04 Upset bacitracin Allergy Unknown POSITIVE Verified 01/18/22 14:04 ALLERGY TEST neomycin Allergy Unknown POSITIVE Verified 01/18/22 14:04 ALLERGY TEST nickel Allergy Unknown POSITIVE Verified 01/18/22 14:04 ALLERGY TEST paraben Allergy Unknown POSITIVE Verified 01/18/22 14:04 ALLERGY TEST Home Meds Home Medications Medication Instructions Recorded Confirmed diclofenac sodium 75 mg 75 mg PO BID PRN Pain 09/29/19 01/18/22 tablet,delayed release budesonide 1 mg/2 mL suspension 1 mg inhalation DIRECTED 09/07/20 01/18/22 for nebulization Bifidobacterium infantis 4 mg 4 mg PO QAM 11/26/20 01/18/22 capsule (Align) fiber 1 tab PO QAM 11/26/20 01/18/22 loperamide 2 mg capsule 2 mg PO Q6H PRN Diarrhea 11/26/20 01/18/22 Previous Rx's Medication Instructions Recorded epinephrine 0.3 mg/0.3 mL 0.3 mg (0.3 mL) IM UD PRN Allergic 02/27/19 injection, auto-injector Reaction #1 ea ondansetron HCl 4 mg tablet 4 mg PO Q6H PRN nausea and 03/08/20 (Zofran) vomiting #20 tabs benzonatate 100 mg capsule 100 mg PO TID PRN cough #20 caps 05/02/20 (Tessalon Perles) albuterol sulfate 1.25 mg/3 mL 1.25 mg (3 mL) inhalation QID PRN 05/27/20 solution for nebulization Shortness Of Breath Or Wheezing #90 mL albuterol sulfate 90 mcg/actuation 2 puff inhalation Q6H PRN 09/13/20 aerosol inhaler (Ventolin HFA) Shortness Of Breath Or Wheezing #18 grams cholecalciferol (vitamin D3) 25 2,000 unit PO QAM 30 days #60 caps 09/21/20 mcg (1,000 unit) capsule codeine 10 mg-guaifenesin 100 mg/5 10 ml PO Q6H PRN cough #240 mL 09/21/20 mL oral liquid hydroxyzine HCl 10 mg tablet 10 mg PO QID PRN anxiety #30 tabs 02/17/21 sumatriptan succinate 50 mg tablet 50 mg PO Q2H PRN Migraine Headache 04/27/21 (Imitrex) #14 tabs budesonide 32 mcg/actuation nasal 2 spray intranasal DAILY #8.43 mL 05/10/21 spray (Rhinocort Allergy) hydroxyzine HCl 10 mg tablet 10 mg PO QID PRN anxiety #30 tabs 05/26/21 amitriptyline 10 mg tablet 30 mg PO HS #30 tabs 05/27/21 sucralfate 1 gram tablet (Carafate) 1 g PO BID #60 tabs 07/01/21 esomeprazole magnesium 40 mg See Rx Instructions .Route 07/28/21 capsule,delayed release .COMPLEX #30 caps montelukast 10 mg tablet 10 mg PO HS #30 tabs 11/08/21 (Singulair) famotidine 40 mg tablet 40 mg PO BID #180 tabs 12/29/21 cetirizine 10 mg tablet See Rx Instructions .Route 01/10/22 .COMPLEX #30 tabs oxycodone 5 mg tablet 10 mg PO Q4H PRN pain #20 tabs 03/15/22 oxycodone 5 mg tablet 10 mg PO Q4H PRN pain #20 tabs 03/15/22 misoprostol 200 mcg tablet 600 mcg vaginal Q6 #6 tabs 03/31/22 Results & Data (ED) Vital Signs Vital Signs - 24 hr 03/30/22 20:11 03/30/22 23:59 Temperature 36.6 C Temperature Source Temporal Artery Scan Pulse Rate 106 H Pulse Rate [Finger] 81 Pulse Rhythm [Finger] Regular Pulse Strength [Finger] Normal Respiratory Rate 18 16 Respiratory Effort / Characteristics Non-Labored Spontaneous Respiratory Depth Normal Normal Blood Pressure 130/86 Blood Pressure [Right Arm] 116/62 Blood Pressure Mean 100 Blood Pressure Mean [Right Arm] 80 Pulse Oximetry 98 97 Oxygen Delivery Method Room Air Room Air Sepsis New/Unexplained Change in Mental Status N/A Sepsis Action Taken by Nursing No Action Required Laboratory Data Result diagrams: 03/30/22 20:35 03/30/22 20:35 Lab Results 03/30/22 03/30/22 03/30/22 Range/Units 20:35 20:35 Unknown WBC 19.11 H (4.8-10.8) K/ul RBC 4.14 (3.93-5.22) M/uL Hgb 11.5 L (12.0-16.0) g/dl Hct 34.9 (34.1-44.9) % MCV 84.3 (80.0-100.0) fL MCH 27.8 (25.0-34.0) pg MCHC 33.0 (32.0-36.0) g/dL RDW Std Deviation 36.9 (36.4-46.3) fL RDW Coeff of Teresa 12.2 (11.5-14.5) % Plt Count 356 (130-400) K/uL MPV 10.5 (9.4-12.3) fL Immature Gran % (Auto) 0.4 % Neut % (Auto) 75.4 % Lymph % (Auto) 12.6 % [place] % (Auto) 6.7 % Eos % (Auto) 4.4 % Baso % (Auto) 0.5 % Neut # (Auto) 14.43 H (1.4-6.5) K/uL Lymph # (Auto) 2.40 (1.2-3.4) K/uL [place] # (Auto) 1.28 H (0.24-0.82) K/uL Eos # (Auto) 0.84 H (0-0.50) K/uL Baso # (Auto) 0.09 (0-0.2) K/uL Immature Gran # (Auto) 0.07 H (0.00-0.02) K/uL Sodium 139 (136-145) mmol/L Potassium 3.7 (3.5-5.1) mmol/L Chloride 107 (98-107) mmol/L Carbon Dioxide 22 (21-32) mmol/L Anion Gap 10 (3-11) BUN 18 (6-23) mg/dl Creatinine 0.71 (0.6-1.2) mg/dl Est Cr Clr Drug Dosing 111.4 ml/min Est GFR ( Amer) 135.3 ml/min Est GFR (Non-Af Amer) 116.7 ml/min BUN/Creatinine Ratio 25.4 H (10-20) Glucose 116 H (70-99(Fasting)) mg/dl Calcium 9.7 (8.5-10.1) mg/dl Total Bilirubin 0.4 (0.2-1.0) mg/dl AST 13 (13-39) U/L ALT 15 (7-52) U/L Alkaline Phosphatase 126 H (34-104) U/L Total Protein 7.5 (6.0-8.3) gm/dl Albumin 4.4 (3.4-5.0) gm/dl Globulin 3.1 (2.5-4.0) gm/dl Albumin/Globulin Ratio 1.4 (0.9-2) Urine Color Red Urine Appearance Turbid A (Clear) Urine pH 6.0 (4.5-7.5) Ur Specific [place] 1.028 (1.000-1.030) Urine Protein 2+ H (Negative) Urine Glucose (UA) Negative (Negative) Urine Ketones Negative (Negative) Urine Blood 3+ H (Negative) Urine Nitrite Negative (Negative) Urine Bilirubin Negative (Negative) Urine Urobilinogen Negative (Negative) Ur Leukocyte Esterase 3+ H (Negative) Urine WBC (Auto) >30 H (0-5) /hpf Urine RBC (Auto) >30 H (0-4) /hpf U Hyaline Cast (Auto) 0 (0-5) /lpf U Epithel Cells (Auto) 5-10 H (0-5) /lpf Urine Bacteria (Auto) Negative (Negative) Urine Yeast Not Reportable SARS-CoV-2, RNA, NAAT (NEGATIVE) 03/31/22 Range/Units 02:02 WBC (4.8-10.8) K/ul RBC (3.93-5.22) M/uL Hgb (12.0-16.0) g/dl Hct (34.1-44.9) % MCV (80.0-100.0) fL MCH (25.0-34.0) pg MCHC (32.0-36.0) g/dL RDW Std Deviation (36.4-46.3) fL RDW Coeff of Teresa (11.5-14.5) % Plt Count (130-400) K/uL MPV (9.4-12.3) fL Immature Gran % (Auto) % Neut % (Auto) % Lymph % (Auto) % [place] % (Auto) % Eos % (Auto) % Baso % (Auto) % Neut # (Auto) (1.4-6.5) K/uL Lymph # (Auto) (1.2-3.4) K/uL [place] # (Auto) (0.24-0.82) K/uL Eos # (Auto) (0-0.50) K/uL Baso # (Auto) (0-0.2) K/uL Immature Gran # (Auto) (0.00-0.02) K/uL Sodium (136-145) mmol/L Potassium (3.5-5.1) mmol/L Chloride (98-107) mmol/L Carbon Dioxide (21-32) mmol/L Anion Gap (3-11) BUN (6-23) mg/dl Creatinine (0.6-1.2) mg/dl Est Cr Clr Drug Dosing ml/min Est GFR ( Amer) ml/min Est GFR (Non-Af Amer) ml/min BUN/Creatinine Ratio (10-20) Glucose (70-99(Fasting)) mg/dl Calcium (8.5-10.1) mg/dl Total Bilirubin (0.2-1.0) mg/dl AST (13-39) U/L ALT (7-52) U/L Alkaline Phosphatase (34-104) U/L Total Protein (6.0-8.3) gm/dl Albumin (3.4-5.0) gm/dl Globulin (2.5-4.0) gm/dl Albumin/Globulin Ratio (0.9-2) Urine Color Urine Appearance (Clear) Urine pH (4.5-7.5) Ur Specific [place] (1.000-1.030) Urine Protein (Negative) Urine Glucose (UA) (Negative) Urine Ketones (Negative) Urine Blood (Negative) Urine Nitrite (Negative) Urine Bilirubin (Negative) Urine Urobilinogen (Negative) Ur Leukocyte Esterase (Negative) Urine WBC (Auto) (0-5) /hpf Urine RBC (Auto) (0-4) /hpf U Hyaline Cast (Auto) (0-5) /lpf U Epithel Cells (Auto) (0-5) /lpf Urine Bacteria (Auto) (Negative) Urine Yeast SARS-CoV-2, RNA, NAAT NEGATIVE (NEGATIVE) Administered Medications Discontinued Medications Acetaminophen (Acetaminophen 500 Mg Tab) 1,000 mg PO NOW STA Stop: 03/31/22 00:04 Last Admin: 03/31/22 00:24 Dose: 1,000 mg Documented By: GARRISON Erythromycin Ethylsuccinate (Erythromycin Ethylsucc Susp 200 Mg/5 Ml 100 Ml Btl) 800 mg PO BID BOSSMAN Stop: 04/07/22 08:59 Last Admin: 03/31/22 12:23 Dose: 800 mg Documented By: JETT Famotidine (Famotidine 40 Mg Tablet) 40 mg PO BID BOSSMAN Stop: 04/30/22 08:59 Last Admin: 03/31/22 12:23 Dose: 40 mg Documented By: JETT Fluticasone Propionate (Fluticasone Propionate Na Spr 16 Gm Btl) 2 sprays NA DAILY BOSSMAN Stop: 04/30/22 08:59 Last Admin: 03/31/22 12:24 Dose: 2 sprays Documented By: JETT Cefazolin Sodium (Ancef 1000mg) 1,000 mg in 7.5 mls @ 2.5 mls/min IV PREOP ONE Stop: 03/31/22 02:29 Last Admin: 03/31/22 03:40 Dose: Not Given Documented By: GARRISON Clindamycin Phosphate (Cleocin/D5w) 900 mg in 50 mls @ 100 mls/hr IV NOW STA Stop: 03/31/22 03:23 Last Infusion: 03/31/22 04:20 Dose: 0 mls/hr Documented By: Admin: 03/31/22 03:18 Dose: 100 mls/hr Documented By: GARRISON Lactated Ringer's (Lr) 1,000 mls @ 125 mls/hr IV .Q8H BOSSMAN Stop: 04/30/22 03:14 Last Admin: 03/31/22 03:52 Dose: 125 mls/hr Documented By: GARRISON Lactobacillus Acidophilus (Advanced Probiotic 1250 Mg Capsule) 2 cap PO QAM BOSSMAN Stop: 04/30/22 08:59 Last Admin: 03/31/22 12:23 Dose: 2 cap Documented By: JETT Misoprostol (Misoprostol 200 Mcg Tab) 400 mcg PO Q4H BOSSMAN Stop: 04/30/22 03:29 Last Admin: 03/31/22 08:39 Dose: 400 mcg Documented By: Admin: 03/31/22 04:14 Dose: 400 mcg Documented By: GARRISON Misoprostol (Misoprostol 200 Mcg Tab) 600 mcg PV Q6 BOSSMAN Stop: 04/01/22 00:01 Last Admin: 03/31/22 12:22 Dose: 600 mcg Documented By: JETT Ondansetron HCl (Ondansetron Inj 2 Mg/Ml 2 Ml Vial) 4 mg IV Q6H PRN PRN Reason: Nausea And Vomiting Stop: 04/30/22 03:10 Last Admin: 03/31/22 04:14 Dose: 4 mg Documented By: GARRISON Oxycodone HCl (Oxycodone Hcl Ir 5 Mg Tab (Immediate Release)) 10 mg PO Q4H PRN PRN Reason: pain Stop: 04/14/22 03:43 Last Admin: 03/31/22 04:14 Dose: 10 mg Documented By: GARRISON Sucralfate (Sucralfate 1 Gm Tab) 1 gm PO BID BOSSMAN Stop: 04/30/22 08:59 Last Admin: 03/31/22 12:23 Dose: 1 gm Documented By: JETT Vitamin D (Cholecalciferol 1,000 Units 25 Mcg Tab) 2,000 units PO QAM BOSSMAN Stop: 04/30/22 08:59 Last Admin: 03/31/22 12:23 Dose: 2,000 units Documented By: JETT Discharge Plan Visit Data Chief Complaint: Vaginal Bleeding Stated Complaint: Vaginal Bleeding ED Provider: Annette Escobar Discharge Problem: Retained products of conception Patient Disposition: Admitted As Inpatient Condition: Good Discharge Instructions Interventions: ED Discharge Assessment Last Done: 03/31/22 04:27
[2022-03-31] MEDS ORDERED: ceFAZolin 1000MG 1,000 MG/7.5 ML SYR IV ONE (02:27)
[2022-03-31] MEDS ORDERED: CLINDAMYCIN PHOS 900 MG/6 ML VIAL IV ONE (02:29)
[2022-03-31] MEDS ORDERED: CLINDAMYCIN/D5W 900 MG/50 ML PREMIX BAG IV STA (02:54)
[2022-03-31] MEDS ORDERED: ONDANSETRON INJ 2 MG/ML 2 ML VIAL IV PRN (03:11)
[2022-03-31] MEDS ORDERED: ACETAMINOPHEN 325 MG TAB PO PRN (03:11)
[2022-03-31] MEDS ORDERED: LACTATED RINGER'S 1,000 ML IV SCH (03:15)
[2022-03-31] MEDS ORDERED: oxyCODONE HCL IR 5 MG TAB (IMMEDIATE RELEASE) PO PRN (03:44)
[2022-03-31] MEDS ORDERED: ALBUTEROL 0.083% NEBU SOLN 3 ML VIAL INH PRN (03:44)
[2022-03-31] MEDS ORDERED: BENZONATATE 100 MG CAPSULE PO PRN (03:44)
[2022-03-31] MEDS ORDERED: hydrOXYzine HCl 10 MG TAB PO PRN (03:44)
[2022-03-31] MEDS ORDERED: ALBUTEROL HFA 8 GM INHALER INH PRN (03:44)
--- NOTE | 2022-03-31 03:57 | History & Physical Report ---
Date of Service March 31, 2022 Assessment & Plan (1) Status post section: Plan: Patient is a 26-year-old -0-0-1 who is status post primary for history of back pain on March 03, presenting with 1 time of vaginal bleeding with a plum sized clot, spotting/light bleeding since then, Vital signs stable afebrile, Pelvic exam unremarkable, no active bleeding, cervix is closed, Ultrasound with all right reading suggesting thickened endometrium questionable retained products of conception by White blood cell count elevated, Plan to admit, monitor, IV antibiotics, p.o. Cytotec, ultrasound of left breast for mastitis, repeat pelvic ultrasound this afternoon, All questions were answered. (2) Lochia rubra: (3) Abnormal vaginal bleeding: (4) Mastitis associated with childbirth, delivered: History of Present Illness Primary Care Provider: Alaina Gonzalez MD Patient is a 26-year-old -0-0-1 who is status post primary on March 03 which was scheduled for history of back surgery with rods for scoliosis in the past. Her surgery was done by G anesthesia and it was uncomplicated at [facility] in [place]. She was discharged on March 06 with no problems. She was doing well until 03/15 when she passed cloths and came to ER. I saw her dad and her bleeding was minimal and H&H was stable. She was given IV oxytocin and p.o. Cytotec and she was sent home. She has been doing well her bleeding has been minimal until last night again when she passed a large clot in the toilet on her palm, and about a plum size. It was around 5:30 PM yesterday. She has a picture on her phone. She has smaller clots and has been wiping blood on toilet paper since then. No more large clots no more active bleeding since then. She was feeling tired and slightly dizzy yesterday. She is being treated for left sided mastitis with p.o. erythromycin. Her breast is sore, engorged. She is planning to switch to bottlefeeding. She has multiple medication and food allergies. She sees event specialist food demonstrator and she was tested positive for penicillin allergy in his office. She denies fever, chills, abdominal pain. She has been taking Tylenol for incisional pain. She has not been sexually active. Allergies Allergy/AdvReac Type Severity Reaction Status Date / Time amoxicillin Allergy Severe THROAT Verified 01/18/22 14:04 TIGHTNESS/FELT FUNNY bee venom protein (honey bee) Allergy Severe ANAPHYLAXIS Verified 01/18/22 14:04 clavulanic acid Allergy Severe THROAT Verified 01/18/22 14:04 TIGHTNESS/FELT FUNNY Penicillins Allergy Severe ANAPHYLAXIS Verified 01/18/22 14:04 adhesive Allergy Intermediate skin Verified 01/18/22 14:04 irritation, hives, rash Egg Derived Allergy Mild Abdominal Verified 01/18/22 14:04 Pain lactose Allergy Mild Gastrointestinal Verified 01/18/22 14:04 Upset bacitracin Allergy Unknown POSITIVE Verified 01/18/22 14:04 ALLERGY TEST neomycin Allergy Unknown POSITIVE Verified 01/18/22 14:04 ALLERGY TEST nickel Allergy Unknown POSITIVE Verified 01/18/22 14:04 ALLERGY TEST paraben Allergy Unknown POSITIVE Verified 01/18/22 14:04 ALLERGY TEST Home Medications Medication Instructions Recorded Confirmed Type epinephrine 0.3 mg/0.3 mL 0.3 mg (0.3 mL) IM UD PRN Allergic 02/27/19 01/18/22 Rx injection, auto-injector Reaction #1 ea diclofenac sodium 75 mg 75 mg PO BID PRN Pain 09/29/19 01/18/22 History tablet,delayed release ondansetron HCl 4 mg tablet 4 mg PO Q6H PRN nausea and 03/08/20 01/18/22 Rx (Zofran) vomiting #20 tabs benzonatate 100 mg capsule 100 mg PO TID PRN cough #20 caps 05/02/20 01/18/22 Rx (Tessalon Perles) albuterol sulfate 1.25 mg/3 mL 1.25 mg (3 mL) inhalation QID PRN 05/27/20 01/18/22 Rx solution for nebulization Shortness Of Breath Or Wheezing #90 mL budesonide 1 mg/2 mL suspension 1 mg inhalation DIRECTED 09/07/20 01/18/22 History for nebulization albuterol sulfate 90 mcg/actuation 2 puff inhalation Q6H PRN 09/13/20 01/18/22 Rx aerosol inhaler (Ventolin HFA) Shortness Of Breath Or Wheezing #18 grams cholecalciferol (vitamin D3) 25 2,000 unit PO QAM 30 days #60 caps 09/21/20 01/18/22 Rx mcg (1,000 unit) capsule codeine 10 mg-guaifenesin 100 mg/5 10 ml PO Q6H PRN cough #240 mL 09/21/20 01/18/22 Rx mL oral liquid Bifidobacterium infantis 4 mg 4 mg PO QAM 11/26/20 01/18/22 History capsule (Align) fiber 1 tab PO QAM 11/26/20 01/18/22 History loperamide 2 mg capsule 2 mg PO Q6H PRN Diarrhea 11/26/20 01/18/22 History hydroxyzine HCl 10 mg tablet 10 mg PO QID PRN anxiety #30 tabs 02/17/21 01/18/22 Rx sumatriptan succinate 50 mg tablet 50 mg PO Q2H PRN Migraine Headache 04/27/21 01/18/22 Rx (Imitrex) #14 tabs budesonide 32 mcg/actuation nasal 2 spray intranasal DAILY #8.43 mL 05/10/21 01/18/22 Rx spray (Rhinocort Allergy) hydroxyzine HCl 10 mg tablet 10 mg PO QID PRN anxiety #30 tabs 05/26/21 01/18/22 Rx amitriptyline 10 mg tablet 30 mg PO HS #30 tabs 05/27/21 01/18/22 Rx sucralfate 1 gram tablet (Carafate) 1 g PO BID #60 tabs 07/01/21 01/18/22 Rx esomeprazole magnesium 40 mg See Rx Instructions .Route 07/28/21 01/18/22 Rx capsule,delayed release .COMPLEX #30 caps montelukast 10 mg tablet 10 mg PO HS #30 tabs 11/08/21 01/18/22 Rx (Singulair) famotidine 40 mg tablet 40 mg PO BID #180 tabs 12/29/21 01/18/22 Rx cetirizine 10 mg tablet See Rx Instructions .Route 01/10/22 01/18/22 Rx .COMPLEX #30 tabs oxycodone 5 mg tablet 10 mg PO Q4H PRN pain #20 tabs 03/15/22 Rx oxycodone 5 mg tablet 10 mg PO Q4H PRN pain #20 tabs 03/15/22 Rx Patient History Medical History Acute dyspnea Alcohol intoxication Allergic rhinitis Anxiety Asthma Poorly controlled; frequently using PRN neb trtmt, PRN INH; follows w/ [facility] allergy/immunology and pulm. Chest pain Chronic bronchitis Chronic sinusitis Chronic steroid use Managed by pulm, for severe persistent asthma. currently doctoring with [facility] and recently took herself off beginning of December 2020. Chronic tonsillitis Closed head injury (~2016) hx Cough COVID-19 Depression Endometriosis GERD (gastroesophageal reflux disease) History of concussion multiple (last one about ~2016) History of COVID-19 08/2020 - treated at [facility] -- tested positive with her typical pulmonary symptoms she will get when ill/chest cold. admitted about 1 week after initial symptoms started dx with pneumonia + pericarditis with an effusion + fluid around the heart and in the lungs. History of hypertension no medications currently (situational) History of ovarian cyst History of pericarditis (~08/2020) History of pneumonia (~08/2020) severe pneumonia, treated at [facility] Insomnia Kyphoscoliosis Lactose intolerance Migraine Nausea and vomiting after administration of anesthetic agent Non-productive cough Recurrent sinusitis Scoliosis s/p spinal surgery -- major fusion of lumbar and thoracic spine (see CXR) Secondary post tonsillectomy hemorrhage Sleep apnea no device Ventral hernia Vitamin D deficiency Surgical History History of anesthesia reaction SEVERE asthma attacks/panic attacks coming out of anesthesia--per pt typically needs breathing treatment prior to receiving any anesthesia History of bronchoscopy September 2018 History of colonoscopy History of sinus surgery total of 2 sinus sx--For deviated septum and nasal cyst History of spinal fusion for scoliosis at age 15--hardware in place History of tonsillectomy and adenoidectomy Family History Other No family history of adverse response to anesthesia No pertinent family history Social History Smoking Status: Never smoker Tobacco Type: Cigarettes Second Hand Exposure: No; Hx Alcohol Use: Yes Alcohol type: beer Hx Substance Use: No Preferred Language: Belarusian Communication Ability: Effective Carbonation Equipment Operator Required: No Beliefs That Will Affect Care: None marital status: Current Living Situation: Spouse current occupational 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 Review of Systems as per Subjective / HPI Physical Exam Constitutional: WD/WN, vitals as above well developed, well nourished and comfortable Not in acute distress Genitourinary: normal external appearance Speculum/Bimanual Exam: normal appearance of the vagina (Very small dark bloody mucus in upper vagina), normal appearance of the cervix (Os is closed, no active bleeding from os) and + uterus boggy () Right breast normal, left breast is engorged with erythematous skin and tender to touch. Results & Data ([facility]) Vital Signs (Past 12 Hours) Vital Signs Temp Pulse Pulse Resp BP BP Pulse Ox 03/30/22 23:59 81 16 116/62 97 03/30/22 20:11 36.6 C 106 H 18 130/86 98 O2 Del Method 03/30/22 23:59 Room Air 03/30/22 20:11 Room Air Laboratory Results Lab Results 03/30/22 03/30/22 03/30/22 Range/Units 20:35 20:35 Unknown WBC 19.11 H (4.8-10.8) K/ul RBC 4.14 (3.93-5.22) M/uL Hgb 11.5 L (12.0-16.0) g/dl Hct 34.9 (34.1-44.9) % MCV 84.3 (80.0-100.0) fL MCH 27.8 (25.0-34.0) pg MCHC 33.0 (32.0-36.0) g/dL RDW Std Deviation 36.9 (36.4-46.3) fL RDW Coeff of Teresa 12.2 (11.5-14.5) % Plt Count 356 (130-400) K/uL MPV 10.5 (9.4-12.3) fL Immature Gran % (Auto) 0.4 % Neut % (Auto) 75.4 % Lymph % (Auto) 12.6 % [place] % (Auto) 6.7 % Eos % (Auto) 4.4 % Baso % (Auto) 0.5 % Neut # (Auto) 14.43 H (1.4-6.5) K/uL Lymph # (Auto) 2.40 (1.2-3.4) K/uL [place] # (Auto) 1.28 H (0.24-0.82) K/uL Eos # (Auto) 0.84 H (0-0.50) K/uL Baso # (Auto) 0.09 (0-0.2) K/uL Immature Gran # (Auto) 0.07 H (0.00-0.02) K/uL Sodium 139 (136-145) mmol/L Potassium 3.7 (3.5-5.1) mmol/L Chloride 107 (98-107) mmol/L Carbon Dioxide 22 (21-32) mmol/L Anion Gap 10 (3-11) BUN 18 (6-23) mg/dl Creatinine 0.71 (0.6-1.2) mg/dl Est Cr Clr Drug Dosing 111.4 ml/min Est GFR ( Amer) 135.3 ml/min Est GFR (Non-Af Amer) 116.7 ml/min BUN/Creatinine Ratio 25.4 H (10-20) Glucose 116 H (70-99(Fasting)) mg/dl Calcium 9.7 (8.5-10.1) mg/dl Total Bilirubin 0.4 (0.2-1.0) mg/dl AST 13 (13-39) U/L ALT 15 (7-52) U/L Alkaline Phosphatase 126 H (34-104) U/L Total Protein 7.5 (6.0-8.3) gm/dl Albumin 4.4 (3.4-5.0) gm/dl Globulin 3.1 (2.5-4.0) gm/dl Albumin/Globulin Ratio 1.4 (0.9-2) Urine Color Red Urine Appearance Turbid A (Clear) Urine pH 6.0 (4.5-7.5) Ur Specific [place] 1.028 (1.000-1.030) Urine Protein 2+ H (Negative) Urine Glucose (UA) Negative (Negative) Urine Ketones Negative (Negative) Urine Blood 3+ H (Negative) Urine Nitrite Negative (Negative) Urine Bilirubin Negative (Negative) Urine Urobilinogen Negative (Negative) Ur Leukocyte Esterase 3+ H (Negative) Urine WBC (Auto) >30 H (0-5) /hpf Urine RBC (Auto) >30 H (0-4) /hpf U Hyaline Cast (Auto) 0 (0-5) /lpf U Epithel Cells (Auto) 5-10 H (0-5) /lpf Urine Bacteria (Auto) Negative (Negative) Urine Yeast Not Reportable SARS-CoV-2, RNA, NAAT (NEGATIVE) 03/31/22 Range/Units 02:02 WBC (4.8-10.8) K/ul RBC (3.93-5.22) M/uL Hgb (12.0-16.0) g/dl Hct (34.1-44.9) % MCV (80.0-100.0) fL MCH (25.0-34.0) pg MCHC (32.0-36.0) g/dL RDW Std Deviation (36.4-46.3) fL RDW Coeff of Teresa (11.5-14.5) % Plt Count (130-400) K/uL MPV (9.4-12.3) fL Immature Gran % (Auto) % Neut % (Auto) % Lymph % (Auto) % [place] % (Auto) % Eos % (Auto) % Baso % (Auto) % Neut # (Auto) (1.4-6.5) K/uL Lymph # (Auto) (1.2-3.4) K/uL [place] # (Auto) (0.24-0.82) K/uL Eos # (Auto) (0-0.50) K/uL Baso # (Auto) (0-0.2) K/uL Immature Gran # (Auto) (0.00-0.02) K/uL Sodium (136-145) mmol/L Potassium (3.5-5.1) mmol/L Chloride (98-107) mmol/L Carbon Dioxide (21-32) mmol/L Anion Gap (3-11) BUN (6-23) mg/dl Creatinine (0.6-1.2) mg/dl Est Cr Clr Drug Dosing ml/min Est GFR ( Amer) ml/min Est GFR (Non-Af Amer) ml/min BUN/Creatinine Ratio (10-20) Glucose (70-99(Fasting)) mg/dl Calcium (8.5-10.1) mg/dl Total Bilirubin (0.2-1.0) mg/dl AST (13-39) U/L ALT (7-52) U/L Alkaline Phosphatase (34-104) U/L Total Protein (6.0-8.3) gm/dl Albumin (3.4-5.0) gm/dl Globulin (2.5-4.0) gm/dl Albumin/Globulin Ratio (0.9-2) Urine Color Urine Appearance (Clear) Urine pH (4.5-7.5) Ur Specific [place] (1.000-1.030) Urine Protein (Negative) Urine Glucose (UA) (Negative) Urine Ketones (Negative) Urine Blood (Negative) Urine Nitrite (Negative) Urine Bilirubin (Negative) Urine Urobilinogen (Negative) Ur Leukocyte Esterase (Negative) Urine WBC (Auto) (0-5) /hpf Urine RBC (Auto) (0-4) /hpf U Hyaline Cast (Auto) (0-5) /lpf U Epithel Cells (Auto) (0-5) /lpf Urine Bacteria (Auto) (Negative) Urine Yeast SARS-CoV-2, RNA, NAAT NEGATIVE (NEGATIVE)
[2022-03-31] MEDS: miSOPROStoL 200 MCG TAB PO SCH ×2 (04:14→08:39)
--- NOTE | 2022-03-31 07:25 | Ultrasound Report ---
PELVIC ULTRASOUND CLINICAL HISTORY: Evaluate contents of uterus- 1 month post bleed COMPARISON STUDY: Pelvic ultrasound March 14, 2022. TECHNIQUE: Transabdominal and transvaginal sonography of the pelvis was performed. FINDINGS: Uterus measures 9.8 x 5 x 5.4 cm. Endometrium is thickened, measuring 2.1 cm in thickness. Note is made of an endometrial echogenic focus within the right aspect of the fundus that measures 2. 1 x 1.5 x 1.4 cm. There is a trace increased vascularity. There is an additional 1 cm echogenic focus within the endometrium. There is color flow within each ovary. The right ovary measures 3 x 2.1 x 2. 1 cm and the left ovary measures 2.6 x 2.2 x 2.2 cm. A 1.2 cm echogenic left ovarian lesion represent s a dermoid. IMPRESSION: 1. Thickened endometrium, measuring 2.1 cm in thickness. 2.1 x 1.5 x 1.4 cm echogenic focus within th e right aspect of the fundus and an additional 1 cm echogenic focus within the endometrium. These fin dings favor retained products of conception. 2. 1.2 cm left ovarian dermoid. ACT 112: Negative or not required by law. Electronically signed by: Bishop Arreguin M.D. 03/31/2022 7:23 AM
[2022-03-31] MEDS ORDERED: ERYTHROMYCIN ETHYLSUCC SUSP 200 MG/5 ML 100 ML BTL PO SCH (09:00)
[2022-03-31] MEDS ORDERED: [UNRECOGNIZED DRUG - REMARK] INTNAS SCH (09:00)
[2022-03-31] MEDS ORDERED: FAMOTIDINE 40 MG TABLET PO SCH (09:00)
[2022-03-31] MEDS ORDERED: FLUTICASONE PROPIONATE NA SPR 16 GM BTL SCH (09:00)
[2022-03-31] MEDS ORDERED: CHOLECALCIFEROL 1,000 UNITS 25 MCG TAB PO SCH (09:00)
[2022-03-31] MEDS ORDERED: ADVANCED PROBIOTIC 1250 MG CAPSULE PO SCH (09:00)
[2022-03-31] MEDS ORDERED: SUCRALFATE 1 GM TAB PO SCH (09:00)
--- NOTE | 2022-03-31 09:48 | Obstetrical Progress Note ---
Date of Service March 31, 2022 Subjective Ambulation: ambulating normally Voiding: no voiding problems Passing Gas:: Yes Diet Tolerance:: regular diet Feeding Type:: bottle feeding Current Pain Level(1-10): 0 no bleeding or passage of clots now Physical Exam Constitutional WD/WN, vitals as above Chest (Breasts) Additional Comments: right breast normal. left breast with clogged milk ducts prominent inferiorly. no induration or redness of skin. Gastrointestinal (Abdomen) abdomen soft and non-tender. incision c/d/i Musculoskeletal Extremities: extremities normal to inspection Skin no rashes, warm and dry Neurologic patellar DTR's 2+ bilat, sensation intact Psychiatric A+Ox3, euthymic affect Results & Data ([facility]) Vital Signs (Past 12 Hours) Vital Signs Temp Pulse Pulse Resp BP BP Pulse Ox 03/31/22 08:43 77 19 127/72 98 03/31/22 04:44 90 16 119/76 03/31/22 03:55 36.7 C 78 16 108/74 98 03/31/22 03:53 98 03/30/22 23:59 81 16 116/62 97 O2 Del Method 03/31/22 08:43 Room Air 03/31/22 04:44 Room Air 03/31/22 03:55 Room Air 03/31/22 03:53 Room Air 03/30/22 23:59 Room Air Laboratory Results 03/30/22 03/30/22 03/30/22 20:35 20:35 Unknown WBC 19.11 H RBC 4.14 Hgb 11.5 L Hct 34.9 MCV 84.3 MCH 27.8 MCHC 33.0 RDW Std Deviation 36.9 RDW Coeff of Teresa 12.2 Plt Count 356 MPV 10.5 Immature Gran % (Auto) 0.4 Neut % (Auto) 75.4 Lymph % (Auto) 12.6 [place] % (Auto) 6.7 Eos % (Auto) 4.4 Baso % (Auto) 0.5 Neut # (Auto) 14.43 H Lymph # (Auto) 2.40 [place] # (Auto) 1.28 H Eos # (Auto) 0.84 H Baso # (Auto) 0.09 Immature Gran # (Auto) 0.07 H Sodium 139 Potassium 3.7 Chloride 107 Carbon Dioxide 22 Anion Gap 10 BUN 18 Creatinine 0.71 Est Cr Clr Drug Dosing 111.4 Est GFR ( Amer) 135.3 Est GFR (Non-Af Amer) 116.7 BUN/Creatinine Ratio 25.4 H Glucose 116 H Calcium 9.7 Total Bilirubin 0.4 AST 13 ALT 15 Alkaline Phosphatase 126 H Total Protein 7.5 Albumin 4.4 Globulin 3.1 Albumin/Globulin Ratio 1.4 Urine Color Red Urine Appearance Turbid A Urine pH 6.0 Ur Specific [place] 1.028 Urine Protein 2+ H Urine Glucose (UA) Negative Urine Ketones Negative Urine Blood 3+ H Urine Nitrite Negative Urine Bilirubin Negative Urine Urobilinogen Negative Ur Leukocyte Esterase 3+ H Urine WBC (Auto) >30 H Urine RBC (Auto) >30 H U Hyaline Cast (Auto) 0 U Epithel Cells (Auto) 5-10 H Urine Bacteria (Auto) Negative Urine Yeast Not Reportable SARS-CoV-2, RNA, NAAT 03/31/22 02:02 WBC RBC Hgb Hct MCV MCH MCHC RDW Std Deviation RDW Coeff of Teresa Plt Count MPV Immature Gran % (Auto) Neut % (Auto) Lymph % (Auto) [place] % (Auto) Eos % (Auto) Baso % (Auto) Neut # (Auto) Lymph # (Auto) [place] # (Auto) Eos # (Auto) Baso # (Auto) Immature Gran # (Auto) Sodium Potassium Chloride Carbon Dioxide Anion Gap BUN Creatinine Est Cr Clr Drug Dosing Est GFR ( Amer) Est GFR (Non-Af Amer) BUN/Creatinine Ratio Glucose Calcium Total Bilirubin AST ALT Alkaline Phosphatase Total Protein Albumin Globulin Albumin/Globulin Ratio Urine Color Urine Appearance Urine pH Ur Specific [place] Urine Protein Urine Glucose (UA) Urine Ketones Urine Blood Urine Nitrite Urine Bilirubin Urine Urobilinogen Ur Leukocyte Esterase Urine WBC (Auto) Urine RBC (Auto) U Hyaline Cast (Auto) U Epithel Cells (Auto) Urine Bacteria (Auto) Urine Yeast SARS-CoV-2, RNA, NAAT NEGATIVE
[2022-03-31] MEDS ORDERED: miSOPROStoL 200 MCG TAB PV SCH (12:00)
[2022-03-31] MEDS ORDERED: CETIRIZINE HCL 10 MG TABLET PO SCH (21:00)
[2022-03-31] MEDS ORDERED: AMITRIPTYLINE HCL 10 MG TAB PO SCH (21:00)
[2022-03-31] MEDS ORDERED: MONTELUKAST SODIUM 10 MG TABLET PO SCH (21:00)
--- NOTE | 2022-04-05 17:28 | Discharge Summary (DS) ---
DATE OF DICTATION: 04/05/2022 REASON FOR ADMISSION AND HOSPITAL COURSE: The patient was admitted on 03/31/2022 from the emergency room. She is a 26-year-old G1, P1, status post 03/03/2022 presents with vaginal bleeding a nd plum sized clot. The patient was admitted. She had an ultrasound done. She was started on IV an tibiotics and given some p.o. Cytotec. Her bleeding was stable. There was no further bleeding. She was discharged home the following day on 03/31/2022 in stable condition. Regular diet on discharge. Discharged with Cytotec and follow up in the office within 1-2 weeks. CHIEF COMPLAINT: The patient with vaginal bleeding post-C section. Job ID: [id number]
== END 2022-03-31 14:10 | disposition home or self-care (01) | DRG 776 ==
LOC: ED 20:04 → INTOOBSV 03-31 03:11 → 4E1 03-31 03:11

== ENCOUNTER 2022-06-22 14:08 | Inpatient (IN) ==
[2022-06-22 16:58] LABS: Basophils # (auto) 0.03 K/uL (0-0.2); Basophils % (auto) 0.2 %; Eosinophils # (auto) 0.02 K/uL (0-0.50); Eosinophils % (auto) 0.1 %; Hematocrit (blood only) 36.7 % (34.1-44.9); Immature Granulocytes # (auto) 0.17 K/uL (0.00-0.02); Immature Granulocytes % (auto) 1.1 %; Lymphocytes # (auto) 2.51 K/uL (1.2-3.4); Lymphocytes % (auto) 16.6 %; Mean Corpuscular Hemoglobin 26.9 pg (25.0-34.0); Mean Corpuscular Hgb Conc 32.7 g/dL (32.0-36.0); Mean Corpuscular Volume 82.3 fL (80.0-100.0); Mean Platelet Volume 10.3 fL (9.4-12.3); Monocytes # (auto) 1.01 K/uL (0.24-0.82); Monocytes % (auto) 6.7 %; Neutrophils # (auto) 11.38 K/uL (1.4-6.5); Neutrophils % (auto) 75.3 %; Platelet Count 358 K/uL (130-400); RDW Coefficient of Variation 13.1 % (11.5-14.5); RDW Standard Deviation 39.6 fL (36.4-46.3); Red Blood Count 4.46 M/uL (3.93-5.22); White Blood Count 15.12 K/ul (4.8-10.8)
--- NOTE | 2022-06-22 17:13 | XRay Report ---
TWO VIEW CHEST CLINICAL HISTORY: Cough and fever. FINDINGS: PA and lateral chest radiographs are compared to study dated 06/17/2022 and correlated with chest CT dated 09/17/2020. The cardiomediastinal silhouette is unremarkable. Minimal left basilar op acities likely represent atelectasis. The lungs and pleural spaces are otherwise clear. There is no p neumothorax. The bony thorax appears intact. Thoracolumbar spinal rods are in place. IMPRESSION: No active disease in the chest. ACT 112: Negative or not required by law. Electronically signed by: Martin Lyons M.D. 06/22/2022 5:12 PM
[2022-06-22 17:21] LABS: Albumin Globulin Ratio 1.6 (0.9-2); Albumin Level 4.4 gm/dl (3.4-5.0); BUN Creatinine Ratio 16.7 (10-20); Bilirubin,Total 0.4 mg/dl (0.2-1.0); Calcium 9.5 mg/dl (8.5-10.1); Creatinine Clr Calc Pharmacy 129.6 ml/min; Est GFR (African American) 140.3 ml/min; Est GFR (Non-African American) 121.1 ml/min; Globulin 2.8 gm/dl (2.5-4.0); Potassium 3.9 mmol/L (3.5-5.1); Total Protein 7.2 gm/dl (6.0-8.3)
[2022-06-22] MEDS ORDERED: ALBUTEROL 0.083% NEBU SOLN 3 ML VIAL NEB STA (18:50)
--- NOTE | 2022-06-22 18:56 | Emergency Department Note ---
Impression & Plan Asthma exacerbation, Shortness of breath ED Provider Note NAME: VIOLA COOL AGE: 26 SEX: F : 1995 ARRIVES VIA: Walk-In INFORMANT: Patient ED PROVIDER(S): Abhijeet Soriano DO CHIEF COMPLAINT: cough and asthma HPI: Patient is a 20-year-old female who presents to the ER with pneumonia secondary to RSV, IBS, asthma, pericarditis, and asthma for shortness of breath which started a week ago. He was seen and evaluated and diagnosed with RSV pneumonia. Patient has been following up with Dr. Gonzalez and treating her for PNA and asthma. Patient was referred in for admission for increased shortness of breath. Patient has been using nebulizer treatments as well as her inhalers and combination with 60 mg of steroids daily. She has been on cefdinir, do xycycline and moxifloxacin. ROS: See above HPI for pertinent positives & negatives. A total of 10 systems reviewed and were otherwise negative. PAST MEDICAL HISTORY:See Below PAST SURGICAL HISTORY:See Below FAMILY HISTORY:See Below SOCIAL HISTORY:See Below HOME MEDICATIONS:See Below ALLERGIES:See Below VITALS:See Below PHYSICAL EXAMINATION: GENERAL: Sitting up in bed, alert, well appearing, well nourished, no distress, non-toxic EYE EXAM: normal conjunctiva. PERRL and EOM's grossly intact. OROPHARYNX: no exudate, no erythema, lips, buccal mucosa, and tongue normal and mucous membranes are moist NECK: supple, no nuchal rigidity, no adenopathy, non-tender LUNGS: Diffuse wheezing bilaterally. Normal chest wall mechanics HEART: no murmurs, S1 normal and S2 normal ABDOMEN: abdomen soft, non-tender, normo-active bowel sounds, no masses, no rebound or guarding. UPPER EXTREMITIES: upper extremities are grossly normal. LOWER EXTREMITIES: No pitting edema. NEURO EXAM: Normal sensorium, cranial nerves II-XII grossly intact, normal speech, no gross weakness of arms, no gross weakness of legs. MEDICAL DECISION MAKING: Patient is a 26-year-old female referred in by allergy for asthma exacerbation. She been on multiple rounds of antibiotics and steroids and no improvement. IV was status post work was obtained. Labs show a leukocytosis of 15,000. No anemia. BMP along with LFTs bilirubin. UA was clean. COVID was negative. Patient was given steroids as well as hour-long neb treatment. Discussed with the hospitalist for further evaluation. Triage Nursing notes reviewed. Limited review of prior medical records performed Vital Signs: reviewed and remarkable for no significant abnormalities Differential diagnosis: Differential diagnoses includes but is not limited to pneumonia, bronchitis, COPD/Asthma exacerbation, pneumothorax, pulmonary embolism, congestive heart failure, acute coronary syndrome ER treatment provided: See below Diagnostics interpreted by me: ECG: Sinus rhythm rate of 62 Normal axis PVCs T wave inversion in V1 V2 QTC 426 Cardiac Monitoring: An order was placed for continuous cardiac monitoring. The monitor shows a rate of 65 with sinus rhythm. Laboratory studies: As stated above and show below. Imaging studies: Portable AP upright 1 view of the chest unremarkable Consultation(s): none Procedures: none Critical Care: None Past Med/Surg History Medical History Acute dyspnea Alcohol intoxication Allergic rhinitis Anxiety Asthma Poorly controlled; frequently using PRN neb trtmt, PRN INH; follows w/ [facility] allergy/immunology and pulm. Chest pain Chronic bronchitis Chronic sinusitis Chronic steroid use Managed by pulm, for severe persistent asthma. currently doctoring with [facility] and recently took herself off beginning of December 2020. Chronic tonsillitis Closed head injury (~2016) hx Cough COVID-19 Depression Endometriosis GERD (gastroesophageal reflux disease) History of concussion multiple (last one about ~2016) History of COVID-19 08/2020 - treated at [facility] -- tested positive with her typical pulmonary symptoms she will get when ill/chest cold. admitted about 1 week after initial symptoms started dx with pneumonia + pericarditis with an effusion + fluid around the heart and in the lungs. History of hypertension no medications currently (situational) History of ovarian cyst History of pericarditis (~08/2020) History of pneumonia (~08/2020) severe pneumonia, treated at [facility] Insomnia Kyphoscoliosis Lactose intolerance Migraine Nausea and vomiting after administration of anesthetic agent Non-productive cough Recurrent sinusitis Scoliosis s/p spinal surgery -- major fusion of lumbar and thoracic spine (see CXR) Secondary post tonsillectomy hemorrhage Sleep apnea no device Ventral hernia Vitamin D deficiency Surgical History History of anesthesia reaction SEVERE asthma attacks/panic attacks coming out of anesthesia--per pt typically needs breathing treatment prior to receiving any anesthesia History of bronchoscopy September 2018 History of colonoscopy History of sinus surgery total of 2 sinus sx--For deviated septum and nasal cyst History of spinal fusion for scoliosis at age 15--hardware in place History of tonsillectomy and adenoidectomy Family History Other No family history of adverse response to anesthesia No pertinent family history Social History Smoking Status: Never smoker Tobacco Type: Cigarettes Second Hand Exposure: No; Do You Dip or Chew Tobacco: No; Tobacco Cessation Education Requested by Patient: No Hx Alcohol Use: No Hx Substance Use: No Preferred Language: Ethiopian Communication Ability: Effective Licensed Embalmer Required: No Beliefs That Will Affect Care: None marital status: Current Living Situation: Significant Other Current Living Situation Comment: Lives at home with boyfriend and daughter current occupational 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 Other Information That Helps Us Care for You: No Feels Safe at Home: Yes Safety Concerns: Feels Safe At This Time Assistive Devices: None Allergies Allergies Allergy/AdvReac Type Severity Reaction Status Date / Time amoxicillin Allergy Severe THROAT Verified 01/18/22 14:04 TIGHTNESS/FELT FUNNY bee venom protein (honey bee) Allergy Severe ANAPHYLAXIS Verified 01/18/22 14:04 clavulanic acid Allergy Severe THROAT Verified 01/18/22 14:04 TIGHTNESS/FELT FUNNY Penicillins Allergy Severe ANAPHYLAXIS Verified 01/18/22 14:04 adhesive Allergy Intermediate skin Verified 01/18/22 14:04 irritation, hives, rash Egg Derived Allergy Mild Abdominal Verified 01/18/22 14:04 Pain lactose Allergy Mild Gastrointestinal Verified 01/18/22 14:04 Upset bacitracin Allergy Unknown POSITIVE Verified 01/18/22 14:04 ALLERGY TEST neomycin Allergy Unknown POSITIVE Verified 01/18/22 14:04 ALLERGY TEST nickel Allergy Unknown POSITIVE Verified 01/18/22 14:04 ALLERGY TEST paraben Allergy Unknown POSITIVE Verified 01/18/22 14:04 ALLERGY TEST Home Meds Home Medications Medication Instructions Recorded Confirmed budesonide 1 mg/2 mL suspension 1 mg inhalation DIRECTED 09/07/20 06/22/22 for nebulization Bifidobacterium infantis 4 mg 4 mg PO QAM 11/26/20 06/17/22 capsule (Align) cetirizine 10 mg tablet 10 mg PO DAILY 06/17/22 06/22/22 magnesium oxide 400 mg PO DAILY 06/17/22 06/22/22 montelukast 10 mg tablet 10 mg PO HS 06/17/22 06/22/22 vit no.95-ferrous 1 tab PO DAILY 06/17/22 06/22/22 fumarate 28 mg-folic acid 800 mcg tablet () riboflavin (vitamin B2) 25 mg 25 mg PO DAILY 06/17/22 06/22/22 tablet (Vitamin B-2) Previous Rx's Medication Instructions Recorded epinephrine 0.3 mg/0.3 mL 0.3 mg (0.3 mL) IM UD PRN Allergic 02/27/19 injection, auto-injector Reaction #1 ea albuterol sulfate 1.25 mg/3 mL 1.25 mg (3 mL) inhalation QID PRN 05/27/20 solution for nebulization Shortness Of Breath Or Wheezing #90 mL albuterol sulfate 90 mcg/actuation 2 puff inhalation Q6H PRN 09/13/20 aerosol inhaler (Ventolin HFA) Shortness Of Breath Or Wheezing #18 grams famotidine 40 mg tablet 40 mg PO BID #180 tabs 12/29/21 cefdinir 300 mg capsule 300 mg PO BID 7 days #14 caps 06/17/22 doxycycline hyclate 100 mg capsule 100 mg PO BID 7 days #14 caps 06/17/22 prednisone 10 mg tablet 10 mg PO DAILY #42 tabs 06/17/22 moxifloxacin 400 mg tablet 400 mg PO DAILY #14 tabs 06/20/22 prednisone 10 mg tablet See Rx Instructions PO .COMPLEX 06/20/22 #60 tabs Results & Data (ED) Vital Signs Vital Signs - 24 hr 06/22/22 14:42 06/22/22 18:38 06/22/22 19:16 Temperature 36.5 C Temperature Source Temporal Artery Scan Pulse Rate 91 H Pulse Rate [Apical] 66 64 Pulse Rhythm [Apical] Regular Respiratory Rate 18 18 20 Respiratory Effort / Characteristics Non-Labored Non-Labored Spontaneous Respiratory Depth Normal Respiratory Pattern Regular Blood Pressure 141/91 H Blood Pressure [Left Arm] 147/96 H Blood Pressure Mean 107 Blood Pressure Mean [Left Arm] 113 Blood Pressure Position [Left Arm] Lying Pulse Oximetry 97 96 97 Oxygen Delivery Method Room Air Room Air Room Air Sepsis Recent Fever Within 48 Hours No Sepsis New/Unexplained Change in Mental Status N/A Sepsis Action Taken by Nursing No Action Required Laboratory Data Result diagrams: 06/22/22 16:45 06/22/22 16:45 Lab Results 06/22/22 06/22/22 Range/Units 16:45 16:45 WBC 15.12 H (4.8-10.8) K/ul RBC 4.46 (3.93-5.22) M/uL Hgb 12.0 (12.0-16.0) g/dl Hct 36.7 (34.1-44.9) % MCV 82.3 (80.0-100.0) fL MCH 26.9 (25.0-34.0) pg MCHC 32.7 (32.0-36.0) g/dL RDW Std Deviation 39.6 (36.4-46.3) fL RDW Coeff of Teresa 13.1 (11.5-14.5) % Plt Count 358 (130-400) K/uL MPV 10.3 (9.4-12.3) fL Immature Gran % (Auto) 1.1 % Neut % (Auto) 75.3 % Lymph % (Auto) 16.6 % [place] % (Auto) 6.7 % Eos % (Auto) 0.1 % Baso % (Auto) 0.2 % Neut # (Auto) 11.38 H (1.4-6.5) K/uL Lymph # (Auto) 2.51 (1.2-3.4) K/uL [place] # (Auto) 1.01 H (0.24-0.82) K/uL Eos # (Auto) 0.02 (0-0.50) K/uL Baso # (Auto) 0.03 (0-0.2) K/uL Immature Gran # (Auto) 0.17 H (0.00-0.02) K/uL Sodium 139 (136-145) mmol/L Potassium 3.9 (3.5-5.1) mmol/L Chloride 107 (98-107) mmol/L Carbon Dioxide 25 (21-32) mmol/L Anion Gap 7 (3-11) BUN 11 (6-23) mg/dl Creatinine 0.66 (0.6-1.2) mg/dl Est Cr Clr Drug Dosing 129.6 ml/min Est GFR ( Amer) 140.3 ml/min Est GFR (Non-Af Amer) 121.1 ml/min BUN/Creatinine Ratio 16.7 (10-20) Glucose 99 (70-99(Fasting)) mg/dl Calcium 9.5 (8.5-10.1) mg/dl Total Bilirubin 0.4 (0.2-1.0) mg/dl AST 12 L (13-39) U/L ALT 14 (7-52) U/L Alkaline Phosphatase 70 (34-104) U/L Total Protein 7.2 (6.0-8.3) gm/dl Albumin 4.4 (3.4-5.0) gm/dl Globulin 2.8 (2.5-4.0) gm/dl Albumin/Globulin Ratio 1.6 (0.9-2) Administered Medications Albuterol (Albut/Ipratrop 3mg/0.5mg Neb 3 Ml Vial) 3 ml NEB Q4R [facility]; Protocol Stop: 07/22/22 22:59 Last Admin: 06/22/22 23:12 Dose: 3 ml Documented By: TRINY Cetirizine HCl (Cetirizine Hcl 10 Mg Tablet) 10 mg PO [facility] Stop: 07/22/22 21:59 Last Admin: 06/22/22 22:08 Dose: 10 mg Documented By: BARRY Famotidine (Famotidine 40 Mg Tablet) 40 mg PO BID [facility] Stop: 07/22/22 21:29 Last Admin: 06/22/22 22:08 Dose: 40 mg Documented By: BARRY Guaifenesin/Codeine Phosphate (Guaifenesin/Codeine 200mg/20mg 10ml Udc) 10 ml PO Q6H PRN PRN Reason: Cough Stop: 07/22/22 19:54 Last Admin: 06/22/22 20:37 Dose: 10 ml Documented By: RICHARD Lactated Ringer's (Lr) 1,000 mls @ 80 mls/hr IV .[id number] [facility] Stop: 06/23/22 08:44 Last Admin: 06/22/22 20:30 Dose: 80 mls/hr Documented By: RICHARD Montelukast Sodium (Montelukast Sodium 10 Mg Tablet) 10 mg PO HS [facility] Stop: 07/22/22 21:29 Last Admin: 06/22/22 22:08 Dose: 10 mg Documented By: KJS Discontinued Medications Albuterol (Albuterol 0.083% Nebu Soln 3 Ml Vial) 10 mg NEB NOW STA; Protocol Stop: 06/22/22 18:51 Last Admin: 06/22/22 19:13 Dose: 10 mg Documented By: EMFatuma Magnesium Sulfate/Dextrose (Magnesium Sulfate / D5w) 1 gm in 100 mls @ 600 mls/hr IV Q10M [facility] Stop: 06/22/22 20:01 Last Infusion: 06/22/22 20:46 Dose: 0 mls/hr Documented By: Admin: 06/22/22 20:31 Dose: 600 mls/hr Documented By: Infusion: 06/22/22 20:23 Dose: 0 mls/hr Documented By: Admin: 06/22/22 20:04 Dose: 600 mls/hr Documented By: RICHARD Ipratropium [place] (Ipratropium [place] Neb Soln 0.02% 2.5 Ml Vial) 0.5 mg NEB Q8R [facility] Stop: 07/22/22 19:49 Last Admin: 06/22/22 20:23 Dose: Not Given Documented By: RICHARD Methylprednisolone (Methylprednisolone 125 Mg/2 Ml Vial) 60 mg IV ONE ONE Stop: 06/22/22 20:01 Last Admin: 06/22/22 20:26 Dose: 60 mg Documented By: [employer] Imaging Data Radiologist's Impression: Chest X-Ray 06/22/22 16:08 TWO VIEW CHEST CLINICAL HISTORY: Cough and fever. FINDINGS: PA and lateral chest radiographs are compared to study dated 06/17/2022 and correlated with chest CT dated 09/17/2020. The cardiomediastinal silhouette is unremarkable. Minimal left basilar opacities likely represent atelectasis. The lungs and pleural spaces are otherwise clear. There is no pneumothorax. The bony thorax appears intact. Thoracolumbar spinal rods are in place. IMPRESSION: No active disease in the chest. ACT 112: Negative or not required by law. Electronically signed by: Martin Lyons M.D. 06/22/2022 5:12 PM Discharge Plan Visit Data Chief Complaint: Referred by Doctor Stated Complaint: REF BY , PNEUMONIA ED Provider: Abhijeet Soriano Discharge Problem: Asthma exacerbation, Shortness of breath Patient Disposition: Admitted As Inpatient Discharge Instructions Interventions: ED Discharge Assessment Last Done: 06/22/22 21:07
--- NOTE | 2022-06-22 19:16 | History & Physical Report ---
Date of Service June 22, 2022 Assessment & Plan (1) Asthma exacerbation: Plan: -Admit to the PCU -Patient is currently afebrile, hemodynamically stable, and stable on RA but tachypneic and high risk for decompensation -Was diagnosed with RSV and possible left lower lobe pneumonia on 06/17, has been treated with a combination of Omnicef/doxycycline and was started on Moxifloxacin 3 days ago. Has also been on 60 mg PO prednisone daily since 06/17. -Patient has had no relief in her symptoms with outpatient treatment and use of home albuterol and budesonide, has multiple previous inpatient admissions for asthma exacerbation -Currently receiving a 1 hour continuous albuterol nebulizer treatment ordered by ED staff -Will give 2g of IV magnesium pushed over 20 min and will start 60 mg IV methylprednisone q12h with first dose now -Will continue with q4R DuoNeb treatments, incentive spirometry, flutter therapy -Will start guaifenesin/codeine prn for cough -prn O2 order placed, continue to monitor on tele and pulse oximetry -Continue home cetirizine and montelukast -Will consult pulmonology to assist with treatment and outpatient follow-up -SCDs for DVT PPX -AM CBC, BMP, and mag (2) GERD (gastroesophageal reflux disease): Plan: -Continue famotidine Plan The patient was discussed with Dr. Maher at the time of the admission History of Present Illness Chief Complaint: Worsening SOB Primary Care Provider: Alaina Gonzalze MD Eloise is a 26 year old female with a PMH significant for Asthma requiring hospitalizations for frequent exacerbations, anxiety, HTN, GERD, and depression who presented to the [facility] ED on 06/22/22 at the recommendation of her PCP for continued SOB and cough for known RSV infection and possible bacterial pneumonia. In the ED the patient was found to be afebrile, hemodynamically stable, and stable on RA. Labs were remarkable for a leukocytosis of 15.12 with left shift of 11.38, stable Hgb, stable renal function and electrolytes, AST of 12 other liang normal liver function. Chest xray was negative for acute findings. Prior to admission the patient was given a 10 mg albuterol nebulizer treatment. Per chart review, the patient had been found to be RSV positive on 06/17/22, xray obtained outpatient that same day showed mild left basilar opacities which could be atelectasis vs pneumonia. She was started on Omnicef plus doxycycline and prednisone. She called her PCP today as her symptoms have not improved on the initial treatment. At that time it was recommended that she be evaluated in the ED as she has required multiple previous admissions for asthma exacerbations. At the time of the exam the patient was sitting in bed currently receiving a one hour albuterol nebulized treatment and was in no acute distress. The patient was able to speak in complete sentences during my exam but was coughing frequently. She states that after starting treatment with initial antibiotics and prednisone she did not have relief. The patient knows her asthma well and is concerned that she will continue to decompensate as outpatient therapy has failed. The patient was switched from her initial regimen of Omnicef and doxycycline to Moxifloxacin three days ago but her symptoms have not improved. She has had a non-productive cough since her symptoms started and has been using her hole albuterol and budesonide nebulizers (q2-4h) without relief. She has had poor oral intake over the past week due to her respiratory symptoms but has been trying to drink lots of Pedialyte and water to try and stay hydrated. She denies recent fevers, chills, lightheadedness, dizziness, chest pain, nausea, vomiting, diarrhea, dysuria, hematuria, melena, lower extremity swelling, and recent falls. 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 Please refer to Dr. Maher's attestation for any changes to the treatment plan Allergies Allergy/AdvReac Type Severity Reaction Status Date / Time amoxicillin Allergy Severe THROAT Verified 01/18/22 14:04 TIGHTNESS/FELT FUNNY bee venom protein (honey bee) Allergy Severe ANAPHYLAXIS Verified 01/18/22 14:04 clavulanic acid Allergy Severe THROAT Verified 01/18/22 14:04 TIGHTNESS/FELT FUNNY Penicillins Allergy Severe ANAPHYLAXIS Verified 01/18/22 14:04 adhesive Allergy Intermediate skin Verified 01/18/22 14:04 irritation, hives, rash Egg Derived Allergy Mild Abdominal Verified 01/18/22 14:04 Pain lactose Allergy Mild Gastrointestinal Verified 01/18/22 14:04 Upset bacitracin Allergy Unknown POSITIVE Verified 01/18/22 14:04 ALLERGY TEST neomycin Allergy Unknown POSITIVE Verified 01/18/22 14:04 ALLERGY TEST nickel Allergy Unknown POSITIVE Verified 01/18/22 14:04 ALLERGY TEST paraben Allergy Unknown POSITIVE Verified 01/18/22 14:04 ALLERGY TEST Home Medications Medication Instructions Recorded Confirmed Type epinephrine 0.3 mg/0.3 mL 0.3 mg (0.3 mL) IM UD PRN Allergic 02/27/19 06/22/22 Rx injection, auto-injector Reaction #1 ea albuterol sulfate 1.25 mg/3 mL 1.25 mg (3 mL) inhalation QID PRN 05/27/20 06/22/22 Rx solution for nebulization Shortness Of Breath Or Wheezing #90 mL budesonide 1 mg/2 mL suspension 1 mg inhalation DIRECTED 09/07/20 06/22/22 History for nebulization albuterol sulfate 90 mcg/actuation 2 puff inhalation Q6H PRN 09/13/20 06/22/22 Rx aerosol inhaler (Ventolin HFA) Shortness Of Breath Or Wheezing #18 grams Bifidobacterium infantis 4 mg 4 mg PO QAM 11/26/20 06/17/22 History capsule (Align) famotidine 40 mg tablet 40 mg PO BID #180 tabs 12/29/21 06/22/22 Rx cefdinir 300 mg capsule 300 mg PO BID 7 days #14 caps 06/17/22 06/22/22 Rx cetirizine 10 mg tablet 10 mg PO DAILY 06/17/22 06/22/22 History doxycycline hyclate 100 mg capsule 100 mg PO BID 7 days #14 caps 06/17/22 06/22/22 Rx magnesium oxide 400 mg PO DAILY 06/17/22 06/22/22 History montelukast 10 mg tablet 10 mg PO HS 06/17/22 06/22/22 History prednisone 10 mg tablet 10 mg PO DAILY #42 tabs 06/17/22 06/22/22 Rx vit no.95-ferrous 1 tab PO DAILY 06/17/22 06/22/22 History fumarate 28 mg-folic acid 800 mcg tablet () riboflavin (vitamin B2) 25 mg 25 mg PO DAILY 06/17/22 06/22/22 History tablet (Vitamin B-2) moxifloxacin 400 mg tablet 400 mg PO DAILY #14 tabs 06/20/22 06/22/22 Rx prednisone 10 mg tablet See Rx Instructions PO .COMPLEX 06/20/22 06/22/22 Rx #60 tabs Past Med/Surg History Medical History Acute dyspnea Alcohol intoxication Allergic rhinitis Anxiety Asthma Poorly controlled; frequently using PRN neb trtmt, PRN INH; follows w/ [facility] allergy/immunology and pulm. Chest pain Chronic bronchitis Chronic sinusitis Chronic steroid use Managed by pulm, for severe persistent asthma. currently doctoring with [facility] and recently took herself off beginning of December 2020. Chronic tonsillitis Closed head injury (~2016) hx Cough COVID-19 Depression Endometriosis GERD (gastroesophageal reflux disease) History of concussion multiple (last one about ~2016) History of COVID-19 08/2020 - treated at [facility] -- tested positive with her typical pulmonary symptoms she will get when ill/chest cold. admitted about 1 week after initial symptoms started dx with pneumonia + pericarditis with an effusion + fluid around the heart and in the lungs. History of hypertension no medications currently (situational) History of ovarian cyst History of pericarditis (~08/2020) History of pneumonia (~08/2020) severe pneumonia, treated at [facility] Insomnia Kyphoscoliosis Lactose intolerance Migraine Nausea and vomiting after administration of anesthetic agent Non-productive cough Recurrent sinusitis Scoliosis s/p spinal surgery -- major fusion of lumbar and thoracic spine (see CXR) Secondary post tonsillectomy hemorrhage Sleep apnea no device Ventral hernia Vitamin D deficiency Surgical History History of anesthesia reaction SEVERE asthma attacks/panic attacks coming out of anesthesia--per pt typically needs breathing treatment prior to receiving any anesthesia History of bronchoscopy September 2018 History of colonoscopy History of sinus surgery total of 2 sinus sx--For deviated septum and nasal cyst History of spinal fusion for scoliosis at age 15--hardware in place History of tonsillectomy and adenoidectomy Family History Other No family history of adverse response to anesthesia No pertinent family history Social History Smoking Status: Never smoker Tobacco Type: Cigarettes Second Hand Exposure: No; Do You Dip or Chew Tobacco: No; Tobacco Cessation Education Requested by Patient: No Hx Alcohol Use: No Hx Substance Use: No Preferred Language: Portuguese Communication Ability: Effective Director Script Required: No Beliefs That Will Affect Care: None marital status: Current Living Situation: Significant Other Current Living Situation Comment: Lives at home with boyfriend and daughter current occupational 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 All systems have been reviewed and are otherwise negative. Physical Exam Physical Exam: Physical Exam: General: In no acute distress, stated age, well-nourished, good hygiene, non- toxic appearing HEENT: Normocephalic, atraumatic, no scleral icterus, currently with non- rebreather in place for nebulizer treatment, pupils around round, symmetrical, and reactive to light, dry mucus membranes, trachea midline, no thyromegaly Chest/Pulm: No respiratory distress, currently tachypneic but without accessory muscle use, able to speak in complete sentences, symmetrical chest expansion, expiratory wheezing noted throughout Cardiac: tachycardic rate, regular rhythm, no murmurs noted Abdomen: Negative for ascites and bruising, normoactive bowel sounds, soft, non-tender to palpation throughout Musculoskeletal: Symmetrical and without signs of acute trauma, upper and lower extremities with full ROM, no atrophy, spasticity, or flaccidity Extremities: Radial, dorsalis pedis, and posterior tibial pulses are intact and symmetrical, no edema noted in the BL LE's Skin: Warm, dry, no rashes , lesions, or scars noted Neuro: Alert and oriented to person, place, month, year, and president, no focal defects, CN II-XII tested and intact, finger to nose test negative, no tremors noted Psych: No acute distress, calm and cooperative during the exam Results & Data Results & Data ([facility]) Vital Signs (Past 12 Hours) Vital Signs Temp Pulse Pulse Resp BP BP Pulse Ox 06/22/22 18:38 66 18 147/96 H 96 06/22/22 14:42 36.5 C 91 H 18 141/91 H 97 O2 Del Method 06/22/22 18:38 Room Air 06/22/22 14:42 Room Air Laboratory Results Abnormal lab results 06/22/22 06/22/22 Range/Units 16:45 16:45 WBC 15.12 H (4.8-10.8) K/ul Neut # (Auto) 11.38 H (1.4-6.5) K/uL [place] # (Auto) 1.01 H (0.24-0.82) K/uL Immature Gran # (Auto) 0.17 H (0.00-0.02) K/uL AST 12 L (13-39) U/L Diagnostic Findings Chest X-Ray 06/22/22 16:08 TWO VIEW CHEST CLINICAL HISTORY: Cough and fever. FINDINGS: PA and lateral chest radiographs are compared to study dated 06/17/2022 and correlated with chest CT dated 09/17/2020. The cardiomediastinal silhouette is unremarkable. Minimal left basilar opacities likely represent atelectasis. The lungs and pleural spaces are otherwise clear. There is no pneumothorax. The bony thorax appears intact. Thoracolumbar spinal rods are in place. IMPRESSION: No active disease in the chest. ACT 112: Negative or not required by law. Electronically signed by: Martin Lyons M.D. 06/22/2022 5:12 PM ECG Additional Comments: Poor data quality, interpretation may be adversely affected Normal sinus rhythm with sinus arrhythmia Normal ECG When compared with ECG of 15-MAR-2022 01:09, No significant change was found Code Status & VTE Plan Code Status Full code VTE Prophylaxis Plan VTE Prophylaxis will be ordered: Yes Supervising Physician Co-Signing Physician Notes Patient seen and examined, chart reviewed, case discussed with ETTA Boogie and I agree with the assessment and plan as above. In brief, patient is a 26yo female with poorly controlled asthma presenting with acute exacerbation of asthma. She is coughing, minimally tachypneic on exam but speaking in complete sentences Skin - intact, no rash HEENT - MMM, neck supple Heart - +S1/S2, regular Lungs - equal air entry bilaterally, diffuse end-expiratory wheezing and coarse breath sounds Abd - +BS, soft, NT/ND Ext - warm, well perfused. No clubbing, cyanosis or edema Labs and images reviewed. WBC=15.12 CXR with no active disease Assessment/Plan - 26yo female with poorly controlled asthma, recent RSV infection and concern for LLL PNA s/p antibiotic treatment with Omnicef + Doxycycline + Prednisone, now on Moxifloxacin - presenting with worsening SOB and cough, wheeze -Admit to PCU -DuoNebs and Albuterol as needed -Solumedrol 60mg IV BID -Magnesium administered -Continue Singulair -Pulmonary consultation appreciated -Remainder of plan as above PG Care Time/CCT Total # of Minutes Spent Total Time Spent with Patient: Total time spent is greater than 50% in coordination of care (as documented) at patient's floor/unit and/or counseling patient: [place] [address] Initial Inpt Care Lvl 2 Patient Type Established Medical Decision Making Moderate Complexity Diagnoses Asthma exacerbation J45.901 GERD (gastroesophageal reflux disease) K21.9
[2022-06-22] MEDS ORDERED: IPRATROPIUM BROMIDE NEB SOLN 0.02% 2.5 ML VIAL NEB SCH (19:50)
[2022-06-22] MEDS ORDERED: methylPREDNISolone 125 MG/2 ML VIAL IV ONE (20:00)
[2022-06-22] MEDS: MAGNESIUM SULFATE / D5W 1 GM/100 ML BAG IV SCH ×2 (20:04→20:31)
[2022-06-22] MEDS ORDERED: ONDANSETRON INJ 2 MG/ML 2 ML VIAL IV PRN (20:07)
[2022-06-22] MEDS ORDERED: LACTATED RINGER'S 1,000 ML IV SCH (20:15)
[2022-06-22] MEDS ORDERED: ACETAMINOPHEN 325 MG TAB PO PRN (21:30)
[2022-06-22] MEDS: CETIRIZINE HCL 10 MG TABLET PO SCH (22:08)
[2022-06-22] MEDS: MONTELUKAST SODIUM 10 MG TABLET PO SCH (22:08)
[2022-06-22] MEDS: FAMOTIDINE 40 MG TABLET PO SCH (22:08)
[2022-06-22 22:23] LABS: Appearance Urine Cloudy (Clear); Bacteria Urine Automated Negative (Negative); Bilirubin Urine Negative (Negative); Blood Urine Negative (Negative); Color Urine Yellow; Epithelial Cell Urine Auto >30 /lpf (0-5); Glucose Urine UA Negative (Negative); Ketones Urine Trace (Negative); Leukocyte Esterase Urine Negative (Negative); Nitrite Urine Negative (Negative); Protein Urine Negative (Negative); RBC Urine Automated 0-4 /hpf (0-4); Specific Gravity Urine 1.009 (1.000-1.030); Urobilinogen Urine Negative (Negative); WBC Urine Automated 0 /hpf (0-5)
[2022-06-22] MEDS: ALBUT/IPRATROP 3MG/0.5MG NEB 3 ML VIAL NEB SCH (23:12)
[2022-06-23] MEDS ORDERED: Flu Vaccine (Flucelvax) 0.5mL SYR **Egg-Free IM ONE (03:15)
[2022-06-23] MEDS: ALBUT/IPRATROP 3MG/0.5MG NEB 3 ML VIAL NEB SCH ×6 (04:02→23:05)
[2022-06-23 06:24] LABS: Hematocrit (blood only) 33.5 % (34.1-44.9); Mean Corpuscular Hgb Conc 32.8 g/dL (32.0-36.0); Mean Corpuscular Volume 82.3 fL (80.0-100.0); Platelet Count 294 K/uL (130-400); RDW Coefficient of Variation 13.1 % (11.5-14.5); RDW Standard Deviation 39.7 fL (36.4-46.3); Red Blood Count 4.07 M/uL (3.93-5.22)
[2022-06-23 06:48] LABS: Anion Gap 5 (3-11); Blood Urea Nitrogen 9 mg/dl (6-23); Calcium 8.8 mg/dl (8.5-10.1); Carbon Dioxide 26 mmol/L (21-32); Chloride 108 mmol/L (98-107); Creatinine Clr Calc Pharmacy 158.2 ml/min; Est GFR (African American) > 150.0 ml/min; Est GFR (Non-African American) 132.6 ml/min; Glucose 124 mg/dl (70-99(Fasting)); Magnesium 2.3 mg/dl (1.7-2.4); Sodium 139 mmol/L (136-145)
--- NOTE | 2022-06-23 07:25 | Pulmonary Consultation ---
Date of Consultation June 23, 2022 Assessment & Plan (1) Asthma exacerbation: (2) Shortness of breath: (3) Pneumonia due to respiratory syncytial virus (RSV): Plan Chest x-ray 06/22/2022: PA/lateral view, good respiratory effort, bilateral costophrenic and cardiophrenic angles are clean, no clear lung infiltrate appreciated -- Acute asthma exacerbation Patient was not on any inhalers for approximately 1 and half years. On montelukast at home In the past she has failed Dupixent as well as Nucala. She had Aspergillus IgG positive but IgE was negative 06/17/2022: RSV positive Covid-19 PCR negative Absolute eosinophil count 840 on 03/30/2022 spirometry 06/07/2020: FEV1 of 79% predicted. Plan: Add Brovana and budesonide nebulized Hypertonic saline along with flutter valve to help bring up the phlegm Continue with montelukast and levocetirizine Please note the above document was generated using voice recognition software. It may contain grammatical, syntax or spelling errors.Any formal questions or concerns about the content, text or information contained within the body of this dictation should be directly addressed to the provider for clarification. History of Present Illness Attending Physician: Cleopatra Maher DO History of Present Illness 26-year-old female presented to the hospital for shortness of breath Past medical history: Severe persistent asthma, migraine Patient was not taking any inhalers since approximately 1 and half year. She has been off of prednisone also since approximately a year. During her she did not have any exacerbation of her underlying asthma even though she was not on any inhalers. Because she was complaining of more shortness of breath she resumed taking budesonide nebulized but did not find any benefit. Has been having cough and wheezing since then. Has completed 2 course of antibiotics as an outpatient with no benefit. Complains of nasal congestion. No fever. Subjective chills. Patient has a 3-month-old who had RSV a week ago. No dysuria, no diarrhea Social history: Non-smoker, denies any e-cigarettes or vaping Allergies Allergy/AdvReac Type Severity Reaction Status Date / Time amoxicillin Allergy Severe THROAT Verified 01/18/22 14:04 TIGHTNESS/FELT FUNNY bee venom protein (honey bee) Allergy Severe ANAPHYLAXIS Verified 01/18/22 14:04 clavulanic acid Allergy Severe THROAT Verified 01/18/22 14:04 TIGHTNESS/FELT FUNNY Penicillins Allergy Severe ANAPHYLAXIS Verified 01/18/22 14:04 adhesive Allergy Intermediate skin Verified 01/18/22 14:04 irritation, hives, rash bacitracin Allergy Unknown POSITIVE Verified 01/18/22 14:04 ALLERGY TEST neomycin Allergy Unknown POSITIVE Verified 01/18/22 14:04 ALLERGY TEST nickel Allergy Unknown POSITIVE Verified 01/18/22 14:04 ALLERGY TEST paraben Allergy Unknown POSITIVE Verified 01/18/22 14:04 ALLERGY TEST Home Medications Medication Instructions Recorded Confirmed Type epinephrine 0.3 mg/0.3 mL 0.3 mg (0.3 mL) IM UD PRN Allergic 02/27/19 06/22/22 Rx injection, auto-injector Reaction #1 ea albuterol sulfate 1.25 mg/3 mL 1.25 mg (3 mL) inhalation QID PRN 05/27/20 06/22/22 Rx solution for nebulization Shortness Of Breath Or Wheezing #90 mL budesonide 1 mg/2 mL suspension 1 mg inhalation DIRECTED 09/07/20 06/22/22 History for nebulization albuterol sulfate 90 mcg/actuation 2 puff inhalation Q6H PRN 09/13/20 06/22/22 Rx aerosol inhaler (Ventolin HFA) Shortness Of Breath Or Wheezing #18 grams Bifidobacterium infantis 4 mg 4 mg PO QAM 11/26/20 06/17/22 History capsule (Align) famotidine 40 mg tablet 40 mg PO BID #180 tabs 12/29/21 06/22/22 Rx cefdinir 300 mg capsule 300 mg PO BID 7 days #14 caps 06/17/22 06/22/22 Rx cetirizine 10 mg tablet 10 mg PO DAILY 06/17/22 06/22/22 History doxycycline hyclate 100 mg capsule 100 mg PO BID 7 days #14 caps 06/17/22 06/22/22 Rx magnesium oxide 400 mg PO DAILY 06/17/22 06/22/22 History montelukast 10 mg tablet 10 mg PO HS 06/17/22 06/22/22 History prednisone 10 mg tablet 10 mg PO DAILY #42 tabs 06/17/22 06/22/22 Rx vit no.95-ferrous 1 tab PO DAILY 06/17/22 06/22/22 History fumarate 28 mg-folic acid 800 mcg tablet () riboflavin (vitamin B2) 25 mg 25 mg PO DAILY 06/17/22 06/22/22 History tablet (Vitamin B-2) moxifloxacin 400 mg tablet 400 mg PO DAILY #14 tabs 06/20/22 06/22/22 Rx prednisone 10 mg tablet See Rx Instructions PO .COMPLEX 06/20/22 06/22/22 Rx #60 tabs Patient History Medical History Acute dyspnea Alcohol intoxication Allergic rhinitis Anxiety Asthma Poorly controlled; frequently using PRN neb trtmt, PRN INH; follows w/ [facility] allergy/immunology and pulm. Chest pain Chronic bronchitis Chronic sinusitis Chronic steroid use Managed by pulm, for severe persistent asthma. currently doctoring with [facility] and recently took herself off beginning of December 2020. Chronic tonsillitis Closed head injury (~2016) hx Cough COVID-19 Depression Endometriosis GERD (gastroesophageal reflux disease) History of concussion multiple (last one about ~2016) History of COVID-19 08/2020 - treated at [facility] -- tested positive with her typical pulmonary symptoms she will get when ill/chest cold. admitted about 1 week after ini tial symptoms started dx with pneumonia + pericarditis with an effusion + fluid around the heart and in the lungs. History of hypertension no medications currently (situational) History of ovarian cyst History of pericarditis (~08/2020) History of pneumonia (~08/2020) severe pneumonia, treated at [facility] Insomnia Kyphoscoliosis Lactose intolerance Migraine Nausea and vomiting after administration of anesthetic agent Non-productive cough Recurrent sinusitis Scoliosis s/p spinal surgery -- major fusion of lumbar and thoracic spine (see CXR) Secondary post tonsillectomy hemorrhage Sleep apnea no device Ventral hernia Vitamin D deficiency Surgical History History of anesthesia reaction SEVERE asthma attacks/panic attacks coming out of anesthesia--per pt typically needs breathing treatment prior to receiving any anesthesia History of bronchoscopy September 2018 History of colonoscopy History of sinus surgery total of 2 sinus sx--For deviated septum and nasal cyst History of spinal fusion for scoliosis at age 15--hardware in place History of tonsillectomy and adenoidectomy Family History Other No family history of adverse response to anesthesia No pertinent family history Social History Smoking Status: Never smoker Tobacco Type: Cigarettes Second Hand Exposure: No; Do You Dip or Chew Tobacco: No; Tobacco Cessation Education Requested by Patient: No Hx Alcohol Use: No Hx Substance Use: No Preferred Language: Frisian Communication Ability: Effective [employer]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 Beliefs That Will Affect Care: None marital status: Current Living Situation: Significant Other Current Living Situation Comment: Lives at home with boyfriend and daughter current occupational 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 Other Information That Helps Us Care for You: No Feels Safe at Home: Yes Safety Concerns: Feels Safe At This Time Assistive Devices: None Review of Systems Review of Systems: All systems reviewed & are unremarkable except as noted in HPI & below Physical Exam Physical Exam: Constitutional: No acute distress HEENT: EOMI, PERRLA, hoarse voice Respiratory system: Good air entry bilaterally, no rhonchi, mild crackles bilateral lower lobes, positive expiratory wheeze bilaterally CVS: S1-S2 positive, no murmurs or gallops Abdomen: Soft, nontender, nondistended, positive bowel sounds x4 Extremities: +2 pulses bilaterally radialis/ dorsalis pedis, no cyanosis, no edema Neuro: Awake alert oriented x3 Psych: Normal mood and affect G/U: No Renee Skin: no rashes, warm and dry Lymphatic: no cervical or axillary lymphadenopathy Results & Data Results & Data ([facility]) Vital Signs (Past 12 Hours) Vital Signs Temp Pulse Resp BP BP Pulse Ox O2 Del Method 06/23/22 04:45 36.6 C 79 20 116/70 94 Room Air 06/23/22 00:12 36.6 C 72 20 120/74 94 Room Air 06/22/22 23:14 74 18 99 Room Air 06/22/22 22:56 Room Air 06/22/22 22:00 36.8 C 83 20 125/87 97 Room Air 06/22/22 20:00 110 H 23 143/82 H 100 Aerosol Mask O2 Flow Rate 06/23/22 04:45 06/23/22 00:12 06/22/22 23:14 06/22/22 22:56 06/22/22 22:00 06/22/22 20:00 7 Laboratory Results 06/23/22 05:57 06/23/22 05:57 PG Care Time/CCT Total # of Minutes Spent Total Time Spent with Patient: Total time spent is greater than 50% in coordination of care (as documented) at patient's floor/unit and/or counseling patient: Coding Level of Care Code 54401 Initial Inpt Care Lvl 3 Diagnoses Asthma exacerbation J45.901 Shortness of breath R06.02 Pneumonia due to respiratory syncytial virus (RSV) J12.1
--- NOTE | 2022-06-23 07:51 | Hospitalist Progress Note ---
Date of Service June 23, 2022 Assessment & Plan (1) Asthma exacerbation: Plan: -Admit to the PCU -Patient is currently afebrile, hemodynamically stable, and stable on RA -Was diagnosed with RSV and possible left lower lobe pneumonia on 06/17, has been treated with a combination of Omnicef/doxycycline and then switched to Moxifloxacin 3 days prior to admission. Has also been on 60 mg PO prednisone daily since 06/17. -Patient has had no relief in her symptoms with outpatient treatment and use of home albuterol and budesonide, has multiple previous inpatient admissions for asthma exacerbation -Currently received a 1 hour continuous albuterol nebulizer treatment ordered by ED staff -Continue IV methylprednisolone q 12 hours -Continue with q4R DuoNeb treatments, incentive spirometry, hypertonic saline with flutter valve -Continue guaifenesin/codeine q hs prn for cough -Mucinex 600mg one q 12 hours as needed for congestion -prn O2 order placed, continue to monitor on tele and pulse oximetry (currently saturation 96% on RA) -Continue home cetirizine and montelukast and famotidine -Consulted pulmonology who recommended Brovana, budesonide Neb, hypertonic saline with flutter valve -SCDs for DVT PPX -AM CBC, BMP, and mag -will add Procalcitonin, ESR and CRP (2) GERD (gastroesophageal reflux disease): Plan: -Continue famotidine Plan The patient was discussed with Dr Ceja who assisted in the treatment and plan for this patient Admission and Anticipated Discharge Date Admission Date: June 22, 2022 Subjective Patient was seen today on rounds and tells me that she feels about the same. She denies any worsening of symptoms. She states she still feels very congested in her head and chest. She feels like the air is very dry in the hospital room and she thinks this is part of the problem. She was evaluated by pulmonology today. Pulmonology recommended adding Brovana and Budesonide nebulizer as well as hypertonic saline with flutter valve. She denies any chest pain, abdominal pain, nausea or vomiting. Patient tells me that she has a 3 month old at home that also has RSV. She tells me that she was feeling her best throughout her and had no asthma exacerbations while . Review of Systems Constitutional: + fatigue; no fever and no chills Eyes: no blind spots, no decreased night vision and no spots in vision Ear, Nose, Mouth, Throat: + nasal congestion, + sinus pain/pressure and + dry mouth; no dysphagia and no pain with swallowing Respiratory: + cough, + chest congestion and + wheezing; no hemoptysis and no pain on inspiration Cardiovascular: no chest pain, no dyspnea, no syncope, no edema and no calf pain Gastrointestinal: + heartburn; no nausea, no vomiting, no dysphagia, no constipation and no diarrhea/loose stools Integumentary: no rash, no lesions and no new lesions Physical Exam Constitutional: WD/WN, vitals as above ENMT: external ear and nose normal, oropharynx normal Neck: trachea midline, no thyromegaly Respiratory: normal respiratory effort, + cough, able to speak in complete sentences, + prolonged expiratory phase, + audible wheezes and symmetric chest movement; no tripod positioning expiratory wheezing noted bilateral with mild crackles in bases Cardiovascular: RRR, no murmur, no edema Gastrointestinal (Abdomen): normal bowel sounds, soft, nontender, no hepatosplenomegaly Skin: no rashes, warm and dry Results & Data Results & Data ([facility]) Vital Signs (Past 12 Hours) Vital Signs Temp Pulse Resp BP BP Pulse Ox O2 Del Method 06/23/22 04:45 36.6 C 79 20 116/70 94 Room Air 06/23/22 00:12 36.6 C 72 20 120/74 94 Room Air 06/22/22 23:14 74 18 99 Room Air 06/22/22 22:56 Room Air 06/22/22 22:00 36.8 C 83 20 125/87 97 Room Air 06/22/22 20:00 110 H 23 143/82 H 100 Aerosol Mask O2 Flow Rate 06/23/22 04:45 06/23/22 00:12 06/22/22 23:14 06/22/22 22:56 06/22/22 22:00 06/22/22 20:00 7 Laboratory Results Abnormal lab results 06/22/22 06/22/22 06/22/22 Range/Units 16:45 16:45 Unknown WBC 15.12 H (4.8-10.8) K/ul Hgb (12.0-16.0) g/dl Hct (34.1-44.9) % Neut # (Auto) 11.38 H (1.4-6.5) K/uL Love # (Auto) 1.01 H (0.24-0.82) K/uL Immature Gran # (Auto) 0.17 H (0.00-0.02) K/uL Chloride (98-107) mmol/L Creatinine (0.6-1.2) mg/dl Glucose (70-99(Fasting)) mg/dl AST 12 L (13-39) U/L Urine Appearance Cloudy A (Clear) Urine Ketones Trace H (Negative) U Epithel Cells (Auto) >30 H (0-5) /lpf 06/23/22 06/23/22 Range/Units 05:57 05:57 WBC 13.20 H (4.8-10.8) K/ul Hgb 11.0 L (12.0-16.0) g/dl Hct 33.5 L (34.1-44.9) % Neut # (Auto) (1.4-6.5) K/uL Love # (Auto) (0.24-0.82) K/uL Immature Gran # (Auto) (0.00-0.02) K/uL Chloride 108 H (98-107) mmol/L Creatinine 0.50 L (0.6-1.2) mg/dl Glucose 124 H (70-99(Fasting)) mg/dl AST (13-39) U/L Urine Appearance (Clear) Urine Ketones (Negative) U Epithel Cells (Auto) (0-5) /lpf Diagnostic Findings Chest X-Ray 06/22/22 16:08 TWO VIEW CHEST CLINICAL HISTORY: Cough and fever. FINDINGS: PA and lateral chest radiographs are compared to study dated 06/17/2022 and correlated with chest CT dated 09/17/2020. The cardiomediastinal silhouette is unremarkable. Minimal left basilar opacities likely represent atelectasis. The lungs and pleural spaces are otherwise clear. There is no pneumothorax. The bony thorax appears intact. Thoracolumbar spinal rods are in place. IMPRESSION: No active disease in the chest. ACT 112: Negative or not required by law. Electronically signed by: Martin Lyons M.D. 06/22/2022 5:12 PM PG Care Time/CCT Total # of Minutes Spent Total Time Spent with Patient: Total time spent is greater than 50% in coordination of care (as documented) at patient's floor/unit and/or counseling patient: Coding [place] [address] Subseq Hosp Care Lvl 3 Patient Type Established History Detailed Exam Detailed Medical Decision Making Moderate Complexity Diagnoses Asthma exacerbation J45.901 GERD (gastroesophageal reflux disease) K21.9 Time Spent (min) 20
[2022-06-23] MEDS: PRENATAL VITAMIN 1 TAB PO SCH (08:08)
[2022-06-23] MEDS: FAMOTIDINE 40 MG TABLET PO SCH ×2 (08:08→20:11)
[2022-06-23] MEDS ORDERED: RIBOFLAVIN 25 MG PO SCH (09:00)
[2022-06-23] MEDS ORDERED: methylPREDNISolone 125 MG/2 ML VIAL IV SCH (09:00)
[2022-06-23] MEDS: methylPREDNISolone 60 MG in SYRINGE 0 ML IV SCH ×2 (09:47→20:10)
--- NOTE | 2022-06-23 11:19 | Electrocardiogram Report ---
Test Reason : Blood Pressure : / mmHG Vent. Rate : 062 BPM Atrial Rate : 062 BPM P-R Int : 156 ms QRS Dur : 086 ms QT Int : 420 ms P-R-T Axes : 015 048 032 degrees QTc Int : 426 ms Poor data quality, interpretation may be adversely affected Normal sinus rhythm with sinus arrhythmia Normal ECG When compared with ECG of 15-MAR-2022 01:09, No significant change was found Confirmed by Edwin Gomez ([id number] on 06/23/2022 11:18:36 AM Referred By: Alaina Gonzalez Confirmed By:Helio Gomez
[2022-06-23] MEDS: guaiFENesin 600 MG TABCR PO PRN (17:47)
[2022-06-23] MEDS ORDERED: FORMOTEROL 20 MCG/2 ML VIAL ONE (17:48)
[2022-06-23] MEDS: BUDESONIDE 0.5 MG/2 ML VIAL (PULMICORT) NEB SCH (17:52)
[2022-06-23] MEDS: SODIUM CHLOR 7% 4 ML NEB NEB SCH (17:52)
[2022-06-23] MEDS: FORMOTEROL 20 MCG/2 ML VIAL INH SCH (18:05)
[2022-06-23] MEDS ORDERED: ARFORMOTEROL TART 15MCG/2ML VIAL INH SCH (19:00)
[2022-06-23] MEDS: MONTELUKAST SODIUM 10 MG TABLET PO SCH (20:11)
[2022-06-23] MEDS: CETIRIZINE HCL 10 MG TABLET PO SCH (20:11)
[2022-06-23] MEDS ORDERED: guaiFENesin 600 MG TABCR PO SCH (21:00)
[2022-06-24] MEDS: ALBUT/IPRATROP 3MG/0.5MG NEB 3 ML VIAL NEB SCH ×6 (03:01→23:18)
[2022-06-24 06:03] LABS: Hematocrit (blood only) 36.2 % (34.1-44.9); Mean Corpuscular Hemoglobin 27.5 pg (25.0-34.0); Mean Corpuscular Hgb Conc 33.1 g/dL (32.0-36.0); Mean Corpuscular Volume 82.8 fL (80.0-100.0); Mean Platelet Volume 9.9 fL (9.4-12.3); Platelet Count 334 K/uL (130-400); RDW Coefficient of Variation 13.2 % (11.5-14.5); RDW Standard Deviation 39.9 fL (36.4-46.3); Red Blood Count 4.37 M/uL (3.93-5.22); White Blood Count 18.26 K/ul (4.8-10.8)
[2022-06-24 06:27] LABS: Anion Gap 6 (3-11); BUN Creatinine Ratio 21.2 (10-20); Blood Urea Nitrogen 11 mg/dl (6-23); C Reactive Protein < 0.50 mg/dl (0-0.5); Calcium 9.3 mg/dl (8.5-10.1); Carbon Dioxide 24 mmol/L (21-32); Chloride 106 mmol/L (98-107); Creatinine Clr Calc Pharmacy 167.9 ml/min; Est GFR (African American) > 150.0 ml/min; Est GFR (Non-African American) 130.9 ml/min; Glucose 124 mg/dl (70-99(Fasting)); Potassium 4.4 mmol/L (3.5-5.1); Sodium 136 mmol/L (136-145)
[2022-06-24] MEDS: FORMOTEROL 20 MCG/2 ML VIAL INH SCH ×2 (07:16→19:01)
[2022-06-24] MEDS: SODIUM CHLOR 7% 4 ML NEB NEB SCH ×2 (07:16→19:00)
[2022-06-24] MEDS: BUDESONIDE 0.5 MG/2 ML VIAL (PULMICORT) NEB SCH ×2 (07:16→19:01)
[2022-06-24] MEDS: FAMOTIDINE 40 MG TABLET PO SCH ×2 (08:10→20:26)
[2022-06-24] MEDS: guaiFENesin 600 MG TABCR PO PRN ×2 (08:10→20:26)
[2022-06-24] MEDS: PRENATAL VITAMIN 1 TAB PO SCH (08:11)
[2022-06-24] MEDS: methylPREDNISolone 60 MG in SYRINGE 0 ML IV SCH (08:12)
--- NOTE | 2022-06-24 10:41 | Pulmonology Progress Note ---
Date of Service June 24, 2022 Assessment & Plan (1) Asthma exacerbation: (2) Shortness of breath: (3) Pneumonia due to respiratory syncytial virus (RSV): Plan Chest x-ray 06/22/2022: PA/lateral view, good respiratory effort, bilateral costophrenic and cardiophrenic angles are clean, no clear lung infiltrate appreciated -- Acute asthma exacerbation Patient was not on any inhalers for approximately 1 and half years. On montelukast at home In the past she has failed Dupixent as well as Nucala. She had Aspergillus IgG positive but IgE was negative 06/17/2022: RSV positive Covid-19 PCR negative Absolute eosinophil count 840 on 03/30/2022 spirometry 06/07/2020: FEV1 of 79% predicted. Plan: Decrease Solu-Medrol to 40 mg twice daily Continue with hypertonic saline, Brovana and budesonide along with flutter valve If the patient still complains of difficulty bringing up phlegm addition of Mucomyst will be made Case was discussed with RN and Ángela Horner PA-C Please note the above document was generated using voice recognition software. It may contain grammatical, syntax or spelling errors.Any formal questions or concerns about the content, text or information contained within the body of this dictation should be directly addressed to the provider for clarification. Admission and Anticipated Discharge Date Admission Date: June 22, 2022 Subjective Patient seen and examined at bedside. No acute distress, no adverse events overnight. Patient says she is feeling better compared to yesterday Phlegm is loosening up and she is able to bring it up denies any hemoptysis No chest pain. No headache, no dizziness Fair appetite Review of Systems Review of Systems: All systems reviewed & are unremarkable except as noted in Subjective Physical Exam Physical Exam: Constitutional: No acute distress HEENT: EOMI, PERRLA, hoarse voice Respiratory system: Good air entry bilaterally, no rhonchi, mild crackles bilateral lower lobes, positive expiratory wheeze bilaterally CVS: S1-S2 positive, no murmurs or gallops Abdomen: Soft, nontender, nondistended, positive bowel sounds x4 Extremities: +2 pulses bilaterally radialis/ dorsalis pedis, no cyanosis, no edema Neuro: Awake alert oriented x3 Psych: Normal mood and affect G/U: No Renee Skin: no rashes, warm and dry Lymphatic: no cervical or axillary lymphadenopathy Results & Data Results & Data ([facility]) Vital Signs (Past 12 Hours) Vital Signs Temp Pulse Resp BP Pulse Ox O2 Del Method 06/24/22 08:00 Room Air 06/24/22 08:28 36.6 C 70 19 135/87 95 Room Air 06/24/22 07:19 16 98 Room Air 06/24/22 04:14 36.6 C 51 L 18 99/57 L 97 Room Air Laboratory Results 06/24/22 05:40 06/24/22 05:40 PG Care Time/CCT Total # of Minutes Spent Total Time Spent with Patient: Total time spent is greater than 50% in coordination of care (as documented) at patient's floor/unit and/or counseling patient: Coding Level of Care Code 18528 Subseq Hosp Care Lvl 2 Diagnoses Asthma exacerbation J45.901 Shortness of breath R06.02 Pneumonia due to respiratory syncytial virus (RSV) J12.1
--- NOTE | 2022-06-24 12:50 | Hospitalist Progress Note ---
Date of Service June 24, 2022 Assessment & Plan (1) Asthma exacerbation: Plan: -Admit to the PCU -Patient is currently afebrile, hemodynamically stable, and stable on RA with saturation at 94% -Was diagnosed with RSV and possible left lower lobe pneumonia on 06/17, had been treated with a combination of Omnicef/doxycycline and then switched to Moxifloxacin 3 days prior to admission. Had also been on 60 mg PO prednisone daily since 06/17. -Patient has had no relief in her symptoms with outpatient treatment and use of home albuterol and budesonide, has multiple previous inpatient admissions for asthma exacerbation -Currently received a 1 hour continuous albuterol nebulizer treatment ordered by ED staff -Continue IV methylprednisolone q 12 hours (decreased to 40mg BID) -Continue with q4R DuoNeb treatments, incentive spirometry, hypertonic saline with flutter valve -Continue guaifenesin/codeine q hs prn for cough -Mucinex 600mg one q 12 hours as needed for congestion -If still having problems later today with congestion Dr Cruz stated he will try Mucomyst -Continue home cetirizine and montelukast and famotidine -Consulted pulmonology who recommended Brovana, budesonide Neb, hypertonic saline with flutter valve, also considering adding Mucomyst later today if needed -SCDs for DVT PPX -AM CBC, BMP, and mag -Procalcitonin, ESR and CRP all normal (2) RSV (acute bronchiolitis due to respiratory syncytial virus): Plan: -Continue droplet precautions -See above plan (3) GERD (gastroesophageal reflux disease): Plan: -Continue famotidine Plan The patient was discussed with Dr Ceja who assisted in the treatment and plan for this patient Admission and Anticipated Discharge Date Admission Date: June 22, 2022 Subjective Patient was seen today on rounds and tells me that she feels slightly better today. She states she feels slightly less congested. Pulmonary also was evaluating patient at the same time and recommended that she should be able to be discharged home either tomorrow or Sunday at the latest. Dr Reardon suggested to decrease the IV Solumedrol to 40mg BID, continue with the hypertonic Saline, Brovana, and Budesonide along with the flutter valve. He suggested that if she is still having problems with brining up her congestion in 12 hours he will add Mucomyst. Review of Systems Constitutional: + fatigue; no fever and no chills Eyes: no blind spots, no decreased night vision and no spots in vision Ear, Nose, Mouth, Throat: + nasal congestion, + sinus pain/pressure and + dry mouth; no dysphagia and no pain with swallowing Respiratory: + cough, + chest congestion and + wheezing; no hemoptysis and no pain on inspiration Cardiovascular: no chest pain, no dyspnea, no syncope, no edema and no calf p ain Gastrointestinal: + heartburn; no nausea, no vomiting, no dysphagia, no constipation and no diarrhea/loose stools Integumentary: no rash, no lesions and no new lesions Physical Exam Constitutional: WD/WN, vitals as above ENMT: external ear and nose normal, oropharynx normal Neck: trachea midline, no thyromegaly Respiratory: normal respiratory effort, able to speak in complete sentences, + prolonged expiratory phase and symmetric chest movement; no respiratory distress, no labored breathing and no tripod positioning Cardiovascular: RRR, no murmur, no edema Gastrointestinal (Abdomen): normal bowel sounds, soft, nontender, no hepatosplenomegaly Skin: no rashes, warm and dry Results & Data Results & Data ([facility]) Vital Signs (Past 12 Hours) Vital Signs Temp Pulse Pulse Resp BP Pulse Ox O2 Del Method 06/24/22 12:14 36.8 C 72 18 117/72 94 Room Air 06/24/22 06:17 46 L 06/24/22 11:03 68 16 95 Room Air 06/24/22 08:00 Room Air 06/24/22 08:28 36.6 C 70 19 135/87 95 Room Air 06/24/22 07:19 16 98 Room Air 06/24/22 04:14 36.6 C 51 L 18 99/57 L 97 Room Air Laboratory Results Abnormal lab results 06/24/22 06/24/22 Range/Units 05:40 05:40 WBC 18.26 H (4.8-10.8) K/ul Creatinine 0.52 L (0.6-1.2) mg/dl BUN/Creatinine Ratio 21.2 H (10-20) Glucose 124 H (70-99(Fasting)) mg/dl PG Care Time/CCT Total # of Minutes Spent Total Time Spent with Patient: Total time spent is greater than 50% in coordination of care (as documented) at patient's floor/unit and/or counseling patient: Coding [place] [address] Subseq Hosp Care Lvl 3 Patient Type Established History Detailed Exam Detailed Medical Decision Making Moderate Complexity Diagnoses Asthma exacerbation J45.901 RSV (acute bronchiolitis due to respiratory syncytial virus) J21.0 GERD (gastroesophageal reflux disease) K21.9 Time Spent (min) 20
[2022-06-24] MEDS ORDERED: ACETYLCYSTEINE 20% INHAL SOLN 4ML ***DISPENSED BY RESP. INH SCH (19:00)
[2022-06-24] MEDS: methylPREDNISolone 40 MG in SYRINGE 0 ML IV SCH (20:26)
[2022-06-24] MEDS: MONTELUKAST SODIUM 10 MG TABLET PO SCH (20:26)
[2022-06-24] MEDS: CETIRIZINE HCL 10 MG TABLET PO SCH (20:26)
[2022-06-24] MEDS: ACETYLCYSTEINE 20% INHAL SOLN 4ML ***DISPENSED BY RESP. INH SCH (23:19)
[2022-06-25] MEDS: ALBUT/IPRATROP 3MG/0.5MG NEB 3 ML VIAL NEB SCH ×6 (01:51→23:03)
[2022-06-25] MEDS: BUDESONIDE 0.5 MG/2 ML VIAL (PULMICORT) NEB SCH ×2 (07:15→19:42)
[2022-06-25] MEDS: FORMOTEROL 20 MCG/2 ML VIAL INH SCH ×2 (07:15→19:42)
[2022-06-25] MEDS: SODIUM CHLOR 7% 4 ML NEB NEB SCH ×2 (07:15→19:42)
--- NOTE | 2022-06-25 07:24 | Pulmonology Progress Note ---
Date of Service June 25, 2022 Assessment & Plan (1) Asthma exacerbation: (2) Shortness of breath: (3) Pneumonia due to respiratory syncytial virus (RSV): Plan Chest x-ray 06/22/2022: PA/lateral view, good respiratory effort, bilateral costophrenic and cardiophrenic angles are clean, no clear lung infiltrate appreciated -- Acute asthma exacerbation Patient was not on any inhalers for approximately 1 and half years. On montelukast at home In the past she has failed Dupixent as well as Nucala. She had Aspergillus IgG positive but IgE was negative 06/17/2022: RSV positive Covid-19 PCR negative Absolute eosinophil count 840 on 03/30/2022 spirometry 06/07/2020: FEV1 of 79% predicted. Plan: Decrease Solu-Medrol to 40 mg once a day. On discharge would recommend 40 mg p.o. for 3 days followed by 20 mg for 4 days and then stop Also continue Brovana as well as budesonide nebulized twice a day, hypertonic saline twice a day and flutter valve use on discharge Outpatient follow-up with educational technician Patient would like to give a trial of Mucomyst for 2 more times. If no significant benefit can discontinue Mucomyst nebulized Case was discussed with RN at bedside No further recommendation from pulmonary perspective. We will sign off Please call directly with any questions Please note the above document was generated using voice recognition software. It may contain grammatical, syntax or spelling errors.Any formal questions or concerns about the content, text or information contained within the body of this dictation should be directly addressed to the provider for clarification. Admission and Anticipated Discharge Date Admission Date: June 22, 2022 Subjective Patient seen and examined at bedside. No acute distress, no adverse events overnight. Overall she says she is feeling better since coming to the hospital. Does not feel significant tightness. Shortness of breath is also improved. Has been using flutter valve. Bringing up clear phlegm. No chest pain. Fair appetite. No nausea or vomiting Review of Systems Review of Systems: All systems reviewed & are unremarkable except as noted in Subjective Physical Exam Physical Exam: Constitutional: No acute distress HEENT: EOMI, PERRLA, hoarse voice Respiratory system: Good air entry bilaterally, no rhonchi, no crackles, positive expiratory wheeze bilaterally (improved) CVS: S1-S2 positive, no murmurs or gallops Abdomen: Soft, nontender, nondistended, positive bowel sounds x4 Extremities: +2 pulses bilaterally radialis/ dorsalis pedis, no cyanosis, no edema Neuro: Awake alert oriented x3 Psych: Normal mood and affect G/U: No Renee Skin: no rashes, warm and dry Lymphatic: no cervical or axillary lymphadenopathy Results & Data Results & Data ([facility]) Vital Signs (Past 12 Hours) Vital Signs Temp Pulse Resp BP Pulse Ox O2 Del Method 06/25/22 07:16 72 20 97 Room Air 06/24/22 23:19 59 L 18 99 Room Air 06/24/22 22:41 36.6 C 55 L 20 118/76 94 Room Air 06/24/22 21:11 Room Air 06/24/22 19:40 36.8 C 83 22 119/87 98 Room Air Laboratory Results 06/24/22 05:40 06/24/22 05:40 PG Care Time/CCT Total # of Minutes Spent Total Time Spent with Patient: Total time spent is greater than 50% in coordination of care (as documented) at patient's floor/unit and/or counseling patient: Coding Level of Care Code 04024 Subseq Hosp Care Lvl 2 Diagnoses Asthma exacerbation J45.901 Shortness of breath R06.02 Pneumonia due to respiratory syncytial virus (RSV) J12.1
[2022-06-25 07:46] LABS: Hematocrit (blood only) 39.3 % (34.1-44.9); Hemoglobin 12.6 g/dl (12.0-16.0); Mean Corpuscular Hemoglobin 26.9 pg (25.0-34.0); Mean Corpuscular Hgb Conc 32.1 g/dL (32.0-36.0); Mean Platelet Volume 10.2 fL (9.4-12.3); Platelet Count 371 K/uL (130-400); RDW Coefficient of Variation 13.2 % (11.5-14.5); RDW Standard Deviation 40.2 fL (36.4-46.3); Red Blood Count 4.68 M/uL (3.93-5.22); White Blood Count 18.97 K/ul (4.8-10.8)
[2022-06-25 08:14] LABS: BUN Creatinine Ratio 27.7 (10-20); Calcium 9.3 mg/dl (8.5-10.1); Creatinine Clr Calc Pharmacy 133.1 ml/min; Est GFR (Non-African American) 121.7 ml/min; Potassium 4.3 mmol/L (3.5-5.1)
[2022-06-25] MEDS: FAMOTIDINE 40 MG TABLET PO SCH ×2 (08:21→21:21)
[2022-06-25] MEDS: PRENATAL VITAMIN 1 TAB PO SCH (08:21)
[2022-06-25] MEDS: methylPREDNISolone 40 MG in SYRINGE 0 ML IV SCH (08:21)
--- NOTE | 2022-06-25 09:57 | Hospitalist Progress Note ---
Date of Service June 25, 2022 Assessment & Plan (1) Asthma exacerbation: Plan: Pneumonia due to respiratory syncytial virus (RSV) -Admit to the PCU -Patient is currently afebrile, hemodynamically stable, and stable on RA with saturation at 96% -Was diagnosed with RSV and possible left lower lobe pneumonia on 06/17, had been treated with a combination of Omnicef/doxycycline and then switched to Moxifloxacin 3 days prior to admission. Had also been on 60 mg PO prednisone daily since 06/17. Per pulmonology no pneumonia on imaging. -Patient has had no relief in her symptoms with outpatient treatment and use of home albuterol and budesonide, has multiple previous inpatient admissions for asthma exacerbation -Pulmonology following -Continue IV methylprednisolone 40mg (was decreased today to daily by pulmonary) -Continue with q4R DuoNeb treatments, incentive spirometry, hypertonic saline with flutter valve -Continue guaifenesin/codeine q hs prn for cough -Mucinex 600mg one q 12 hours as needed for congestion -Dr Cruz added Mucomyst yesterday -Continue home cetirizine and montelukast and famotidine -SCDs for DVT PPX -Procalcitonin, ESR and CRP all normal (2) RSV (acute bronchiolitis due to respiratory syncytial virus): Plan: -Continue droplet precautions -See above plan (3) GERD (gastroesophageal reflux disease): Plan: -Continue famotidine Plan The patient was discussed with Dr Ceja who assisted in the treatment and plan for this patient Admission and Anticipated Discharge Date Admission Date: June 22, 2022 Subjective Patient was seen today on rounds. Dr Cruz stated he wanted patient to stay one more day to adjust her inhaler medications. Patient states yesterday she tried the Mucomyst and she feels she did not notice any improvement or change in her breathing and congestion. She is going to get another treatment today. Patient denies any fevers, abdominal pain, nausea, vomiting. Review of Systems Review of Systems: Denies current fever, chills, headache, changes in vision, hearing, taste, and smell, chest pain,abdominal pain, nausea, vomiting, diarrhea, hematemesis, melena, dysuria, hematuria, and recent falls. All systems have been reviewed and are otherwise negative. Constitutional: + fatigue; no fever and no chills Eyes: no blind spots, no decreased night vision and no spots in vision Ear, Nose, Mouth, Throat: + nasal congestion, + sinus pain/pressure and + dry mouth; no dysphagia and no pain with swallowing Respiratory: + cough, + chest congestion and + wheezing; no hemoptysis and no pain on inspiration Cardiovascular: no chest pain, no dyspnea, no syncope, no edema and no calf pain Gastrointestinal: + heartburn; no nausea, no vomiting, no dysphagia, no constipation and no diarrhea/loose stools Integumentary: no rash, no lesions and no new lesions Physical Exam Constitutional: WD/WN, vitals as above ENMT: external ear and nose normal, oropharynx normal Neck: trachea midline, no thyromegaly Respiratory: normal respiratory effort, able to speak in complete sentences and symmetric chest movement; no respiratory distress, no labored breathing and no tripod positioning expiratory wheezes bilaterally but improving Cardiovascular: RRR, no murmur, no edema Gastrointestinal (Abdomen): normal bowel sounds, soft, nontender, no hepatosplenomegaly Skin: no rashes, warm and dry Results & Data Results & Data ([facility]) Vital Signs (Past 12 Hours) Vital Signs Temp Pulse Resp BP Pulse Ox O2 Del Method 06/25/22 08:08 36.9 C 65 17 98/59 L 96 Room Air 06/25/22 07:16 72 20 97 Room Air 06/24/22 23:19 59 L 18 99 Room Air 06/24/22 22:41 36.6 C 55 L 20 118/76 94 Room Air Laboratory Results Abnormal lab results 06/25/22 06/25/22 Range/Units 06:37 06:37 WBC 18.97 H (4.8-10.8) K/ul BUN/Creatinine Ratio 27.7 H (10-20) Glucose 107 H (70-99(Fasting)) mg/dl PG Care Time/CCT Total # of Minutes Spent Total Time Spent with Patient: Total time spent is greater than 50% in coordination of care (as documented) at patient's floor/unit and/or counseling patient: Coding Level of Care Code 64864 Subseq Hosp Care Lvl 3 Diagnoses Asthma exacerbation J45.901 RSV (acute bronchiolitis due to respiratory syncytial virus) J21.0 GERD (gastroesophageal reflux disease) K21.9 Time Spent (min) 20
[2022-06-25] MEDS: ACETYLCYSTEINE 20% INHAL SOLN 4ML ***DISPENSED BY RESP. INH SCH (11:10)
[2022-06-25] MEDS: guaiFENesin 600 MG TABCR PO PRN ×2 (11:22→23:25)
[2022-06-25] MEDS: MONTELUKAST SODIUM 10 MG TABLET PO SCH (21:21)
[2022-06-25] MEDS: CETIRIZINE HCL 10 MG TABLET PO SCH (21:21)
[2022-06-26] MEDS: ALBUT/IPRATROP 3MG/0.5MG NEB 3 ML VIAL NEB SCH ×3 (02:25→11:25)
[2022-06-26] MEDS: SODIUM CHLOR 7% 4 ML NEB NEB SCH (07:06)
[2022-06-26] MEDS: BUDESONIDE 0.5 MG/2 ML VIAL (PULMICORT) NEB SCH (07:06)
[2022-06-26] MEDS: FORMOTEROL 20 MCG/2 ML VIAL INH SCH (07:06)
[2022-06-26] MEDS: FAMOTIDINE 40 MG TABLET PO SCH (08:11)
[2022-06-26] MEDS ORDERED: methylPREDNISolone 40 MG in SYRINGE 0 ML IV SCH (09:00)
[2022-06-26] MEDS: PRENATAL VITAMIN 1 TAB PO SCH (10:11)
[2022-06-26] MEDS: guaiFENesin 600 MG TABCR PO PRN (12:00)
--- NOTE | 2022-06-26 12:16 | Discharge Summary ---
Date of Service June 26, 2022 Admission HPI Per Admitting Provider Eloise is a 26 year old female with a PMH significant for Asthma requiring hospitalizations for frequent exacerbations, anxiety, HTN, GERD, and depression who presented to the [facility] ED on 06/22/22 at the recommendation of her PCP for continued SOB and cough for known RSV infection and possible bacterial pneumonia. In the ED the patient was found to be afebrile, hemodynamically stable, and stable on RA. Labs were remarkable for a leukocytosis of 15.12 with left shift of 11.38, stable Hgb, stable renal function and electrolytes, AST of 12 otherwise normal liver function. Chest xray was negative for acute findings. Prior to admission the patient was given a 10 mg albuterol nebulizer treatment. Per chart review, the patient had been found to be RSV positive on 06/17/22, xray obtained outpatient that same day showed mild left basilar opacities which could be atelectasis vs pneumonia. She was started on Omnicef plus doxycycline and prednisone. She called her PCP today as her symptoms have not improved on the initial treatment. At that time it was recommended that she be evaluated in the ED as she has required multiple previous admissions for asthma exacerbations. At the time of the exam the patient was sitting in bed currently receiving a one hour albuterol nebulized treatment and was in no acute distress. The patient was able to speak in complete sentences during my exam but was coughing freque ntly. She states that after starting treatment with initial antibiotics and prednisone she did not have relief. The patient knows her asthma well and is concerned that she will continue to decompensate as outpatient therapy has failed. The patient was switched from her initial regimen of Omnicef and doxycycline to Moxifloxacin three days ago but her symptoms have not improved. She has had a non-productive cough since her symptoms started and has been using her hole albuterol and budesonide nebulizers (q2-4h) without relief. She has had poor oral intake over the past week due to her respiratory symptoms but has been trying to drink lots of Pedialyte and water to try and stay hydrated. She denies recent fevers, chills, lightheadedness, dizziness, chest pain, nausea, vomiting, diarrhea, dysuria, hematuria, melena, lower extremity swelling, and recent falls. She states that since her she was seen by an client technical specialist and no longer has an egg or lactulose allergy. Please refer to Dr. Maher's attestation for any changes to the treatment plan Admission Exam Per Admitting Provider General:In no acute distress, stated age, well-nourished, good hygiene, non- toxic appearing HEENT:Normocephalic, atraumatic, no scleral icterus, currently with non- rebreather in place for nebulizer treatment, pupils around round, symmetrical, and reactive to light, dry mucus membranes, trachea midline, no thyromegaly Chest/Pulm:No respiratory distress, currently tachypneic but without accessory muscle use, able to speak in complete sentences, symmetrical chest expansion, expiratory wheezing noted throughout Cardiac:tachycardic rate, regular rhythm, no murmurs noted Abdomen:Negative for ascites and bruising, normoactive bowel sounds, soft, non-tender to palpation throughout Musculoskeletal:Symmetrical and without signs of acute trauma, upper and lower extremities with full ROM, no atrophy, spasticity, or flaccidity Extremities:Radial, dorsalis pedis, and posterior tibial pulses are intact and symmetrical, no edema noted in the BL LE's Skin:Warm, dry, no rashes , lesions, or scars noted Neuro:Alert and oriented to person, place, month, year, and president, no focal defects, CN II-XII tested and intact, finger to nose test negative, no tremors noted Psych:No acute distress, calm and cooperative during the exam Principal Diagnosis RSV and asthma Discharge Exam Constitutional WD/WN, vitals as above ENMT external ear and nose normal, oropharynx normal Neck trachea midline, no thyromegaly Respiratory normal respiratory effort, + cough, able to speak in complete sentences, + prolonged expiratory phase, + audible wheezes and symmetric chest movement; no respiratory distress, no labored breathing and no tripod positioning Cardiovascular RRR, no murmur, no edema Gastrointestinal (Abdomen) normal bowel sounds, soft, nontender, no hepatosplenomegaly Skin no rashes, warm and dry Discharge Data Allergies Allergy/AdvReac Type Severity Reaction Status Date / Time amoxicillin Allergy Severe THROAT Verified 01/18/22 14:04 TIGHTNESS/FELT FUNNY bee venom protein (honey bee) Allergy Severe ANAPHYLAXIS Verified 01/18/22 14:04 clavulanic acid Allergy Severe THROAT Verified 01/18/22 14:04 TIGHTNESS/FELT FUNNY Penicillins Allergy Severe ANAPHYLAXIS Verified 01/18/22 14:04 adhesive Allergy Intermediate skin Verified 01/18/22 14:04 irritation, hives, rash bacitracin Allergy Unknown POSITIVE Verified 01/18/22 14:04 ALLERGY TEST neomycin Allergy Unknown POSITIVE Verified 01/18/22 14:04 ALLERGY TEST nickel Allergy Unknown POSITIVE Verified 01/18/22 14:04 ALLERGY TEST paraben Allergy Unknown POSITIVE Verified 01/18/22 14:04 ALLERGY TEST Consultations 06/22/22 19:25 ED Decision to Admit Stat 06/22/22 22:00 Consult Pulmonology Routine Hospital Course (1) Asthma exacerbation: Exacerbation due to respiratory syncytial virus (RSV) -Admit to the PCU -Patient is currently afebrile, hemodynamically stable, and stable on RA with saturation at 99% -Was diagnosed with RSV and possible left lower lobe pneumonia on 06/17, had been treated with a combination of Omnicef/doxycycline and then switched to Moxifloxacin 3 days prior to admission. Had also been on 60 mg PO prednisone daily since 06/17. Per pulmonology no pneumonia on imaging. -Patient has had no relief in her symptoms with outpatient treatment and use of home albuterol and budesonide, has multiple previous inpatient admissions for asthma exacerbation -Pulmonology following -Continue IV methylprednisolone 40mg (was decreased today to daily by pulmonary) -Continue with q4R DuoNeb treatments, incentive spirometry, hypertonic saline with flutter valve -Continue guaifenesin/codeine q hs prn for cough -Mucinex 600mg one q 12 hours as needed for congestion -Dr Cruz tried Mucomyst without any improvement and patient stopped -Continued home cetirizine and montelukast and famotidine -SCDs for DVT PPX -Procalcitonin, ESR and CRP all normal (2) RSV (acute bronchiolitis due to respiratory syncytial virus): -Continue droplet precautions -See above plan (3) GERD (gastroesophageal reflux disease): -Continue famotidine Plan The patient was discussed with Dr Ceja who assisted in the treatment and plan for this patient Total Time Total Time Spent Total Time Spent (In Minutes): 35 Discharge Plan Discharge Items Patient Disposition: Home - Self-Care Reason For Visit: asthma exacerbation Discharge Diagnosis: RSV and asthma exacerbation Activity: Resume your previous activity Driving/Machine Use: Resume 1 day after discharge Weightbearing: Full weightbearing Non-emergency contact: Primary Care Provider Call non-emergency contact if: you have any medication questions and your temperature is above 101.5 Follow-up/Referrals: Alaina Gonzalez MD [Primary Care Provider] - 06/27/22 10:45 am Diet: Regular Addtl Attending Provider Instructions: You were admitted with RSV and asthma exacerbation. When your were initially evaluated there were concerns for pneumonia but CXR images revealed no evidence of any pneumonia. Pulmonology was consulted and added hypertonic saline, flutter valve and Brovana and budesonide nebulizer treatments. You were trialed on Mucomyst and did not seem to have any improvement with these treatments and thus were stopped. Pulmonology recommended for you to follow up with your PCP/client technical specialist. They also recommended a Prednisone taper of 40 mg daily for 3 days (starting tomorrow 06/27/2022 then 20mg for 4 days and then stop. You should call Dr Swanson for any increase or worsening of symptoms, fevers or medication questions. Pending Studies at Discharge: No Stand-Alone Forms: My [facility] Medications and DC Order Prescriptions: New budesonide 0.5 mg/2 mL Suspension For Nebulization 0.5 mg NEB BIDR Qty: 60 0RF sodium chloride 7 % Solution For Nebulization 4 ml NEB BIDR Qty: 60 0RF formoterol fumarate [Perforomist] 20 mcg/2 mL Solution For Nebulization 20 mcg inhalation BIDR Qty: 60 0RF prednisone 10 mg tablets,dose pack 10 mg PO DAILY Qty: 18 0RF Rx Instructions: Take 40mg (4 pills) prednisone x 3 days starting 06/27/22 then 20mg (2 pills) for 3 days and stop Continued famotidine 40 mg tablet 40 mg PO BID Qty: 180 6RF epinephrine 0.3 mg/0.3 mL auto-injector 0.3 mg IM UD PRN (Reason: Allergic Reaction) Qty: 1 3RF albuterol sulfate 1.25 mg/3 mL solution for nebulization 1.25 mg inhalation QID PRN (Reason: Shortness Of Breath Or Wheezing) Qty: 90 3RF Align 4 mg capsule 4 mg PO QAM Vitamin B-2 25 mg Tablet 25 mg PO DAILY PNV cmb#[id number]-[id number] fumarate-FA [] 28 mg iron- 800 mcg Tablet 1 tab PO DAILY magnesium oxide 400 mg magnesium Tablet 400 mg PO DAILY cetirizine 10 mg tablet 10 mg PO DAILY Rx Instructions: TAKE 1 TABLET BY MOUTH EVERYDAY AT BEDTIME montelukast 10 mg tablet 10 mg PO HS Rx Instructions: TAKE 1 TABLET BY MOUTH AT BEDTIME Discontinued moxifloxacin 400 mg tablet 400 mg PO DAILY Qty: 14 0RF prednisone 10 mg tablet See Rx Instructions PO .COMPLEX Qty: 60 0RF Rx Instructions: 60mg x 5 days, 50mg x 2days, 40mg x 2days, 30mg x2days, 20mg x 2day, 10mg x 2day budesonide 1 mg/2 mL suspension for nebulization 1 mg inhalation DIRECTED albuterol sulfate [Ventolin HFA] 90 mcg/actuation HFA aerosol inhaler 2 puff INHALATION Q6H PRN (Reason: Shortness Of Breath Or Wheezing) Qty: 18 3RF prednisone 10 mg tablet 10 mg PO DAILY Qty: 42 0RF Rx Instructions: 60 mg po x2d, then 50 mg qd x2d, then 40 mg qd x2d, then 30 mg qd x2d, then 20 mg qd x2d, then 10 mg qd x2d doxycycline hyclate 100 mg capsule 100 mg PO BID 7 Days Qty: 14 0RF cefdinir 300 mg capsule 300 mg PO BID 7 Days Qty: 14 0RF Discharge Orders: Discharge Order (Routine); Ordered 06/26/22 Ordered By: Ángela Horner Admission Data Admit Date/Time: 06/22/22 19:41 Attending Provider: Gomez Ceja Admit Provider: Cleopatra Maher Primary Care Provider: Alaina Gonzalez Other Providers: Cleopatra Maher ; Martin Shore ; Roland Hicks ; Kee Hernandez ; Vee Cruz ; Janina Aviles Other Interventions: Discharge Summary Assessment (RN) Last Done: 06/26/22 12:50 Supervising Physician Co-Signing Physician Notes Patient was discharged and left the building before being seen by me. Plan of care discussed with MATY Horner. I reviewed above note and agree with it. Coding Level of Care Code D/C DAY MANAGEMENT >30 MINS Diagnoses Asthma exacerbation J45.901 RSV (acute bronchiolitis due to respiratory syncytial virus) J21.0 GERD (gastroesophageal reflux disease) K21.9 Time Spent (min) 35
== END 2022-06-26 13:09 | disposition home or self-care (01) | DRG 202 ==
LOC: ED 14:08 → 4W 19:41 → SUATTDRO 19:41 → 4W 21:07